=== PATIENT | female | born 1940 | race Caucasian/White ===

== ENCOUNTER → 2016-10-04 | Outpatient (REF) | payer OTHER ==
[~2016-10-04] MED LIST: /MOM400 PO; /PANT40TA PO; /WARF2TA PO; /WARF4TA PO; AMOX500T PO; ATEN25TA PO; BIAX500T PO; CARA1SUS PO; DIGO0.126 OR; FIBER TABS PO; INHALER INH; KLOR20TA PO; LASI40TA PO; NEXI20CA PO; SIMV10TA2 PO; STOOL SOFTENER PO; TYLE325T5 PO; VITA500C24 PO; VITAD1000T PO
[2016-10-04 11:39] LABS: BASO % 0.6 % (0.0-1.0); EOS # 0.2 K/mm3 (0.0-0.50); EOS % 3.6 % (0.0-3.0); LARGE UNSTAINED CELL # 0.1 K/mm3 (0.0-0.4); LARGE UNSTAINED CELL % 2.3 % (0.0-4.0); LYMPH # 1.3 K/mm3 (1.5-4.5); LYMPH % 22.1 % (24.0-44.0); MEAN CORPUSCULAR HEMOGLOBIN 29.4 pg (27.0-33.0); MEAN CORPUSCULAR HGB CONC 31.9 g/dl (32.0-36.5); MEAN CORPUSCULAR VOLUME 92.1 fl (80.0-96.0); MONO # 0.3 K/mm3 (0.0-0.8); MONO % 5.3 % (0.0-5.0); NEUTROPHILS % 66.1 % (36.0-66.0); PLATELET COUNT, AUTOMATED 171 k/mm3 (150-450); RED CELL DISTRIBUTION WIDTH 13.9 % (11.5-14.5)
[2016-10-04 12:14] LABS: ALBUMIN 3.7 GM/DL (3.2-5.2); ALBUMIN/GLOBULIN RATIO 1.32 (1.00-1.93); ALKALINE PHOSPHATASE 57 U/L (45-117); ALT/SGPT 13 U/L (12-78); ANION GAP 5 MEQ/L (8-16); AST/SGOT 11 U/L (15-37); BILIRUBIN,TOTAL 0.5 MG/DL (0.2-1.0); BLOOD UREA NITROGEN 8 MG/DL (7-18); CALCIUM LEVEL 9.1 MG/DL (8.8-10.2); CARBON DIOXIDE LEVEL 31 MEQ/L (21-32); CHLORIDE LEVEL 104 MEQ/L (98-107); CHOLESTEROL LEVEL 176 MG/DL (<200); CREATININE FOR GFR 0.86 MG/DL (0.55-1.02); GLOMERULAR FILTRATION RATE > 60.0 (>39); GLUCOSE, FASTING 84 MG/DL (83-110); POTASSIUM SERUM 4.3 MEQ/L (3.5-5.1); SODIUM LEVEL 140 MEQ/L (136-145); TOTAL PROTEIN 6.5 GM/DL (6.4-8.2); TRIGLYCERIDES LEVEL 80 MG/DL (<150)
== END ==
LOC: M LABDRAW1 11:06
PROVIDERS: ATTEND Nurse Practitioner Family
DX: J45.998 Other asthma (principal); E78.5 Hyperlipidemia, unspecified; K21.9 Gastro-esophageal reflux disease without esophagitis; I51.7 Cardiomegaly

== ENCOUNTER → 2016-12-01 | Outpatient (REF) | payer OTHER ==
[2016-12-01 12:51] LABS: ANION GAP 6 MEQ/L (8-16); BLOOD UREA NITROGEN 10 MG/DL (7-18); CALCIUM LEVEL 8.7 MG/DL (8.8-10.2); CARBON DIOXIDE LEVEL 29 MEQ/L (21-32); CHLORIDE LEVEL 104 MEQ/L (98-107); CREATININE FOR GFR 0.83 MG/DL (0.55-1.02); GLOMERULAR FILTRATION RATE > 60.0 (>39); GLUCOSE, FASTING 81 MG/DL (83-110); SODIUM LEVEL 139 MEQ/L (136-145)
== END ==
LOC: M LABDRAW1 11:59
PROVIDERS: ATTEND Nurse Practitioner Family
DX: R41.3 Other amnesia (principal)

== ENCOUNTER → 2017-01-12 | Outpatient (REF) | payer OTHER ==
[~2017-01-12] MED LIST changes: +ALBU17IN INH; +ALLO15TA PO; +CALCTAB28 PO; +CETI10TA PO; +FLUT44IN INH; +FURO20TA2 PO; +MAGICMW SSP; +MIRA3350 PO; +MONT10TA2 PO; +ONDA8TAB7 PO; +PANT40TA2 PO; +PEG1POW PO; +PRED50TA PO; +PROC10TA PO; +SIMV20TA2 PO; +VITA100066 PO; +ZYLO300T4 PO
[2017-01-12 14:19] LABS: BASO # 0.1 K/mm3 (0.0-0.2); BASO % 0.8 % (0.0-1.0); EOS # 0.2 K/mm3 (0.0-0.50); EOS % 2.9 % (0.0-3.0); LARGE UNSTAINED CELL # 0.2 K/mm3 (0.0-0.4); LARGE UNSTAINED CELL % 2.3 % (0.0-4.0); LYMPH # 2.6 K/mm3 (1.5-4.5); LYMPH % 29.1 % (24.0-44.0); MEAN CORPUSCULAR HEMOGLOBIN 30.4 pg (27.0-33.0); MEAN CORPUSCULAR HGB CONC 32.1 g/dl (32.0-36.5); MEAN CORPUSCULAR VOLUME 94.6 fl (80.0-96.0); MONO # 0.4 K/mm3 (0.0-0.8); MONO % 5.1 % (0.0-5.0); NEUTROPHILS # 4.9 K/mm3 (1.8-7.7); NEUTROPHILS % 59.9 % (36.0-66.0); PLATELET COUNT, AUTOMATED 139 k/mm3 (150-450); RED CELL DISTRIBUTION WIDTH 14.1 % (11.5-14.5); WHITE BLOOD COUNT 8.2 K/mm3 (4.0-10.0)
[2017-01-12 14:34] LABS: FOLATE 10.3 NG/ML (>5.4); VITAMIN B12 LEVEL 534 PG/ML (247-911)
[2017-01-12 15:13] LABS: ALBUMIN 3.7 GM/DL (3.2-5.2); ALBUMIN/GLOBULIN RATIO 1.37 (1.00-1.93); ALKALINE PHOSPHATASE 60 U/L (45-117); ALT/SGPT 14 U/L (12-78); ANION GAP 9 MEQ/L (8-16); AST/SGOT 11 U/L (15-37); BILIRUBIN,TOTAL 0.6 MG/DL (0.2-1.0); BLOOD UREA NITROGEN 11 MG/DL (7-18); CALCIUM LEVEL 9.2 MG/DL (8.8-10.2); CARBON DIOXIDE LEVEL 27 MEQ/L (21-32); CHLORIDE LEVEL 100 MEQ/L (98-107); CREATININE FOR GFR 0.85 MG/DL (0.55-1.02); FREE T4 1.25 NG/DL (0.76-1.46); GLOMERULAR FILTRATION RATE > 60.0 (>39); GLUCOSE, FASTING 76 MG/DL (83-110); PERCENT SATURATION 17.4 % (13.2-37.4); POTASSIUM SERUM 3.9 MEQ/L (3.5-5.1); SODIUM LEVEL 136 MEQ/L (136-145); TOTAL IRON BINDING CAPACITY 287 UG/DL (250-450); TOTAL PROTEIN 6.4 GM/DL (6.4-8.2)
== END ==
LOC: M SFHCPLAZ 10:16
PROVIDERS: ATTEND Nurse Practitioner Family
DX: J45.998 Other asthma (principal); I51.7 Cardiomegaly; E78.5 Hyperlipidemia, unspecified; E55.9 Vitamin D deficiency, unspecified; K21.9 Gastro-esophageal reflux disease without esophagitis; D64.9 Anemia, unspecified; R41.3 Other amnesia
CPT/HCPCS: 80053; 82607; 82746; 83550; 84439; 84443; 85025; G0463

== ENCOUNTER → 2017-01-31 | Outpatient (REF) | payer OTHER ==
[2017-01-31 14:45] LABS: BASO % 0.5 % (0.0-1.0); EOS # 0.3 K/mm3 (0.0-0.50); EOS % 3.6 % (0.0-3.0); LARGE UNSTAINED CELL # 0.2 K/mm3 (0.0-0.4); LARGE UNSTAINED CELL % 2.6 % (0.0-4.0); LYMPH # 3.3 K/mm3 (1.5-4.5); LYMPH % 37.1 % (24.0-44.0); MEAN CORPUSCULAR HEMOGLOBIN 30.6 pg (27.0-33.0); MEAN CORPUSCULAR HGB CONC 32.4 g/dl (32.0-36.5); MEAN CORPUSCULAR VOLUME 94.4 fl (80.0-96.0); MONO # 0.5 K/mm3 (0.0-0.8); MONO % 6.5 % (0.0-5.0); NEUTROPHILS # 4.1 K/mm3 (1.8-7.7); NEUTROPHILS % 49.7 % (36.0-66.0); PLATELET COUNT, AUTOMATED 137 k/mm3 (150-450); RED CELL DISTRIBUTION WIDTH 14.1 % (11.5-14.5); VITAMIN B12 LEVEL 704 PG/ML (247-911); WHITE BLOOD COUNT 8.2 K/mm3 (4.0-10.0)
[2017-01-31 15:03] LABS: ALBUMIN 3.5 GM/DL (3.2-5.2); ALBUMIN/GLOBULIN RATIO 1.35 (1.00-1.93); ALKALINE PHOSPHATASE 61 U/L (45-117); ALT/SGPT 17 U/L (12-78); ANION GAP 6 MEQ/L (8-16); AST/SGOT 16 U/L (15-37); BILIRUBIN,TOTAL 0.7 MG/DL (0.2-1.0); BLOOD UREA NITROGEN 6 MG/DL (7-18); CALCIUM LEVEL 8.9 MG/DL (8.8-10.2); CARBON DIOXIDE LEVEL 29 MEQ/L (21-32); CHLORIDE LEVEL 104 MEQ/L (98-107); CREATININE FOR GFR 0.74 MG/DL (0.55-1.02); GLOMERULAR FILTRATION RATE > 60.0 (>39); GLUCOSE, FASTING 78 MG/DL (83-110); POTASSIUM SERUM 4.3 MEQ/L (3.5-5.1); SODIUM LEVEL 139 MEQ/L (136-145); TOTAL PROTEIN 6.1 GM/DL (6.4-8.2)
[2017-01-31 15:53] LABS: ERYTHROCYTE SEDIMENTATION RATE 7 mm/hr (0-30)
[2017-02-02 10:28] LABS: ALBUMIN 3.67 GM/DL (3.29-5.55); ALBUMIN % 60.2 % (55.8-66.1)
[2017-02-02 10:29] LABS: GAMMA GLOBULIN % 12.3 % (11.1-18.8)
[2017-02-06 08:09] LABS: SJOGREN'S ANTI SS-A <0.2 AI (0.0-0.9); SJOGREN'S ANTI SS-B 0.5 AI (0.0-0.9); VITAMIN E LEVEL 13.9 mg/L (6.5-21.5)
== END ==
LOC: M LABNEURO 10:57
PROVIDERS: ATTEND Psychiatry & Neurology Neurology
DX: F09 Unspecified mental disorder due to known physiological condition (principal)

== ENCOUNTER → 2017-02-09 | Outpatient (REF) | payer OTHER ==
[2017-02-09 13:26] LABS: ANION GAP 5 MEQ/L (8-16); BLOOD UREA NITROGEN 9 MG/DL (7-18); CALCIUM LEVEL 9.2 MG/DL (8.8-10.2); CARBON DIOXIDE LEVEL 31 MEQ/L (21-32); CHLORIDE LEVEL 100 MEQ/L (98-107); CREATININE FOR GFR 0.82 MG/DL (0.55-1.02); GLOMERULAR FILTRATION RATE > 60.0 (>39); GLUCOSE, FASTING 88 MG/DL (83-110); POTASSIUM SERUM 4.6 MEQ/L (3.5-5.1); SODIUM LEVEL 136 MEQ/L (136-145)
== END ==
LOC: M LABNEURO 09:58
PROVIDERS: ATTEND Nurse Practitioner Family
DX: J90 Pleural effusion, not elsewhere classified (principal)

== ENCOUNTER 2017-02-14 12:13 | Inpatient (IN) | payer OTHER, MEDICARE ==
[2017-02-14] VITALS (29 sets, daily range): BP systolic 82–152; BP diastolic 50–72
[~2017-02-14] VITALS: Ht 160 cm; Wt 47.7 kg
[~2017-02-14 12:13] MED LIST changes: -ALBU17IN INH; -ALLO15TA PO; -CALCTAB28 PO; -CETI10TA PO; -FLUT44IN INH; -FURO20TA2 PO; -MAGICMW SSP; -MIRA3350 PO; -MONT10TA2 PO; -ONDA8TAB7 PO; -PANT40TA2 PO; -PEG1POW PO; -PRED50TA PO; -PROC10TA PO; -SIMV20TA2 PO; -VITA100066 PO; -ZYLO300T4 PO
[2017-02-14] MEDS ORDERED: BISACODYL 10 MG SUPP PR PRN (13:00)
[2017-02-14] MEDS ORDERED: BISACODYL 5 MG TAB PO PRN (13:00)
[2017-02-14] MEDS ORDERED: ONDANSETRON 4 MG TAB (S0181) PO PRN (13:00)
--- NOTE | 2017-02-14 14:45 | HPE ---
DATE OF ADMISSION: 02/14/2017 This is a 76-year-old female who was brought into the office at my request secondary to significant dyspnea witnessed by nursing staff today with oxygen saturations in the mid 80% range. Patient has been in the process of a workup for metastatic disease. She has been having some ongoing weight loss, early satiety, constipation, and new onset of dyspnea with orthopnea and difficulty laying flat at night. CT abdomen/pelvis demonstrated bilateral pleural effusions along with intra-abdominal, intraperitoneal, and intrapelvic adenopathy with splenomegaly. Multiple liver lesions also noted along with some mild ascites. CT chest was obtained. Results obtained today. This demonstrates large bilateral pleural effusions, as seen on CT abdomen, similar in size compared to prior study. Also noted, adjacent consolidation in the lungs and significant adenopathy is appreciated, specifically, in the axillary regions, left supraclavicular region, mediastinum, and cardiophrenic angles. Today, patient complains of progressive dyspnea, significant weakness. 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 PAST MEDICAL HISTORY: Significant for; 1. Hypercholesterolemia. 2. Chronic constipation. 3. Internal hemorrhoids. 4. Asthma. 5. Gastritis with duodenal ulcer. 6. Hiatal hernia. 7. Moderate to early advanced multilevel degenerative disc disease to the lumbosacral (LS) spine. 8. Patient has repeatedly declined mammogram screening. PAST SURGICAL HISTORY: 1. Hysterectomy in 1976. 2. Colonoscopy with Dr. Berrios with note of internal hemorrhoids in 07/2011. 3. Esophagogastroduodenoscopy (EGD) with Dr. Berrios which noted a duodenal ulcer and gastritis in 12/2012. 4. Bilateral cataract extraction by Dr. Coleman in 2016. FAMILY HISTORY: Father at 87 years of age due to leukemia. Mother at 90 years of age with heart disease. Siblings: She has a sister due to Raynaud's at age 28. She has three brothers with no known medical problem. Patient has a daughter who has significant MR and does live with her. Other daughters have history of hypothyroidism and diabetes. SOCIAL HISTORY: Patient lives alone with her developmentally-delayed daughter. She does have support by her other children of which her daughter, Marlene Otero, has been present the last several appointments and is assisting patient with her needs. Patient is a nonsmoker. Quit smoking well over 10 years ago. States she simply smoked socially as a teenager. Denies alcohol. Denies drug use. Drinks one small cup of coffee each morning and an occasional tea. Is not sexually active. 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 ALLERGIES: Include, CIPRO which causes stomach upset. Most recent labs toady show some hypoglycemia a fasting blood sugar of 74, BUN 9, creatinine 0.77, GFR above 60. She has a sodium level of 135 which is lower for patient. Potassium stable at 4.5. Patient had a PT/INR completed today in anticipation of biopsies of the liver mass along with inguinal nodes, INR 1.00, prothrombin time is 13.3. REVIEW OF SYSTEMS: GENERAL: Patient does complain of malaise, fatigue, weight loss, and overall feeling poorly. CARDIOVASCULAR: Does admit to dyspnea with exertion. Does admit to orthopnea. Denies chest pain or heart palpitations. PULMONOLOGY: Admits to orthopnea, shortness of breath, dyspnea with exertion. GASTROINTESTINAL: Admits to significant constipation, abdominal discomfort, early satiety without nausea or vomiting. NEUROLOGY: Patient has had some significant issues with memory changes recently. MRI was completed 10/2016. Shows extensive deep white matter signal hyperintensities consistent with deep white matter ischemic changes. Patient was subsequently sent to neurology and is in the process of further testing with Dr. Natty Partida. FEMALE REPRODUCTIVE: Patient denies breast lumps, discharge, pain, or tenderness. HEENT: Denies headaches, visual disturbance, diplopia, tinnitus, or hearing loss. UROLOGY: Patient denies any urologic symptoms. Denies urgency, frequency, pain, or hesitation. On physical exam; Weight today is 112 pounds, which is down 1 pound from her prior visit 5 days ago. Blood pressure 114/64, heart rate 90, respiratory rate 18, temperature 98.8, oxygen saturation 90% at rest, 86% with exertion with an elevated heart rate into the upper 90s. GENERAL: Patient is sitting and resting comfortably. She is ill appearing. She is very thin. Answers questions appropriately. Is alert and oriented. HEENT: Neck is supple without palpable lymphadenopathy or jugular venous distention (JVD). CARDIOVASCULAR: Heart rate and rhythm are regular. PULMONARY: Lungs are diminished bilaterally to the mid lung. She is clear in the upper lung range. ABDOMEN: Is mildly distended. Tender on palpation throughout. Positive bowel sounds times all four quadrants. Bilateral lower extremities are without any edema. ASSESSMENT: 1. Large bilateral pleural effusions. 2. Hypoxia. 3. Dyspnea. 4. Presumed metastatic disease with no known primary. 5. Gastroesophageal reflux disease (GERD). 6. Chronic constipation. 7. History of asthma. 8. History of gastritis with duodenal ulcer. 9. Hiatal hernia. PLAN: Patient will be admitted to medical/surgical. We anticipate at least two midnights of admission. Consults have been placed for thoracentesis as well as biopsy of liver metastasis and lymphadenopathy that the interventional radiologist is able to reach. Diet is as tolerated. Activity is out of bed with assist. We will obtain abdominal imaging today secondary to patient's complaints of constipation and fullness. Anticoagulation was not ordered today with the anticipation that patient will have thoracentesis in the very near future. We will continue with thromboembolism deterrents (TEDs) and sequential compression devices (SCDs). Oxygen will be placed, 2 liters nasal cannula to maintain oxygen saturations well above 90%. Echocardiogram has also been ordered. vice president of consulting services has been ordered secondary to patient's disease process and potential for poor outcome. Will evaluate complete blood count (CBC), CMP, and a magnesium level today. We did add on Aldactone on top of furosemide to assist with the pleural effusion and volume overload. Intake and output (I and O) will be maintained, and patient will be weighed daily. Patient's case has been discussed with attending, Dr. Oliver Schmidt. He is in agreement with admission and will evaluate patient today.
[2017-02-14 15:16] LABS: ALBUMIN 3.5 GM/DL (3.2-5.2); ALBUMIN/GLOBULIN RATIO 1.09 (1.00-1.93); ALKALINE PHOSPHATASE 81 U/L (45-117); ALT/SGPT 19 U/L (12-78); ANION GAP 10 MEQ/L (8-16); AST/SGOT 14 U/L (15-37); BILIRUBIN,TOTAL 0.7 MG/DL (0.2-1.0); BLOOD UREA NITROGEN 9 MG/DL (7-18); CARBON DIOXIDE LEVEL 32 MEQ/L (21-32); CHLORIDE LEVEL 96 MEQ/L (98-107); CREATININE FOR GFR 0.82 MG/DL (0.55-1.02); GLOMERULAR FILTRATION RATE > 60.0 (>39); GLUCOSE, FASTING 84 MG/DL (83-110); MAGNESIUM LEVEL 2.1 MG/DL (1.8-2.4); POTASSIUM SERUM 3.9 MEQ/L (3.5-5.1); SODIUM LEVEL 138 MEQ/L (136-145); TOTAL PROTEIN 6.7 GM/DL (6.4-8.2)
[2017-02-14 15:19] LABS: BASO % 0.5 % (0.0-1.0); EOS # 0.1 K/mm3 (0.0-0.50); EOS % 1.3 % (0.0-3.0); LARGE UNSTAINED CELL # 0.2 K/mm3 (0.0-0.4); LARGE UNSTAINED CELL % 2.2 % (0.0-4.0); LYMPH # 3.3 K/mm3 (1.5-4.5); LYMPH % 30.9 % (24.0-44.0); MEAN CORPUSCULAR HEMOGLOBIN 30.5 pg (27.0-33.0); MEAN CORPUSCULAR VOLUME 92.3 fl (80.0-96.0); MONO # 0.5 K/mm3 (0.0-0.8); MONO % 5.3 % (0.0-5.0); NEUTROPHILS % 59.8 % (36.0-66.0); PLATELET COUNT, AUTOMATED 160 k/mm3 (150-450); RED CELL DISTRIBUTION WIDTH 14.2 % (11.5-14.5); WHITE BLOOD COUNT 10.1 K/mm3 (4.0-10.0)
--- NOTE | 2017-02-14 15:28 | REP ---
KUB, TWO VIEWS: HISTORY: Constipation. A small amount of contrast material is present in the right renal collecting system and urinary bladder. A small amount of air is present in small and large intestine. There are no air fluid levels or dilated loops of intestine. There is no pneumoperitoneum. A mild amount of stool is present in the colon. IMPRESSION: Nonspecific bowel gas pattern. Signed by Joseph Jade MD 02/14/2017 03:29 P
[2017-02-14] MEDS ORDERED: MIDAZOLAM INJ 2 MG/2 ML VIAL (J2250) As Ordered ONE ×2 (16:41→16:42)
[2017-02-14] MEDS ORDERED: FLUMAZENIL 0.5 MG/5 ML VIAL As Ordered ONE (16:41)
[2017-02-14] MEDS ORDERED: LIDOCAINE 1% MDV 20ML VIAL As Ordered ONE (16:42)
[2017-02-14] MEDS: NS 1,000 ML IV SCH (18:14)
[2017-02-14] MEDS ORDERED: NORCO, ANEXSIA 5/325MG TABLET (HYDROcodone/ACETAMINOPHEN) PO PRN (18:15)
[2017-02-14] MEDS ORDERED: PERCOCET 5MG/325MG TAB PO PRN ×2 (18:15)
[2017-02-14] MEDS ORDERED: LEVALBUTEROL 1.25 MG/0.5 ML CONCENTRATE NEB NEB PRN (18:15)
[2017-02-14] MEDS ORDERED: FLUMAZENIL 0.5 MG/5 ML VIAL IV STA (18:18)
--- NOTE | 2017-02-14 18:24 | CR ---
DATE OF CONSULTATION: 02/14/2017 Patient is seen at the request of Dr. Schmidt and Dr. Lockett of Radiology for bilateral pleural effusions and shortness of breath. HISTORY OF PRESENT ILLNESS: Patient is a 76-year-old white female who was admitted to the hospital today from the office. Her present story starts about 1 month ago when she started to notice that she was getting more and more short of breath. Shortness of breath has continued. She has difficulty even getting around her house. She has been sleeping in the recliner for the last one year but for social reasons that she has a special needs daughter whom she keeps an eye on at night to help her use the bathroom. None the less, she now states that she gets short of breath just lying down and over the last month. Her shortness of breath has been accompanied by a cough with white sputum production. She has had no fevers, chills, or sweats and she has had no night swats. She has lost approximately 3-5 of weight in the past month. She has had constipation and produces just "nuggets" when she moves her bowels. This too has been going on about a month. She complains of abdominal pain the last month, particularly in her left upper quadrant. When she eats she has pain in the left upper quadrant. She has no chest pain or chest discomfort and she has never had a myocardial infarction. PAST MEDICAL ILLNESSES: Asthma with a history of duodenal ulcer, treated nonoperatively, hiatal hernia, degenerative disc disease, hypercholesterolemia and the above note chronic constipation. PAST SURGICAL HISTORY: Hysterectomy 1996, colonoscopy with Dr. Berrios 07/2011, and a esophagogastroduodenoscopy with Dr. Berrios noted duodenal ulcer and gastritis in 12/2012. Bilateral cataract extraction 2015. MEDICATIONS AT HOME: - amoxicillin 500 mg twice a day - Carafate 1 gram four times a day - Biaxin 500 mg twice a day - Milk of Magnesia 1 teaspoon at bedtime - Protonix 40 mg twice a day - simvastatin 10 mg at bedtime - vitamin C 500 mg daily - vitamin D 1,000 unit daily - unknown inhaler which I will find out later on - Tylenol 325 mg as needed for pain every 4 hours TRAVEL HISTORY: No travel history outside [facility]. She was born, raised and educated in [place] [facility] and has not left the area. There is no foreign travel. EXPOSURES: No present dog, cats, or birds at home. No prior tuberculosis exposure. 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 There is no asbestos exposure. HABITS: Does not smoke and does not drink. Did smoke for a years when she was a teenager but quit after a couple of years. There is no illicit drugs. FAMILY HISTORY: Father of leukemia and mother at 90 years of with some type of heart disease and heart murmur. No other history of cancer other than the leukemia in her family history. REVIEW OF SYSTEMS: CONSTITUTIONAL: See above. EYES: Without diplopia, without prior jaundice, without amaurosis fugax. NOSE: Without epistaxis. MOUTH: Has her own teeth. RESPIRATORY: See history of present illness. CARDIAC: Denies leg edema or prior myocardial infarction. Has orthopnea but no paroxysmal nocturnal dyspnea. GASTROINTESTINAL: See history of present illness. Has abdominal pain in the left upper quadrant over the past month. No nausea, vomiting, diarrhea. She has constipation. No melena, hematochezia, hematemesis at the present time. Has a history of duodenal ulcer. GENITOURINARY: Without dysuria, hematuria or prior history of renal stones. ENDOCRINE: Without diabetes or thyroid disease. NEUROLOGIC: Without prior seizures or paralyses. LYMPHATICS: Has felt some lumps and bumps on her arms and maybe her neck. HEMATOLOGIC: Has not cut herself in a long time but when she did she did not bleed excessively. PSYCHIATRIC: Without pathologic anxiety or depression or psychoses. PHYSICAL EXAMINATION: GENERAL: Well developed, cachectic 76-year-old white female short of breath at rest. VITAL SIGNS: Temperature 98.2, pulse of 86 with a regular rate and rhythm. 70, respiratory rate of 22 with a blood pressure 152/72, and she is 93% saturated on room air. HEAD: Normocephalic. EYES: Pupils equal, round, reactive to light. Extraocular muscles intact. Sclerae nonicteric. NOSE: Without deformity. MOUTH: Mucous membranes are pink and moist. Lips and commissures without lesions. There is no thrush. HEAD: Normocephalic. NECK: Supple. There is no jugular venous distention (JVD). No subcutaneous emphysema. Trachea is midline. There is supraclavicular lymphadenopathy bilaterally. She has 2+ carotid upstrokes. No carotid bruits. There is no thyromegaly. LUNGS: Markedly decreased breath sounds in the lower and mid lung blount on both sides. Percussion note is dull except in both apices bilaterally. I do hear some faint rhonchi during inspiration and expiration. There is egophony on either side. ABDOMEN: Soft, but she is tender in the left upper quadrant and I can clearly feel a mass in the left upper quadrant. It feels like her spleen. It is firm. There is no hepatomegaly and no CVA tenderness. Bowel sounds are positive. No aortic bruits. EXTREMITIES: Show 1+ pretibial edema. There is no calf tenderness. There is no differential swelling of the upper extremities. SKIN: Warm, dry and perfused without cyanosis or mottling including that of the nail beds and knees. NEUROLOGIC: Shows II through XII intact. Gross motor and gross sensation intact. Gait is also intact. PSYCHIATRIC: Shows her to be awake and alert and oriented times three with appropriate mood and conversational. INVESTIGATIONS: White count is 10.1 with a hemoglobin and hematocrit of 11.8 and 35.8 with a platelet count of 160. Differential shows 59% neutrophils, 30% lymphocytes, 5% monocytes. There are no immature forms, no toxic granulations. Her electrolytes are essentially normal with a BUN and creatinine of 9 and 0.82. Glucose is 84 and a calcium of 9.0 with a corresponding albumin of 3.5. AST and ALT are 14 and 19 respectively. Bilirubin is 0.7, magnesium 2.1. Coagulation studies are not yet completed. . Her chest CT done at [facility] today shows a very large bilateral pleural effusion with compressed lung on either side. She only has the upper portion of her lung blount are expanded. She has lymphadenopathy in the axilla in the neck. There is some mediastinal lymphadenopathy but not a lot. She has paraaortic lymphadenopathy. She has a very enlarged spleen. IMPRESSION: 1. Bilateral pleural effusion. 2. Generalized lymphadenopathy. 3. History of asthma. 4. Shortness of breath secondary to pleural effusion. 5. Hypercholesterolemia. 6. History of a duodenitis and gastritis. PLAN/DISCUSSION: The first order of business is I am going to treat her shortness of breath by draining the fluid and trying to make a diagnosis. I have already talked with pathology and if there is a lymphoma that is present in the pleural fluid we can make a diagnosis from that. If not, we will undertake a lymph node biopsy. I will therefore drain her right side tonight. She understands that she is at risk for postexpansion pulmonary edema and she may gets worse before she gets better. She may even need ventilation. She understands and is ready to proceed.
[2017-02-14] MEDS ORDERED: MIDAZOLAM INJ 2 MG/2 ML VIAL (J2250) IV ONE (18:30)
[2017-02-14] MEDS ORDERED: LIDOCAINE 1% MDV 20ML VIAL SC ONE (18:30)
[2017-02-14] MEDS ORDERED: FLUT44IN INH (19:00)
[2017-02-14] MEDS ORDERED: PANT40TA2 PO (19:00)
[2017-02-14] MEDS ORDERED: ALBU17IN INH (19:00)
[2017-02-14] MEDS ORDERED: SIMV20TA2 PO (19:00)
[2017-02-14] MEDS ORDERED: MONT10TA2 PO (19:00)
[2017-02-14] MEDS ORDERED: FURO20TA2 PO (19:00)
[2017-02-14] MEDS ORDERED: VITA100066 PO (19:02)
[2017-02-14] MEDS ORDERED: CETI10TA PO (19:02)
[2017-02-14] MEDS ORDERED: CALCTAB28 PO (19:02)
[2017-02-14 19:09] LABS: LDH, BODY FLUID 112 U/L (NOT ESTABLISHED); TOTAL PROTEIN, BODY FLUID 4.3 G/DL (NOT ESTABLISHED)
--- NOTE | 2017-02-14 19:25 | REP ---
AP PORTABLE CHEST: 02/14/2017. Comparison: CT chest 02/14/2017, chest x-ray 02/26/2016. Clinical history: Chest tube placement. Findings: Right chest tube is placed and has drained much of the large right pleural effusion. A left pleural effusion of similar size to the right side on yesterday's CT remains. There is no pneumothorax. No midline shift. The aorta is calcified and tortuous. Heart size cannot be judged with the large effusion. Bones without acute fracture or destructive lesion. Impression: 1. Right-sided chest tube into the upper chest with tip at the level of the aortic arch along the right mediastinal margin. Most of that right effusion has evacuated. There is some basilar atelectatic changes remaining and the left large effusion remains. No pneumothorax. Signed by Keyur Alas MD 02/15/2017 04:51 P
[2017-02-14 19:35] LABS: ABG BASE EXCESS 3.2 (-2.0-2.0); ABG HCO3 27.2 MEQ/L (22.0-26.0); ABG PARTIAL PRESSURE CO2 39.5 mmHg (35.0-45.0); ABG PARTIAL PRESSURE O2 89.6 mmHg (75.0-100.0); ABG STANDARD HCO3 27.3 MEQ/L (22.0-26.0); ABG TOTAL CO2 28.4 MEQ/L (23.0-31.0); ABG pH (ARTERIAL) 7.456 UNITS (7.350-7.450)
[2017-02-14 19:47] LABS: RBC PLEURAL FLUID < 10 (<10mm3 cells/uL); TNC PLEURAL FLUID 2702 cells/uL (0-20)
[2017-02-14 19:49] LABS: BF DIFF IF INDICATED? YES (NO)
[2017-02-14] MEDS: LEVALBUTEROL 1.25 MG/0.5 ML CONCENTRATE NEB NEB SCH (20:01)
[2017-02-14] MEDS: KETOROLAC 30 MG/ML VIAL (J1885) IV SCH (20:06)
[2017-02-14 20:07] LABS: CC BF DIFF EXAM CYTOCENTRIFUGE
[2017-02-14] MEDS: DOCUSATE SODIUM 100 MG CAP PO SCH (20:07)
[2017-02-14] MEDS: FUROSEMIDE 20 MG/2 ML VIAL (J1940) IV SCH (20:07)
[2017-02-14] MEDS: SENOKOT S TAB PO SCH (20:07)
[2017-02-14] MEDS: HEPARIN SOD (PORCINE) 5000 UNITS/ML VIAL SC SCH (20:07)
[2017-02-14] MEDS ORDERED: ACETAMINOPH W/CODEINE #3 TAB UD PO PRN (20:30)
--- NOTE | 2017-02-14 20:32 | RO ---
DATE OF PROCEDURE: 02/14/2017 PREPROCEDURE DIAGNOSIS: Right pleural effusion. POSTPROCEDURE DIAGNOSIS: Right pleural effusion. PROCEDURE: Insertion of right lateral chest tube. SURGEON: Dr. Carlos Zuleta BUCKET OPERATOR: ANESTHESIA: DESCRIPTION OF PROCEDURE: Under satisfactory moderate sedation achieved with 2 mg of Versed, the patient was prepped and draped in the usual sterile fashion. Incision was made and a tunnel was created into the approximate 6th intercostal space. A #20 chest tube was placed without difficulty and 2000 mL of serous fluid was eluded from the chest. Chest tube was secured to the chest wall with #2-0 Tevdek suture. The chest tube was connected to the Pleur-evac and taped. Specimens were sent for the requisite chemistries, hematologies, cytologies and bacteriologies. The patient tolerated the procedure well and a chest x-ray is pending. Moderate sedation and monitoring time 20 minutes. MTDD
[2017-02-15] VITALS (8 sets, daily range): BP systolic 91–113; BP diastolic 53–63
[2017-02-15] MEDS: LEVALBUTEROL 1.25 MG/0.5 ML CONCENTRATE NEB NEB SCH ×4 (01:13→20:00)
[2017-02-15] MEDS: KETOROLAC 30 MG/ML VIAL (J1885) IV SCH ×2 (03:45→08:44)
[2017-02-15 05:52] LABS: BASO # 0.1 K/mm3 (0.0-0.2); BASO % 0.5 % (0.0-1.0); EOS # 0.1 K/mm3 (0.0-0.50); EOS % 0.5 % (0.0-3.0); LARGE UNSTAINED CELL # 0.3 K/mm3 (0.0-0.4); LARGE UNSTAINED CELL % 2.2 % (0.0-4.0); LYMPH # 3.4 K/mm3 (1.5-4.5); LYMPH % 28.2 % (24.0-44.0); MEAN CORPUSCULAR HEMOGLOBIN 30.5 pg (27.0-33.0); MEAN CORPUSCULAR HGB CONC 32.8 g/dl (32.0-36.5); MONO # 0.5 K/mm3 (0.0-0.8); MONO % 4.6 % (0.0-5.0); NEUTROPHILS # 7.6 K/mm3 (1.8-7.7); PLATELET COUNT, AUTOMATED 146 k/mm3 (150-450); RED CELL DISTRIBUTION WIDTH 14.1 % (11.5-14.5); WHITE BLOOD COUNT 11.9 K/mm3 (4.0-10.0)
[2017-02-15 06:08] LABS: ALBUMIN/GLOBULIN RATIO 0.96 (1.00-1.93); ALKALINE PHOSPHATASE 57 U/L (45-117); ALT/SGPT 13 U/L (12-78); ANION GAP 9 MEQ/L (8-16); AST/SGOT 10 U/L (15-37); BILIRUBIN,TOTAL 0.6 MG/DL (0.2-1.0); BLOOD UREA NITROGEN 11 MG/DL (7-18); CALCIUM LEVEL 8.2 MG/DL (8.8-10.2); CARBON DIOXIDE LEVEL 28 MEQ/L (21-32); CHLORIDE LEVEL 101 MEQ/L (98-107); CREATININE FOR GFR 0.91 MG/DL (0.55-1.02); GLOMERULAR FILTRATION RATE > 60.0 (>39); GLUCOSE, FASTING 86 MG/DL (83-110); POTASSIUM SERUM 4.3 MEQ/L (3.5-5.1); SODIUM LEVEL 138 MEQ/L (136-145); TOTAL PROTEIN 5.5 GM/DL (6.4-8.2)
[2017-02-15 06:17] LABS: ALBUMIN 2.7 GM/DL (3.2-5.2)
[2017-02-15 06:18] LABS: ABG BASE EXCESS 4.1 (-2.0-2.0); ABG HCO3 28.7 MEQ/L (22.0-26.0); ABG PARTIAL PRESSURE CO2 43.7 mmHg (35.0-45.0); ABG PARTIAL PRESSURE O2 86.9 mmHg (75.0-100.0); ABG STANDARD HCO3 28.1 MEQ/L (22.0-26.0); ABG TOTAL CO2 30.1 MEQ/L (23.0-31.0); ABG pH (ARTERIAL) 7.436 UNITS (7.350-7.450)
[2017-02-15] MEDS: NS 1,000 ML IV SCH (06:38)
[2017-02-15] MEDS: FLUTICASONE HFA 44 MCG 10.6GM INHALER (FLOVENT) INH SCH ×2 (07:27→20:02)
--- NOTE | 2017-02-15 07:55 | REP ---
Clinical: Chest tube and pleural effusions. Technique: PA and lateral. Comparison: 02/14/2017. Findings: Right-sided chest tube in stable position extending to the posterior upper hemithorax. Right-sided opacities in the mid to lower lung zone suggest elements of residual pleural fluid and consolidations are similar to prior examination. Large left pleural effusion unchanged. Visualized portions of the mediastinum and cardiac silhouette remains stable. Skeletal structures are intact. Impression: Right-sided chest tube in relatively stable position. Large left pleural effusion and right lower lobe pleuroparenchymal changes similar to prior examination. Signed by Andrey Rodriguez MD 02/15/2017 07:47 A
[2017-02-15] MEDS: FUROSEMIDE 20 MG/2 ML VIAL (J1940) IV SCH ×2 (08:44→17:00)
[2017-02-15] MEDS: HEPARIN SOD (PORCINE) 5000 UNITS/ML VIAL SC SCH ×2 (08:44→20:09)
[2017-02-15] MEDS: MOM 30ML SUSPENSION UDC PO SCH (08:45)
[2017-02-15] MEDS: PANTOPRAZOLE 40MG TAB (PROTONIX) PO SCH (08:45)
[2017-02-15] MEDS: MONTELUKAST 10 MG TAB PO SCH (08:45)
[2017-02-15] MEDS: SENOKOT S TAB PO SCH ×2 (08:45→20:09)
[2017-02-15] MEDS: DOCUSATE SODIUM 100 MG CAP PO SCH ×2 (08:45→20:10)
[2017-02-15] MEDS ORDERED: SPIRONOLACTONE 12.5MG PER 1/2 TABLET PO SCH (09:00)
--- NOTE | 2017-02-15 11:36 | IPNPDOC ---
Subjective Date Seen The patient was seen on 02/15/17. Subjective Chief Complaint/HPI The patient is a 76-year-old female admitted with a reason for visit of Plueral Efusion W/ Hypoxia. Events since last encounter c/o right lower abd pain after eating. Only had small rabbit stool yesterday. No significant BM in over a week. No n/v Constitutional: Reports: Weight Loss, Denies: Chills, Fever Pulmonary: Reports: Dyspnea (improved s/p chest tube) Cardiovascular: Denies: Chest Pain, Palpitations Gastrointestinal: Reports: Abdominal Pain, Constipation, Denies: Nausea, Vomiting, Diarrhea, Melena, Hematochezia Objective Physical Examination General Exam: Positive: Alert, No Acute Distress, Other (thin) Chest Exam: Positive: Other (decreased BS BL without wheezes or rhonchi) Heart Exam: Positive: Rate Normal, Regular Rhythm Abdomen Exam: Positive: Other (distended, tympanic with bowel sounds, Tender in LLQ no rebound,guard) Other physical findings prominent palpable lymph node in left axilla Assessment /Plan Problems (1) Pleural effusion Problem Text: Presented with BL pleural effusions. Chest tube placed in right - drained 2 liters fluid. Initial evaluation seems possibly transudative. Cytology pending Dr. Zuleta following - He suspects cytology will be non-diagnostic and therefore she will need lymph node biopsy by general surgery to ontain diagnosis He spoke with Dr. Sung who has evaluated the patient and is prepared to perform biopsy tomorrow evening if pleural fluid cytology is negative (Patient has previously seen Dr. Berrios for EGD/Colonoscopy in 2012. I spoke with him and he is willing to perform biopsy if needed on Monday - We will hopefully have cytology back by tomorrow and then get one or the other to perform biopsy if needed) Of note Ct chest ab/pelvis at [facility] - I will try to obtain those reports and images In the meantime, I will stop Spironolactone due to borderline low BP and put hold parameters on Lasix for SBP (2) Obstipation Status: Chronic Response to Treatment: Stable Problem Text: I will get flat/upright abd today due to significant distension. Start Miralax and other bowel care D/C narcotics - she is not having much pain anyway (3) Weight loss, unintentional Status: Chronic Problem Text: Weight loss and bowel issues x 1 month - likely related to malignancy (4) Asthma (5) Hypoxia Status: Acute Response to Treatment: Improving Plan/VTE VTE Prophylaxis Ordered?: Yes (SQ heparin) VS, I&O, 24H, Fishbone Vital Signs/I&O Vital Signs Date Time Temp Pulse Resp B/P (MAP) Pulse Ox O2 Delivery O2 Flow Rate FiO2 02/15/17 08:00 98.5 85 18 91/56 (68) 96 Nasal Cannula 1.0 I&O- Last 24 Hours up to 6 AM 02/15/17 06:00 Intake Total 1020 ml Output Total 3025 ml Balance -2005 ml Laboratory Data 24H LABS Laboratory Tests 2 02/14/17 14:40: White Blood Count 10.1H, Red Blood Count 3.88L, Hemoglobin 11.8L, Hematocrit 35.8L, Mean Corpuscular Volume 92.3, Mean Corpuscular Hemoglobin 30.5, Mean Corpuscular Hemoglobin Concent 33.0, Red Cell Distribution Width 14.2, Platelet Count 160, Neutrophils (%) (Auto) 59.8, Lymphocytes (%) (Auto) 30.9, Monocytes ( %) (Auto) 5.3H, Eosinophils (%) (Auto) 1.3, Basophils (%) (Auto) 0.5, Neutrophils # (Auto) 6.0, Lymphocytes # (Auto) 3.3, Monocytes # (Auto) 0.5, Eosinophils # (Auto) 0.1, Basophils # (Auto) 0.0, Large Unclassified Cells % 2.2 , Large Unclassified Cells # 0.2, Anion Gap 10, Glomerular Filtration Rate > 60.0, Blood Urea Nitrogen 9, Creatinine 0.82, Sodium Level 138, Potassium Level 3.9, Chloride Level 96L, Carbon Dioxide Level 32, Calcium Level 9.0, Aspartate Amino Transf (AST/SGOT) 14L, Alanine Aminotransferase (ALT/SGPT) 19, Lactate Dehydrogenase 212, Alkaline Phosphatase 81, Total Bilirubin 0.7, Total Protein 6.7, Albumin 3.5, Magnesium Level 2.1, Albumin/Globulin Ratio 1.09 02/14/17 18:03: Body Fluid Neutrophils 14, Body Fluid Lymphocytes 73, Body Fluid Monocytes/ Macrophages 13, Pleural Fluid Source PLEURAL, Pleural Fluid Color YELLOW, Pleural Fluid Appearance CLOUDY, Pleural Fluid RBC (Auto) < 10, Pleural Fluid Total Nucleated Cells 2702H 02/14/17 18:13: Body Fluid pH 7.561, Body Fluid pH Source PLEURAL, Body Fluid Glucose Source PLEURAL, Body Fluid Glucose 91, Body Fluid Protein Source PLEURAL, Body Fluid Total Protein 4.3, Body Fluid Albumin Source PLEURAL, Body Fluid Albumin 2.8, Body Fluid LDH Source PLEURAL, Body Fluid Lactate Dehydrogenase 112, Body Fluid Amylase Source PLEURAL, Body Fluid Amylase 26, Body Fluid Cholesterol 64, Body Fluid Cholesterol Source PLEURAL, Body Fluid Triglyceride Source PLEURAL, Body Fluid Triglycerides 81 02/14/17 19:26: Blood Gas Bicarbonate Standard 27.3H, Arterial Blood pH 7.456H, Arterial Blood Partial Pressure CO2 39.5, Arterial Blood Partial Pressure O2 89.6, Arterial Blood Total CO2 28.4, Arterial Blood HCO3 27.2H, Arterial Blood Base Excess 3.2H , Arterial Blood Oxygen Saturation 97.2 02/15/17 05:00: White Blood Count 11.9H, Red Blood Count 3.43L, Hemoglobin 10.5L, Hematocrit 31.9L, Mean Corpuscular Volume 93.0, Mean Corpuscular Hemoglobin 30.5, Mean Corpuscular Hemoglobin Concent 32.8, Red Cell Distribution Width 14.1, Platelet Count 146L, Neutrophils (%) (Auto) 64.0, Lymphocytes (%) (Auto) 28.2, Monocytes (%) (Auto) 4.6, Eosinophils (%) (Auto) 0.5, Basophils (%) (Auto) 0.5, Neutrophils # (Auto) 7.6, Lymphocytes # (Auto) 3.4, Monocytes # (Auto) 0.5, Eosinophils # (Auto) 0.1, Basophils # (Auto) 0.1, Large Unclassified Cells % 2.2 , Large Unclassified Cells # 0.3, Anion Gap 9, Glomerular Filtration Rate > 60.0 , Blood Urea Nitrogen 11, Creatinine 0.91, Sodium Level 138, Potassium Level 4.3 , Chloride Level 101, Carbon Dioxide Level 28, Calcium Level 8.2L, Aspartate Amino Transf (AST/SGOT) 10L, Alanine Aminotransferase (ALT/SGPT) 13, Alkaline Phosphatase 57, Total Bilirubin 0.6, Total Protein 5.5L, Albumin 2.7#L, Albumin/ Globulin Ratio 0.96L 02/15/17 06:04: Blood Gas Bicarbonate Standard 28.1H, Arterial Blood pH 7.436, Arterial Blood Partial Pressure CO2 43.7, Arterial Blood Partial Pressure O2 86.9, Arterial Blood Total CO2 30.1, Arterial Blood HCO3 28.7H, Arterial Blood Base Excess 4.1H , Arterial Blood Oxygen Saturation 96.9 CBC/BMP Laboratory Tests 02/14/17 14:40 Red Blood Count 3.88 L, Mean Corpuscular Volume 92.3, Mean Corpuscular Hemoglobin 30.5, Mean Corpuscular Hemoglobin Concent 33.0, Red Cell Distribution Width 14.2, Neutrophils (%) (Auto) 59.8, Lymphocytes (%) (Auto) 30.9, Monocytes (%) (Auto) 5.3 H, Eosinophils (%) (Auto) 1.3, Basophils (%) ( Auto) 0.5, Neutrophils # (Auto) 6.0, Lymphocytes # (Auto) 3.3, Monocytes # (Auto ) 0.5, Eosinophils # (Auto) 0.1, Basophils # (Auto) 0.0, Calcium Level 9.0, Aspartate Amino Transf (AST/SGOT) 14 L, Alanine Aminotransferase (ALT/SGPT) 19, Lactate Dehydrogenase 212, Alkaline Phosphatase 81, Total Bilirubin 0.7, Total Protein 6.7, Albumin 3.5 02/15/17 05:00 Red Blood Count 3.43 L, Mean Corpuscular Volume 93.0, Mean Corpuscular Hemoglobin 30.5, Mean Corpuscular Hemoglobin Concent 32.8, Red Cell Distribution Width 14.1, Neutrophils (%) (Auto) 64.0, Lymphocytes (%) (Auto) 28.2, Monocytes (%) (Auto) 4.6, Eosinophils (%) (Auto) 0.5, Basophils (%) (Auto ) 0.5, Neutrophils # (Auto) 7.6, Lymphocytes # (Auto) 3.4, Monocytes # (Auto) 0.5, Eosinophils # (Auto) 0.1, Basophils # (Auto) 0.1, Calcium Level 8.2 L, Aspartate Amino Transf (AST/SGOT) 10 L, Alanine Aminotransferase (ALT/SGPT) 13, Alkaline Phosphatase 57, Total Bilirubin 0.6, Total Protein 5.5 L, Albumin 2.7 # L Microbiology Microbiology 02/14/17 Acid Fast Stain, Received Pending 02/14/17 Mycobacterial Culture, Received Pending 02/14/17 Fungal Smear, Received Pending 02/14/17 Fungal Culture, Received Pending 02/14/17 Gram Stain - Final, Resulted 02/14/17 Body Fluid Culture, Resulted Pending 02/14/17 Anaerobic Culture, Resulted Pending 02/14/17 Gram Stain, Received Pending 02/14/17 Body Fluid Culture, Received Pending SHASHANK CAREY PA-C Feb 15, 2017 11:36
[2017-02-15] MEDS: MIRALAX *UNIT DOSE* 17GM PACKET PO SCH ×2 (12:40→20:09)
--- NOTE | 2017-02-15 14:06 | REP ---
ABDOMEN SERIES: Three views. HISTORY: Abdominal distension, obstipation. FINDINGS: Upright chest radiograph shows a small right apical pneumothorax again noted unchanged. Right chest tube remains in place. There is an infiltrative opacity in the re-expanded right lower lobe. Moderate left pleural effusion persists unchanged. No free subdiaphragmatic air is seen. There is an air-fluid level in the stomach. Supine and erect views of the abdomen show air and stool in a nondilated colon. The stomach may be somewhat distended. No small bowel dilation is seen. Contrast opacified intact urinary bladder is seen. IMPRESSION: Question gastric distension with fluid and air. Otherwise negative abdomen views. Left pleural effusion right lower lobe infiltrate and small right pneumothorax again seen. Signed by Jamison Adair MD 02/15/2017 05:03 P
--- NOTE | 2017-02-15 15:25 | IPN ---
DATE: 02/15/2017 Ms. Purcell is now approximately 1 day status post placing the chest tube for a large pleural effusion, which has drained 2000 of pleural fluid. She is breathing so much better today and she is quite happy. Her pain is being well controlled at the chest tube insertion site, although she still has pain in her left upper quadrant when she eats. Her vital signs show a T-max of 99.2 with a heart rate that ranges between 85 and 72 and in sinus rhythm, respiratory rate that is constant at 18, who is 96% saturated on 1 liter nasal cannula and her blood pressure is now 96/58 to 91/56. Her intake and output over the past 24 hours has been recorded as 450 in and 2505 out for a negativity of 2000 mL. That includes the initial drainage of 2000 mL yesterday from the chest tube. Overnight, she has put out 420 mL in the chest tube. Her weight today is 49.6 kilograms compared to 50.6 kilograms yesterday. On physical examination, her right lung shows inspiratory crackles and rales in the lower extent of her hemithorax. The right upper lobe shows normal vesicular sounds. Percussion note is full to the diaphragm on the right side. The left side shows dullness to percussion almost up to the apex of the lung but I do hear breath sounds at the apex of the left upper hemithorax. Cardiac exam is without murmurs, clicks, gallops or rubs. I cannot feel her point of maximum impulse (PMI). S1 and S2 are normal. Abdomen is soft but slightly tender in the left upper quadrant and she still has her large splenic mass. Bowel sounds are positive and she is somewhat tympanitic and distended. Extremities show less pretibial edema today, more like trace to 1+. There is no calf tenderness. No differential swelling of the upper extremities. Skin is warm, dry and perfused without cyanosis or mottling including that of the nail beds and knees. Neck is supple. There is no jugular venous distention. No subcutaneous emphysema. Trachea is midline. Mouth shows her mucous membranes to be pink and moist. Lips and commissures are without lesions. There is no thrush. Eyes show her pupils to be equal and reactive. Extraocular movements intact. Sclerae nonicteric. Neurologic shows II-XII intact along with gross motor and gross sensation intact. Gait is not tested. Psychiatric showed him to be awake, alert and oriented times three with appropriate and affect and conversational. Her white count today is 11.9 with hemoglobin and hematocrit 10.5 and 31.9 respectively. Platelet count is 146 and stable and differential shows 64% neutrophils, 28% lymphocytes, 4% monocytes. There are no immature forms and no toxic granulations. Her electrolytes are normal with BUN and creatinine 11 and 0.91 with a glucose of 86 and a calcium of 8.2. AST and ALT are normal and her albumin is 2.7. Her blood gas this morning show a pH 7.43, pCO2 43, pO2 86 which is essentially unchanged from yesterdays after her chest tube was placed. She has a base excess of 4.1. Her chest x-ray today shows infiltrates consistent with post expansion pulmonary edema in the right lower lobe. The lung is fully expanded to the chest wall. There still considerable pleural effusion on the left. Pleural effusion on the left goes at least nursing home up the chest. Chest tube on the right is in good place and costophrenic angles are sharp. There is no mediastinal shift. I do not see any infiltrates on the lateral film as well as I can see through the pleural effusion on the left side. Her pleural fluid has come back with a pH of 7.56. LDH is 112 compared to a serum LDH of 212. Triglycerides are 181 and total protein is 4.3 with a corresponding total protein of 6.7. She has 2700 nucleated cells, 73% of which are lymphocytes, 14% are neutrophils and 13% monocytes. By chemistry this looks like to be a transudative lymphocytic effusion. I have gone over the cytology with Dr. Mays. The cell block is pending. Cytology does not look as if it is going to be diagnostic, although we will wait for the cell block. There are lots of small lymphocytes but none of the lymphocytes look pathologic. She has mesothelial cells. IMPRESSION: 1. Bilateral pleural effusions, the right addressed with a chest tube, left is still present. 2. Generalized lymphadenopathy. 3. History of asthma. 4. Shortness of breath secondary to pleural effusion improving. 5. Hypercholesterolemia. 6. History of duodenitis and gastritis. 7. Post expansion pulmonary edema, right lower lobe. PLAN/DISCUSSION: I will hold off draining the left side until tomorrow to give the pulmonary edema some time to resolve. Nonetheless, clinically, she is not short of breath. We are still faced with making a diagnosis and I do not think that the cytology or the cell block are going to give us the answer. We have, therefore, asked general surgery to consider doing an axillary node biopsy for complete tissue. Hopefully that cam be accomplished by the end of the week giving us the possibility of making the diagnosis by early next week. I will drain her left pleural effusion tomorrow. The question is really going to be what to do with the pleural effusions if they continue drain. Right now, they look transudative but they are lymphocytic and I am still suspicious that they are in deed malignant. Malignant pleural effusions usually are exudative, however. She has a normal pH and a normal glucose which mitigates against malignancy. She certainly does not have an empyema.
[2017-02-15] MEDS ORDERED: SLF 3 ML SYR IV PRN (17:00)
[2017-02-15] MEDS: ACETAMINOPHEN TAB 650MG DOSE (2X325MG) PO PRN (20:09)
[2017-02-15] MEDS: SLF 3 ML SYR IV SCH (20:10)
--- NOTE | 2017-02-15 20:28 | ECHO ---
DATE OF PROCEDURE: 02/15/2017 REFERRING PHYSICIAN: MYRIAM Doan PATIENT LOCATION: Room 3213 REASON FOR ECHOCARDIOGRAM: Shortness of breath. 2D MEASUREMENTS: IVS: 1.2 cm LV: 2.8 cm LVPW: 1.2 cm LA: 2.4 cm Aorta: 3.2 cm IVC: 1.3 cm DOPPLER MEASUREMENTS: Peak velocity across the tricuspid valve: 2.9 m/s Peak velocity across the aortic valve: 1.4 m/s Peak velocity across the LVOT: 1.4 m/s Mitral E: 0.8, Mitral A: 0.9, with a ratio of 0.8 Maximum tricuspid valve velocity: 2.9 m/s 2D COMMENTS: 1. Normal left ventricular size, wall thickness and a normal global left ventricular systolic function. The left ventricle appeared to be hyperdynamic with an estimated global left ventricular systolic ejection fraction of 65 to 70%. 2. Normal left atrium. Normal right atrium and right ventricle. 3. The atrial septum appeared to be normal without evidence of defect or shunt. 4. Normal aortic root. 5. Pleural effusion was noted. Small pericardial effusion also noted posteriorly at the apex and anteriorly to the left ventricle. There is no evidence of cardiac tamponade. 6. The aortic valve, mitral valve, tricuspid valve appeared to be normal. The proximal pulmonary artery branches and the pulmonic valve were not well visualized. 7. The inferior vena cava was normal in size, central venous pressure is most likely normal. DOPPLER: Only moderate tricuspid regurgitation detected. The calculated pulmonary artery systolic pressure varied between 40 to 50 mmHg. Abnormal relaxation pattern was noted across the mitral valve leaflets as well as the mitral valve annulus consistent with grade 1 left ventricular diastolic dysfunction. IMPRESSION: 1. Normal global left ventricular systolic function with a hyperdynamic left ventricle. There are features of left ventricular diastolic dysfunction, grade 1. 2. Moderate tricuspid regurgitation with moderate pulmonary hypertension. 3. Small pericardial effusion noted particularly at the apex and anteriorly to the left ventricle. Pleural effusion also was noted. There was no evidence of cardiac tamponade. MTDD
[2017-02-16] VITALS (16 sets, daily range): BP systolic 86–129; BP diastolic 50–70
[2017-02-16] MEDS: LEVALBUTEROL 1.25 MG/0.5 ML CONCENTRATE NEB NEB SCH ×3 (01:27→19:44)
[2017-02-16] MEDS: SLF 3 ML SYR IV SCH ×3 (05:26→22:00)
[2017-02-16 05:31] LABS: BASO # 0.1 K/mm3 (0.0-0.2); BASO % 0.6 % (0.0-1.0); EOS # 0.4 K/mm3 (0.0-0.50); EOS % 3.8 % (0.0-3.0); LARGE UNSTAINED CELL # 0.2 K/mm3 (0.0-0.4); LYMPH # 3.3 K/mm3 (1.5-4.5); LYMPH % 27.8 % (24.0-44.0); MEAN CORPUSCULAR HEMOGLOBIN 31.4 pg (27.0-33.0); MEAN CORPUSCULAR HGB CONC 33.6 g/dl (32.0-36.5); MEAN CORPUSCULAR VOLUME 93.6 fl (80.0-96.0); MONO # 0.7 K/mm3 (0.0-0.8); MONO % 5.9 % (0.0-5.0); NEUTROPHILS # 6.7 K/mm3 (1.8-7.7); NEUTROPHILS % 59.8 % (36.0-66.0); PLATELET COUNT, AUTOMATED 132 k/mm3 (150-450); RED CELL DISTRIBUTION WIDTH 14.1 % (11.5-14.5); WHITE BLOOD COUNT 11.2 K/mm3 (4.0-10.0)
[2017-02-16 05:54] LABS: ALBUMIN 2.4 GM/DL (3.2-5.2); ALBUMIN/GLOBULIN RATIO 0.83 (1.00-1.93); ALKALINE PHOSPHATASE 57 U/L (45-117); ALT/SGPT 12 U/L (12-78); ANION GAP 6 MEQ/L (8-16); AST/SGOT 12 U/L (15-37); BILIRUBIN,TOTAL 0.5 MG/DL (0.2-1.0); BLOOD UREA NITROGEN 13 MG/DL (7-18); CALCIUM LEVEL 8.1 MG/DL (8.8-10.2); CARBON DIOXIDE LEVEL 31 MEQ/L (21-32); CHLORIDE LEVEL 99 MEQ/L (98-107); CREATININE FOR GFR 0.85 MG/DL (0.55-1.02); GLOMERULAR FILTRATION RATE > 60.0 (>39); GLUCOSE, FASTING 84 MG/DL (83-110); POTASSIUM SERUM 4.4 MEQ/L (3.5-5.1); SODIUM LEVEL 136 MEQ/L (136-145); TOTAL PROTEIN 5.3 GM/DL (6.4-8.2)
[2017-02-16] MEDS: FLUTICASONE HFA 44 MCG 10.6GM INHALER (FLOVENT) INH SCH ×2 (08:00→19:44)
[2017-02-16] MEDS: MIRALAX *UNIT DOSE* 17GM PACKET PO SCH ×2 (09:00→21:00)
[2017-02-16] MEDS: DOCUSATE SODIUM 100 MG CAP PO SCH ×2 (09:03→21:00)
[2017-02-16] MEDS: MONTELUKAST 10 MG TAB PO SCH (09:03)
[2017-02-16] MEDS: SENOKOT S TAB PO SCH ×2 (09:03→21:00)
[2017-02-16] MEDS: FUROSEMIDE 20 MG/2 ML VIAL (J1940) IV SCH ×2 (09:03→17:00)
[2017-02-16] MEDS: PANTOPRAZOLE 40MG TAB (PROTONIX) PO SCH (09:03)
[2017-02-16] MEDS: HEPARIN SOD (PORCINE) 5000 UNITS/ML VIAL SC SCH ×2 (09:03→20:48)
[2017-02-16] MEDS: MOM 30ML SUSPENSION UDC PO SCH (09:04)
--- NOTE | 2017-02-16 09:13 | REP ---
CHEST X-RAY: Two views. HISTORY: Pleural effusion. COMPARISON STUDY: February 15, 2017. FINDINGS: Right chest tube remains in place. The right lower lobe parenchymal opacity is somewhat improved. There is a small sliver of air in the pleural space at the right apex also slightly improved. Large left pleural effusion persists unchanged. Signed by Jamison Adair MD 02/16/2017 02:34 P
--- NOTE | 2017-02-16 09:26 | IPNPDOC ---
Subjective Date Seen The patient was seen on 02/16/17. Subjective Chief Complaint/HPI The patient is a 76-year-old female admitted with a reason for visit of Plueral Efusion W/ Hypoxia. Events since last encounter Breathing comfortable. Ambulated this am without difficulty. Large BM today. NO further abd pain. Constitutional: Denies: Chills, Fever Pulmonary: Denies: Dyspnea, Cough Cardiovascular: Denies: Chest Pain, Palpitations Gastrointestinal: Denies: Nausea, Vomiting, Abdominal Pain, Diarrhea, Constipation Objective Physical Examination General Exam: Positive: Alert, No Acute Distress, Other (thin) Chest Exam: Positive: Other (Improved BS in right base without rhonshi or wheezes. Left base diminished) Heart Exam: Positive: Rate Normal, Regular Rhythm Abdomen Exam: Positive: Normal bowel sounds, Other (Less distended but still protuberant. NOn-tender), Negative: Tenderness Assessment /Plan Problems (1) Pleural effusion Problem Text: Presented with BL pleural effusions. Chest tube placed in right - drained 2 liters fluid. Cytology negative Dr. Zuleta following chest tube - still in place with decreased drainage Consult Dr. Berrios to perform lymph node biopsy Of note Ct chest ab/pelvis at [facility] - patient signed release obtain those reports and images Spironolactone d/c'd yesterday due to low BP. IV Lasix with hold parameters remains (2) Obstipation Status: Chronic Response to Treatment: Stable Problem Text: 02/16 Large Bm with bowel care flat/upright abd yesterday showed only gastric distension with air/fluid levels - abd discomfort resolved with BM (3) Weight loss, unintentional Status: Chronic Problem Text: Weight loss and bowel issues x 1 month - likely related to malignancy (4) Asthma Status: Chronic Response to Treatment: Stable (5) Hypoxia Status: Resolved Response to Treatment: Improving Plan/VTE VTE Prophylaxis Ordered?: Yes (SQ heparin) VS, I&O, 24H, Fishbone Vital Signs/I&O Vital Signs Date Time Temp Pulse Resp B/P (MAP) Pulse Ox O2 Delivery O2 Flow Rate FiO2 02/16/17 08:00 99.2 78 18 108/58 (75) 97 Room Air 02/15/17 16:14 I&O- Last 24 Hours up to 6 AM 02/16/17 06:00 Intake Total 1260 ml Output Total 1190 ml Balance 70 ml Laboratory Data 24H LABS Laboratory Tests 2 02/16/17 05:14: White Blood Count 11.2H, Red Blood Count 3.41L, Hemoglobin 10.7L, Hematocrit 31.9L, Mean Corpuscular Volume 93.6, Mean Corpuscular Hemoglobin 31.4, Mean Corpuscular Hemoglobin Concent 33.6, Red Cell Distribution Width 14.1, Platelet Count 132L, Neutrophils (%) (Auto) 59.8, Lymphocytes (%) (Auto) 27.8, Monocytes (%) (Auto) 5.9H, Eosinophils (%) (Auto) 3.8H, Basophils (%) (Auto) 0.6, Neutrophils # (Auto) 6.7, Lymphocytes # (Auto) 3.3, Monocytes # (Auto) 0.7, Eosinophils # (Auto) 0.4, Basophils # (Auto) 0.1, Large Unclassified Cells % 2.0 , Large Unclassified Cells # 0.2, Anion Gap 6L, Glomerular Filtration Rate > 60.0, Blood Urea Nitrogen 13, Creatinine 0.85, Sodium Level 136, Potassium Level 4.4, Chloride Level 99, Carbon Dioxide Level 31, Calcium Level 8.1L, Aspartate Amino Transf (AST/SGOT) 12L, Alanine Aminotransferase (ALT/SGPT) 12, Alkaline Phosphatase 57, Total Bilirubin 0.5, Total Protein 5.3L, Albumin 2.4L, Albumin/Globulin Ratio 0.83L CBC/BMP Laboratory Tests 02/16/17 05:14 Red Blood Count 3.41 L, Mean Corpuscular Volume 93.6, Mean Corpuscular Hemoglobin 31.4, Mean Corpuscular Hemoglobin Concent 33.6, Red Cell Distribution Width 14.1, Neutrophils (%) (Auto) 59.8, Lymphocytes (%) (Auto) 27.8, Monocytes (%) (Auto) 5.9 H, Eosinophils (%) (Auto) 3.8 H, Basophils (%) ( Auto) 0.6, Neutrophils # (Auto) 6.7, Lymphocytes # (Auto) 3.3, Monocytes # (Auto ) 0.7, Eosinophils # (Auto) 0.4, Basophils # (Auto) 0.1, Calcium Level 8.1 L, Aspartate Amino Transf (AST/SGOT) 12 L, Alanine Aminotransferase (ALT/SGPT) 12, Alkaline Phosphatase 57, Total Bilirubin 0.5, Total Protein 5.3 L, Albumin 2.4 L Microbiology Microbiology 02/14/17 Acid Fast Stain, Received Pending 02/14/17 Mycobacterial Culture, Received Pending 02/14/17 Fungal Smear, Received Pending 02/14/17 Fungal Culture, Received Pending 02/14/17 Gram Stain - Final, Complete 02/14/17 Body Fluid Culture - Final, Complete 02/14/17 Anaerobic Culture - Final, Complete SHASHANK CAREY PA-C Feb 16, 2017 09:26
[2017-02-16] MEDS ORDERED: MIDAZOLAM INJ 2 MG/2 ML VIAL (J2250) As Ordered ONE (11:50)
[2017-02-16] MEDS ORDERED: FLUMAZENIL 0.5 MG/5 ML VIAL As Ordered ONE (11:52)
[2017-02-16] MEDS ORDERED: LIDOCAINE 1% MDV 20ML VIAL As Ordered ONE (11:52)
[2017-02-16] MEDS ORDERED: FLUMAZENIL 0.5 MG/5 ML VIAL IV STA (12:00)
[2017-02-16] MEDS ORDERED: MIDAZOLAM INJ 2 MG/2 ML VIAL (J2250) IV ONE (12:00)
[2017-02-16] MEDS: D5W/0.9% SODIUM CHLORIDE 1,000 ML IV SCH (13:00)
[2017-02-16] MEDS ORDERED: LIDOCAINE 1% MDV 20ML VIAL SC ONE (13:00)
--- NOTE | 2017-02-16 13:15 | REP ---
PORTABLE CHEST, ONE VIEW: HISTORY: Pleural effusion. COMPARISON: 7:52 a.m. 02/16/2017 Patchy density is present in the right lower lobe consistent with atelectasis or infiltrate unchanged compared to the previous study. A chest tube is present in the right hemithorax. The previously noted right pneumothorax is not seen. A new chest tube is present in the left hemithorax. The left pleural effusion is decreased in size. Linear densities are present in the left lower lobe consistent with atelectasis. There is no pneumothorax. IMPRESSION: 1. The patient is status post new left chest tube placement. The left pleural effusion is decreased in size. There is no pneumothorax. 2. Left lower lobe atelectasis. Signed by Joseph Jade MD 02/16/2017 01:29 P
[2017-02-16] MEDS: ACETAMINOPHEN TAB 650MG DOSE (2X325MG) PO PRN (13:26)
[2017-02-16 14:18] LABS: LDH, BODY FLUID 116 U/L (NOT ESTABLISHED)
[2017-02-16 14:19] LABS: TOTAL PROTEIN, BODY FLUID 3.6 G/DL (NOT ESTABLISHED)
[2017-02-16 14:47] LABS: RBC PLEURAL FLUID 21 (<10mm3 cells/uL); TNC PLEURAL FLUID 3747 cells/uL (0-20)
[2017-02-16 14:50] LABS: BF DIFF IF INDICATED? YES (NO)
[2017-02-16 21:07] LABS: CC BF DIFF EXAM CYTOCENTRIFUGE
[2017-02-17] VITALS (11 sets, daily range): BP systolic 94–122; BP diastolic 53–66
[2017-02-17] MEDS: LEVALBUTEROL 1.25 MG/0.5 ML CONCENTRATE NEB NEB SCH ×5 (01:32→20:25)
[2017-02-17] MEDS: ACETAMINOPHEN TAB 650MG DOSE (2X325MG) PO PRN ×2 (04:26→20:04)
[2017-02-17] MEDS: D5W/0.9% SODIUM CHLORIDE 1,000 ML IV SCH (04:26)
[2017-02-17] MEDS: SLF 3 ML SYR IV SCH ×3 (06:00→20:04)
[2017-02-17 07:04] LABS: BASO % 0.5 % (0.0-1.0); EOS # 0.4 K/mm3 (0.0-0.50); EOS % 3.5 % (0.0-3.0); LARGE UNSTAINED CELL # 0.3 K/mm3 (0.0-0.4); LARGE UNSTAINED CELL % 2.5 % (0.0-4.0); LYMPH # 3.2 K/mm3 (1.5-4.5); LYMPH % 32.7 % (24.0-44.0); MEAN CORPUSCULAR HGB CONC 32.9 g/dl (32.0-36.5); MEAN CORPUSCULAR VOLUME 94.2 fl (80.0-96.0); MONO # 0.5 K/mm3 (0.0-0.8); MONO % 4.9 % (0.0-5.0); NEUTROPHILS # 5.6 K/mm3 (1.8-7.7); NEUTROPHILS % 55.9 % (36.0-66.0); PLATELET COUNT, AUTOMATED 149 k/mm3 (150-450); RED CELL DISTRIBUTION WIDTH 14.1 % (11.5-14.5); WHITE BLOOD COUNT 9.9 K/mm3 (4.0-10.0)
[2017-02-17] MEDS: FLUTICASONE HFA 44 MCG 10.6GM INHALER (FLOVENT) INH SCH ×2 (07:19→20:26)
[2017-02-17 07:20] LABS: ALBUMIN 2.1 GM/DL (3.2-5.2); ALBUMIN/GLOBULIN RATIO 0.75 (1.00-1.93); ALKALINE PHOSPHATASE 50 U/L (45-117); ALT/SGPT 11 U/L (12-78); ANION GAP 4 MEQ/L (8-16); AST/SGOT 10 U/L (15-37); BILIRUBIN,TOTAL 0.4 MG/DL (0.2-1.0); BLOOD UREA NITROGEN 11 MG/DL (7-18); CALCIUM LEVEL 8.1 MG/DL (8.8-10.2); CARBON DIOXIDE LEVEL 30 MEQ/L (21-32); CHLORIDE LEVEL 104 MEQ/L (98-107); CREATININE FOR GFR 0.73 MG/DL (0.55-1.02); GLOMERULAR FILTRATION RATE > 60.0 (>39); GLUCOSE, FASTING 98 MG/DL (83-110); POTASSIUM SERUM 4.7 MEQ/L (3.5-5.1); SODIUM LEVEL 138 MEQ/L (136-145); TOTAL PROTEIN 4.9 GM/DL (6.4-8.2)
[2017-02-17] MEDS: HEPARIN SOD (PORCINE) 5000 UNITS/ML VIAL SC SCH ×2 (09:00→20:03)
[2017-02-17] MEDS: FUROSEMIDE 20 MG/2 ML VIAL (J1940) IV SCH ×2 (09:33→17:38)
[2017-02-17] MEDS: PANTOPRAZOLE 40MG TAB (PROTONIX) PO SCH (09:33)
[2017-02-17] MEDS: MONTELUKAST 10 MG TAB PO SCH (09:33)
[2017-02-17] MEDS ORDERED: MIDAZOLAM INJ 2 MG/2 ML VIAL (J2250) As Ordered ONE (11:03)
[2017-02-17] MEDS ORDERED: LIDOCAINE 2% INJ 100 MG/5 ML SDV (FOR ANES.) As Ordered ONE (11:03)
[2017-02-17] MEDS ORDERED: PROPOFOL 200 MG/20 ML VIAL As Ordered ONE (11:03)
--- NOTE | 2017-02-17 11:34 | IPNPDOC ---
Subjective Date Seen The patient was seen on 02/17/17. Subjective Chief Complaint/HPI The patient is a 76-year-old female admitted with a reason for visit of Plueral Efusion W/ Hypoxia, Enlarged Lymph Nodes. Events since last encounter left chest tube placed yesterday - no pain. no SOB. Feels well Constitutional: Denies: Chills, Fever Pulmonary: Denies: Dyspnea, Cough Cardiovascular: Denies: Chest Pain, Palpitations Gastrointestinal: Denies: Nausea, Vomiting, Abdominal Pain, Diarrhea Objective Physical Examination General Exam: Positive: Alert, No Acute Distress, Other (thin) Chest Exam: Positive: Other (Improved BS in right base without rhonshi or wheezes. Left base BS improved) Heart Exam: Positive: Rate Normal, Regular Rhythm Abdomen Exam: Positive: Normal bowel sounds, Other, Negative: Tenderness Assessment /Plan Problems (1) Pleural effusion Problem Text: Presented with BL pleural effusions. Chest tube placed in right - drained 2 liters fluid. Cytology negative Left chest tube placed 02/16 Dr. Zuleta following chest tube Consult Dr. Berrios to perform lymph node biopsy today 02/[address] chest ab/pelvis at [facility] - patient signed release obtain those reports and images Spironolactone d/c'd yesterday due to low BP. I D/C Lasix due to low BP in 90s. (2) Obstipation Status: Resolved Response to Treatment: Stable Problem Text: 02/16 Large Bm with bowel care flat/upright abd yesterday showed only gastric distension with air/fluid levels - abd discomfort resolved with BM (3) Weight loss, unintentional Status: Chronic Problem Text: Weight loss and bowel issues x 1 month - likely related to malignancy (4) Asthma Status: Chronic Response to Treatment: Stable (5) Hypoxia Status: Resolved Response to Treatment: Improving Plan/VTE VTE Prophylaxis Ordered?: Yes (SQ heparin) VS, I&O, 24H, Fishbone Vital Signs/I&O Vital Signs Date Time Temp Pulse Resp B/P (MAP) Pulse Ox O2 Delivery O2 Flow Rate FiO2 02/17/17 08:00 98.6 72 20 96/55 (69) 95 Room Air 02/16/17 13:15 2.0 I&O- Last 24 Hours up to 6 AM 02/17/17 06:00 Intake Total 1260 ml Output Total 1950 ml Balance -690 ml Laboratory Data 24H LABS Laboratory Tests 2 02/16/17 13:42: Body Fluid pH > 7.800, Body Fluid pH Source PLEURAL, Body Fluid Neutrophils 16, Body Fluid Lymphocytes 79, Body Fluid Monocytes/Macrophages 5, Body Fluid Glucose Source PLEURAL, Body Fluid Glucose 100, Body Fluid Protein Source PLEURAL, Body Fluid Total Protein 3.6, Body Fluid Albumin Source PLEURAL, Body Fluid Albumin 2.4, Body Fluid LDH Source PLEURAL, Body Fluid Lactate Dehydrogenase 116, Body Fluid Amylase Source PLEURAL, Body Fluid Amylase 24, Body Fluid Cholesterol 54, Body Fluid Cholesterol Source PLEURAL, Body Fluid Triglyceride Source PLEURAL, Body Fluid Triglycerides 73, Pleural Fluid Source PLEURAL, Pleural Fluid Color PINK, Pleural Fluid Appearance HAZY, Pleural Fluid RBC (Auto) 21, Pleural Fluid Total Nucleated Cells 3747H 02/17/17 06:53: White Blood Count 9.9, Red Blood Count 3.34L, Hemoglobin 10.4L, Hematocrit 31.5L , Mean Corpuscular Volume 94.2, Mean Corpuscular Hemoglobin 31.0, Mean Corpuscular Hemoglobin Concent 32.9, Red Cell Distribution Width 14.1, Platelet Count 149L, Neutrophils (%) (Auto) 55.9, Lymphocytes (%) (Auto) 32.7, Monocytes (%) (Auto) 4.9, Eosinophils (%) (Auto) 3.5H, Basophils (%) (Auto) 0.5, Neutrophils # (Auto) 5.6, Lymphocytes # (Auto) 3.2, Monocytes # (Auto) 0.5, Eosinophils # (Auto) 0.4, Basophils # (Auto) 0.0, Large Unclassified Cells % 2.5 , Large Unclassified Cells # 0.3, Anion Gap 4L, Glomerular Filtration Rate > 60.0, Blood Urea Nitrogen 11, Creatinine 0.73, Sodium Level 138, Potassium Level 4.7, Chloride Level 104, Carbon Dioxide Level 30, Calcium Level 8.1L, Aspartate Amino Transf (AST/SGOT) 10L, Alanine Aminotransferase (ALT/SGPT) 11L, Alkaline Phosphatase 50, Total Bilirubin 0.4, Total Protein 4.9L, Albumin 2.1L, Albumin/Globulin Ratio 0.75L CBC/BMP Laboratory Tests 02/17/17 06:53 Red Blood Count 3.34 L, Mean Corpuscular Volume 94.2, Mean Corpuscular Hemoglobin 31.0, Mean Corpuscular Hemoglobin Concent 32.9, Red Cell Distribution Width 14.1, Neutrophils (%) (Auto) 55.9, Lymphocytes (%) (Auto) 32.7, Monocytes (%) (Auto) 4.9, Eosinophils (%) (Auto) 3.5 H, Basophils (%) ( Auto) 0.5, Neutrophils # (Auto) 5.6, Lymphocytes # (Auto) 3.2, Monocytes # (Auto ) 0.5, Eosinophils # (Auto) 0.4, Basophils # (Auto) 0.0, Calcium Level 8.1 L, Aspartate Amino Transf (AST/SGOT) 10 L, Alanine Aminotransferase (ALT/SGPT) 11 L , Alkaline Phosphatase 50, Total Bilirubin 0.4, Total Protein 4.9 L, Albumin 2.1 L Microbiology Microbiology 02/16/17 Acid Fast Stain, Received Pending 02/16/17 Mycobacterial Culture, Received Pending 02/16/17 Fungal Smear, Received Pending 02/16/17 Fungal Culture, Received Pending 02/16/17 Gram Stain - Final, Resulted 02/16/17 Anaerobic Culture, Resulted Pending 02/16/17 Body Fluid Culture, Received Pending 02/14/17 Acid Fast Stain, Received Pending 02/14/17 Mycobacterial Culture, Received Pending 02/14/17 Fungal Smear, Received Pending 02/14/17 Fungal Culture, Received Pending 02/14/17 Gram Stain - Final, Complete 02/14/17 Body Fluid Culture - Final, Complete 02/14/17 Anaerobic Culture - Final, Complete SHASHANK CAREY PA-C Feb 17, 2017 11:34
--- NOTE | 2017-02-17 12:14 | RO ---
DATE OF PROCEDURE: 02/16/2017 PREPROCEDURE DIAGNOSIS: Left pleural effusion. POSTPROCEDURE DIAGNOSIS: Left pleural effusion. PROCEDURE: Insertion of left posterior lateral chest tube. SURGEON: Dr. Carlos Zuleta. [employer]: ANESTHESIA: ESTIMATED BLOOD LOSS: PROCEDURE: Under satisfactory moderate sedation achieved with 2 mg of Versed, the patient was prepped and draped in the usual sterile fashion. Incision was made over the approximate fifth intercostal space and a tunnel was created into the chest. A #20 chest tube was placed without difficulty. It drained 1200 mL of serous fluid. This was sent for requisite cultures, bacteriology, hematology, chemistries and cytologies. Chest tube was secured to the chest wall with a #2 Tevdek suture and connected to the Pleur-evac. Patient tolerated the procedure well and chest x-ray is pending. There was 20 minutes of monitored conscious sedation.
[2017-02-17] MEDS ORDERED: LIDOCAINE W/EPINEPHRINE 1% 20ML VIAL As Ordered ONE (12:38)
[2017-02-17] MEDS ORDERED: LIDOCAINE 1% SDV INJ 30 ML VIAL As Ordered ONE (12:38)
[2017-02-17] MEDS ORDERED: BUPIVACAINE/EPIN 0.25% 30 ML VIAL As Ordered ONE (12:40)
--- NOTE | 2017-02-17 12:46 | IPN ---
DATE: 02/17/2017 Ms. Purcell is getting ready to go in for a procedure for axillary lymph node biopsy on her left side. Chest tube was placed yesterday and she is breathing even better than she was yesterday. Of note, there are no clinical signs of post expansion pulmonary edema. Her vital signs show a maximum temperature (t-max) of 99.7 with a heart rate that ranges between 72 and 78 in sinus rhythm, respiratory rate of 18 to 20 without the use of accessory muscles, who is 95 to 97% saturated on room air and a blood pressure that is ranging between 122/62 to 96/55. Her intake and output over the past 24 hours has been recorded as 1080 in and 2260 out for a negativity of 1180 mL. She has put out 1360 mL from both chest tubes with 1200 mL coming from the left and 160 mL from the right. In the past 8 hours, she has put out 210 from the left and 240 from the right. She weighs 51 kg today compared to 51.1 kg yesterday. PHYSICAL EXAMINATION: LUNGS: Her lungs show equal breath sounds on either side. There are inspiratory crackles on the right and left with the left being greater than the right. Percussion note is full to the diaphragm. CARDIAC EXAM: Without murmurs, clicks, gallops or rubs. I cannot feel her point of maximum impulse (PMI). S1, S2 are normal. ABDOMEN: Soft, nontender. Less distended today. Bowel sounds positive. She had a bowel movement. There is no hepatosplenomegaly and no costovertebral angle tenderness. EXTREMITIES: Show no pretibial edema. No calf tenderness. No differential swelling of the upper extremities. SKIN: Warm, dry and perfused without cyanosis or mottling, including that of the nail beds and knees. NECK: Supple. There is no jugular venous distention. No subcutaneous emphysema. Trachea is midline. MOUTH: Shows her mucous membranes to be pink and moist. Lips and commissures without lesions. There is no thrush. EYES: Show her pupils to be equal and reactive. Extraocular motion intact. Sclerae anicteric. NEUROLOGIC: Shows II through XII intact with gross motor and gross sensation intact. Gait is not tested. PSYCHIATRIC: Shows her to be awake and alert, oriented times three with appropriate mood and affect and conversational. Her white count today is 9.9 with a hemoglobin and hematocrit of 10.4 and 31.5, essentially unchanged from yesterday. Platelet count is 149 and stable. Differential shows 65% neutrophils, 32% lymphocytes, 4% monocytes. There are no immature forms and no toxic granulations. Her electrolytes are normal with a BUN and creatinine of 11 and 0.73 with a calcium of 8.1 and glucose of 98. Albumin is 2.1. There are no blood gases on her today. Her pleural fluid from yesterday's tap on the left side shows a pH greater than 7.8 with an LDH of 116, with again a corresponding LDH of 164. This looks to be a little bit more exudative than the other side. There were 47 nucleated cells, which 79% are lymphocytes and 6% neutrophils. Her chest x-ray today now shows both lungs fully expanded to the chest wall. Right and left costophrenic angles are sharp. Chest tubes are in good place. There is no midline shift and there is no subcutaneous emphysema. There is no sign of postexpansion pulmonary edema on the left side. Her right side still has a bit of postcompression edema. IMPRESSION: 1. Bilateral pleural effusions, right transudative and left exudative, both lymphocytic. 2. Generalized lymphadenopathy. 3. Hypercholesterolemia. 4. History of asthma. 5. Shortness of breath secondary to pleural effusions, improved. 6. History of duodenitis and gastritis. 7. Post expansion pulmonary edema on the right side, improving. PLAN/DISCUSSION: Hopefully our biopsy done by Dr. Berrios today on the left axillary node provides a diagnosis. I will continue her chest tubes right now. I will remove them from suction after her surgery.
--- NOTE | 2017-02-17 13:09 | IPN ---
DATE: 02/16/2017 Ms. Purcell is breathing much better. Nonetheless she still has a very large pleural effusion on the left side and we will drain that today. She showed no clinical signs of post expansion pulmonary edema and her x-ray is improving. Her vital signs show a T-max of 110.7 with a heart rate that ranges between 70 and 87 in sinus rhythm, respiratory rate of 16 to 20 without the use of accessory muscle who is 94 to 100% saturated on 2 to 4 liters nasal cannula and whose blood pressure is ranging between 129/70 to 86/50. Her intake and output over the past 24 hours has been recorded as 1830 in and 1300 out for a positivity of 530 mL. She has put out 900 mL from her chest tube. Her weight today is 51.1 kilograms compared to 49.6 kilograms yesterday. On physical examination, her right lung shows some inspiratory crackles at the base. Left lung shows decreased breath sounds on the left inferior hemithorax along with a dull percussion with half width the chest. Cardiac exam is without murmurs, clicks, gallops or rubs. I cannot feel her point of maximum impulse (PMI). S1 and S2 are normal. Abdomen is soft, nontender. Bowel sounds are positive. There is no hepatomegaly. No costovertebral angle (CVA) tenderness. Extremities show less pretibial edema. No calf tenderness. No differential swelling of the upper extremities. Skin is warm, dry and perfused without cyanosis or mottling including that of the nail beds and knees. Neck is supple. There is no jugular venous distention. No subcutaneous emphysema. Trachea is midline. Mouth shows her mucous membranes to be pink and moist. Lips and commissures are without lesions. There is no thrush. Eyes show her pupils to be equal and reactive. Extraocular movements intact. Sclerae nonicteric. Neurologic shows II-XII intact along with gross motor and gross sensation intact. Gait is not tested. Psychiatric showed him to be awake, alert and oriented times three with appropriate and affect and conversational. Her white count today is 11.2 with hemoglobin and hematocrit 10.7 and 31.9. Platelet count of 132 and stable. Differential shows 59% neutrophils, 27% lymphocytes, 5% monocytes. There are no immature forms and no toxic granulations. Her chemistries today show normal electrolytes with a BUN and creatinine of 13 and 0.85 with a glucose of 84 and a calcium of 8.1. AST and ALT are 12 and 12 respectively. Her albumin is 2.4. There are no blood gases on her today. I discussed her pleural fluids yesterday. This looks to be a transudative, but lymphocystic effusion with a very low LDH and predominantly lymphocystic. Her chest x-ray today shows the considerable left pleural effusion. Right side post expansion pulmonary edema is improving. Costophrenic angle on the right side is sharp. There is no midline shift. There is no subcutaneous emphysema and I see no infiltrates other than the post expansion pulmonary edema in the right lower lobe which is improving. IMPRESSION: 1. Bilateral pleural effusions, right drained with a chest tube, transudative and lymphocystic. 2. Generalized lymphadenopathy. 3. History of asthma. 4. Shortness of breath secondary to pleural effusion improving. 5. Hypercholesterolemia. 6. History of duodenitis and gastritis. 7. Post expansion pulmonary edema of the right lower lobe improving. PLAN/DISCUSSION: I will place a chest tube today on the left side and drain and her left side. Pathology is not showing malignant cells on the right side. Dr. Berrios is going to take her to the operating room tomorrow to undertake an axillary node biopsy. I am hoping we can make a diagnosis and start to treat her which would obviate having to either put bilateral PleurX catheters or doing talc pleurodesis.
[2017-02-17] MEDS ORDERED: ONDANSETRON 4MG/2ML VIAL (J2405) IV PRN (14:00)
[2017-02-17] MEDS ORDERED: LR 1,000 ML IV SCH (14:00)
[2017-02-17] MEDS ORDERED: PERCOCET 5MG/325MG TAB PO PRN (14:00)
[2017-02-17] MEDS: MOM 30ML SUSPENSION UDC PO SCH (14:47)
[2017-02-17] MEDS: MIRALAX *UNIT DOSE* 17GM PACKET PO SCH ×2 (14:48→19:51)
[2017-02-17] MEDS: DOCUSATE SODIUM 100 MG CAP PO SCH ×2 (14:48→19:51)
[2017-02-17] MEDS: SENOKOT S TAB PO SCH ×2 (14:48→19:51)
--- NOTE | 2017-02-17 17:10 | REP ---
Chest x-ray: Two views. History: Pleural effusion. Comparison chest x-ray: February 16, 2017. Findings: Bilateral chest tubes are again noted. There are small biapical pneumothoraces. There is bibasilar plate-like atelectasis. Cardiomediastinal silhouette is unremarkable. Impression: Bilateral chest tubes. Small bilateral pneumothoraces and bibasilar plate-like atelectasis is noted. Signed by Jamison Adair MD 02/21/2017 08:07 A
[2017-02-18] VITALS (7 sets, daily range): BP systolic 94–112; BP diastolic 55–71
[2017-02-18] MEDS: LEVALBUTEROL 1.25 MG/0.5 ML CONCENTRATE NEB NEB SCH ×4 (02:00→19:58)
[2017-02-18 05:36] LABS: BASO # 0.1 K/mm3 (0.0-0.2); BASO % 0.8 % (0.0-1.0); EOS # 0.6 K/mm3 (0.0-0.50); EOS % 5.1 % (0.0-3.0); LARGE UNSTAINED CELL # 0.2 K/mm3 (0.0-0.4); LARGE UNSTAINED CELL % 2.2 % (0.0-4.0); LYMPH # 3.8 K/mm3 (1.5-4.5); LYMPH % 33.6 % (24.0-44.0); MEAN CORPUSCULAR HEMOGLOBIN 29.9 pg (27.0-33.0); MEAN CORPUSCULAR HGB CONC 31.9 g/dl (32.0-36.5); MEAN CORPUSCULAR VOLUME 93.8 fl (80.0-96.0); MONO # 0.5 K/mm3 (0.0-0.8); NEUTROPHILS # 5.7 K/mm3 (1.8-7.7); NEUTROPHILS % 53.2 % (36.0-66.0); PLATELET COUNT, AUTOMATED 152 k/mm3 (150-450); WHITE BLOOD COUNT 10.7 K/mm3 (4.0-10.0)
[2017-02-18 05:57] LABS: ALBUMIN 2.1 GM/DL (3.2-5.2); ALBUMIN/GLOBULIN RATIO 0.66 (1.00-1.93); ALKALINE PHOSPHATASE 56 U/L (45-117); ALT/SGPT 10 U/L (12-78); ANION GAP 7 MEQ/L (8-16); AST/SGOT 10 U/L (15-37); BILIRUBIN,TOTAL 0.3 MG/DL (0.2-1.0); BLOOD UREA NITROGEN 13 MG/DL (7-18); CARBON DIOXIDE LEVEL 32 MEQ/L (21-32); CHLORIDE LEVEL 103 MEQ/L (98-107); CREATININE FOR GFR 0.73 MG/DL (0.55-1.02); GLOMERULAR FILTRATION RATE > 60.0 (>39); GLUCOSE, FASTING 81 MG/DL (83-110); POTASSIUM SERUM 3.9 MEQ/L (3.5-5.1); SODIUM LEVEL 142 MEQ/L (136-145); TOTAL PROTEIN 5.3 GM/DL (6.4-8.2)
[2017-02-18] MEDS: SLF 3 ML SYR IV SCH ×3 (06:38→21:04)
[2017-02-18] MEDS: FLUTICASONE HFA 44 MCG 10.6GM INHALER (FLOVENT) INH SCH ×2 (07:16→19:58)
[2017-02-18] MEDS: MIRALAX *UNIT DOSE* 17GM PACKET PO SCH ×2 (09:00→21:04)
[2017-02-18] MEDS: SENOKOT S TAB PO SCH ×2 (09:00→21:04)
[2017-02-18] MEDS: MOM 30ML SUSPENSION UDC PO SCH (09:00)
[2017-02-18] MEDS: DOCUSATE SODIUM 100 MG CAP PO SCH ×2 (09:00→21:03)
[2017-02-18] MEDS: FUROSEMIDE 20 MG/2 ML VIAL (J1940) IV SCH ×2 (09:02→17:36)
[2017-02-18] MEDS: HEPARIN SOD (PORCINE) 5000 UNITS/ML VIAL SC SCH ×2 (09:02→21:04)
[2017-02-18] MEDS: PANTOPRAZOLE 40MG TAB (PROTONIX) PO SCH (09:03)
[2017-02-18] MEDS: MONTELUKAST 10 MG TAB PO SCH (09:03)
--- NOTE | 2017-02-18 09:12 | REP ---
Clinical: Follow up pleural effusion. Technique: PA and lateral views. Comparison: 02/17/17. Findings: Bilateral chest tubes in stable position. Small biapical pneumothoraces and bilateral pleuroparenchymal changes including basilar atelectasis and possible small residual acute pleural reaction remain essentially unchanged. Mediastinum and cardiac silhouette normal. Skeletal structures intact. Impression: Small bilateral pneumothoraces and bilateral pleuroparenchymal changes remain stable. No new acute process identified. Signed by Andrey Rodriguez MD 02/18/2017 09:03 A
[2017-02-18] MEDS: ACETAMINOPHEN TAB 650MG DOSE (2X325MG) PO PRN (11:29)
--- NOTE | 2017-02-18 19:44 | IPNPDOC ---
Subjective Date Seen The patient was seen on 02/18/17. Subjective Chief Complaint/HPI The patient is a 76-year-old female admitted with a reason for visit of Plueral Efusion W/ Hypoxia, Enlarged Lymph Nodes. Events since last encounter Lalis chest tubes are still putting out in the 100ml range. She is a little discouraged about this as she would have liked to have them removed today. She had the lymph node bx yesterday. She denies any significant pain or discomfort. General: Denies: Night Sweats, Normal Appetite Constitutional: Denies: Chills, Fever Pulmonary: Denies: Dyspnea, Cough Cardiovascular: Denies: Chest Pain, Palpitations Genitourinary: Denies: Dysuria Psych: Reports: Mood Normal Objective Physical Examination General Exam: Positive: Alert, No Acute Distress, Other (sitting up in the bed watching TV when I enter the room. ) Eye Exam: Positive: Conjunctiva & lids normal, Negative: Sclera icteric ENT Exam: Positive: Mucous membr. moist/pink Neck Exam: Negative: Lymphadenopathy Chest Exam: Positive: Normal air movement, Other (crackles noted at the bilateral bases) Heart Exam: Positive: Rate Normal, Regular Rhythm Telemetry: Positive: Sinus Abdomen Exam: Positive: Normal bowel sounds, Negative: Tenderness Extremity Exam: Negative: Edema Psych Exam: Positive: Mood NL, Oriented x 3 Assessment /Plan Problems (1) Weight loss, unintentional Status: Chronic Problem Text: Weight loss and bowel issues x 1 month - likely related to malignancy. She had a lymph node bx yesterday, but obviously the path report is still pending. (2) Pleural effusion Problem Text: Dr. Zuleta is managing the chest tubes, however, the transudative effusions have not slowed enough for him to take then off of suction yet. (3) Asthma Status: Chronic Response to Treatment: Stable (4) Hypoxia Status: Resolved Response to Treatment: Improving (5) Obstipation Status: Resolved Response to Treatment: Stable Problem Text: 02/16 Large Bm with bowel care flat/upright abd yesterday showed only gastric distension with air/fluid levels - abd discomfort resolved with BM Plan/VTE VTE Prophylaxis Ordered?: Yes (SQ heparin) VS, I&O, 24H, Fishbone Vital Signs/I&O Vital Signs Date Time Temp Pulse Resp B/P (MAP) Pulse Ox O2 Delivery O2 Flow Rate FiO2 02/18/17 17:36 104/55 (71) 02/18/17 16:09 Room Air 02/18/17 16:00 98.6 76 18 95 02/16/17 13:15 2.0 I&O- Last 24 Hours up to 6 AM 02/18/17 06:00 Intake Total 1750 ml Output Total 4735 ml Balance -2985 ml Laboratory Data 24H LABS Laboratory Tests 2 02/18/17 04:54: White Blood Count 10.7H, Red Blood Count 3.55L, Hemoglobin 10.6L, Hematocrit 33.3L, Mean Corpuscular Volume 93.8, Mean Corpuscular Hemoglobin 29.9, Mean Corpuscular Hemoglobin Concent 31.9L, Red Cell Distribution Width 14.0, Platelet Count 152, Neutrophils (%) (Auto) 53.2, Lymphocytes (%) (Auto) 33.6, Monocytes (%) (Auto) 5.0, Eosinophils (%) (Auto) 5.1H, Basophils (%) (Auto) 0.8 , Neutrophils # (Auto) 5.7, Lymphocytes # (Auto) 3.8, Monocytes # (Auto) 0.5, Eosinophils # (Auto) 0.6H, Basophils # (Auto) 0.1, Large Unclassified Cells % 2.2, Large Unclassified Cells # 0.2, Anion Gap 7L, Glomerular Filtration Rate > 60.0, Blood Urea Nitrogen 13, Creatinine 0.73, Sodium Level 142, Potassium Level 3.9, Chloride Level 103, Carbon Dioxide Level 32, Calcium Level 8.0L, Aspartate Amino Transf (AST/SGOT) 10L, Alanine Aminotransferase (ALT/SGPT) 10L, Alkaline Phosphatase 56, Total Bilirubin 0.3, Total Protein 5.3L, Albumin 2.1L, Albumin/Globulin Ratio 0.66L CBC/BMP Laboratory Tests 02/18/17 04:54 Red Blood Count 3.55 L, Mean Corpuscular Volume 93.8, Mean Corpuscular Hemoglobin 29.9, Mean Corpuscular Hemoglobin Concent 31.9 L, Red Cell Distribution Width 14.0, Neutrophils (%) (Auto) 53.2, Lymphocytes (%) (Auto) 33.6, Monocytes (%) (Auto) 5.0, Eosinophils (%) (Auto) 5.1 H, Basophils (%) ( Auto) 0.8, Neutrophils # (Auto) 5.7, Lymphocytes # (Auto) 3.8, Monocytes # (Auto ) 0.5, Eosinophils # (Auto) 0.6 H, Basophils # (Auto) 0.1, Calcium Level 8.0 L, Aspartate Amino Transf (AST/SGOT) 10 L, Alanine Aminotransferase (ALT/SGPT) 10 L , Alkaline Phosphatase 56, Total Bilirubin 0.3, Total Protein 5.3 L, Albumin 2.1 L Microbiology Microbiology 02/16/17 Acid Fast Stain, Received Pending 02/16/17 Mycobacterial Culture, Received Pending 02/16/17 Fungal Smear, Received Pending 02/16/17 Fungal Culture, Received Pending 02/16/17 Gram Stain - Final, Complete 02/16/17 Anaerobic Culture - Final, Complete 02/16/17 Body Fluid Culture - Final, Complete 02/14/17 Acid Fast Stain, Received Pending 02/14/17 Mycobacterial Culture, Received Pending 02/14/17 Fungal Smear, Received Pending 02/14/17 Fungal Culture, Received Pending 02/14/17 Gram Stain - Final, Complete 02/14/17 Body Fluid Culture - Final, Complete 02/14/17 Anaerobic Culture - Final, Complete Alexandre Mccarthy MD Feb 18, 2017 19:44
[2017-02-19] VITALS (8 sets, daily range): BP systolic 91–105; BP diastolic 53–61
[2017-02-19] MEDS: LEVALBUTEROL 1.25 MG/0.5 ML CONCENTRATE NEB NEB SCH ×4 (02:00→20:17)
[2017-02-19 05:19] LABS: BASO % 0.4 % (0.0-1.0); EOS # 0.5 K/mm3 (0.0-0.50); EOS % 4.7 % (0.0-3.0); LARGE UNSTAINED CELL # 0.3 K/mm3 (0.0-0.4); LARGE UNSTAINED CELL % 2.2 % (0.0-4.0); LYMPH % 32.3 % (24.0-44.0); MEAN CORPUSCULAR HEMOGLOBIN 30.2 pg (27.0-33.0); MEAN CORPUSCULAR HGB CONC 32.5 g/dl (32.0-36.5); MEAN CORPUSCULAR VOLUME 93.1 fl (80.0-96.0); MONO # 0.6 K/mm3 (0.0-0.8); MONO % 4.9 % (0.0-5.0); NEUTROPHILS # 6.4 K/mm3 (1.8-7.7); NEUTROPHILS % 55.5 % (36.0-66.0); PLATELET COUNT, AUTOMATED 168 k/mm3 (150-450); WHITE BLOOD COUNT 11.5 K/mm3 (4.0-10.0)
[2017-02-19 05:45] LABS: ALBUMIN/GLOBULIN RATIO 0.65 (1.00-1.93); ALKALINE PHOSPHATASE 60 U/L (45-117); ALT/SGPT 12 U/L (12-78); ANION GAP 8 MEQ/L (8-16); AST/SGOT 11 U/L (15-37); BILIRUBIN,TOTAL 0.3 MG/DL (0.2-1.0); BLOOD UREA NITROGEN 14 MG/DL (7-18); CALCIUM LEVEL 8.4 MG/DL (8.8-10.2); CARBON DIOXIDE LEVEL 31 MEQ/L (21-32); CHLORIDE LEVEL 101 MEQ/L (98-107); CREATININE FOR GFR 0.67 MG/DL (0.55-1.02); GLOMERULAR FILTRATION RATE > 60.0 (>39); GLUCOSE, FASTING 92 MG/DL (83-110); SODIUM LEVEL 140 MEQ/L (136-145); TOTAL PROTEIN 5.1 GM/DL (6.4-8.2)
[2017-02-19] MEDS: SLF 3 ML SYR IV SCH ×3 (05:55→21:43)
[2017-02-19] MEDS: FLUTICASONE HFA 44 MCG 10.6GM INHALER (FLOVENT) INH SCH ×2 (07:42→20:20)
--- NOTE | 2017-02-19 08:28 | REP ---
Clinical: Follow up pleural effusion and pneumothoraces. Technique: PA and lateral. Comparison: 02/18/2017. Findings: Bilateral chest tubes are in stable position. Bilateral small to moderate apical pneumothoraces and bibasilar pleuroparenchymal changes are essentially unchanged. The mediastinum and cardiac silhouette are stable and within normal limits. Skeletal structures demonstrate age-related degenerative changes. Impression: 1. Bilateral pleuroparenchymal changes including apical pneumothoraces are essentially unchanged. Chest tubes in stable position. 2. No obvious new acute process identified. Signed by Andrey Rodriguez MD 02/19/2017 08:20 A
[2017-02-19] MEDS: SENOKOT S TAB PO SCH ×2 (09:00→21:00)
[2017-02-19] MEDS: MIRALAX *UNIT DOSE* 17GM PACKET PO SCH ×2 (09:00→21:00)
[2017-02-19] MEDS: DOCUSATE SODIUM 100 MG CAP PO SCH ×2 (09:00→21:42)
[2017-02-19] MEDS: MOM 30ML SUSPENSION UDC PO SCH (09:00)
[2017-02-19] MEDS: MONTELUKAST 10 MG TAB PO SCH (09:07)
[2017-02-19] MEDS: PANTOPRAZOLE 40MG TAB (PROTONIX) PO SCH (09:07)
[2017-02-19] MEDS: HEPARIN SOD (PORCINE) 5000 UNITS/ML VIAL SC SCH ×2 (09:08→21:43)
[2017-02-19] MEDS: FUROSEMIDE 20 MG/2 ML VIAL (J1940) IV SCH ×2 (09:08→17:59)
--- NOTE | 2017-02-19 14:16 | IPN ---
DATE: 02/18/2017 Ms. Purcell is complaining of a little bit of pain in her left axilla from her lymph node biopsy yesterday. Nonetheless, she is breathing well and her the pain in the chest tube sites are being well controlled. Her vital signs show a T-max of 100.6 with a heart rate that ranges between 83 and 73 and is sinus rhythm, and a respiratory rate that s constant at 18, who is 94-96% saturated on room air, and whose blood pressure is ranging between 122/55 to 94/55. Her intake and output over the past 24 hours has been recorded as 1690 in and 4400 out for a negativity of 2700 mL. She has put out 510 mL from the left chest tube and 540 from the right chest tube. She weighs 50.5 kg today, compared to 51 kg yesterday. PHYSICAL EXAMINATION: LUNGS: She has some inspiratory rales at the right lower base, but they are improving. Percussion note is full to the diaphragm. CARDIAC EXAM: Without murmurs, clicks, gallops or rubs. I cannot feel her point of maximum impulse (PMI). S1, S2 are normal. ABDOMEN: Soft, nontender. In particular, the left upper quadrant is nontender although she still has the splenic mass. She is tympanitic. She had a bowel movement earlier today. There is no hepatosplenomegaly. No costovertebral angle tenderness. EXTREMITIES: Show 1+ pretibial edema. No calf tenderness. No differential swelling of the upper extremities. SKIN: Warm, dry and perfused without cyanosis or mottling, including that of the nail beds and the knees. NECK: Supple. There is no jugular venous distention. No subcutaneous emphysema. Trachea is midline. MOUTH: Shows her mucous membranes to be pink and moist. Lips and commissures without lesions. There is no thrush. EYES: Show her pupils to be equal and reactive. Extraocular motion intact. Sclerae nonicteric. NEUROLOGIC: Shows II through XII intact along with gross motor and gross sensation intact. Gait is not tested. PSYCHIATRIC: Shows her to be awake and alert, oriented times three with appropriate mood and affect and conversational. Her white count today is 10.7 with a hemoglobin and hematocrit of 10.6 and 33.3, essentially unchanged from yesterday with a platelet count of 152 and stable. Differential shows 53% neutrophils, 33% lymphocytes, 5% monocytes. There are no immature forms and no toxic granulations. Her electrolytes are normal with a BUN and creatinine of 13 and 0.73, glucose of 81, with a calcium of 8.0 and a corresponding albumin of 2.1. AST and ALT are normal. Her chest x-ray today now shows the lung fully expanded to the chest wall. The right costophrenic angle show some atelectasis. The post expansion edema is almost gone on the right side. There is no subcutaneous emphysema and there is no mediastinal shift. Other than the improving post expansion edema, I see no other infiltrates and both chest tubes are in good place. IMPRESSION: 1. Bilateral pleural effusions, transudative and lymphocytic on both sides with the left side being slightly exudative. 2. Generalized lymphadenopathy. 3. History of asthma. 4. Shortness of breath secondary to pleural effusion, improved. 5. Hypercholesterolemia. 6. History of duodenitis and gastritis. 7. Post expansion pulmonary edema of the right lower lobe, improving. PLAN/DISCUSSION: We will have to await the diagnosis from pathology from her lymph node biopsy that was done yesterday by Dr. Berrios. She is certainly putting to much out the chest tubes to remove them today. We will continue her on her same regimen. She does have some pretibial edema and depending upon what happens tomorrow, I may ask the medical service to increase her diuretic. She is already on Lasix.
--- NOTE | 2017-02-19 14:23 | IPN ---
DATE: 02/19/2017 Ms. Felix is getting frustrated at staying in the hospital. Nonetheless, her pain is being well controlled, both in her axilla and her chest tube insertion sites. She has still put too much out the chest tubes for me to remove them, but they are going in the right direction. Her vital signs show a T-max of 100.7. She is now 99.3. Her heart rate ranges between 81 and 69 in a sinus rhythm with a respiratory rate that is constant at 18, who is 99% to 94% saturated on room air and whose blood pressure is ranging is ranging between 105/57 to 91/53. Her intake and output the past 24 hours has been recorded as 840 in and 2495 out for a negativity of 1655 mL. She has put out 190 mL out the left chest tube and 280 from the right chest tube. That is compared to approximately 500 mL each yesterday. Weight today is 46.9 kg compared to 50.5 kg yesterday. In the last 10 hours, she has put out 50 and 70 mL from the left and right chest tubes respectively. On physical examination, she has normal vesicular sounds. Percussion notes are full to the diaphragm and she has equal breath sounds on either side. Cardiac Exam: Shows a new murmur which I had not appreciated, a holosystolic murmur, about 3/6 at the left lower sternal border. I cannot feel her PMI. S1, S2 are normal. Abdomen: Soft, but tympanitic. It is nontender, including the left upper quadrant. There is no costovertebral angle (CVA) tenderness. No hepatomegaly. Extremities: Now show trace pretibial edema rather than the 1+ I felt yesterday. There is no calf tenderness. No differential swelling of the upper extremities. Skin: Warm, dry and perfused. Without cyanosis or mottling, including that of the nail beds and knees. Neck: Supple. There is no jugular venous distention. No subcutaneous emphysema. Trachea is midline. Mouth: Shows her mucous membranes to be pink and moist. Lips and commissures are without lesions. There is no thrush. Eyes: Show her pupils to be equal and reactive. Extraocular movements intact. Sclerae nonicteric. Neurologic: Shows II-XII intact along with gross motor and gross sensation intact. Gait is not tested. Psychiatric shows her to be awake, alert, and oriented times three with appropriate mood and affect and conversational. Her white count today is 11.5, compared to 10.7 yesterday. Hemoglobin and hematocrit are 10.8 and 33.2, essentially unchanged from yesterday. It has been going up however slightly from 10.4 on 02/17/2017 to 10.8 today. This is probably secondary to hemoconcentration. Platelet count is 168 and stable. Differential shows 55% neutrophils, 32% lymphocytes, 4% monocytes. There are no immature forms and no toxic granulations. Her electrolytes are normal with a BUN and creatinine of 14 and 0.67 with a glucose of 92 and a calcium of 8.4 and a corresponding albumin of 2.0. AST and ALT are normal at 11 and 12 respectively. We are still awaiting pathology which will probably be returned tomorrow on the lymph node. Her chest x-ray today shows the lung fully expanded to the chest wall. The right lower lobe post expansion edema is nearly resolved. There is some atelectatic changes in both costophrenic angles. Lungs have good aeration and the mediastinum is in the midline. There is no subcutaneous emphysema. IMPRESSION: 1. Bilateral pleural effusions getting better. 2. Generalized lymphadenopathy, pathology pending. 3. History of asthma. 4. Shortness of breath secondary to pleural effusion, improving. 5. Hypercholesterolemia. 6. History of duodenitis and gastritis. 7. Post expansion pulmonary edema of the right lower lobe, improving and nearly resolved. PLAN AND DISCUSSION: I will discontinue her chest tube suction. Will continue to monitor her with the chest tubes. They are going in the right direction. Again, will have to wait for the pathology from the lymph node biopsy.
--- NOTE | 2017-02-19 16:37 | IPNPDOC ---
Subjective Date Seen The patient was seen on 02/19/17. Subjective Chief Complaint/HPI The patient is a 76-year-old female admitted with a reason for visit of Plueral Efusion W/ Hypoxia, Enlarged Lymph Nodes. Events since last encounter Reilly is getting anxious to get some results... anything. Her chest tube drainage has decreased, but not enough to remove them. The pathology results on the lymph node bx are still pending. She reports that she is generally feeling ok. General: Denies: Normal Appetite Constitutional: Denies: Chills, Fever Pulmonary: Denies: Cough Cardiovascular: Denies: Chest Pain, Palpitations Neurological: Reports: Weakness Psych: Reports: Mood Normal Objective Physical Examination General Exam: Positive: Alert, No Acute Distress, Other (cachetic appearing) Eye Exam: Positive: Conjunctiva & lids normal, Negative: Sclera icteric ENT Exam: Positive: Atraumatic, Mucous membr. moist/pink, Nares Patent Neck Exam: Positive: Supple, Negative: Lymphadenopathy Chest Exam: Positive: Clear to auscultation, Other (the crackles are just at the bilateral bases now. Additionally there is dullness on percussion at the bilateral posteriore bases only. ) Heart Exam: Positive: Rate Normal, Regular Rhythm Abdomen Exam: Positive: Normal bowel sounds, Other, Negative: Tenderness Extremity Exam: Negative: Edema Psych Exam: Positive: Mental status NL, Anxiety (mild), Oriented x 3 Assessment /Plan Problems (1) Pleural effusion Problem Text: The chest tube output is decreased, but still not enough that Dr. Zuleta will consider removing them quite yet. Continue to monitor. (2) Weight loss, unintentional Status: Chronic Problem Text: Weight loss and bowel issues x 1 month - likely related to malignancy. I had a long conversation with the patient and daughter explaining why we were counting on a lymph node bx to help us determine where to go next with her treatment. They have a better understanding of why we did the lymph node bx now. (3) Asthma Status: Chronic Response to Treatment: Stable (4) Hypoxia Status: Resolved Response to Treatment: Improving (5) Obstipation Status: Resolved Response to Treatment: Stable Problem Text: 02/16 Large Bm with bowel care flat/upright abd yesterday showed only gastric distension with air/fluid levels - abd discomfort resolved with BM Plan/VTE VTE Prophylaxis Ordered?: Yes (SQ heparin) VS, I&O, 24H, [facility] Vital Signs/I&O Vital Signs Date Time Temp Pulse Resp B/P (MAP) Pulse Ox O2 Delivery O2 Flow Rate FiO2 02/19/17 12:00 99.3 86 18 98/55 (69) 99 Room Air 02/16/17 13:15 2.0 I&O- Last 24 Hours up to 6 AM 02/19/17 06:00 Intake Total 720 ml Output Total 2380 ml Balance -1660 ml Laboratory Data 24H LABS Laboratory Tests 2 02/19/17 04:46: White Blood Count 11.5H, Red Blood Count 3.57L, Hemoglobin 10.8L, Hematocrit 33.2L, Mean Corpuscular Volume 93.1, Mean Corpuscular Hemoglobin 30.2, Mean Corpuscular Hemoglobin Concent 32.5, Red Cell Distribution Width 14.0, Platelet Count 168, Neutrophils (%) (Auto) 55.5, Lymphocytes (%) (Auto) 32.3, Monocytes ( %) (Auto) 4.9, Eosinophils (%) (Auto) 4.7H, Basophils (%) (Auto) 0.4, Neutrophils # (Auto) 6.4, Lymphocytes # (Auto) 4.0, Monocytes # (Auto) 0.6, Eosinophils # (Auto) 0.5, Basophils # (Auto) 0.0, Large Unclassified Cells % 2.2 , Large Unclassified Cells # 0.3, Anion Gap 8, Glomerular Filtration Rate > 60.0 , Blood Urea Nitrogen 14, Creatinine 0.67, Sodium Level 140, Potassium Level 4.0 , Chloride Level 101, Carbon Dioxide Level 31, Calcium Level 8.4L, Aspartate Amino Transf (AST/SGOT) 11L, Alanine Aminotransferase (ALT/SGPT) 12, Alkaline Phosphatase 60, Total Bilirubin 0.3, Total Protein 5.1L, Albumin 2.0L, Albumin/ Globulin Ratio 0.65L CBC/BMP Laboratory Tests 02/19/17 04:46 Red Blood Count 3.57 L, Mean Corpuscular Volume 93.1, Mean Corpuscular Hemoglobin 30.2, Mean Corpuscular Hemoglobin Concent 32.5, Red Cell Distribution Width 14.0, Neutrophils (%) (Auto) 55.5, Lymphocytes (%) (Auto) 32.3, Monocytes (%) (Auto) 4.9, Eosinophils (%) (Auto) 4.7 H, Basophils (%) ( Auto) 0.4, Neutrophils # (Auto) 6.4, Lymphocytes # (Auto) 4.0, Monocytes # (Auto ) 0.6, Eosinophils # (Auto) 0.5, Basophils # (Auto) 0.0, Calcium Level 8.4 L, Aspartate Amino Transf (AST/SGOT) 11 L, Alanine Aminotransferase (ALT/SGPT) 12, Alkaline Phosphatase 60, Total Bilirubin 0.3, Total Protein 5.1 L, Albumin 2.0 L Microbiology Microbiology 02/16/17 Acid Fast Stain, Received Pending 02/16/17 Mycobacterial Culture, Received Pending 02/16/17 Fungal Smear, Received Pending 02/16/17 Fungal Culture, Received Pending 02/16/17 Gram Stain - Final, Complete 02/16/17 Anaerobic Culture - Final, Complete 02/16/17 Body Fluid Culture - Final, Complete 02/14/17 Acid Fast Stain, Received Pending 02/14/17 Mycobacterial Culture, Received Pending 02/14/17 Fungal Smear, Received Pending 02/14/17 Fungal Culture, Received Pending 02/14/17 Gram Stain - Final, Complete 02/14/17 Body Fluid Culture - Final, Complete 02/14/17 Anaerobic Culture - Final, Complete Alexandre Mccarthy MD Feb 19, 2017 16:37
[2017-02-20] VITALS (8 sets, daily range): BP systolic 90–104; BP diastolic 50–59
[2017-02-20] MEDS: LEVALBUTEROL 1.25 MG/0.5 ML CONCENTRATE NEB NEB SCH ×4 (02:00→19:10)
[2017-02-20 06:05] LABS: BASO # 0.1 K/mm3 (0.0-0.2); BASO % 0.6 % (0.0-1.0); EOS # 0.6 K/mm3 (0.0-0.50); EOS % 4.9 % (0.0-3.0); LARGE UNSTAINED CELL # 0.2 K/mm3 (0.0-0.4); LARGE UNSTAINED CELL % 1.9 % (0.0-4.0); LYMPH # 4.1 K/mm3 (1.5-4.5); LYMPH % 32.1 % (24.0-44.0); MEAN CORPUSCULAR HEMOGLOBIN 29.9 pg (27.0-33.0); MEAN CORPUSCULAR HGB CONC 32.2 g/dl (32.0-36.5); MEAN CORPUSCULAR VOLUME 92.8 fl (80.0-96.0); MONO # 0.7 K/mm3 (0.0-0.8); MONO % 5.8 % (0.0-5.0); NEUTROPHILS # 6.5 K/mm3 (1.8-7.7); NEUTROPHILS % 54.7 % (36.0-66.0); PLATELET COUNT, AUTOMATED 185 k/mm3 (150-450); RED CELL DISTRIBUTION WIDTH 13.8 % (11.5-14.5); WHITE BLOOD COUNT 11.9 K/mm3 (4.0-10.0)
[2017-02-20] MEDS: SLF 3 ML SYR IV SCH ×3 (06:14→21:33)
[2017-02-20 06:26] LABS: ALBUMIN 2.1 GM/DL (3.2-5.2); ALBUMIN/GLOBULIN RATIO 0.64 (1.00-1.93); ALKALINE PHOSPHATASE 64 U/L (45-117); ALT/SGPT 12 U/L (12-78); ANION GAP 5 MEQ/L (8-16); AST/SGOT 11 U/L (15-37); BILIRUBIN,TOTAL 0.4 MG/DL (0.2-1.0); BLOOD UREA NITROGEN 15 MG/DL (7-18); CARBON DIOXIDE LEVEL 34 MEQ/L (21-32); CHLORIDE LEVEL 97 MEQ/L (98-107); CREATININE FOR GFR 0.81 MG/DL (0.55-1.02); GLOMERULAR FILTRATION RATE > 60.0 (>39); GLUCOSE, FASTING 88 MG/DL (83-110); POTASSIUM SERUM 3.8 MEQ/L (3.5-5.1); SODIUM LEVEL 136 MEQ/L (136-145); TOTAL PROTEIN 5.4 GM/DL (6.4-8.2)
[2017-02-20] MEDS: FLUTICASONE HFA 44 MCG 10.6GM INHALER (FLOVENT) INH SCH ×2 (07:15→19:10)
--- NOTE | 2017-02-20 08:24 | IPNPDOC ---
Subjective Date Seen The patient was seen on 02/20/17. Subjective Chief Complaint/HPI The patient is a 76-year-old female admitted with a reason for visit of Plueral Efusion W/ Hypoxia, Enlarged Lymph Nodes. Events since last encounter Pt states she is feeling better. Denies any CP, SOB, Abd pain. Constitutional: Denies: Chills, Fever Pulmonary: Denies: Dyspnea Cardiovascular: Denies: Chest Pain, Palpitations Gastrointestinal: Denies: Nausea, Vomiting, Abdominal Pain Objective Physical Examination General Exam: Positive: Alert, No Acute Distress, Other (cachetic appearing) Eye Exam: Positive: Conjunctiva & lids normal, Negative: Sclera icteric ENT Exam: Positive: Atraumatic, Mucous membr. moist/pink, Nares Patent Neck Exam: Positive: Supple, Negative: Lymphadenopathy Chest Exam: Positive: Clear to auscultation, Other (the crackles are just at the bilateral bases now. Additionally there is dullness on percussion at the bilateral posteriore bases only. ) Heart Exam: Positive: Rate Normal, Regular Rhythm Telemetry: Positive: Sinus Abdomen Exam: Positive: Normal bowel sounds, Other, Negative: Tenderness Extremity Exam: Negative: Edema Psych Exam: Positive: Mental status NL, Oriented x 3 Assessment /Plan Problems (1) Pleural effusion Problem Text: 02/20 - Pt has chest tube. Dr Zuleta following. Case discussed with Dr Zuleta. He advises changing the Lasix to 40 mg IV BID but advises giving a 40 mg IV now to see if she tolerates it as her BPs have been soft. If she tolerates the initial dose change to 40 mg IV, then increase to 40 mg IV BID. 02/19 - The chest tube output is decreased, but still not enough that Dr. Zuleta will consider removing them quite yet. Continue to monitor. (2) Weight loss, unintentional Status: Chronic Problem Text: 02/19 - Weight loss and bowel issues x 1 month - likely related to malignancy. I had a long conversation with the patient and daughter explaining why we were counting on a lymph node bx to help us determine where to go next with her treatment. They have a better understanding of why we did the lymph node bx now. (3) Asthma Status: Chronic Response to Treatment: Stable (4) Hypoxia Status: Resolved Response to Treatment: Improving (5) Obstipation Status: Resolved Response to Treatment: Stable Problem Text: 02/16 Large Bm with bowel care flat/upright abd yesterday showed only gastric distension with air/fluid levels - abd discomfort resolved with BM Plan/VTE VTE Prophylaxis Ordered?: Yes (SQ heparin) VS, I&O, 24H, Fishbone Vital Signs/I&O Vital Signs Date Time Temp Pulse Resp B/P (MAP) Pulse Ox O2 Delivery O2 Flow Rate FiO2 02/20/17 04:00 99.9 83 18 90/52 (65) 90 Room Air 02/16/17 13:15 2.0 I&O- Last 24 Hours up to 6 AM 02/20/17 05:59 Intake Total 1920 ml Output Total 1860 ml Balance 60 ml Laboratory Data 24H LABS Laboratory Tests 2 02/20/17 05:20: White Blood Count 11.9H, Red Blood Count 3.60L, Hemoglobin 10.8L, Hematocrit 33.4L, Mean Corpuscular Volume 92.8, Mean Corpuscular Hemoglobin 29.9, Mean Corpuscular Hemoglobin Concent 32.2, Red Cell Distribution Width 13.8, Platelet Count 185, Neutrophils (%) (Auto) 54.7, Lymphocytes (%) (Auto) 32.1, Monocytes ( %) (Auto) 5.8H, Eosinophils (%) (Auto) 4.9H, Basophils (%) (Auto) 0.6, Neutrophils # (Auto) 6.5, Lymphocytes # (Auto) 4.1, Monocytes # (Auto) 0.7, Eosinophils # (Auto) 0.6H, Basophils # (Auto) 0.1, Large Unclassified Cells % 1.9, Large Unclassified Cells # 0.2, Anion Gap 5L, Glomerular Filtration Rate > 60.0, Blood Urea Nitrogen 15, Creatinine 0.81, Sodium Level 136, Potassium Level 3.8, Chloride Level 97L, Carbon Dioxide Level 34H, Calcium Level 8.0L, Aspartate Amino Transf (AST/SGOT) 11L, Alanine Aminotransferase (ALT/SGPT) 12, Alkaline Phosphatase 64, Total Bilirubin 0.4, Total Protein 5.4L, Albumin 2.1L, Albumin/Globulin Ratio 0.64L CBC/BMP Laboratory Tests 02/20/17 05:20 Red Blood Count 3.60 L, Mean Corpuscular Volume 92.8, Mean Corpuscular Hemoglobin 29.9, Mean Corpuscular Hemoglobin Concent 32.2, Red Cell Distribution Width 13.8, Neutrophils (%) (Auto) 54.7, Lymphocytes (%) (Auto) 32.1, Monocytes (%) (Auto) 5.8 H, Eosinophils (%) (Auto) 4.9 H, Basophils (%) ( Auto) 0.6, Neutrophils # (Auto) 6.5, Lymphocytes # (Auto) 4.1, Monocytes # (Auto ) 0.7, Eosinophils # (Auto) 0.6 H, Basophils # (Auto) 0.1, Calcium Level 8.0 L, Aspartate Amino Transf (AST/SGOT) 11 L, Alanine Aminotransferase (ALT/SGPT) 12, Alkaline Phosphatase 64, Total Bilirubin 0.4, Total Protein 5.4 L, Albumin 2.1 L Microbiology Microbiology 02/16/17 Acid Fast Stain, Received Pending 02/16/17 Mycobacterial Culture, Received Pending 02/16/17 Fungal Smear, Received Pending 02/16/17 Fungal Culture, Received Pending 02/16/17 Gram Stain - Final, Complete 02/16/17 Anaerobic Culture - Final, Complete 02/16/17 Body Fluid Culture - Final, Complete 02/14/17 Acid Fast Stain, Received Pending 02/14/17 Mycobacterial Culture, Received Pending 02/14/17 Fungal Smear, Received Pending 02/14/17 Fungal Culture, Received Pending 02/14/17 Gram Stain - Final, Complete 02/14/17 Body Fluid Culture - Final, Complete 02/14/17 Anaerobic Culture - Final, Complete Attending Note Attending Note Patient looks comfortable and her only wish is to have the chest tubes removed. Tolerating the tubes quite well. Path report on biopsy pending. Multiple enlarged nodes noted in right neck and left supraclavicular. Kunal Blanton Feb 20, 2017 08:24 Leonardo Ching MD Feb 20, 2017 15:31
--- NOTE | 2017-02-20 08:34 | REP ---
Clinical: Follow up pleural effusion/pneumothorax. Technique: PA and lateral. Comparison: 02/19/2017. Findings: Biapical pneumothoraces and predominant lower lobe pleuroparenchymal changes are essentially unchanged. Chest tubes are in stable position. Mediastinum and cardiac silhouette are within normal limits and stable. No new acute process identified. Skeletal structures intact. Impression: Biapical pneumothoraces and bilateral pleuroparenchymal changes remain stable. No new acute process identified. Signed by Andrey Rodriguez MD 02/20/2017 08:25 A
[2017-02-20] MEDS: MOM 30ML SUSPENSION UDC PO SCH (09:00)
[2017-02-20] MEDS: MIRALAX *UNIT DOSE* 17GM PACKET PO SCH ×2 (09:00→21:00)
[2017-02-20] MEDS: SENOKOT S TAB PO SCH ×2 (09:00→21:00)
[2017-02-20] MEDS: DOCUSATE SODIUM 100 MG CAP PO SCH ×2 (09:00→21:00)
[2017-02-20] MEDS: MONTELUKAST 10 MG TAB PO SCH (09:32)
[2017-02-20] MEDS: PANTOPRAZOLE 40MG TAB (PROTONIX) PO SCH (09:32)
[2017-02-20] MEDS: HEPARIN SOD (PORCINE) 5000 UNITS/ML VIAL SC SCH ×2 (09:32→21:31)
[2017-02-20] MEDS ORDERED: FUROSEMIDE 40 MG/4 ML VIAL (J1940) IV ONE (10:00)
--- NOTE | 2017-02-20 10:03 | IPN ---
DATE: 02/20/2017 Ms. Purcell is still putting too much out the chest tubes for me to remove them. She is going basically in the right direction, but she has plateaued off today. Her pain is being well controlled at the chest tube insertion site and in the operative site of the axilla. Her vital signs show a maximum temperature (T max) of 100.1 with a heart rate that ranges between 83 and 80 and is sinus rhythm, respiratory rate of 18 to 20 without the use of accessory muscles who is 98 to 94% saturated on room air. Her blood pressure is now ranging between 102/59 to 90/52. Her intake and output for the past 24 hours has been essentially equal, 0 in and 1880 out for a positivity of 160 mL. She has put out 230 mL from the left chest tube and 300 mL from the right chest tube. Her weight today is 47.5 kg compared to 46.9 kg yesterday. On physical examination, her lungs show normal vesicular sounds on either side. I hear no wheezes, rhonchi or rales. Percussion notes full to the diaphragm. Cardiac exam shows a 3/6 holosystolic murmur at the left sternal border. I cannot feel her point of maximum impulse (PMI). S1, S2 are normal. Abdomen is soft and nontender but still tympanitic. Her left upper quadrant shows her spleen, but it is not as tender as it was. There is no costovertebral angle tenderness. Extremities show 1+ pretibial edema. No calf tenderness. No differential swelling of the upper extremities. Skin is warm, dry and perfused without cyanosis or mottling, including that of the nail beds and the knees. Neck is supple. There is no jugular venous distention, no subcutaneous emphysema. Trachea is midline. Mouth shows her mucous membranes to be pink and moist. Lips and commissures without lesions. There is no thrush. Eyes show her pupils to be equal and reactive. Extraocular motions intact. Sclerae anicteric. Neurologic shows II-XII intact along with gross motor and gross sensation intact. Gait is also intact. Psychiatric shows her to be awake and alert, oriented times three with appropriate mood and affect and conversational. Her white count today is 11.9, unchanged from yesterday, with a hemoglobin and hematocrit of 10.8 and 33.4, also unchanged from yesterday and a platelet count 185 and stable. Differential shows 54% neutrophils, 32% lymphocytes, 5% monocytes. There are no immature forms, no toxic granulations. Her electrolytes are normal with a BUN and creatinine of 15 and 0.81. Potassium is 3.8. Calcium is 8.0 with a corresponding albumin of 2.1 and a glucose of 88. We are still awaiting pathology. Today is a holiday and I have walked up there and pathology is not there today. Her chest x-ray today shows her lung fully expanded to the chest wall with blunting of the costophrenic angles. This looks to be more plate atelectasis than fluid. The lateral chest x-ray shows flat diaphragms with atelectatic post-compressive changes. There are no infiltrates. IMPRESSION: 1. Bilateral pleural effusions, controlled with chest tubes, plateauing. 2. Generalized lymphadenopathy. Pathology pending. 3. History of asthma. 4. Shortness of breath secondary to pleural effusions, resolved. 5. Hypercholesterolemia. 6. History of duodenitis and gastritis. 7. Post expansion pulmonary edema, right side, resolved. PLAN AND DISCUSSION: She is still putting out a bit too much out the chest tubes to remove them. I have asked the medical service to increase her Lasix to 40 mg twice a day. Will start off with 40 mg this morning to see if her blood pressure will tolerate it. Her blood pressure is rather soft but so long as she is not symptomatic, we should try and dry her out some more. Certainly, BUN and creatinine will tolerate it. She is not on Toradol to hurt her kidneys.
[2017-02-20] MEDS: FUROSEMIDE 40 MG/4 ML VIAL (J1940) IV SCH (17:03)
[2017-02-21] MEDS: LEVALBUTEROL 1.25 MG/0.5 ML CONCENTRATE NEB NEB SCH ×4 (01:15→20:57)
[2017-02-21 04:00] VITALS: BP 106/56
[2017-02-21] MEDS: SLF 3 ML SYR IV SCH ×3 (05:18→21:16)
[2017-02-21 05:25] LABS: BASO # 0.1 K/mm3 (0.0-0.2); BASO % 0.6 % (0.0-1.0); EOS # 0.6 K/mm3 (0.0-0.50); EOS % 4.7 % (0.0-3.0); LARGE UNSTAINED CELL # 0.3 K/mm3 (0.0-0.4); LARGE UNSTAINED CELL % 1.9 % (0.0-4.0); LYMPH # 4.1 K/mm3 (1.5-4.5); LYMPH % 30.3 % (24.0-44.0); MEAN CORPUSCULAR HEMOGLOBIN 30.5 pg (27.0-33.0); MEAN CORPUSCULAR HGB CONC 32.9 g/dl (32.0-36.5); MEAN CORPUSCULAR VOLUME 92.4 fl (80.0-96.0); MONO # 0.7 K/mm3 (0.0-0.8); MONO % 5.8 % (0.0-5.0); NEUTROPHILS # 7.3 K/mm3 (1.8-7.7); NEUTROPHILS % 56.8 % (36.0-66.0); PLATELET COUNT, AUTOMATED 193 k/mm3 (150-450); RED CELL DISTRIBUTION WIDTH 13.8 % (11.5-14.5); WHITE BLOOD COUNT 12.8 K/mm3 (4.0-10.0)
[2017-02-21 05:39] LABS: ALBUMIN/GLOBULIN RATIO 0.61 (1.00-1.93); ALKALINE PHOSPHATASE 61 U/L (45-117); ALT/SGPT 13 U/L (12-78); ANION GAP 7 MEQ/L (8-16); AST/SGOT 16 U/L (15-37); BILIRUBIN,TOTAL 0.3 MG/DL (0.2-1.0); BLOOD UREA NITROGEN 17 MG/DL (7-18); CALCIUM LEVEL 8.6 MG/DL (8.8-10.2); CARBON DIOXIDE LEVEL 33 MEQ/L (21-32); CHLORIDE LEVEL 97 MEQ/L (98-107); GLOMERULAR FILTRATION RATE > 60.0 (>39); GLUCOSE, FASTING 96 MG/DL (83-110); POTASSIUM SERUM 3.9 MEQ/L (3.5-5.1); SODIUM LEVEL 137 MEQ/L (136-145); TOTAL PROTEIN 5.3 GM/DL (6.4-8.2)
[2017-02-21] MEDS: FLUTICASONE HFA 44 MCG 10.6GM INHALER (FLOVENT) INH SCH ×2 (07:30→20:57)
--- NOTE | 2017-02-21 07:58 | IPNPDOC ---
Subjective Date Seen The patient was seen on 02/21/17. Subjective Chief Complaint/HPI The patient is a 76-year-old female admitted with a reason for visit of Plueral Efusion W/ Hypoxia, Enlarged Lymph Nodes. Events since last encounter Pt denies any new issues. Denies CP, SOB, Abd pain. Constitutional: Denies: Chills, Fever Pulmonary: Denies: Dyspnea Cardiovascular: Denies: Chest Pain Gastrointestinal: Denies: Abdominal Pain Objective Physical Examination General Exam: Positive: Alert, No Acute Distress, Other (cachetic appearing) Eye Exam: Positive: Conjunctiva & lids normal, Negative: Sclera icteric ENT Exam: Positive: Atraumatic, Mucous membr. moist/pink, Nares Patent Neck Exam: Positive: Supple, Negative: Lymphadenopathy Chest Exam: Positive: Clear to auscultation, Other (the crackles are just at the bilateral bases now. Additionally there is dullness on percussion at the bilateral posteriore bases only. ) Heart Exam: Positive: Rate Normal, Regular Rhythm Telemetry: Positive: Sinus Abdomen Exam: Positive: Normal bowel sounds, Other, Negative: Tenderness Extremity Exam: Negative: Edema Psych Exam: Positive: Mental status NL, Oriented x 3 Assessment /Plan Problems (1) Pleural effusion Problem Text: 02/21 - Pt has chest tubes. Dr Zuleta following. Lasix was increased yesterday to 40 mg IV BID. 02/20 - Pt has chest tube. Dr Zuleta following. Case discussed with Dr Zuleta. He advises changing the Lasix to 40 mg IV BID but advises giving a 40 mg IV now to see if she tolerates it as her BPs have been soft. If she tolerates the initial dose change to 40 mg IV, then increase to 40 mg IV BID. 02/19 - The chest tube output is decreased, but still not enough that Dr. Zuleta will consider removing them quite yet. Continue to monitor. (2) Weight loss, unintentional Status: Chronic Problem Text: 02/19 - Weight loss and bowel issues x 1 month - likely related to malignancy. I had a long conversation with the patient and daughter explaining why we were counting on a lymph node bx to help us determine where to go next with her treatment. They have a better understanding of why we did the lymph node bx now. (3) Asthma Status: Chronic Response to Treatment: Stable (4) Hypoxia Status: Resolved Response to Treatment: Improving (5) Obstipation Status: Resolved Response to Treatment: Stable Problem Text: 02/16 Large Bm with bowel care flat/upright abd yesterday showed only gastric distension with air/fluid levels - abd discomfort resolved with BM Plan/VTE VTE Prophylaxis Ordered?: Yes (SQ heparin) Plan Family Medicine Attending Note: I saw and examined Ms. Purcell, discussed with ESTEPHANIA Choi. Agree with their note as documented, however, I waited to see her until the pathology results were back this afternoon. The biopsy of the left axilla lymph node shows follicular lymphoma. I discussed this condition with Dr. Zuleta. We agreed that this made sense because her transudative pleural effusions are probably more reflective of lymphatic back up because of her lymphoma than they are from a paraneoplastic effusion. I consulted medical oncology, Dr. Nadira Monreal, who agreed to come by and evaluate the patient this evening. 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) VS, I&O, 24H, Fishbone Vital Signs/I&O Vital Signs Date Time Temp Pulse Resp B/P (MAP) Pulse Ox O2 Delivery O2 Flow Rate FiO2 02/21/17 04:00 99.7 76 18 106/56 (73) 96 Room Air 02/16/17 13:15 2.0 I&O- Last 24 Hours up to 6 AM 02/21/17 06:00 Intake Total 1460 ml Output Total 2305 ml Balance -845 ml Laboratory Data 24H LABS Laboratory Tests 2 02/21/17 04:58: White Blood Count 12.8H, Red Blood Count 3.47L, Hemoglobin 10.6L, Hematocrit 32.1L, Mean Corpuscular Volume 92.4, Mean Corpuscular Hemoglobin 30.5, Mean Corpuscular Hemoglobin Concent 32.9, Red Cell Distribution Width 13.8, Platelet Count 193, Neutrophils (%) (Auto) 56.8, Lymphocytes (%) (Auto) 30.3, Monocytes ( %) (Auto) 5.8H, Eosinophils (%) (Auto) 4.7H, Basophils (%) (Auto) 0.6, Neutrophils # (Auto) 7.3, Lymphocytes # (Auto) 4.1, Monocytes # (Auto) 0.7, Eosinophils # (Auto) 0.6H, Basophils # (Auto) 0.1, Large Unclassified Cells % 1.9, Large Unclassified Cells # 0.3, Anion Gap 7L, Glomerular Filtration Rate > 60.0, Blood Urea Nitrogen 17, Creatinine 0.80, Sodium Level 137, Potassium Level 3.9, Chloride Level 97L, Carbon Dioxide Level 33H, Calcium Level 8.6L, Aspartate Amino Transf (AST/SGOT) 16, Alanine Aminotransferase (ALT/SGPT) 13, Alkaline Phosphatase 61, Total Bilirubin 0.3, Total Protein 5.3L, Albumin 2.0L, Albumin/Globulin Ratio 0.61L CBC/BMP Laboratory Tests 02/21/17 04:58 Red Blood Count 3.47 L, Mean Corpuscular Volume 92.4, Mean Corpuscular Hemoglobin 30.5, Mean Corpuscular Hemoglobin Concent 32.9, Red Cell Distribution Width 13.8, Neutrophils (%) (Auto) 56.8, Lymphocytes (%) (Auto) 30.3, Monocytes (%) (Auto) 5.8 H, Eosinophils (%) (Auto) 4.7 H, Basophils (%) ( Auto) 0.6, Neutrophils # (Auto) 7.3, Lymphocytes # (Auto) 4.1, Monocytes # (Auto ) 0.7, Eosinophils # (Auto) 0.6 H, Basophils # (Auto) 0.1, Calcium Level 8.6 L, Aspartate Amino Transf (AST/SGOT) 16, Alanine Aminotransferase (ALT/SGPT) 13, Alkaline Phosphatase 61, Total Bilirubin 0.3, Total Protein 5.3 L, Albumin 2.0 L Microbiology Microbiology 02/16/17 Acid Fast Stain, Received Pending 02/16/17 Mycobacterial Culture, Received Pending 02/16/17 Fungal Smear, Received Pending 02/16/17 Fungal Culture, Received Pending 02/16/17 Gram Stain - Final, Complete 02/16/17 Anaerobic Culture - Final, Complete 02/16/17 Body Fluid Culture - Final, Complete 02/14/17 Acid Fast Stain, Received Pending 02/14/17 Mycobacterial Culture, Received Pending 02/14/17 Fungal Smear, Received Pending 02/14/17 Fungal Culture, Received Pending 02/14/17 Gram Stain - Final, Complete 02/14/17 Body Fluid Culture - Final, Complete 02/14/17 Anaerobic Culture - Final, Complete Kunal Blanton RPA-C Feb 21, 2017 7:58 am Alexandre Mccarthy MD Feb 22, 2017 10:50 pm
[2017-02-21 08:00] VITALS: BP 108/57
[2017-02-21] MEDS: MOM 30ML SUSPENSION UDC PO SCH (09:00)
[2017-02-21] MEDS: MIRALAX *UNIT DOSE* 17GM PACKET PO SCH ×2 (09:00→21:00)
[2017-02-21] MEDS: DOCUSATE SODIUM 100 MG CAP PO SCH ×2 (09:00→21:00)
[2017-02-21] MEDS: SENOKOT S TAB PO SCH ×2 (09:00→21:00)
[2017-02-21] MEDS: HEPARIN SOD (PORCINE) 5000 UNITS/ML VIAL SC SCH ×2 (09:27→21:16)
[2017-02-21] MEDS: FUROSEMIDE 40 MG/4 ML VIAL (J1940) IV SCH ×2 (09:28→17:41)
[2017-02-21] MEDS: MONTELUKAST 10 MG TAB PO SCH (09:28)
[2017-02-21] MEDS: PANTOPRAZOLE 40MG TAB (PROTONIX) PO SCH (09:28)
--- NOTE | 2017-02-21 11:07 | REP ---
Clinical: Follow up pleural effusion and pneumothoraces. Technique: PA and lateral. Comparison: 02/20/2017. Findings: Small bilateral apical pneumothoraces and bibasilar pleuroparenchymal changes including elements of atelectasis and small pleural effusions remain unchanged. Mediastinum and cardiac silhouette are stable. No new acute process identified. Skeletal structures are intact. Impression: Biapical pneumothoraces and bibasilar pleuroparenchymal changes remain stable. No new acute process. Chest tubes in stable position. Signed by Andrey Rodriguez MD 02/21/2017 10:58 A
[2017-02-21 12:00] VITALS: BP 109/58
--- NOTE | 2017-02-21 14:15 | IPN ---
DATE: 02/21/2017 Ms. Purcell is breathing well and again her pain at the chest tube insertion site and the lymph node biopsy site is being well controlled. Pathology has come back today as follicular lymphoma with all the final markers pending. I have informed her of the diagnosis. Dr. Mccarthy also knows and will be arranging for oncologic followup. Her vital signs show a maximum temperature (T max) of 99.6 with a heart rate that ranges between 74 and 90 in a sinus rhythm, respiratory rate that is constant at 18, who is 94% saturated on room air and whose blood pressure is now ranging between 106/56 to 109/58. Her intake and output for the past 24 hours has been recorded as 1220 in and 2105 out for a negativity of 885 mL. She has put out 80 mL out of the left chest tube and 225 mL out of the right chest tube. She weighs 51.2 kg today compared to 47.5 kg yesterday. PHYSICAL EXAMINATION: LUNGS: Her lungs show normal vesicular sounds without wheezes, rhonchi or rales. Percussion note is full to the diaphragm. CARDIAC EXAM: Shows the grade 3/5 holosystolic murmur at the left lower sternal border. I cannot feel her point of maximum impulse (PMI). S1, S2 are normal. ABDOMEN: Soft, nontender. Bowel sounds positive. She is tympanitic in the lower portion of the abdomen; however, left upper quadrant is not as tender as it was when she came initially on admission. EXTREMITIES: Show no pretibial edema. No calf tenderness. No differential swelling of the upper extremities. SKIN: Warm, dry and perfused without cyanosis or mottling, including that of the nail beds and knees. NECK: Supple. There is no jugular venous distention. No subcutaneous emphysema. Trachea is midline. MOUTH: Shows her mucous membranes to be pink and moist. Lips and commissures without lesions. There is no thrush. EYES: Show her pupils to be equal and reactive. Extraocular motion intact. Sclerae anicteric. NEUROLOGIC: Shows II through XII intact with gross motor and gross sensation intact. Gait is not tested. PSYCHIATRIC: Shows her to be awake and alert, oriented times three with appropriate mood and affect and conversational. Her white count today is 12.8 with hemoglobin and hematocrit of 10.6 and 32.1, essentially unchanged from yesterday with a platelet count of 193. Differential shows 56% neutrophils, 32% lymphocytes, 5% monocytes. There are no immature forms, no toxic granulations. Her electrolytes are normal with a BUN and creatinine of 17 and 0.8. Calcium is 8.6 with a corresponding albumin of 2.0 and a glucose of 96. I have gone over the slides with Dr. Grady of pathology with the above results. Her chest x-ray is still pending today. IMPRESSION: 1. Bilateral pleural effusions, controlled with chest tubes, decreasing. 2. Follicular lymphoma, final pathology and markers pending. 3. History of asthma. 4. Shortness of breath secondary to pleural effusions, resolved. 5. Hypercholesterolemia. 6. History of duodenitis and gastritis. 7. Post expansion pulmonary edema, right side, resolved. PLAN AND DISCUSSION: I am going to presume that the pleural effusions are secondary to lymphatic obstruction secondary to lymphoma. I am going to remove the left chest tube today and hopefully the right tomorrow. It will be imperative that she gets treated fairly soon in order to prevent the effusions from recurring. She may need another drainage procedure in the form of a thoracentesis. Hopefully she is not going to need bilateral PleurX catheters. If we can get the lymphoma under control, the pleural effusions ought to resolve.
[2017-02-21] MEDS ORDERED: GASTROGRAFIN SOLUTION 30ML PO ONE (15:30)
[2017-02-21 16:00] VITALS: BP 111/61
[2017-02-21] MEDS ORDERED: GASTROGRAFIN SOLUTION 30ML (Q9963) PO ONE (16:00)
[2017-02-21] MEDS ORDERED: ISOVUE-370 76% 100ML VIAL (Q9967) As Ordered ONE (16:08)
[2017-02-21] MEDS ORDERED: FAT EMULSION IV 20% 500 ML IV SCH (18:00)
[2017-02-21] MEDS ORDERED: HumaLOG INSULIN (NovoLOG) PER UNIT SC SCH (18:00)
[2017-02-21] MEDS ORDERED: AMINO AC/ELECTROLYTE/DEX/CALC 2,000 ML IV SCH (18:00)
--- NOTE | 2017-02-21 19:53 | CR ---
DATE OF CONSULTATION: 02/21/2017 Dr. Alexandre Mccarthy requested medical oncology consult regarding newly diagnosed lymphoma. Reilly Solitario is a 76-year-old woman with a remote smoking history, retired, who in the last several months has had an unexplained progressive weight loss and deteriorating performance status. She was admitted 02/14/2017 with acute on chronic dyspnea, found to have bilateral pleural effusions on outside imaging, extensive above and below the diaphragm lymphadenopathy. She has undergone thoracentesis and drainage, continues to have a chest tube in place. Pleural fluid was transudative but left axillary lymph node excisional biopsy has returned positive for lymphoma, preliminarily follicular subtype, immunophenotyping in progress. At the bedside, Ms. Purcell is reclining, watching television, alert, oriented and though taciturn, responsive. She notes progressive weight loss and general fatigue over several months. When I ask her about lying flat and sleeping, she does not quite answer positive or negative. She acknoledges lumps and bumps under her arms, in her groin area and exertional dyspnea, which is "much better" since her chest tube. She has been walking with assistance on the hospital floor. PAST MEDICAL HISTORY: Hypercholesterolemia. Constipation. Asthma. History of duodenal ulcer. Hiatal hernia. Degenerative joint disease (DJD). PAST SURGICAL HISTORY: Hysterectomy. Colonoscopy 2011. Esophagogastroduodenoscopy (EGD) 2012. Cataract surgery 2016. SOCIAL HISTORY: The patient is retired, used to work at [employer]. She stopped smoking approximately one decade ago. She has grown children in the area, living with a daughter. Does not use alcohol. Lives outside of [place]. REVIEW OF SYSTEMS: Nothing to add in addition to pertinent positives and negatives above other than the patient denies night sweats or fevers. LIMITED EXAM: Vital signs: Temperature 98.9, blood pressure 111/61, heart rate 96, oxygen saturation (O2 sat) 96%, heart rate 82, respiratory rate 18. Patient is a cachectic older woman with long hair, alert and oriented to person, place and time. Lymph node exam notable for palpable bilateral mobile axillary lymphadenopathy and inguinal lymphadenopathy. No supraclavicular, infraclavicular, submandibular, cervical, pre or postauricular adenopathy. No palpable splenomegaly, though by report, splenomegaly on outside CT as well as mediastinal and abdominal adenopathy. LABORATORY: WBC 12.8, hemoglobin 10.6, hematocrit 32, MCV 92, absolute lymphocyte count 4100, platelets 193, LDH 164, BUN, creatinine 17 and 0.8, normal AST, ALT, albumin 2.0. IMPRESSION: B cell lymphoma, presumptive follicular subtype, with immunophenotyping pending, with extensive above- and below-diaphragm adenopathy and non-malignant pleural effusion. Status post thoracentesis with symptomatic improvement. Pre-admission ECOG PS 3; B symptoms over many weeks. Clinical stage IIIB - IVB RECOMMENDATIONS: 1. If Ms. Purcell is able to ambulate and/or improve with mild rehab, soon-basis outpatient oncology follow up is appropriate. Follicular lymphoma is an indolent lymphoma. Indications for treatment are bulky disease, higher stage. She meets these but urgent inpatient disease does not appear warranted at present. I reviewed with her typical first line treatment for follicular lymphoma, including Bendamustine/rituximab ("BR"), or Rituximab/cyclophosphamide/doxorubicin/vincristine/prednisone ("R-CHOP"). Final immunophenotyping is needed before conclusively deciding on treatment. Typically, patients respond quickly and feel better soon and typically, four to six cycles of treatment are adequate to achieve remission, which is often durable. I encouraged Ms. Purcell to consider treatment given the relatively good short and intermediate term prognosis for patients with follicular lymphoma. 2. Restaging CT chest, abdomen and pelvis have been performed inpatient and formal read is pending. If there is a significant, rapid evolution of lymph nodes versus the prior in late January this could be an indication for immediate treatment and we could consider starting inpatient chemotherapy, but overall, it will be preferable to wait for final pathology as well as improvement in the patient's performance status. If stable disease versus recent priors, would recommend outpatient oncology followup when final biopsy results are available and to start treatment when the patient is somewhat stronger. 3. I cautioned Reilly Solitario that pleural effusions can reaccumulate and therefore deciding on a treatment plan in the next few weeks would be important to avoid recurrence of her symptoms. Copy To: Alexandre Mccarthy MD
[2017-02-21 20:00] VITALS: BP 88/52
[2017-02-22] VITALS (7 sets, daily range): BP systolic 93–109; BP diastolic 55–62
[2017-02-22] MEDS: LEVALBUTEROL 1.25 MG/0.5 ML CONCENTRATE NEB NEB SCH ×4 (01:07→19:24)
[2017-02-22] MEDS: SLF 3 ML SYR IV SCH ×3 (05:10→20:15)
[2017-02-22 05:44] LABS: BASO # 0.1 K/mm3 (0.0-0.2); BASO % 0.5 % (0.0-1.0); EOS # 0.6 K/mm3 (0.0-0.50); EOS % 4.2 % (0.0-3.0); LARGE UNSTAINED CELL # 0.3 K/mm3 (0.0-0.4); LYMPH # 4.2 K/mm3 (1.5-4.5); LYMPH % 30.2 % (24.0-44.0); MEAN CORPUSCULAR HEMOGLOBIN 31.3 pg (27.0-33.0); MEAN CORPUSCULAR HGB CONC 34.1 g/dl (32.0-36.5); MEAN CORPUSCULAR VOLUME 91.8 fl (80.0-96.0); MONO # 0.7 K/mm3 (0.0-0.8); MONO % 5.2 % (0.0-5.0); NEUTROPHILS % 57.9 % (36.0-66.0); PLATELET COUNT, AUTOMATED 227 k/mm3 (150-450); RED CELL DISTRIBUTION WIDTH 13.9 % (11.5-14.5); WHITE BLOOD COUNT 13.9 K/mm3 (4.0-10.0)
[2017-02-22 06:23] LABS: ALBUMIN/GLOBULIN RATIO 0.65 (1.00-1.93); ALKALINE PHOSPHATASE 59 U/L (45-117); ALT/SGPT 13 U/L (12-78); ANION GAP 9 MEQ/L (8-16); AST/SGOT 18 U/L (15-37); BILIRUBIN,TOTAL 0.2 MG/DL (0.2-1.0); BLOOD UREA NITROGEN 17 MG/DL (7-18); CALCIUM LEVEL 8.3 MG/DL (8.8-10.2); CARBON DIOXIDE LEVEL 34 MEQ/L (21-32); CHLORIDE LEVEL 98 MEQ/L (98-107); CREATININE FOR GFR 0.73 MG/DL (0.55-1.02); GLOMERULAR FILTRATION RATE > 60.0 (>39); GLUCOSE, FASTING 93 MG/DL (83-110); POTASSIUM SERUM 3.8 MEQ/L (3.5-5.1); SODIUM LEVEL 141 MEQ/L (136-145); TOTAL PROTEIN 5.1 GM/DL (6.4-8.2)
[2017-02-22] MEDS: FLUTICASONE HFA 44 MCG 10.6GM INHALER (FLOVENT) INH SCH ×2 (07:30→19:24)
--- NOTE | 2017-02-22 08:17 | IPNPDOC ---
Subjective Date Seen The patient was seen on 02/22/17. Subjective Chief Complaint/HPI The patient is a 76-year-old female admitted with a reason for visit of Plueral Efusion W/ Hypoxia, Enlarged Lymph Nodes. Events since last encounter Pt states she is feeling better. Denies CP or SOB. Constitutional: Denies: Chills, Fever Pulmonary: Denies: Dyspnea Cardiovascular: Denies: Chest Pain Gastrointestinal: Denies: Abdominal Pain Objective Physical Examination General Exam: Positive: Alert, No Acute Distress, Other (cachetic appearing) Eye Exam: Positive: Conjunctiva & lids normal, Negative: Sclera icteric ENT Exam: Positive: Atraumatic, Mucous membr. moist/pink, Nares Patent Neck Exam: Positive: Supple, Negative: Lymphadenopathy Chest Exam: Positive: Clear to auscultation, Other (the crackles are just at the bilateral bases now. Additionally there is dullness on percussion at the bilateral posteriore bases only. ) Heart Exam: Positive: Rate Normal, Regular Rhythm Telemetry: Positive: Sinus Abdomen Exam: Positive: Normal bowel sounds, Other, Negative: Tenderness Extremity Exam: Negative: Edema Psych Exam: Positive: Mental status NL, Oriented x 3 Assessment /Plan Problems (1) Follicular lymphoma Problem Specific Plan: Consult Specialist, Monitor Clinically Problem Text: 02/22 - Left axillary lymph node excisional biopsy has returned positive for lymphoma, preliminarily follicular subtype, immunophenotyping in progress. Dr Monreal from Oncology was consulted and saw the pt and discussed treatment options and advise starting treatment soon to avoid recurrent pleural effusions. (2) Pleural effusion Problem Specific Plan: Consult Specialist, Monitor Clinically, Repeat Labs Problem Text: 02/22 - Lymph node biopsy came back lymphoma, preliminarily follicular. Dr Zuleta following and believes that the pleural effusions are secondary to lymphatic obstruction secondary to lymphoma. He removed the left chest tube yesterday and plans to remove the right tomorrow. He advises starting treatment soon to prevent recurrent pleural effusions. 02/21 - Pt has chest tubes. Dr Zuleta following. Lasix was increased yesterday to 40 mg IV BID. 02/20 - Pt has chest tube. Dr Zuleta following. Case discussed with Dr Zuleta. He advises changing the Lasix to 40 mg IV BID but advises giving a 40 mg IV now to see if she tolerates it as her BPs have been soft. If she tolerates the initial dose change to 40 mg IV, then increase to 40 mg IV BID. 02/19 - The chest tube output is decreased, but still not enough that Dr. Zuleta will consider removing them quite yet. Continue to monitor. (3) Weight loss, unintentional Status: Chronic Problem Text: 02/19 - Weight loss and bowel issues x 1 month - likely related to malignancy. I had a long conversation with the patient and daughter explaining why we were counting on a lymph node bx to help us determine where to go next with her treatment. They have a better understanding of why we did the lymph node bx now. (4) Asthma Status: Chronic Response to Treatment: Stable (5) Hypoxia Status: Resolved Response to Treatment: Improving (6) Obstipation Status: Resolved Response to Treatment: Stable Problem Text: 02/16 Large Bm with bowel care flat/upright abd yesterday showed only gastric distension with air/fluid levels - abd discomfort resolved with BM Plan/VTE VTE Prophylaxis Ordered?: Yes (SQ heparin) Plan Family Medicine Attending Note: I saw and examined Ms. Purcell, discussed with ESTEPHANIA Choi. Agree with their note as documented. I communicated with Dr. Zuleta and Dr. Monreal throughout the day. Her left chest tube was successfully removed today by Dr. Zuleta. Dr. Monreal tried hard to get her chemotherapy started while inpatient in order to more quickly relieve these lymphatic congestion that's likely causing the pleural effusions. Unfortunately we were unable to accomplish this goal because of the staff members a vacation. Therefore we decided to start her on high-dose prednisone (100 mg daily 5 days) . We will have to see how long it takes for her effusions to resolve. She may be discharged before she starts chemotherapy next week if they can resolve sooner. Otherwise she will start her chemotherapy inpatient next week. 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) VS, I&O, 24H, Fishbone Vital Signs/I&O Vital Signs Date Time Temp Pulse Resp B/P (MAP) Pulse Ox O2 Delivery O2 Flow Rate FiO2 02/22/17 04:00 98.4 77 18 94/55 (68) 95 Room Air 02/16/17 13:15 2.0 I&O- Last 24 Hours up to 6 AM 02/22/17 05:59 Intake Total 1900 ml Output Total 1810 ml Balance 90 ml Laboratory Data 24H LABS Laboratory Tests 2 02/22/17 05:16: White Blood Count 13.9H, Red Blood Count 3.38L, Hemoglobin 10.6L, Hematocrit 31.0L, Mean Corpuscular Volume 91.8, Mean Corpuscular Hemoglobin 31.3, Mean Corpuscular Hemoglobin Concent 34.1, Red Cell Distribution Width 13.9, Platelet Count 227, Neutrophils (%) (Auto) 57.9, Lymphocytes (%) (Auto) 30.2, Monocytes ( %) (Auto) 5.2H, Eosinophils (%) (Auto) 4.2H, Basophils (%) (Auto) 0.5, Neutrophils # (Auto) 8.0H, Lymphocytes # (Auto) 4.2, Monocytes # (Auto) 0.7, Eosinophils # (Auto) 0.6H, Basophils # (Auto) 0.1, Large Unclassified Cells % 2.0, Large Unclassified Cells # 0.3, Anion Gap 9, Glomerular Filtration Rate > 60.0, Blood Urea Nitrogen 17, Creatinine 0.73, Sodium Level 141, Potassium Level 3.8, Chloride Level 98, Carbon Dioxide Level 34H, Calcium Level 8.3L, Aspartate Amino Transf (AST/SGOT) 18, Alanine Aminotransferase (ALT/SGPT) 13, Alkaline Phosphatase 59, Total Bilirubin 0.2, Total Protein 5.1L, Albumin 2.0L, Albumin/Globulin Ratio 0.65L CBC/BMP Laboratory Tests 02/22/17 05:16 Red Blood Count 3.38 L, Mean Corpuscular Volume 91.8, Mean Corpuscular Hemoglobin 31.3, Mean Corpuscular Hemoglobin Concent 34.1, Red Cell Distribution Width 13.9, Neutrophils (%) (Auto) 57.9, Lymphocytes (%) (Auto) 30.2, Monocytes (%) (Auto) 5.2 H, Eosinophils (%) (Auto) 4.2 H, Basophils (%) ( Auto) 0.5, Neutrophils # (Auto) 8.0 H, Lymphocytes # (Auto) 4.2, Monocytes # ( Auto) 0.7, Eosinophils # (Auto) 0.6 H, Basophils # (Auto) 0.1, Calcium Level 8.3 L, Aspartate Amino Transf (AST/SGOT) 18, Alanine Aminotransferase (ALT/SGPT ) 13, Alkaline Phosphatase 59, Total Bilirubin 0.2, Total Protein 5.1 L, Albumin 2.0 L Microbiology Microbiology 02/16/17 Acid Fast Stain, Received Pending 02/16/17 Mycobacterial Culture, Received Pending 02/16/17 Fungal Smear, Received Pending 02/16/17 Fungal Culture, Received Pending 02/16/17 Gram Stain - Final, Complete 02/16/17 Anaerobic Culture - Final, Complete 02/16/17 Body Fluid Culture - Final, Complete 02/14/17 Acid Fast Stain, Received Pending 02/14/17 Mycobacterial Culture, Received Pending 02/14/17 Fungal Smear, Received Pending 02/14/17 Fungal Culture, Received Pending 02/14/17 Gram Stain - Final, Complete 02/14/17 Body Fluid Culture - Final, Complete 02/14/17 Anaerobic Culture - Final, Complete Kunal Blanton Feb 22, 2017 8:16 am Alexandre Mccarthy MD Feb 23, 2017 11:21 pm
[2017-02-22] MEDS: FUROSEMIDE 40 MG/4 ML VIAL (J1940) IV SCH ×2 (08:42→17:21)
[2017-02-22] MEDS: HEPARIN SOD (PORCINE) 5000 UNITS/ML VIAL SC SCH ×2 (08:42→20:15)
[2017-02-22] MEDS: DOCUSATE SODIUM 100 MG CAP PO SCH ×2 (08:42→20:15)
[2017-02-22] MEDS: PANTOPRAZOLE 40MG TAB (PROTONIX) PO SCH (08:43)
[2017-02-22] MEDS: MOM 30ML SUSPENSION UDC PO SCH (08:43)
[2017-02-22] MEDS: MONTELUKAST 10 MG TAB PO SCH (08:43)
[2017-02-22] MEDS: SENOKOT S TAB PO SCH ×2 (08:43→20:15)
[2017-02-22] MEDS: MIRALAX *UNIT DOSE* 17GM PACKET PO SCH ×2 (08:43→20:15)
--- NOTE | 2017-02-22 08:44 | REP ---
CHEST X-RAY: Two views. HISTORY: Pleural effusion. COMPARISON CHEST X-RAY: February 21, 2017. FINDINGS: The left pleural drainage catheter has been removed. There is a small persistent left apical pneumothorax and there is slight blunting of the left lateral pleural angle. The left diaphragm is not well seen. There is discoid atelectasis in the left base. These findings are essentially unchanged. Right pleural drainage catheter remains in place. There is a small right apical pneumothorax persisting. Discoid atelectasis is seen in the right base. Cardiomediastinal silhouette is unchanged. IMPRESSION: Status post left chest tube removal. Small bilateral apical pneumothoraces. Bibasilar discoid atelectasis. Signed by Jamison Adair MD 02/22/2017 09:52 A
--- NOTE | 2017-02-22 14:16 | IPN ---
DATE: 02/22/2017 Ms. Purcell again is breathing well and walking about well. Her chest tube is off suction. She is still putting out to much for me to remove the right chest tube. Her pain is being well controlled at both chest tube insertion site and the axillary node site. Her vital signs show a maximum temperature (T max) of 99.5 with a heart rate that ranges between 91 and 77 and is sinus rhythm, respiratory rate of 16-18 without the use of accessory muscles who is 98-95% saturated on room air and whose blood pressure is ranging between 102/61 to 88/52. Her intake and output for the past 24 hours has been recorded as 1900 in and 2330 out for a negativity of 430 mL. She has put out 460 mL from the chest tube. Her left chest tube was removed yesterday. Her weight today is 48.3 kg compared to 51.2 kg yesterday and 47.5 kg the day before. PHYSICAL EXAMINATION: LUNGS: She has normal vesicular sounds on either side. I hear to wheezes, rhonchi or rales. Percussion note is full to the diaphragm. CARDIAC EXAM: Shows the grade 3/6 holosystolic murmur at the left lower sternal border. I cannot feel her point of maximum impulse (PMI). S1, S2 are normal. ABDOMEN: Soft, nontender, but still tympanitic. I can still feel her splenic mass. There is no CVA tenderness. No hepatomegaly. EXTREMITIES: Show 1-2+ pretibial edema. No calf tenderness. No differential swelling of the upper extremities. SKIN: Warm, dry and perfused without cyanosis or mottling, including that of the nail beds and knees. NECK: Supple. There is no jugular venous distention. No subcutaneous emphysema. Trachea is midline. MOUTH: Shows her mucous membranes to be pink and moist. Lips and commissures without lesions. There is no thrush. EYES: Show her pupils to be equal and reactive. Extraocular motion intact. Sclerae anicteric. NEUROLOGIC: Shows II through XII intact along with gross motor and gross sensation intact. Gait is not tested. PSYCHIATRIC: Shows her to be awake and alert, oriented times three with appropriate mood and affect and conversational. Her white count today is 13.9 up from 12.8 yesterday. Hemoglobin and hematocrit are 10.6 and 31.0, respectively, essentially unchanged from yesterday with a platelet count of 227 and stable. Differential shows 57% neutrophils, 30% lymphocytes, 5% monocytes and 4% eosinophils. There are essentially unchanged from yesterday. Her electrolytes are normal with a marginally high total CO2 of 34. BUN and creatinine of 17 and 0.73 with a glucose of 93 and a calcium of 8.3 with a corresponding albumin of 2.0. AST and ALT are still normal. We are awaiting final markers from the pathology. The official report does show follicular lymphoma. Those markers should be back in the next few days. Dr. Monreal ordered a chest and abdominal scan this morning. The chest CT shows small bilateral pneumothoraces, which are affects of the chest tube insertion and removal. She now has a small left pleural effusion. The tube is in good place on the right side. She still has significant mediastinal lymphadenopathy, but certainly not as bulky as the abdominal lymphadenopathy. There is lymphadenopathy along the trachea and left mainstem bronchus as well as the right mainstem bronchus and upper lobe. I call well imagine that the left paratracheal nodes could be interfering with the course of the thoracic duct. Most significantly however, she still has the massive amounts of intradiaphragmatic lymphadenopathy with a very, very large spleen. She has numerous hepatic cysts which do not look malignant. Her chest x-ray today shows the lung fully expanded to the chest wall with minimal bilateral pneumothoraces and air spaces in the cupula of the each hemithorax. IMPRESSION: 1. Bilateral pleural effusions controlled with chest tubes, sounding worse today on he right side. 2. Follicular lymphoma, final pathology and markers pending. 3. History of asthma. 4. Shortness of breath secondary to pleural effusions, resolved. 5. Hypercholesterolemia. 6. History of duodenitis and gastritis. 7. Post expansion pulmonary edema, right side, resolved. PLAN AND DISCUSSION: She is putting to much out the right chest tube to remove it. She has a small pleural effusion that has reaccumulated since yesterday after removal of her chest tube on the left side. I have spoken with Dr. Lopez and our intent is to start her chemotherapy as soon as the markers are reported back. I would not be adverse to removing her chest tubes tomorrow no mater how high the drainage is so long as she can start treatment early next week. I think the worse case scenario is that we will have to do a thoracentesis to drain residual fluid until the chemotherapy shrinks the sharifa masses, which are probably giving rise to lymphatic obstruction, and hence the pleural effusions. He pleural effusions are transudative supporting that mechanism.
--- NOTE | 2017-02-22 17:41 | IPN ---
DATE: 02/25/2017 MEDICAL ONCOLOGY INPATIENT FOLLOWUP Overnight, no major events. Right chest tube still draining, Dr. Zuleta unable to discontinue chest tube at this point. I reviewed the images in packs without benefit of report and see there is mediastinal adenopathy involving the carinal area which does not appear bulky, but is certainly full, fairly massive splenomegaly and some abdominal adenopathy. It is likely the adenopathy is causing the pleural effusion through congestion rather than elaboration of malignant cells. At the bedside yesterday, I spoke with Reilly Solitario about treatment. Today I spoke with her daughter, Marlene Freire, , and described the kind of treatment that can be given, including rituximab/cyclophosphamide/doxorubicin /vincristine/ prednisone (R-CHOP) or single-agent rituximab. Earlier in the afternoon we were planning to start treatment later this week on Monday, but the sudden unavailability of our inpatient oncology nurse means we are not going to be able to start rituximab Monday. I have recommended starting prednisone 100 mg by mouth daily, discussed this with Dr. Mccarthy, and also starting allopurinol as empiric treatment of this follicular lymphoma in the absence of starting rituximab right away. Sometimes prednisone alone can begin the work of treating the lymphoma and could possibly ease the pleural effusion production. Allopurinol would be nephroprotective, though overall, risk of tumor lysis syndrome is low in this patient, with relatively low LDH in the 200s, and modest though symptomatic adenopathy. At the bedside Reilly Solitario is accompanied by her [id number], Paradise. She has food on a plate, not eating much. She is awake and alert, sitting upright, very attentive and involved in the conversation, appears in no distress. I explained to her the idea of starting rituximab and/or prednisone this week in order to try to diminish output from the pleural effusion, with outpatient followup for full chemotherapy treatment, or possibly continuing single-agent rituximab. I conveyed all these possibilities, but explained, unfortunately, we cannot start rituximab inpatient this week. She seemed to understand. I gave her the number for Paradise Lopez, our nurse navigator, and explained the idea of starting prednisone 100 mg by mouth daily for five days only, accompanied by allopurinol, to be continued indefinitely, anticipating further treatment of the lymphoma. I hope Ms. Purcell can discharge in the next few days and if so, she should be seen outpatient within one week of discharge. Paradise Lopez, , can help coordinate this. I answered all of Reilly Solitario's and her [id number]'s questions. IMPRESSION: Clinical stage III follicular non-Hodgkin's lymphoma with mediastinal and abdominal abdominopelvic adenopathy and large splenomegaly with significant B symptoms and transudative pleural effusion likely secondary to mediastinal congestion. Eastern Cooperative Oncology Group (ECOG) performance status two to three, only because hospitalized with currently active chest tube drainage. Patient has been up and walking around in halls. RECOMMENDATIONS 1. Start prednisone 100 mg by mouth daily for a duration of five days. 2. Allopurinol 300 mg by mouth daily, duration indefinite. 3. Discharge before next week. She should be seen in oncology clinic some time during next week and Paradise Lopez, our nurse navigator, can help coordinate an appointment: . If the patient remains hospital-bound for symptoms or persistent chest tube drainage, I will try to arrange for her to be treated with rituximab and/or chemotherapy next week. This requires availability of an inpatient oncology nurse who is acutely unavailable this week. MTDD
[2017-02-22] MEDS: predniSONE 50 MG TAB PO SCH (18:13)
[2017-02-23] MEDS: LEVALBUTEROL 1.25 MG/0.5 ML CONCENTRATE NEB NEB SCH ×3 (01:20→13:46)
[2017-02-23 03:50] VITALS: BP 93/60
[2017-02-23] MEDS: SLF 3 ML SYR IV SCH (04:24)
[2017-02-23 05:55] LABS: MEAN CORPUSCULAR HEMOGLOBIN 30.7 pg (27.0-33.0); MEAN CORPUSCULAR HGB CONC 32.4 g/dl (32.0-36.5); MEAN CORPUSCULAR VOLUME 94.9 fl (80.0-96.0); WHITE BLOOD COUNT 10.6 K/mm3 (4.0-10.0)
[2017-02-23 06:15] LABS: ANION GAP 13 MEQ/L (8-16); BLOOD UREA NITROGEN 19 MG/DL (7-18); CALCIUM LEVEL 8.8 MG/DL (8.8-10.2); CARBON DIOXIDE LEVEL 31 MEQ/L (21-32); CHLORIDE LEVEL 96 MEQ/L (98-107); CREATININE FOR GFR 0.94 MG/DL (0.55-1.02); GLOMERULAR FILTRATION RATE > 60.0 (>39); GLUCOSE, FASTING 193 MG/DL (83-110); POTASSIUM SERUM 3.7 MEQ/L (3.5-5.1); SODIUM LEVEL 140 MEQ/L (136-145)
[2017-02-23] MEDS: FLUTICASONE HFA 44 MCG 10.6GM INHALER (FLOVENT) INH SCH (07:27)
[2017-02-23 08:00] VITALS: BP 115/62
--- NOTE | 2017-02-23 08:01 | IPNPDOC ---
Subjective Date Seen The patient was seen on 02/23/17. Subjective Chief Complaint/HPI The patient is a 76-year-old female admitted with a reason for visit of Plueral Efusion W/ Hypoxia, Enlarged Lymph Nodes. Events since last encounter Pt was out walking the halls when I saw her this AM. She denies any new issues. Denies CP, SOB, Abd pain. Did have temp of 100.8 last night . Currently afebrile. Pulmonary: Denies: Dyspnea Cardiovascular: Denies: Chest Pain Gastrointestinal: Denies: Abdominal Pain Objective Physical Examination General Exam: Positive: Alert, No Acute Distress, Other (cachetic appearing) Eye Exam: Positive: Conjunctiva & lids normal, Negative: Sclera icteric ENT Exam: Positive: Atraumatic, Mucous membr. moist/pink, Nares Patent Neck Exam: Positive: Supple, Negative: Lymphadenopathy Chest Exam: Positive: Clear to auscultation, Other (the crackles are just at the bilateral bases now. Additionally there is dullness on percussion at the bilateral posteriore bases only. ) Heart Exam: Positive: Rate Normal, Regular Rhythm Telemetry: Positive: Sinus Abdomen Exam: Positive: Normal bowel sounds, Other, Negative: Tenderness Extremity Exam: Negative: Edema Psych Exam: Positive: Mental status NL, Oriented x 3 Assessment /Plan Problems (1) Follicular lymphoma Problem Specific Plan: Consult Specialist, Monitor Clinically Problem Text: 02/23 - Dr Monreal from Oncology following pt for Clinical stage III follicular non-Hodgkin's lymphoma with mediastinal and abdominal abdominopelvic adenopathy and large splenomegaly with significant B symptoms and transudative pleural effusion likely secondary to mediastinal congestion. Dr Monreal recommends starting prednisone 100 mg by mouth daily for a duration of five days , and also starting Allopurinol 300 mg by mouth daily. Plan for rituximab and/ or chemotherapy next week, either outpt if able to be discharged or inpt if not able to be discharged. 02/22 - Left axillary lymph node excisional biopsy has returned positive for lymphoma, preliminarily follicular subtype, immunophenotyping in progress. Dr Monreal from Oncology was consulted and saw the pt and discussed treatment options and advise starting treatment soon to avoid recurrent pleural effusions. (2) Pleural effusion Problem Specific Plan: Consult Specialist, Monitor Clinically, Repeat Labs Problem Text: 02/23 - Dr Zuleta following. He removed the left chest tube on 9/ 5 but was not able to remove the right chest tube yesterday as planned. 02/22 - Lymph node biopsy came back lymphoma, preliminarily follicular. Dr Zuleta following and believes that the pleural effusions are secondary to lymphatic obstruction secondary to lymphoma. He removed the left chest tube yesterday and plans to remove the right tomorrow. He advises starting treatment soon to prevent recurrent pleural effusions. 02/21 - Pt has chest tubes. Dr Zuleta following. Lasix was increased yesterday to 40 mg IV BID. 02/20 - Pt has chest tube. Dr Zuleta following. Case discussed with Dr Zuleta. He advises changing the Lasix to 40 mg IV BID but advises giving a 40 mg IV now to see if she tolerates it as her BPs have been soft. If she tolerates the initial dose change to 40 mg IV, then increase to 40 mg IV BID. 02/19 - The chest tube output is decreased, but still not enough that Dr. Zuleta will consider removing them quite yet. Continue to monitor. (3) Weight loss, unintentional Status: Chronic Problem Text: 02/19 - Weight loss and bowel issues x 1 month - likely related to malignancy. I had a long conversation with the patient and daughter explaining why we were counting on a lymph node bx to help us determine where to go next with her treatment. They have a better understanding of why we did the lymph node bx now. (4) Asthma Status: Chronic Response to Treatment: Stable (5) Hypoxia Status: Resolved Response to Treatment: Improving (6) Obstipation Status: Resolved Response to Treatment: Stable Problem Text: 02/16 Large Bm with bowel care flat/upright abd yesterday showed only gastric distension with air/fluid levels - abd discomfort resolved with BM Plan/VTE VTE Prophylaxis Ordered?: Yes (SQ heparin) Plan Family Medicine Attending Note: I saw and examined Ms. Purcell, discussed with ESTEPHANIA Choi. Agree with their note as documented. By the time I saw her Dr. Zuleta has been able to successfully remove her right chest tube and she was eligible for discharge. Please see the discharge summary for the remaining details from today. 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) VS, I&O, 24H, Fishbone Vital Signs/I&O Vital Signs Date Time Temp Pulse Resp B/P (MAP) Pulse Ox O2 Delivery O2 Flow Rate FiO2 02/23/17 04:00 Room Air 02/23/17 03:50 99.3 71 18 93/60 (17) 94 I&O- Last 24 Hours up to 6 AM 02/23/17 05:59 Intake Total 720 ml Output Total 1895 ml Balance -1175 ml Laboratory Data 24H LABS Laboratory Tests 2 02/23/17 05:20: Anion Gap 13, Glomerular Filtration Rate > 60.0, Blood Urea Nitrogen 19H, Creatinine 0.94, Sodium Level 140, Potassium Level 3.7, Chloride Level 96L, Carbon Dioxide Level 31, Calcium Level 8.8, Lactate Dehydrogenase 200 CBC/BMP Laboratory Tests 02/23/17 05:20 Red Blood Count 3.40 L, Mean Corpuscular Volume 94.9, Mean Corpuscular Hemoglobin 30.7, Mean Corpuscular Hemoglobin Concent 32.4, Red Cell Distribution Width 14.0, Calcium Level 8.8 Microbiology Microbiology 02/16/17 Acid Fast Stain, Received Pending 02/16/17 Mycobacterial Culture, Received Pending 02/16/17 Fungal Smear, Received Pending 02/16/17 Fungal Culture, Received Pending 02/16/17 Gram Stain - Final, Complete 02/16/17 Anaerobic Culture - Final, Complete 02/16/17 Body Fluid Culture - Final, Complete 02/14/17 Acid Fast Stain, Received Pending 02/14/17 Mycobacterial Culture, Received Pending 02/14/17 Fungal Smear, Received Pending 02/14/17 Fungal Culture, Received Pending 02/14/17 Gram Stain - Final, Complete 02/14/17 Body Fluid Culture - Final, Complete 02/14/17 Anaerobic Culture - Final, Complete Kunal Blanton Feb 23, 2017 8:01 am Alexandre Mccarthy MD Feb 23, 2017 11:23 pm
--- NOTE | 2017-02-23 08:21 | REP ---
Clinical: Follow up pleural effusion. Technique: PA and lateral. Comparison: 02/21/2017. Findings: Right-sided chest tube in stable position. Small bilateral apical pneumothoraces and right-sided pleuroparenchymal changes remain stable. Left-sided hydropneumothorax appears increased when compared to prior examination. The mediastinum and cardiac silhouette are stable. Skeletal structures are intact. Impression: 1. Stable biapical pneumothoraces and right basilar pleuroparenchymal changes. 2. Apparently increased left hydropneumothorax. Signed by Andrey Rodriguez MD 02/23/2017 08:13 A
[2017-02-23] MEDS ORDERED: ALLOPURINOL 300 MG TAB PO SCH (09:00)
[2017-02-23] MEDS: MOM 30ML SUSPENSION UDC PO SCH (09:00)
[2017-02-23] MEDS: MIRALAX *UNIT DOSE* 17GM PACKET PO SCH (09:00)
[2017-02-23] MEDS: SENOKOT S TAB PO SCH (09:00)
[2017-02-23] MEDS: HEPARIN SOD (PORCINE) 5000 UNITS/ML VIAL SC SCH (09:06)
[2017-02-23] MEDS: FUROSEMIDE 40 MG/4 ML VIAL (J1940) IV SCH (09:06)
[2017-02-23] MEDS: MONTELUKAST 10 MG TAB PO SCH (09:08)
[2017-02-23] MEDS: predniSONE 50 MG TAB PO SCH (09:08)
[2017-02-23] MEDS: DOCUSATE SODIUM 100 MG CAP PO SCH (09:09)
[2017-02-23] MEDS: PANTOPRAZOLE 40MG TAB (PROTONIX) PO SCH (09:09)
--- NOTE | 2017-02-23 11:04 | REP ---
Clinical: History of lymphoma for restaging. Technique: Axial contrast enhanced images from the thoracic inlet to the upper abdomen using 100 ml Isovue 370 intravenous contrast material with coronal and sagittal re-formations. Comparison: 02/14/2017. Findings: A right posterior apical chest tube is appreciated along with small biapical pneumothoraces and moderate left pleural effusion. Linear right lower lobe plate-like atelectasis and lingular atelectasis as well as passive left lower lobe atelectasis is appreciated and findings are considerably improved when compared to prior examination which demonstrated large bilateral pleural effusions and near complete collapse to the bilateral lower lobes. Current examination demonstrates nodular soft tissue masses along the medial aspect of the right lower lobe adjacent to the mediastinum which measure between 1.9 and 2.8 cm maximal diameter (images 69 - 87) which may reflect adenopathy or mass. Mediastinum demonstrates atherosclerotic changes to the thoracic aorta and coronary arteries without cardiomegaly or pericardial effusion. Mediastinal and predominant left hilar adenopathy is appreciated including subcarinal conglomerate adenopathy measuring 1.7 x 2.8 cm and right infrahilar adenopathy measuring roughly 1.5 x 2.3 cm. Surrounding musculoskeletal structures demonstrate degenerative changes without focal osseous abnormality; sclerotic changes to the L1-L2 vertebral bodies consistent with disc disease. Limited evaluation of the abdomen demonstrates marked splenomegaly, upper abdominal adenopathy and hepatic hypodensities likely representing cysts. Impression: 1. Considerably improved when compared to prior CT. Current examination demonstrates a small to moderate residual left pleural effusion with trace passive atelectasis as well as right lower lobe plate-like atelectasis and lingular atelectasis along with small biapical pneumothoraces. 2. Right-sided chest tube in stable position. 3. Lung blount now demonstrate soft tissue mass lesions in the medial right lower lobe as well as mediastinal adenopathy described above. 4. Limited evaluation of the upper abdomen demonstrates marked splenomegaly. Signed by Andrey Rodriguez MD 02/23/2017 10:56 A
--- NOTE | 2017-02-23 11:06 | REP ---
Clinical: Lymphoma for restaging. Technique: Axial contrast enhanced images from the lung bases to the pubic symphysis using oral and 100 ml Isovue 370 intravenous contrast material with coronal and sagittal re-formations. Comparison: 02/01/2017. Findings: A right-sided chest tube is identified with small amount of adjacent subcutaneous emphysema and the right pleural effusion has completely resolved. Right lower lobe atelectasis is appreciated along with what appears to be adenopathy along the medial right middle lobe above the diaphragm which measure up to 2.9 cm diameter and are essentially unchanged. A small to moderate residual left pleural effusion is identified which is decreased from prior examination along with lingular and lower lobe atelectasis. Small residual apical pneumothoraces persist. Thoracic aorta and heart/pericardium appear relatively normal. Liver demonstrates stable scattered hypodensities measuring up to 2.3 cm which may reflect cysts. Massive splenomegaly is essentially unchanged currently measuring approximately 14 x 8.7 x 11.0 cm. Pancreas, gallbladder, bilateral adrenal glands and kidneys are relatively normal / stable. Severe adenopathy in the epigastric region as well as within the mesentery encasing the mesenteric artery and branch vessels into the pelvis and retroperitoneal adenopathy surrounding the aorta and inferior vena cava are essentially unchanged from prior examination. The enteric system demonstrates marked fecal stasis and constipation without bowel obstruction. No significant ascites. Pelvis demonstrates normal bladder and evidence for prior hysterectomy. No pneumoperitoneum. Abdominal aorta demonstrates atherosclerotic changes without aneurysm or dissection. Musculoskeletal structures demonstrate degenerative changes. Bilateral inguinal lymph nodes are also identified measuring up to 2 cm diameter. Impression: 1. Lung bases demonstrate decreased residual left pleural effusion, bilateral atelectasis, small pneumothoraces, and adenopathy along the right lateral margin of the mediastinum extending into the medial right middle lobe region. 2. Severe splenomegaly unchanged from prior examination without focal splenic lesion. 3. Severe diffuse adenopathy throughout the abdomen and mesentery as well as bilateral inguinal lymph nodes essentially unchanged from prior examination. 4. Hepatic hypodensities remain stable likely representing cysts. 5. Marked fecal stasis and constipation. Further chronic changes as described above. Signed by Andrey Rodriguez MD 02/23/2017 10:57 A
[2017-02-23 12:00] VITALS: BP 119/67
--- NOTE | 2017-02-23 13:51 | IPN ---
DATE: 02/23/2017 Ms. Purcell is feeling quite well today. She is breathing well. She has only put out 180 mL from her chest tube, although it is chylous drainage. Her vital signs show a maximum temperature (T max) of 100.8 with a heart rate that ranges between 78 and 84 and is sinus rhythm, respiratory rate of 18 to 16 without the use of accessory muscles who is 96% saturated on room air and whose blood pressure is ranging between 93/60 to 119/67. Her intake and output for the past 24 hours has been recorded as 720 in and 1505 out for a negativity of 785 mL. As noted above, she has put out 180 mL out the chest tube and there is no air leak. It is chylous white drainage. Her weight today is 47.7 kg compared to 48.3 kg yesterday. PHYSICAL EXAMINATION: LUNGS: Her percussion note is slightly dull at the left base. Right base shows it full to the diaphragm. I hear no wheezes, rhonchi or rales and there are equal breath sounds on either side. CARDIAC EXAM: Shows the 3/6 holosystolic murmur at the left lower sternal border. I cannot feel her point of maximum impulse (PMI). S1, S2 are normal. ABDOMEN: Soft, nontender. Bowel sounds are positive and she is less distended today. There is no CVA tenderness. EXTREMITIES: Show 2+ pretibial edema. No calf tenderness. No differential swelling of the upper extremities. SKIN: Warm, dry and perfused without cyanosis or mottling, including that of the nail beds and knees. NECK: Supple. There is no jugular venous distention. No subcutaneous emphysema. Trachea is midline. MOUTH: Shows her mucous membranes to be pink and moist. Lips and commissures without lesions. There is no thrush. EYES: Show her pupils to be equal and reactive. Extraocular motion intact. Sclerae anicteric. NEUROLOGIC: Shows II through XII intact along with gross motor and gross sensation intact. Gait is not tested. PSYCHIATRIC: Shows her to be awake and alert, oriented times three with appropriate mood and affect and conversational. Her white count today is 10.6 with a hemoglobin and hematocrit of 10.6 and 32.3, and a platelet count of 263, all of which are stable. Electrolytes are normal with a BUN and creatinine of 19 and 0.94 with a glucose of 193 and a calcium of 8.8. She was started on steroids yesterday and her glucose has jumped up from 93 to 193. Her chest x-ray today shows a start of reaccumulation of the left pleural effusion. It is, at this point, minimal. The right side shows a clear costophrenic angle and the chest tube is in good place. IMPRESSION: 1. Bilateral pleural effusions controlled with chest tubes. 2. Follicular lymphoma, final pathology markers pending. 3. History of asthma. 4. Shortness of breath secondary to pleural effusions, resolved. 5. Hypercholesterolemia. 6. History of duodenitis and gastritis. 7. Post expansion pulmonary edema, right side, resolved. PLAN AND DISCUSSION: I have no objection to her going home today. As noted before, if her pleural effusion does come back and is symptomatic, we will have to tap it until the chemotherapy takes affect. Again, I reiterate that her pleural effusion is secondary to lymphatic obstruction and I also suspect that her leg edema is the same. I have discussed her potential discharge with Dr. Mccarthy and he is going to make those arrangements. She will come back to see me in one week with a chest x-ray.
--- NOTE | 2017-02-23 15:03 | DS.PDOC ---
Discharge Summary General Date of Admission Feb 14, 2017 at 13:48 Date of Discharge 02/23/17 Primary Care Physician: Alexandre Mccarthy MD Attending Physician: Alexandre Mccarthy MD Specialist/Consultants Involve: Carlos Zuleta M.D. Specialist/Consultants Involve Dr. Nadira Monreal, medical oncology Dr. Luiz Berrios, general surgery Discharge Summary ADMITTING DIAGNOSES: 1. Large bilateral pleural effusions. 2. Hypoxia. 3. Dyspnea. 4. Presumed metastatic disease with unknown primary 5. GERD 6. Chronic constipation 7. History of asthma 8. History of gastritis with duodenal ulcer 9. Hiatal hernia DISCHARGE DIAGNOSES: 1. Follicular lymphoma, grade IIIa. 2. Bilateral pleural effusions, resolved. 3. Unintentional weight loss. 4. Severe splenomegaly 5. Asthma 6. Obstipation, resolved 7. Hypoxia, resolved 8. Protein calorie malnutrition PROCEDURES PERFORMED DURING STAY: Bilateral chest tubes, left axillary node biopsy. ADMISSION HISTORY: Ms. Purcell was directly admitted from the office when she came in with complaints of substantially worsening dyspnea. We have been following her for a month or 2 for concerning symptoms. Please see the admission history and physical for the remaining details. HOSPITAL COURSE: Ms. Purcell was admitted to the hospital after she was found to have large bilateral pleural effusions. These were treated with chest tube drainage. A discussion was had with the general surgeon regarding where to try to biopsy in order to get an answer to her presumed cancer. It was settled on a left axillary node biopsy. This was performed. There was a couple day delay in getting the results, because of a national holiday (). In the interim her constipation/obstipation was treated to resolution. She continued to drain significant amounts from her chest tube drains, and they were not able to be removed as quickly as had initially been anticipated. When the pathology report returned follicular lymphoma this began to make more sense. The pattern of the pleural fluid is transudative in our belief is now that the fluid is lymphatic fluid/chyle which is not able to move effectively around her body because of the lymphoma blocking her lymphatic drainage. Medical oncology was consulted and they recommended started high-dose prednisone at this point and chemotherapy as quickly as possible in either the inpatient or outpatient setting. Unfortunately we were not able to start chemotherapy in the inpatient setting this week due to absence of a critical staff member, however we were able to start the prednisone. Her pleural effusions came under control and her chest tubes were removed. She'll be discharged with follow-up in the outpatient medical oncology office next week to start her chemotherapy. DISCHARGE CONDITION: Guarded. FOLLOW-UP: An appointment was scheduled with Dr. Zuleta in 1 week per his office. Dr. Monreal in 1 week per her office. Dr. Mccarthy on 03/06 at 10:00 prior to discharge. DIET: High protein. ACTIVITY: As tolerated. DISCHARGE MEDICATIONS: Please see below. ALLERGIES: Please see below. LABORATORY DATA: Please see below. IMAGING: Daily chest x-rays, 2 abdominal x-rays, CT of the chest on 02/21/17, and CT the abdomen and pelvis on 02/21/17 TIME SPENT ON DISCHARGE: Greater than 40 minutes were spent coordinating her care on discharge to make sure she is able to get the care she urgently needs in the appropriate timeframe. Vital Signs/I&Os Vital Signs Date Time Temp Pulse Resp B/P (MAP) Pulse Ox O2 Delivery O2 Flow Rate FiO2 02/23/17 12:00 Room Air 02/23/17 12:00 99.4 84 16 119/67 (84) 96 I&O- Last 24 Hours up to 6 AM 02/23/17 05:59 Intake Total 720 ml Output Total 1895 ml Balance -1175 ml Laboratory Data Labs 24H Laboratory Tests 2 02/23/17 05:20: Anion Gap 13, Glomerular Filtration Rate > 60.0, Blood Urea Nitrogen 19H, Creatinine 0.94, Sodium Level 140, Potassium Level 3.7, Chloride Level 96L, Carbon Dioxide Level 31, Calcium Level 8.8, Lactate Dehydrogenase 200 CBC/BMP Laboratory Tests 02/23/17 05:20 Red Blood Count 3.40 L, Mean Corpuscular Volume 94.9, Mean Corpuscular Hemoglobin 30.7, Mean Corpuscular Hemoglobin Concent 32.4, Red Cell Distribution Width 14.0, Calcium Level 8.8 Microbiology Microbiology 02/16/17 Acid Fast Stain, Received Pending 02/16/17 Mycobacterial Culture, Received Pending 02/16/17 Fungal Smear, Received Pending 02/16/17 Fungal Culture, Received Pending 02/16/17 Gram Stain - Final, Complete 02/16/17 Anaerobic Culture - Final, Complete 02/16/17 Body Fluid Culture - Final, Complete 02/14/17 Acid Fast Stain, Received Pending 02/14/17 Mycobacterial Culture, Received Pending 02/14/17 Fungal Smear, Received Pending 02/14/17 Fungal Culture, Received Pending 02/14/17 Gram Stain - Final, Complete 02/14/17 Body Fluid Culture - Final, Complete 02/14/17 Anaerobic Culture - Final, Complete Discharge Medications Scheduled Allopurinol (Allopurinol) 150 Mg Halftab, 300 MG PO DAILY refill requests should go to Dr. Nadira Monreal, Oncology. Thanks. Calcium/Vitamin D (Calcium 500 + D 500-125 mg-Unit) 1 Tab Tab, 1 TAB PO DAILY, ( Reported) Cetirizine HCl (Cetirizine HCl) 10 Mg Tab, 10 MG PO DAILY, (Reported) Cholecalciferol (Vitamin D) 1,000 Unit Tab, 1,000 UNIT PO DAILY, (Reported) Fluticasone Propionate (Flovent Hfa 44 MCG) 120 Puff/10.6 Gm Aero, 2 PUFF INH BID, (Reported) Furosemide (Furosemide) 20 Mg Tab, 20 MG PO DAILY, (Reported) Montelukast Sodium (Montelukast Sodium) 10 Mg Tab, 10 MG PO QHS, (Reported) Pantoprazole Sodium (Pantoprazole Sodium) 40 Mg Tab, 40 MG PO DAILY, (Reported) Polyethylene Glycol (Peg 3350) 1 Pkt Pow, 1 PKT PO DAILY Prednisone (Prednisone) 50 Mg Tab, 100 MG PO DAILY first dose on 02/24, she was given 02/23 dose in the hospital Simvastatin (Simvastatin) 20 Mg Tab, 20 MG PO DAILY, (Reported) Scheduled PRN Albuterol Sulfate (Ventolin Hfa) 200 Puff/8 Gm Aers, 2 PUFF INH Q4H PRN for SHORTNESS OF BREATH, (Reported) Allergies Coded Allergies: Ciprofloxacin (Unverified Allergy, Unknown, GI UPSET, 03/01/16) Alexandre Mccarthy MD Feb 23, 2017 3:03 pm
[2017-02-23] MEDS ORDERED: PEG1POW PO (15:25)
[2017-02-23] MEDS ORDERED: ALLO15TA PO (15:25)
[2017-02-23] MEDS ORDERED: PRED50TA PO (15:27)
[2017-02-23 16:00] VITALS: BP 115/66
--- NOTE | 2017-03-14 20:40 | RO ---
DATE OF PROCEDURE: 02/17/2017 PREOPERATIVE DIAGNOSIS: Enlarged axillary lymph node. POSTOPERATIVE DIAGNOSIS: Enlarged axillary lymph node. OPERATIVE PROCEDURE: Excision of left axillary lymph node. SURGEON: Luiz Berrios MD RN OTOLARYNGOLOGY: ANESTHESIA: Local with sedation. BRIEF PROCEDURE SUMMARY: The patient was brought to the operating room and was given IV sedation, was prepped and draped in the sterile fashion. Next, a palpable left axillary lymph node was appreciated and overlying this area after locally injecting, an incision is made with #15 blade and a combination of blunt and sharp dissection was used to dissect down to the lymph node itself. Given the patient was quite emaciated and very thin, I was easily able to palpate this, go through the clavipectoral fascia, which was within 5 mm of the surface and grasp onto the tissue surrounding the lymph node. This was dissected free of surrounding tissue using some minimal blunt dissection as well as electrocautery and sent to pathology fresh. The incision then was closed in two layers after making sure that this was hemostatic and closed with a #3-0 Vicryl dermal stitch and a #4-0 Vicryl subcuticular. Steri-Strips and dry sterile dressing was applied. The patient had been prepped superior to a previous chest tube that was placed and thus the chest tube was rebandaged as well at this time. The patient tolerated the procedure well was brought to the brought to recovery room awake, alert and hemodynamic stable.
== END 2017-02-23 16:54 | disposition home or self-care (01) | DRG 824 ==
LOC: M MSPAV 13:48 → M PCU 16:17
PROVIDERS: ADMIT Family Medicine; ATTEND Family Medicine
PROC: 0W9930Z Drainage of Right Pleural Cavity with Drainage Device, Percutaneous Approach (ICD-10-PCS; 2017-02-14)
PROC: 0W9B30Z Drainage of Left Pleural Cavity with Drainage Device, Percutaneous Approach (ICD-10-PCS; 2017-02-16)
PROC: 07B60ZX Excision of Left Axillary Lymphatic, Open Approach, Diagnostic (ICD-10-PCS; principal; 2017-02-17 13:00)
DX: C82.94 Follicular lymphoma, unspecified, lymph nodes of axilla and upper limb (principal); J90 Pleural effusion, not elsewhere classified; J81.1 Chronic pulmonary edema; E46 Unspecified protein-calorie malnutrition; K26.9 Duodenal ulcer, unspecified as acute or chronic, without hemorrhage or perforation; R16.1 Splenomegaly, not elsewhere classified; K21.9 Gastro-esophageal reflux disease without esophagitis; K59.00 Constipation, unspecified; J45.909 Unspecified asthma, uncomplicated; Z79.899 Other long term (current) drug therapy; Z88.8 Allergy status to other drugs, medicaments and biological substances; M51.36 Other intervertebral disc degeneration, lumbar region; Z87.891 Personal history of nicotine dependence; K44.9 Diaphragmatic hernia without obstruction or gangrene

== ENCOUNTER → 2017-02-14 | Outpatient (REF) | payer OTHER ==
[2017-02-14 11:38] LABS: ANION GAP 7 MEQ/L (8-16); BLOOD UREA NITROGEN 9 MG/DL (7-18); CALCIUM LEVEL 8.9 MG/DL (8.8-10.2); CARBON DIOXIDE LEVEL 31 MEQ/L (21-32); CHLORIDE LEVEL 97 MEQ/L (98-107); CREATININE FOR GFR 0.77 MG/DL (0.55-1.02); GLOMERULAR FILTRATION RATE > 60.0 (>39); GLUCOSE, FASTING 74 MG/DL (83-110); POTASSIUM SERUM 4.5 MEQ/L (3.5-5.1); SODIUM LEVEL 135 MEQ/L (136-145)
== END ==
LOC: M LABDRAWP 10:59
PROVIDERS: ATTEND Nurse Practitioner Family
DX: J90 Pleural effusion, not elsewhere classified (principal)

== ENCOUNTER → 2017-03-02 | Outpatient (CLI) | payer OTHER ==
[~2017-03-02] MED LIST changes: +ALBU17IN INH; +ALLO15TA PO; +CALCTAB28 PO; +CETI10TA PO; +FLUT44IN INH; +FURO20TA2 PO; +MAGICMW SSP; +MIRA3350 PO; +MONT10TA2 PO; +ONDA8TAB7 PO; +PANT40TA2 PO; +PEG1POW PO; +PRED50TA PO; +PROC10TA PO; +SIMV20TA2 PO; +VITA100066 PO; +ZYLO300T4 PO
--- NOTE | 2017-03-02 09:54 | REP ---
Chest x-ray: Two views. History: Pleural effusion. Comparison study February 23, 2017. Findings: The previously noted right chest tube has been removed. There are moderate-sized bilateral pleural effusions, both increased when compared with the comparison study. Cardiac size is difficult to evaluate because of the size of the effusions. Pulmonary vasculature is a little cephalized. There is compressive atelectasis in the lower lobes however. The aorta is calcific. Impression: Moderate bilateral pleural effusions, both increased since the February 23, 2017 study. Signed by Jamison Adair MD 03/02/2017 10:16 A
== END ==
LOC: M SMT 09:05
PROVIDERS: ATTEND Thoracic Surgery (Cardiothoracic Vascular Surgery)
DX: J90 Pleural effusion, not elsewhere classified (principal)

== ENCOUNTER → 2017-03-02 | Outpatient (CLI) | payer OTHER ==
[~2017-03-02] VITALS: Ht 160 cm; Wt 49.9 kg
[~2017-03-02] MED LIST changes: +KETOROLAC 30 MG/ML VIAL (J1885) As Ordered ONE; +LIDOCAINE 1% MDV 20ML VIAL As Ordered ONE; +MIDAZOLAM INJ 2 MG/2 ML VIAL (J2250) As Ordered ONE; +MUPIROCIN 2% OINT 22 GM TUBE TOP ONE
--- NOTE | 2017-03-02 15:32 | REP ---
CT chest without contrast: History: History of lymphoma. Bilateral pleural effusion. Comparison chest x-ray is from today. Comparison chest CT study is from February 21, 2017. Findings: CT study confirms the presence of moderate to large bilateral pleural effusions. The left effusion is slightly larger than the right. Both are larger than on the 02/21/2017 study. There is compressive atelectasis in both lower lobes and in the right middle lobe. There is a small amount of pericardial effusion. Mediastinal lymphadenopathy is again noted as before. Axillary lymphadenopathy is noted. Splenomegaly is observed. Low-density lesions in the liver are seen consistent with cysts. Impression: Moderate to large bilateral pleural effusions, reaccumulated on the right and increased on the left since the 02/21/2017 study. Small pericardial effusion. Mediastinal lymphadenopathy. Signed by Jamison Adair MD 03/02/2017 03:53 P
--- NOTE | 2017-03-02 16:46 | REP ---
Portable chest x-ray: Single view. History: Status post chest tube placement. Comparison study is from earlier this date showing moderate to large bilateral pleural effusions. Findings: A right chest tube has been passed and terminates in the medial apex. A left chest tube is also seen to be inserted. This terminates in the left medial lung apex. There is some discoid atelectasis in the left base. There is improved aeration bilaterally. There is no visible pneumothorax. There is still some evidence of small bilateral pleural effusions. Impression: Improved aeration post bilateral chest tube placement. No visible pneumothorax. Signed by Jamison Adair MD 03/03/2017 02:46 P
[2017-03-02 17:10] VITALS: BP 100/56
[2017-03-02 17:52] LABS: LDH, BODY FLUID 104 U/L (NOT ESTABLISHED)
[2017-03-02 17:53] LABS: LDH, BODY FLUID 104 U/L (NOT ESTABLISHED)
[2017-03-02 18:03] LABS: TOTAL PROTEIN, BODY FLUID 2.9 G/DL (NOT ESTABLISHED)
[2017-03-02 18:09] LABS: TOTAL PROTEIN, BODY FLUID 2.7 G/DL (NOT ESTABLISHED)
[2017-03-02 18:25] LABS: BF DIFF IF INDICATED? YES (NO); RBC PLEURAL FLUID 35 (<10mm3 cells/uL); TNC PLEURAL FLUID 2601 cells/uL (0-20)
--- NOTE | 2017-03-02 18:26 | RO ---
DATE OF PROCEDURE: 03/02/2017 PREPROCEDURE DIAGNOSIS: Right recurrent chylous pleural effusion, follicular lymphoma. POSTPROCEDURE DIAGNOSIS: Right recurrent chylous pleural effusion, follicular lymphoma. OPERATIVE PROCEDURE: Insertion of right tunneled PleurX catheter. SURGEON: Carlos Zuleta MD RENEWABLE ENERGY ENGINEER: ANESTHESIA: DESCRIPTION OF PROCEDURE: Under satisfactory monitored sedation achieved eventually with 3 mg of Versed, the patient was prepped and draped in the usual sterile fashion. Entry and exit sites were marked and the entry site was infiltrates with 1% lidocaine. The needle was placed into the pleura with the production of chylous fluid. A wire was then placed. Exit site was then infiltrates with 1% lidocaine along with the tunnel connecting the two. Incision was made on the entry site. A tunnel was created and the PleurX catheter pulled through the tunnel. The entry site track was dilated and then a peel-away Steri-Strip placed. PleurX catheter was then placed with the peel-away introducer and properly positioned. Catheter was secured to the abdominal wall with one #3-0 silk suture and the entry wound was closed with running #4-0 Monocryl subcuticular suture. The patient tolerated the procedure well and left the operating room in satisfactory condition for the recovery room.
[2017-03-02 18:36] LABS: RBC PLEURAL FLUID 19 (<10mm3 cells/uL); TNC PLEURAL FLUID 2906 cells/uL (0-20)
[2017-03-02 18:38] LABS: BF DIFF IF INDICATED? YES (NO)
[2017-03-02 20:25] LABS: CC BF DIFF EXAM CYTOCENTRIFUGE
[2017-03-02 20:27] LABS: CC BF DIFF EXAM CYTOCENTRIFUGE
--- NOTE | 2017-03-03 15:57 | RO ---
DATE OF PROCEDURE: 03/02/2017 PREPROCEDURE DIAGNOSIS: Recurrent pleural effusion. POSTPROCEDURE DIAGNOSIS: Recurrent pleural effusion. PROCEDURE: Insertion of left PleurX catheter. SURGEON: Carlos Zuleta MD ECONOMIC HISTORIAN: ANESTHESIA: DESCRIPTION OF PROCEDURE: Under satisfactory monitored sedation achieved with 2 mg of Versed, patient was prepped and draped in usual sterile fashion. Entry and exit sites were chosen. The entry site was infiltrated with 1% Xylocaine and a needle placed. Chylous fluid was removed, and a wire was placed. Exit site was then incised after infiltrating it with 1% lidocaine. The tract connecting the two incisions was then infiltrated with 1% Xylocaine. A subcutaneous tunnel was created and the PleurX catheter pulled from the exit site to the entry site. The tract was then dilated and a Peel-Away introducer placed. Catheter was placed through the Peel-Away introducer and positioned without difficulty. The catheter was secured to the abdominal wall with one #3-0 silk suture, and the entry incision was closed with running #4-0 Monocryl subcuticular suture. 1 liter of chylous fluid was then drained. Patient tolerated procedure well.
== END ==
LOC: M OPP 14:04
PROVIDERS: ATTEND Thoracic Surgery (Cardiothoracic Vascular Surgery)
DX: J90 Pleural effusion, not elsewhere classified (principal); J45.909 Unspecified asthma, uncomplicated; C82.92 Follicular lymphoma, unspecified, intrathoracic lymph nodes; C82.93 Follicular lymphoma, unspecified, intra-abdominal lymph nodes; C82.97 Follicular lymphoma, unspecified, spleen; M51.9 Unspecified thoracic, thoracolumbar and lumbosacral intervertebral disc disorder; E78.00 Pure hypercholesterolemia, unspecified; K59.00 Constipation, unspecified; K25.5 Chronic or unspecified gastric ulcer with perforation; K21.9 Gastro-esophageal reflux disease without esophagitis; Z79.52 Long term (current) use of systemic steroids; Z79.51 Long term (current) use of inhaled steroids; Z79.899 Other long term (current) drug therapy; Z87.891 Personal history of nicotine dependence
CPT/HCPCS: 32550; 36415; 71010; 71020; 71250; 82042; 82150; 82465; 82945; 83615; 83986; 84157; 84478; 87070; 87075; 87102; 87116; 87205; 87206; 88108; 88313; 89051; J0690; J1885; J2250

== ENCOUNTER → 2017-03-06 | Outpatient (REF) | payer OTHER ==
[~2017-03-06] MED LIST changes: -KETOROLAC 30 MG/ML VIAL (J1885) As Ordered ONE; -LIDOCAINE 1% MDV 20ML VIAL As Ordered ONE; -MIDAZOLAM INJ 2 MG/2 ML VIAL (J2250) As Ordered ONE; -MUPIROCIN 2% OINT 22 GM TUBE TOP ONE
== END ==
LOC: M LAB REF 08:01
PROVIDERS: ATTEND Internal Medicine Medical Oncology
DX: C85.90 Non-Hodgkin lymphoma, unspecified, unspecified site (principal)

== ENCOUNTER → 2017-03-08 | Outpatient (REF) | payer OTHER | LOC: M LAB REF 14:41 | PROVIDERS: ATTEND Internal Medicine Medical Oncology | DX: C82.90 Follicular lymphoma, unspecified, unspecified site (principal) | CPT/HCPCS: 84550; G0463 ==

== ENCOUNTER → 2017-03-09 | Outpatient (CLI) | payer OTHER ==
--- NOTE | 2017-03-09 14:19 | REP ---
PA and lateral chest: Comparisons are 03/02/2017 and 02/23/2017: There are bilateral thoracotomy tubes. There are bilateral pleural effusions that continue to decrease in size compared to all prior studies. The remainder the lung blount are clear. Except for focal discoid atelectasis inferiorly in the left lung. There is no pneumothorax. Cardiac size is normal. Signed by Jas Magallanes MD 03/09/2017 02:11 P
== END ==
LOC: M SMT 08:56
PROVIDERS: ATTEND Thoracic Surgery (Cardiothoracic Vascular Surgery)
DX: J90 Pleural effusion, not elsewhere classified (principal)

== ENCOUNTER 2017-03-15 15:57 | Inpatient (IN) | payer OTHER ==
[~2017-03-15] VITALS: Ht 160 cm; Wt 49.3 kg
[~2017-03-15 15:57] MED LIST changes: -MAGICMW SSP; -MIRA3350 PO; -ONDA8TAB7 PO; -PROC10TA PO; -ZYLO300T4 PO
--- NOTE | 2017-03-15 17:07 | REP ---
Chest two views HISTORY: Dyspnea Comparison: 03/09/2017 There has been an increase in size of on the left pleural effusion. Underlying atelectasis cannot be excluded. A small area of atelectasis or infiltrate is present in the right lower lobe. Small right pleural effusion is present. The heart size cannot be evaluated due to the left pleural effusion. The pulmonary vasculature is normal in appearance. The bony structure is intact. A chest tube is present in the right hemithorax. There is no pneumothorax. IMPRESSION: 1. Left pleural effusion increased in size compared to the previous study. 2. Right lower lobe atelectasis or infiltrate. 3. Small right pleural effusion. Signed by Joseph Jade MD 03/15/2017 04:58 P
[2017-03-15 17:19] LABS: BASO # 0.1 10^3/uL (0.0-0.2); BASO % 0.5 % (0.0-1.0); EOS # 0.4 10^3/uL (0.0-0.50); IMMATURE GRANULOCYTE % 0.3 % (0-0); LYMPH % 7.3 % (24.0-44.0); MEAN CORPUSCULAR HEMOGLOBIN 30.4 pg (27.0-33.0); MEAN CORPUSCULAR HGB CONC 32.5 g/dl (32.0-36.5); MEAN CORPUSCULAR VOLUME 93.8 fl (80.0-96.0); MONO # 0.8 10^3/uL (0.0-0.8); MONO % 5.3 % (0.0-5.0); NEUTROPHILS # 11.8 10^3/uL (1.8-7.7); NEUTROPHILS % 83.6 % (36.0-66.0); PLATELET COUNT, AUTOMATED 334 10^3/uL (150-450); RED CELL DISTRIBUTION WIDTH 16.2 % (11.5-14.5); WHITE BLOOD COUNT 14.1 10^3/uL (4.0-10.0)
[2017-03-15 17:20] LABS: ADD MORPHOLOGY? NO
[2017-03-15 17:38] LABS: ANION GAP 5 MEQ/L (8-16); BLOOD UREA NITROGEN 19 MG/DL (7-18); CALCIUM LEVEL 8.6 MG/DL (8.8-10.2); CARBON DIOXIDE LEVEL 28 MEQ/L (21-32); CHLORIDE LEVEL 101 MEQ/L (98-107); GLOMERULAR FILTRATION RATE > 60.0 (>39); GLUCOSE, FASTING 88 MG/DL (83-110); POTASSIUM SERUM 4.9 MEQ/L (3.5-5.1); SODIUM LEVEL 134 MEQ/L (136-145)
[2017-03-15 17:41] LABS: ALBUMIN 2.1 GM/DL (3.2-5.2); ALBUMIN/GLOBULIN RATIO 0.84 (1.00-1.93); ALKALINE PHOSPHATASE 43 U/L (45-117); ALT/SGPT 14 U/L (12-78); AST/SGOT 8 U/L (15-37); BILIRUBIN,DIRECT < 0.1 MG/DL (0.0-0.2); BILIRUBIN,TOTAL 0.2 MG/DL (0.2-1.0); TOTAL PROTEIN 4.6 GM/DL (6.4-8.2)
[2017-03-15] MEDS ORDERED: KCL 20MEQ IN D5/NS 1000ML 1,000 ML IV SCH (17:43)
[2017-03-15 17:44] LABS: INR 0.91
[2017-03-15] MEDS ORDERED: BISACODYL 10 MG SUPP PR PRN (17:45)
[2017-03-15] MEDS ORDERED: NORCO, ANEXSIA 5/325MG TABLET (HYDROcodone/ACETAMINOPHEN) PO PRN (17:45)
[2017-03-15] MEDS ORDERED: ACETAMINOPHEN TAB 650MG DOSE (2X325MG) PO PRN (17:45)
[2017-03-15] MEDS ORDERED: LEVALBUTEROL 1.25 MG/0.5 ML CONCENTRATE NEB NEB PRN (17:45)
[2017-03-15] MEDS ORDERED: ONDANSETRON 4MG/2ML VIAL (J2405) IV PRN (17:45)
[2017-03-15] MEDS ORDERED: PERCOCET 5MG/325MG TAB PO PRN ×2 (17:45)
[2017-03-15 17:50] LABS: URIC ACID 2.5 MG/DL (2.6-6.0)
[2017-03-15] MEDS ORDERED: ZYLO300T4 PO (18:06)
[2017-03-15] MEDS ORDERED: TYLE325T5 PO (18:07)
[2017-03-15] MEDS ORDERED: ALBUTEROL 90 MCG/ACT 8GM HFA INHALER INH PRN (18:30)
[2017-03-15] MEDS ORDERED: FLUTICASONE HFA 44 MCG 10.6GM INHALER (FLOVENT) INH PRN (18:30)
[2017-03-15] MEDS ORDERED: CETIRIZINE (ZyrTEC) 10 MG TAB PO PRN (18:30)
[2017-03-15] MEDS: LEVALBUTEROL 1.25 MG/0.5 ML CONCENTRATE NEB NEB SCH (19:27)
--- NOTE | 2017-03-15 20:11 | HPEPDOC ---
[facility] Medical History & Physical Date of Admission Mar 15, 2017 History and Physical HISTORY AND PHYSICAL Date of admission: 03/15/2017 PCP: Dr. Alexandre Mccarthy Chief complaint: Short of breath HPI: 77-year-old female with recently diagnosed grade IIIa follicular lymphoma and associated bilateral pleural effusions, hyperlipidemia, chronic constipation , asthma, gastritis with history of duodenal ulcer, hiatal hernia, multilevel DDD who presented to the emergency department because she woke up this morning and noticed that she was short of breath. As the day went on, she be came more and more short of breath, particularly with exertion. She was recently discharged from the hospital approximately 2-3 weeks ago after being diagnosed with stage IIIa follicular lymphoma. At that time, she had a right Pleurx catheter placed that is still in place. She also had a left Pleurx catheter placed on March 02, however, when she saw Dr. Zuleta in his office on March 09, this was noted to be clogged and not draining, so it was removed at that time. Imaging in the emergency department reveals that although her right pleural effusion has remained small, her left pleural effusion has significantly increased in size. The patient has already been evaluated by Dr. Zuleta in the emergency department, who is planning for a catheter placement tomorrow on the left side. Past medical history: recently diagnosed grade IIIa follicular lymphoma and associated bilateral pleural effusions, hyperlipidemia, chronic constipation, asthma, gastritis with history of duodenal ulcer, hiatal hernia, multilevel DDD Past surgical history: Hysterectomy, colonoscopy, EGD, bilateral cataract extraction, bilateral Pleurx catheter placement, with removal of the left Family history: Leukemia, heart disease, Raynauds, hypothyroidism, diabetes mellitus Social history: The patient currently lives at home with her daughter who is intellectually disabled. She has several other adult children in the area who are very supportive. She does not smoke and quit smoking well over 10 years ago. She does not drink any alcohol or use any drugs. Allergies: Ciprofloxacin Review of systems: General: Negative for fever and chills Eyes: Negative for vision changes and ocular discharge ENT: Negative for sore throat and nose bleed Cardiovascular: Negative for chest pain and palpitations Respiratory: Positive for shortness of breath, positive for chronic cough GI: Negative for nausea, vomiting, diarrhea, positive for chronic constipation Musculoskeletal: Negative for neck and back pain Skin: Negative for rash Neuro: Negative for headache, numbness, tingling, positive for dizziness when she stands Psych: Negative for depression and suicidal ideation Endocrine: Negative for polyuria : Negative for dysuria Heme: Negative for bleeding Home meds: See below Physical exam: Vital signs: Vital Sign - Last 24 Hours 03/15/17 03/15/17 03/15/17 03/15/17 15:58 16:03 16:42 16:50 Temp 97.5 Pulse 80 78 Resp 18 B/P (MAP) 87/59 (68) 118/68 (85) 90/60 (70) Pulse Ox 94 95 O2 Delivery Room Air 03/15/17 03/15/17 03/15/17 03/15/17 16:57 17:05 17:12 17:20 Pulse 76 72 B/P (MAP) 112/69 (83) 112/70 (84) Pulse Ox 97 03/15/17 03/15/17 03/15/17 03/15/17 17:20 17:20 17:27 17:42 Pulse 72 72 B/P (MAP) Pulse Ox 99 100 O2 Delivery Nasal Cannula O2 Flow Rate 4.0 03/15/17 03/15/17 03/15/17 03/15/17 17:50 17:57 18:05 18:12 Pulse 72 72 B/P (MAP) 104/69 (81) 97/64 (75) Pulse Ox 100 98 03/15/17 18:20 B/P (MAP) 105/67 (80) Gen.: awake, alert, no acute distress, cachectic Eyes: Extraocular movements intact, normal sclera ENT: Moist mucous membranes Cardiovascular: RRR, no murmurs rubs or gallops Lungs: Decreased breath sounds at the left base, otherwise clear Abdomen: Soft, NT/ND, normal BS Musculoskeletal: normal range of motion Extremities: 2+ pitting peripheral edema Neuro: alert and oriented 3, normal speech, no focal deficits Psych: Normal mood with congruent affect Labs and radiology: See below CBC is significant for white count of 14.1 CMP and coags are unremarkable Blood cultures pending Chest x-ray shows a small right pleural effusion and an increasing left pleural effusion Assessment and plan: 77-year-old female with recently diagnosed grade IIIa follicular lymphoma and associated bilateral pleural effusions, hyperlipidemia, chronic constipation, asthma, gastritis with history of duodenal ulcer, hiatal hernia, multilevel DDD who is admitted with recurrent left pleural effusion. 1. Recurrent left pleural effusion: The patient previously had a Pleurx catheter , but this was recently removed as it was clogged and not draining. The patient has already been evaluated by Dr. Zuleta, and will be getting a new catheter tomorrow. 2. Protein calorie malnutrition: This is secondary to the patient's recently diagnosed malignancy. The patient has been taking boost once a day, but she continues to have a low albumin and lots of lower extremity swelling. We will increase her boost to 3 times a day, and we'll get a dietary consult. 3. Leukocytosis: The patient is afebrile, and I suspect this is reactive from her malignancy, possibly coupled with her recurrent pleural effusions. Blood cultures are pending, and we will follow this up. She is clinically well- appearing. 4. Asthma: Continue home albuterol, Zyrtec, Flovent, Singulair. 5. Hyperlipidemia: Continue home statin. 6. Chronic constipation: Continue home Colace and as needed MiraLAX. 7. Gastritis with history of duodenal ulcer and hiatal hernia: Continue home PPI. DVT prophylaxis: SCDs Dispo: admit as an inpatient to the service of Dr. Rodas CODE STATUS: DNR/DNI as per the patient's expressed wishes during my conversation with her Vital Signs Vital Signs Date Time Temp Pulse Resp B/P (MAP) Pulse Ox O2 Delivery O2 Flow Rate FiO2 03/15/17 18:20 105/67 (80) 03/15/17 18:12 72 98 03/15/17 17:20 Nasal Cannula 4.0 03/15/17 15:58 97.5 18 Laboratory Data Labs 24H Laboratory Tests 2 03/15/17 16:54: White Blood Count 14.1H, Red Blood Count 4.04, Hemoglobin 12.3, Hematocrit 37.9 , Mean Corpuscular Volume 93.8, Mean Corpuscular Hemoglobin 30.4, Mean Corpuscular Hemoglobin Concent 32.5, Red Cell Distribution Width 16.2H, Platelet Count 334, Neutrophils (%) (Auto) 83.6H, Lymphocytes (%) (Auto) 7.3L, Monocytes (%) (Auto) 5.3H, Eosinophils (%) (Auto) 3.0, Basophils (%) (Auto) 0.5 , Neutrophils # (Auto) 11.8H, Lymphocytes # (Auto) 1.0L, Monocytes # (Auto) 0.8 , Eosinophils # (Auto) 0.4, Basophils # (Auto) 0.1, Immature Granulocyte # (Auto ) 0.0, Nucleated Red Blood Cells % (auto) 0.0, Prothrombin Time 12.3L, Prothromb Time International Ratio 0.91, Anion Gap 5L, Glomerular Filtration Rate > 60.0, Uric Acid 2.5L, Blood Urea Nitrogen 19H, Creatinine 0.80, Sodium Level 134L, Potassium Level 4.9, Chloride Level 101, Carbon Dioxide Level 28, Calcium Level 8.6L, Aspartate Amino Transf (AST/SGOT) 8L, Alanine Aminotransferase (ALT/SGPT) 14, Lactate Dehydrogenase 169, Alkaline Phosphatase 43L, Total Bilirubin 0.2, Direct Bilirubin < 0.1, Total Protein 4.6L, Albumin 2.1L, Albumin/Globulin Ratio 0.84L CBC/BMP Laboratory Tests 03/15/17 16:54 Red Blood Count 4.04, Mean Corpuscular Volume 93.8, Mean Corpuscular Hemoglobin 30.4, Mean Corpuscular Hemoglobin Concent 32.5, Red Cell Distribution Width 16.2 H, Neutrophils (%) (Auto) 83.6 H, Lymphocytes (%) (Auto) 7.3 L, Monocytes ( %) (Auto) 5.3 H, Eosinophils (%) (Auto) 3.0, Basophils (%) (Auto) 0.5, Neutrophils # (Auto) 11.8 H, Lymphocytes # (Auto) 1.0 L, Monocytes # (Auto) 0.8 , Eosinophils # (Auto) 0.4, Basophils # (Auto) 0.1, Calcium Level 8.6 L Microbiology Microbiology 03/15/17 Blood Culture, Received Pending 03/15/17 Blood Culture, Received Pending Home Medications Scheduled Allopurinol (Zyloprim) 300 Mg Tab, 300 MG PO DAILY Calcium/Vitamin D (Calcium 500 + D 500-125 mg-Unit) 1 Tab Tab, 1 TAB PO DAILY Cholecalciferol (Vitamin D) 1,000 Unit Tab, 1,000 UNIT PO DAILY Montelukast Sodium (Montelukast Sodium) 10 Mg Tab, 10 MG PO QHS Pantoprazole Sodium (Pantoprazole Sodium) 40 Mg Tab, 40 MG PO DAILY Simvastatin (Simvastatin) 20 Mg Tab, 20 MG PO QHS Scheduled PRN Acetaminophen (Tylenol) 325 Mg Tab, 650 MG PO Q4H PRN for PAIN Albuterol Sulfate (Ventolin Hfa) 200 Puff/8 Gm Aers, 2 PUFF INH Q4H PRN for SHORTNESS OF BREATH Cetirizine HCl (Cetirizine HCl) 10 Mg Tab, 10 MG PO DAILY PRN for ALLERGIES Fluticasone Propionate (Flovent Hfa 44 MCG) 120 Puff/10.6 Gm Aero, 2 PUFF INH BID PRN for SHORTNESS OF BREATH Allergies Coded Allergies: Ciprofloxacin (Unverified Allergy, Unknown, GI UPSET, 03/01/16) MARY TAYLOR Mar 15, 2017 20:11
[2017-03-15] MEDS ORDERED: MIRALAX *UNIT DOSE* 17GM PACKET PO PRN (20:15)
[2017-03-15 20:41] VITALS: BP 97/54
[2017-03-15] MEDS: HEPARIN SOD (PORCINE) 5000 UNITS/ML VIAL SC SCH (20:57)
[2017-03-15] MEDS: DOCUSATE SODIUM 100 MG CAP PO SCH (20:58)
[2017-03-15] MEDS ORDERED: SIMVASTATIN 20 MG TAB PO SCH (21:00)
[2017-03-15] MEDS ORDERED: MONTELUKAST 10 MG TAB PO SCH (21:00)
[2017-03-15 23:59] VITALS: BP 100/59
[2017-03-16] VITALS (15 sets, daily range): BP systolic 82–113; BP diastolic 51–67
[2017-03-16] MEDS: LEVALBUTEROL 1.25 MG/0.5 ML CONCENTRATE NEB NEB SCH ×3 (01:40→13:11)
[2017-03-16 05:51] LABS: BASO # 0.1 10^3/uL (0.0-0.2); BASO % 0.6 % (0.0-1.0); EOS # 0.5 10^3/uL (0.0-0.50); EOS % 3.8 % (0.0-3.0); IMMATURE GRANULOCYTE % 0.4 % (0-0); LYMPH % 7.1 % (24.0-44.0); MEAN CORPUSCULAR HEMOGLOBIN 29.9 pg (27.0-33.0); MEAN CORPUSCULAR HGB CONC 31.8 g/dl (32.0-36.5); MONO # 0.8 10^3/uL (0.0-0.8); NEUTROPHILS # 11.1 10^3/uL (1.8-7.7); NEUTROPHILS % 82.1 % (36.0-66.0); PLATELET COUNT, AUTOMATED 285 10^3/uL (150-450); WHITE BLOOD COUNT 13.6 10^3/uL (4.0-10.0)
[2017-03-16 06:16] LABS: ANION GAP 6 MEQ/L (8-16); BLOOD UREA NITROGEN 15 MG/DL (7-18); CALCIUM LEVEL 7.9 MG/DL (8.8-10.2); CARBON DIOXIDE LEVEL 27 MEQ/L (21-32); CHLORIDE LEVEL 102 MEQ/L (98-107); GLOMERULAR FILTRATION RATE > 60.0 (>39); GLUCOSE, FASTING 82 MG/DL (83-110); MAGNESIUM LEVEL 1.9 MG/DL (1.8-2.4); POTASSIUM SERUM 4.6 MEQ/L (3.5-5.1); SODIUM LEVEL 135 MEQ/L (136-145)
[2017-03-16] MEDS ORDERED: LIDOCAINE 1% MDV 20ML VIAL As Ordered ONE (08:09)
[2017-03-16] MEDS ORDERED: MIDAZOLAM INJ 2 MG/2 ML VIAL (J2250) As Ordered ONE ×2 (08:10→08:11)
[2017-03-16] MEDS ORDERED: FLUMAZENIL 0.5 MG/5 ML VIAL As Ordered ONE (08:11)
--- NOTE | 2017-03-16 08:37 | REP ---
CT of the chest without IV contrast: Comparisons are the chest CT dated 2016 and PA and lateral views of the chest dated 03/15 2017. There is a huge left pleural effusion significantly increased from the comparison CT, with only a portion of the left upper lobe aerated. The remainder of the left lung is collapsed from compression atelectasis by the pleural effusion. I suspect that there are loculations within this left pleural effusion. There is a right thoracotomy tube. The previous right pleural effusion has slightly decreased in size . There is a small pericardial effusion versus pericardial thickening measuring 9 mm in depth anteriorly. The mediastinal or axillary adenopathy is unchanged. Findings in the liver and spleen are unchanged. Signed by Jas Magallanes MD 03/16/2017 08:28 A
[2017-03-16] MEDS ORDERED: VITAMIN D 1,000 INTERNATIONAL UNITS TABLET PO SCH (09:00)
[2017-03-16] MEDS ORDERED: ALLOPURINOL 300 MG TAB PO SCH (09:00)
[2017-03-16] MEDS ORDERED: PANTOPRAZOLE 40MG TAB (PROTONIX) PO SCH (09:00)
[2017-03-16] MEDS ORDERED: MOM 30ML SUSPENSION UDC PO SCH (09:00)
--- NOTE | 2017-03-16 09:49 | REP ---
CHEST, ONE VIEW: HISTORY: Pleural effusion. COMPARISON: 03/15/2017. Linear densities are present in the left lower lobe consistent with atelectasis or scar. A small area of atelectasis or infiltrate is present in the right lower lobe. Bilateral pleural effusions are present, decreased on the left and slightly increased on the right compared to the previous study. Chest tubes are present in the right and left hemithorax. There is no pneumothorax. The heart is normal in size. The pulmonary vasculature is normal in appearance. IMPRESSION: 1. Left lower lobe atelectasis or scar. 2. Right lower lobe atelectasis or infiltrate. 3. Small bilateral pleural effusions decreased on the left and slightly increased on the right compared to the previous study. Signed by Joseph Jade MD 03/16/2017 10:19 A
[2017-03-16] MEDS: DOCUSATE SODIUM 100 MG CAP PO SCH (10:09)
[2017-03-16] MEDS: HEPARIN SOD (PORCINE) 5000 UNITS/ML VIAL SC SCH (10:10)
--- NOTE | 2017-03-16 10:58 | IPNPDOC ---
Subjective Date Seen The patient was seen on 03/16/17. Subjective Chief Complaint/HPI The patient is a 77-year-old female admitted with a reason for visit of Follicular Lymphoma. Events since last encounter s/p placement of pleuocath shortly before I saw her this am - slight discomfort at site. Otherwise feels well. Breathing much better Constitutional: Denies: Chills Pulmonary: Reports: Dyspnea (improved), Denies: Cough Cardiovascular: Reports: Chest Pain (at pleuroacth site), Denies: Palpitations Gastrointestinal: Denies: Nausea, Vomiting, Abdominal Pain Objective Physical Examination General Exam: Positive: Alert, No Acute Distress Chest Exam: Positive: Diminished (Better a/e at base), Negative: Rhonchi, Wheezing Heart Exam: Positive: Rate Normal, Negative: Murmurs Abdomen Exam: Positive: Normal bowel sounds, Soft, Negative: Tenderness Extremity Exam: Positive: Edema (1+ pedal edema right > left) Psych Exam: Positive: Mental status NL, Oriented x 3 Assessment /Plan Problems (1) Pleural effusion Status: Chronic Response to Treatment: Worse Problem Text: Pleurocath replaced on left today - Large amount of fluid drained Dyspnea much improved. Will wean O2 if possible tomorrow as she is not normally on oxygen at home Dr. Zuleta expects her to go home in am (2) Hypotension Status: Acute Response to Treatment: Improving Problem Text: Bp was slightly low after procedure SBP 88. Assymptomatic. Hold off on IVF due to chronic edema. Monitor BP trend. Normally runs 90s - 110. (3) Follicular lymphoma Status: Chronic (4) Hypoxia Status: Acute Response to Treatment: Improving Plan/VTE VTE Prophylaxis Ordered?: Yes (SQ heparin) Plan Family Medicine Attending Note: I saw and examined Ms. Purcell this morning and again this afternoon. I discussed her care with ESTEPHANIA Lemon and I agree with her note as documented. She is now maintaining O2 sat of 97% on RA and SBP is improved to 100s without intervention; Dr. Zuleta states patient is cleared for discharge from his perspective. Will d/c home - please see my discharge note. (KES) Disposition Probable d/c in am - Continue to monitor in PCU. VS, I&O, 24H, Fishbone Vital Signs/I&O Vital Signs Date Time Temp Pulse Resp B/P (MAP) Pulse Ox O2 Delivery O2 Flow Rate FiO2 03/16/17 07:30 98.2 70 20 101/57 (72) 100 100.0 03/16/17 04:00 Nasal Cannula I&O- Last 24 Hours up to 6 AM 03/17/17 06:00 Intake Total 480 ml Output Total 600 ml Balance -120 ml Laboratory Data 24H LABS Laboratory Tests 2 03/15/17 16:54: White Blood Count 14.1H, Red Blood Count 4.04, Hemoglobin 12.3, Hematocrit 37.9 , Mean Corpuscular Volume 93.8, Mean Corpuscular Hemoglobin 30.4, Mean Corpuscular Hemoglobin Concent 32.5, Red Cell Distribution Width 16.2H, Platelet Count 334, Neutrophils (%) (Auto) 83.6H, Lymphocytes (%) (Auto) 7.3L, Monocytes (%) (Auto) 5.3H, Eosinophils (%) (Auto) 3.0, Basophils (%) (Auto) 0.5 , Neutrophils # (Auto) 11.8H, Lymphocytes # (Auto) 1.0L, Monocytes # (Auto) 0.8 , Eosinophils # (Auto) 0.4, Basophils # (Auto) 0.1, Immature Granulocyte # (Auto ) 0.0, Nucleated Red Blood Cells % (auto) 0.0, Prothrombin Time 12.3L, Prothromb Time International Ratio 0.91, Anion Gap 5L, Glomerular Filtration Rate > 60.0, Uric Acid 2.5L, Blood Urea Nitrogen 19H, Creatinine 0.80, Sodium Level 134L, Potassium Level 4.9, Chloride Level 101, Carbon Dioxide Level 28, Calcium Level 8.6L, Aspartate Amino Transf (AST/SGOT) 8L, Alanine Aminotransferase (ALT/SGPT) 14, Lactate Dehydrogenase 169, Alkaline Phosphatase 43L, Total Bilirubin 0.2, Direct Bilirubin < 0.1, Total Protein 4.6L, Albumin 2.1L, Albumin/Globulin Ratio 0.84L 03/16/17 05:37: White Blood Count 13.6H, Red Blood Count 3.65L, Hemoglobin 10.9L, Hematocrit 34.3L, Mean Corpuscular Volume 94.0, Mean Corpuscular Hemoglobin 29.9, Mean Corpuscular Hemoglobin Concent 31.8L, Red Cell Distribution Width 16.0H, Platelet Count 285, Neutrophils (%) (Auto) 82.1H, Lymphocytes (%) (Auto) 7.1L, Monocytes (%) (Auto) 6.0H, Eosinophils (%) (Auto) 3.8H, Basophils (%) (Auto) 0.6 , Neutrophils # (Auto) 11.1H, Lymphocytes # (Auto) 1.0L, Monocytes # (Auto) 0.8 , Eosinophils # (Auto) 0.5, Basophils # (Auto) 0.1, Immature Granulocyte # (Auto ) 0.1H, Nucleated Red Blood Cells % (auto) 0.0, Anion Gap 6L, Glomerular Filtration Rate > 60.0, Blood Urea Nitrogen 15, Creatinine 0.70, Sodium Level 135L, Potassium Level 4.6, Chloride Level 102, Carbon Dioxide Level 27, Calcium Level 7.9L, Magnesium Level 1.9 CBC/BMP Laboratory Tests 03/15/17 16:54 Red Blood Count 4.04, Mean Corpuscular Volume 93.8, Mean Corpuscular Hemoglobin 30.4, Mean Corpuscular Hemoglobin Concent 32.5, Red Cell Distribution Width 16.2 H, Neutrophils (%) (Auto) 83.6 H, Lymphocytes (%) (Auto) 7.3 L, Monocytes ( %) (Auto) 5.3 H, Eosinophils (%) (Auto) 3.0, Basophils (%) (Auto) 0.5, Neutrophils # (Auto) 11.8 H, Lymphocytes # (Auto) 1.0 L, Monocytes # (Auto) 0.8 , Eosinophils # (Auto) 0.4, Basophils # (Auto) 0.1, Calcium Level 8.6 L 03/16/17 05:37 Red Blood Count 3.65 L, Mean Corpuscular Volume 94.0, Mean Corpuscular Hemoglobin 29.9, Mean Corpuscular Hemoglobin Concent 31.8 L, Red Cell Distribution Width 16.0 H, Neutrophils (%) (Auto) 82.1 H, Lymphocytes (%) (Auto ) 7.1 L, Monocytes (%) (Auto) 6.0 H, Eosinophils (%) (Auto) 3.8 H, Basophils (% ) (Auto) 0.6, Neutrophils # (Auto) 11.1 H, Lymphocytes # (Auto) 1.0 L, Monocytes # (Auto) 0.8, Eosinophils # (Auto) 0.5, Basophils # (Auto) 0.1, Calcium Level 7.9 L Microbiology Microbiology 03/15/17 Blood Culture, Received Pending 03/15/17 Blood Culture, Received Pending SHASHANK CAREY PA-C Mar 16, 2017 10:58 MEHRDAD ADORNO MD Mar 16, 2017 14:22
[2017-03-16 14:05] LABS: LDH, BODY FLUID 93 U/L (NOT ESTABLISHED); TOTAL PROTEIN, BODY FLUID 2.5 G/DL (NOT ESTABLISHED)
--- NOTE | 2017-03-16 17:49 | DSES ---
DATE OF ADMISSION: 03/15/2017 DATE OF DISCHARGE: 03/16/2017 ATTENDING PHYSICIAN: Dr. Rodas PRIMARY CARE PHYSICIAN: Dr. Alexandre Mccarthy PRINCIPAL DIAGNOSIS: 1. Recurrent left pleural effusion. 2. Leukocytosis. SECONDARY DIAGNOSIS: 1. Grade 3A follicular lymphoma. 2. Hyperlipemia. 3. Chronic constipation. 4. Asthma. 5. Gastris with history of duodenal ulcer. 6. Multiple degenerative disc disease. 7. Protein calorie malnutrition. CONSULTANTS: Dr. Zuleta INVASIVE PROCEDURES: Insertion of left PleurX catheter on 03/16/2017. SUMMARY STATEMENT: This is a 77-year-old woman with a history of Grade 3 follicular lymphoma and associated bilateral pleural effusions who presented with increasing shortness of breath with exertion and was found to be hypoxic. She has a bilateral PleurX catheters placed on 03/02/17, and the left PleurX catheter was removed by Dr. Zuleta in his office on 03/09/2017 due to being clogged and not draining. She had interval increase in left pleural effusion on chest x-ray and chest CT in the ED. She was therefore placed on observation overnight so that Dr. Zuleta could insert a left PleurX catheter on 03/16/2017. Catheter was placed without difficulty and patient had drainage of pink milky fluid. She experienced some mild hypotension during the procedure which resolved without intervention. Her hypoxia resolved after placement of the PleurX catheter. Leukocytosis was thought to be due to underlying lymphoma. She was discharged home in stable condition to continue treatment for her lymphoma and follow up with her primary care provider. DISCHARGE PLANS: 1. Discharge medications -acetaminophen 650 mg by mouth every 4 hours as needed for pain. -Albuterol sulfate two puffs by inhalation every 4 hours as needed for shortness of breath -Allopurinol 300 mg by mouth daily -calcium with vitamin D one tablet by mouth daily -cetirizine 10 mg by mouth daily as needed for allergies -Vitamin D 1000 units by mouth daily -Flovent HFA 44 mcg two puffs by inhalation twice daily as needed for shortness of breath -Montelukast 10 mg by mouth at bedtime -Pantoprazole 40 mg by mouth daily -Simvastatin 20 mg by mouth at bedtime 2. Follow up with Dr. Mccarthy within 1-2 weeks and with oncologist Dr. Lopez and Dr. Zuleta as previously scheduled. 3. Diet. 4. Activity as tolerated. CONDITION: Stable. PROGNOSIS: Fair. PENDING STUDIES: pleural fluid cultures. MTDD
--- NOTE | 2017-03-16 18:32 | RO ---
DATE OF PROCEDURE: 03/16/2017 PREPROCEDURE DIAGNOSES: Recurrent left pleural effusion. POSTPROCEDURE DIAGNOSES: Recurrent left pleural effusion. OPERATIVE PROCEDURE: Insertion of left PleurX catheter. SURGEON: Carlos Zuleta MD CRIMPING MACHINE OPERATOR FOR METAL: ANESTHESIA: FINDINGS: 1800 mL of chylous fluid was removed. DESCRIPTION OF PROCEDURE: Under satisfactory monitored sedation with 2 mg of versed the patient prepped and draped in the usual sterile fashion. The entry site was chosen and infiltrated with 1% lidocaine. The needle was placed and pleural fluid was found. An incision was made at the exit site and a tunnel was created between it and the entry site. The entry site was then dilated up to Peel-Away introducer. The catheter was pulled through the tunnel and positioned. The catheter was then placed into the Peel-Away introducer. The entry wound was closed with running #4-0 Monocryl subcuticular suture and the catheter was secured to the chest wall with #3-0 silk suture. The patient tolerated the procedure. Chest x-ray is pending.
--- NOTE | 2017-03-16 20:41 | ECGEPIP ---
Stationary ECG Study [facility] - ED Test Date: 2017-03-15 Pat Name: NURYS ANAND Department: Room: - Gender: F Legal Entity Controller: MIMI : 1940 Requested By: Stacia Cerda Order Number: [id number] Reading MD: Stacia Cerda Measurements Intervals [place] Rate: 76 P: 57 CA: 167 QRS: -74 QRSD: 122 T: 38 QT: 344 QTc: 388 Interpretive Statements SINUS RHYTHM POSSIBLE RIGHT VENTRICULAR CONDUCTION DELAY LEFT ANTERIOR FASCICULAR BLOCK POSSIBLE ANTERIOR MYOCARDIAL INFARCTION, PROBABLY OLD INCREASED RATE 01/21/13 Electronically Signed On 03-16-2017 20:40:52 EDT by Stacia Cerda
[2017-03-16 21:50] LABS: BF MONONUCLEAR CELL % 88.2 % (0-0); BF POLYMORPHONUCLEAR CELL % 11.8 CELLS/uL (0-0)
[2017-03-16 21:56] LABS: BF DIFF IF INDICATED? YES (NO)
== END 2017-03-16 16:10 | disposition home or self-care (01) | DRG 187 ==
LOC: M ED 15:57 → M ED INP 17:43 → M PCU 20:34
PROVIDERS: ADMIT Hospitalist; ATTEND Family Medicine
DX: J90 Pleural effusion, not elsewhere classified (principal); C82.30 Follicular lymphoma grade IIIa, unspecified site; E46 Unspecified protein-calorie malnutrition; K29.70 Gastritis, unspecified, without bleeding; E78.5 Hyperlipidemia, unspecified; K59.00 Constipation, unspecified; J45.909 Unspecified asthma, uncomplicated; Z79.899 Other long term (current) drug therapy; Z88.8 Allergy status to other drugs, medicaments and biological substances

== ENCOUNTER → 2017-03-22 | Outpatient (REF) | payer OTHER ==
[~2017-03-22] MED LIST changes: +MAGICMW SSP; +MIRA3350 PO; +ONDA8TAB7 PO; +PROC10TA PO; +ZYLO300T4 PO
[2017-03-22 15:53] LABS: INR 0.92
== END ==
LOC: M LAB REF 15:27
PROVIDERS: ATTEND Internal Medicine Medical Oncology
DX: C85.90 Non-Hodgkin lymphoma, unspecified, unspecified site (principal); Z79.01 Long term (current) use of anticoagulants

== ENCOUNTER → 2017-03-23 | Outpatient (CLI) | payer OTHER ==
--- NOTE | 2017-03-23 11:07 | REP ---
CHEST, TWO VIEWS: HISTORY: Pleural effusion. COMPARISON: 03/16/2017. Linear densities are present in the left lower lobe consistent with atelectasis that has decreased compared to the previous examination. Patchy density is present in the right lower lobe consistent with atelectasis or infiltrate. Small bilateral pleural effusions are present unchanged compared to the previous study. Bilateral chest tubes are present. There is no pneumothorax. The heart is normal in size. The pulmonary vasculature is normal in appearance. The bony structure is intact. IMPRESSION: 1. Left lower lobe atelectasis decreased compared to the previous study. 2. Right lower lobe atelectasis or infiltrate unchanged compared to the previous study. 3. Small bilateral pleural effusions unchanged compared to the previous study. Signed by Joseph Jade MD 03/23/2017 11:09 A
== END ==
LOC: M SMT 10:32
PROVIDERS: ATTEND Thoracic Surgery (Cardiothoracic Vascular Surgery)
DX: J90 Pleural effusion, not elsewhere classified (principal)

== ENCOUNTER → 2017-03-23 | Outpatient (CLI) | payer OTHER ==
--- NOTE | 2017-03-23 17:28 | REP ---
Procedure: PICC line insertion with Georges-Thom The procedure was performed under the direct supervision of Dr. Adair. The risks and benefits of the procedure were explained to the patient and informed consent was obtained. The right basilic vein was localized using ultrasound guidance. The skin was prepped and draped in a sterile fashion. 2% lidocaine was used as a local anesthetic. Using ultrasound guidance the basilic vein was cannulated and a 0.018 guidewire was inserted and advanced to the SVC using fluoroscopic guidance. The needle was removed and a in 4.5 Wolof dilator and peel-away sheath was inserted over the guide wire. A 4.5 Wolof single lumen catheter was cut to length of 39 cm. The dilator was removed and the catheter was inserted over the guide wire with the tip ending in the SVC. The peel-away sheath was removed and the catheter was flushed with heparinized saline as per Hospital protocol. The catheter was affixed to the skin and a sterile dressing was applied. The the patient tolerated the procedure well and there were no immediate complications. 0.3 minutes of fluoro time was utilized for this procedure. Reviewed by ELIZ Maloney 03/23/2017 04:43 PSigned by Jamison Adair MD 03/23/2017 05:19 P
== END ==
LOC: M RADPRO 11:35
PROVIDERS: ATTEND Internal Medicine Medical Oncology
DX: C81.90 Hodgkin lymphoma, unspecified, unspecified site (principal); J90 Pleural effusion, not elsewhere classified; Z87.891 Personal history of nicotine dependence; Z88.1 Allergy status to other antibiotic agents; Z79.899 Other long term (current) drug therapy

== ENCOUNTER 2017-03-25 14:25 | Inpatient (IN) | payer OTHER, MEDICARE ==
[~2017-03-25] VITALS: Ht 160 cm; Wt 53.0 kg
[~2017-03-25 14:25] MED LIST changes: -MAGICMW SSP; -MIRA3350 PO; -ONDA8TAB7 PO; -PROC10TA PO
[2017-03-25] MEDS ORDERED: NS 500 ML IV ONE ×2 (15:30→16:30)
[2017-03-25 15:42] LABS: BASO % 0.1 % (0.0-1.0); EOS % 0.1 % (0.0-3.0); IMMATURE GRANULOCYTE % 0.6 % (0-0); LYMPH # 0.6 10^3/uL (1.5-4.5); LYMPH % 3.2 % (24.0-44.0); MEAN CORPUSCULAR HEMOGLOBIN 30.2 pg (27.0-33.0); MEAN CORPUSCULAR HGB CONC 33.3 g/dl (32.0-36.5); MEAN CORPUSCULAR VOLUME 90.7 fl (80.0-96.0); MONO # 0.8 10^3/uL (0.0-0.8); MONO % 4.2 % (0.0-5.0); NEUTROPHILS # 16.9 10^3/uL (1.8-7.7); NEUTROPHILS % 91.8 % (36.0-66.0); PLATELET COUNT, AUTOMATED 326 10^3/uL (150-450); RED CELL DISTRIBUTION WIDTH 15.8 % (11.5-14.5); WHITE BLOOD COUNT 18.4 10^3/uL (4.0-10.0)
[2017-03-25 16:18] LABS: ANION GAP 5 MEQ/L (8-16); BLOOD UREA NITROGEN 36 MG/DL (7-18); CALCIUM LEVEL 7.5 MG/DL (8.8-10.2); CARBON DIOXIDE LEVEL 26 MEQ/L (21-32); CHLORIDE LEVEL 98 MEQ/L (98-107); CREATININE FOR GFR 0.87 MG/DL (0.55-1.02); GLOMERULAR FILTRATION RATE > 60.0 (>39); GLUCOSE, FASTING 87 MG/DL (83-110); SODIUM LEVEL 129 MEQ/L (136-145)
[2017-03-25 16:23] LABS: POTASSIUM SERUM 5.9 MEQ/L (3.5-5.1)
[2017-03-25] MEDS ORDERED: NS 1,000 ML IV SCH ×2 (17:00→20:52)
[2017-03-25] MEDS ORDERED: ONDA8TAB7 PO (17:41)
[2017-03-25] MEDS ORDERED: MONT10TA2 PO (17:41)
[2017-03-25] MEDS ORDERED: MIRA3350 PO (17:41)
[2017-03-25] MEDS ORDERED: PROC10TA PO (17:41)
[2017-03-25] MEDS ORDERED: MIRALAX *UNIT DOSE* 17GM PACKET PO PRN (21:00)
[2017-03-25] MEDS ORDERED: ALBUTEROL 90 MCG/ACT 8GM HFA INHALER INH PRN (21:00)
[2017-03-25] MEDS ORDERED: ONDANSETRON 4 MG TAB (S0181) PO PRN ×2 (21:00)
[2017-03-25] MEDS ORDERED: PROCHLORPERAZINE 5 MG TAB (S0183) PO PRN (21:00)
[2017-03-25] MEDS ORDERED: CETIRIZINE (ZyrTEC) 10 MG TAB PO PRN (21:00)
[2017-03-25] MEDS ORDERED: FLUTICASONE HFA 44 MCG 10.6GM INHALER (FLOVENT) INH PRN (21:00)
[2017-03-25] MEDS ORDERED: MORPHINE 2 MG/ML 1ML SYRINGE IV PRN (21:00)
[2017-03-25 23:45] VITALS: BP 96/67
[2017-03-26] MEDS: CALCIUM/VITAMIN D 500 MG TAB PO SCH ×2 (00:55→20:34)
[2017-03-26] MEDS: ALLOPURINOL 300 MG TAB PO SCH ×2 (00:55→20:34)
[2017-03-26] MEDS: DOCUSATE SODIUM 100 MG CAP PO SCH ×3 (00:55→20:34)
[2017-03-26] MEDS: SIMVASTATIN 20 MG TAB PO SCH ×2 (00:55→20:34)
[2017-03-26] MEDS: PANTOPRAZOLE 40MG TAB (PROTONIX) PO SCH ×2 (00:55→20:34)
[2017-03-26] MEDS: MONTELUKAST 10 MG TAB PO SCH ×2 (00:55→20:34)
[2017-03-26] MEDS: VITAMIN D 1,000 INTERNATIONAL UNITS TABLET PO SCH ×2 (00:55→20:34)
[2017-03-26] MEDS ORDERED: ALBUTEROL SULFATE 2.5 MG/0.5 ML INH NEB SOLN INH PRN (01:30)
[2017-03-26] MEDS: ACETAMINOPHEN TAB 650MG DOSE (2X325MG) PO PRN (02:53)
[2017-03-26 05:31] VITALS: BP 68/58
[2017-03-26 05:42] LABS: BASO % 0.1 % (0.0-1.0); EOS % 0.1 % (0.0-3.0); IMMATURE GRANULOCYTE % 0.4 % (0-0); LYMPH # 0.5 10^3/uL (1.5-4.5); LYMPH % 3.1 % (24.0-44.0); MEAN CORPUSCULAR HEMOGLOBIN 30.2 pg (27.0-33.0); MEAN CORPUSCULAR HGB CONC 33.1 g/dl (32.0-36.5); MEAN CORPUSCULAR VOLUME 91.3 fl (80.0-96.0); MONO # 0.3 10^3/uL (0.0-0.8); MONO % 1.8 % (0.0-5.0); NEUTROPHILS # 16.3 10^3/uL (1.8-7.7); NEUTROPHILS % 94.5 % (36.0-66.0); PLATELET COUNT, AUTOMATED 276 10^3/uL (150-450); RED CELL DISTRIBUTION WIDTH 15.8 % (11.5-14.5); WHITE BLOOD COUNT 17.3 10^3/uL (4.0-10.0)
[2017-03-26 06:02] LABS: ALBUMIN 1.4 GM/DL (3.2-5.2); ALBUMIN/GLOBULIN RATIO 0.74 (1.00-1.93); ALKALINE PHOSPHATASE 34 U/L (45-117); ALT/SGPT 16 U/L (12-78); ANION GAP 5 MEQ/L (8-16); AST/SGOT 15 U/L (15-37); BILIRUBIN,TOTAL 0.3 MG/DL (0.2-1.0); BLOOD UREA NITROGEN 31 MG/DL (7-18); CALCIUM LEVEL 7.8 MG/DL (8.8-10.2); CARBON DIOXIDE LEVEL 26 MEQ/L (21-32); CHLORIDE LEVEL 103 MEQ/L (98-107); CREATININE FOR GFR 0.74 MG/DL (0.55-1.02); GLOMERULAR FILTRATION RATE > 60.0 (>39); GLUCOSE, FASTING 82 MG/DL (83-110); POTASSIUM SERUM 5.1 MEQ/L (3.5-5.1); SODIUM LEVEL 134 MEQ/L (136-145); TOTAL PROTEIN 3.3 GM/DL (6.4-8.2)
[2017-03-26] MEDS: IPRATROPIUM 0.5MG/ALBUTEROL 2.5MG INH SOL UD 3ML (DUONEB)(J7620) NEB SCH ×4 (07:54→19:18)
[2017-03-26] MEDS: ENOXAPARIN 40 MG/0.4 ML SYRINGE (J1650) SC SCH (08:59)
[2017-03-26 09:06] VITALS: BP 98/68
[2017-03-26 10:39] VITALS: BP 68/54
[2017-03-26] MEDS ORDERED: NS 1,000 ML IV SCH (11:30)
--- NOTE | 2017-03-26 11:33 | IPNPDOC ---
Subjective Date Seen The patient was seen on 03/26/17. Subjective Chief Complaint/HPI The patient is a 77-year-old female admitted with a reason for visit of Follicular Lymphoma;Orthostatic Hypotension. Events since last encounter Patient states that she is doing pretty good today. She does not have any acute concerns today. General: Denies: Night Sweats Constitutional: Denies: Chills, Fever Pulmonary: Denies: Dyspnea Cardiovascular: Denies: Chest Pain Other systems Head: Positive for continued dizziness, lightheadedness with ambulation Objective Physical Examination General Exam: Positive: Alert, Cooperative, No Acute Distress Chest Exam: Positive: Clear to auscultation, Normal air movement, Negative: Rales, Rhonchi, Wheezing Heart Exam: Positive: Rate Normal, Normal S1, Normal S2, Negative: Gallops, Murmurs, Rubs Extremity Exam: Positive: Other (capillary refill less than 2 seconds) Assessment /Plan Assessment Patient is a 77-year-old female admitted with orthostatic hypotension, great 3A follicular lymphoma. She is stable but continues to report dizziness and lightheadedness. Problems (1) Orthostatic hypotension Status: Resolved Problem Text: Patient with continued dizziness, lightheadedness with walking. We will restart normal saline IV fluids at rate of 85 mL/hr. Order placed for PT home safety evaluation. Patient will require hospitalization until her symptoms have resolved and she has physically safe for discharge. (2) Follicular lymphoma Status: Chronic Problem Text: Being treated by Dr. Monreal in outpatient setting, last chemotherapy 03/22/17 (3) Protein calorie malnutrition Status: Acute Problem Text: Nutrition consult ordered on admission (4) Gastritis and duodenitis Response to Treatment: Stable Problem Text: Continue current Protonix 40 mg by mouth daily at bedtime (5) Asthma Status: Chronic Problem Text: Continue albuterol sulfate, duo nebs (6) Hyperlipidemia Status: Chronic Response to Treatment: Stable Problem Text: Continue simvastatin 20 mg by mouth daily at bedtime Plan/VTE VTE Prophylaxis Ordered?: Yes (Lovenox 40 mg subcutaneously daily) Plan IVF: Initiate Therapy: Home Safety Eval Family Medicine Attending Note: I was present on site to supervise Cecil Schmidt D.O. (PGY-3). We discussed the gaspar elements of the history and examination. I independently evaluated the patient. I agree with his note as documented above. (irish moss operator) Disposition Patient will be safe for discharge once her symptoms of dizziness, lightheadedness with ambulation have resolved and she is cleared by physical therapy. VS, I&O, 24H, Raghavbone Vital Signs/I&O Vital Signs Date Time Temp Pulse Resp B/P (MAP) Pulse Ox O2 Delivery O2 Flow Rate FiO2 03/26/17 10:39 86 16 68/54 (59) 96 Room Air 03/25/17 23:45 97.9 I&O- Last 24 Hours up to 6 AM 03/27/17 06:00 Intake Total 120 ml Balance 120 ml Laboratory Data 24H LABS Laboratory Tests 2 03/25/17 15:33: Immature Granulocyte % (Auto) 0.6H, White Blood Count 18.4H, Red Blood Count 4.50, Hemoglobin 13.6, Hematocrit 40.8, Mean Corpuscular Volume 90.7, Mean Corpuscular Hemoglobin 30.2, Mean Corpuscular Hemoglobin Concent 33.3, Red Cell Distribution Width 15.8H, Platelet Count 326, Neutrophils (%) (Auto) 91.8H, Lymphocytes (%) (Auto) 3.2L, Monocytes (%) (Auto) 4.2, Eosinophils (%) (Auto) 0.1, Basophils (%) (Auto) 0.1, Neutrophils # (Auto) 16.9H, Lymphocytes # (Auto) 0.6L, Monocytes # (Auto) 0.8, Eosinophils # (Auto) 0.0, Basophils # (Auto) 0.0, Immature Granulocyte # (Auto) 0.1H, Nucleated Red Blood Cells % (auto) 0.0, Anion Gap 5L, Glomerular Filtration Rate > 60.0, Blood Urea Nitrogen 36H, Creatinine 0.87, Sodium Level 129L, Potassium Level 5.9H, Chloride Level 98, Carbon Dioxide Level 26, Calcium Level 7.5L 03/26/17 05:16: Immature Granulocyte % (Auto) 0.4H, White Blood Count 17.3H, Red Blood Count 4.24, Hemoglobin 12.8, Hematocrit 38.7, Mean Corpuscular Volume 91.3, Mean Corpuscular Hemoglobin 30.2, Mean Corpuscular Hemoglobin Concent 33.1, Red Cell Distribution Width 15.8H, Platelet Count 276, Neutrophils (%) (Auto) 94.5H, Lymphocytes (%) (Auto) 3.1L, Monocytes (%) (Auto) 1.8, Eosinophils (%) (Auto) 0.1, Basophils (%) (Auto) 0.1, Neutrophils # (Auto) 16.3H, Lymphocytes # (Auto) 0.5L, Monocytes # (Auto) 0.3, Eosinophils # (Auto) 0.0, Basophils # (Auto) 0.0, Immature Granulocyte # (Auto) 0.1H, Nucleated Red Blood Cells % (auto) 0.0, Anion Gap 5L, Glomerular Filtration Rate > 60.0, Blood Urea Nitrogen 31H, Creatinine 0.74, Sodium Level 134L, Potassium Level 5.1, Chloride Level 103, Carbon Dioxide Level 26, Calcium Level 7.8L, Aspartate Amino Transf (AST/SGOT) 15, Alanine Aminotransferase (ALT/SGPT) 16, Alkaline Phosphatase 34L, Total Bilirubin 0.3, Total Protein 3.3L, Albumin 1.4L, Albumin/Globulin Ratio 0.74L CBC/BMP Laboratory Tests 03/25/17 15:33 Red Blood Count 4.50, Mean Corpuscular Volume 90.7, Mean Corpuscular Hemoglobin 30.2, Mean Corpuscular Hemoglobin Concent 33.3, Red Cell Distribution Width 15.8 H, Neutrophils (%) (Auto) 91.8 H, Lymphocytes (%) (Auto) 3.2 L, Monocytes ( %) (Auto) 4.2, Eosinophils (%) (Auto) 0.1, Basophils (%) (Auto) 0.1, Neutrophils # (Auto) 16.9 H, Lymphocytes # (Auto) 0.6 L, Monocytes # (Auto) 0.8 , Eosinophils # (Auto) 0.0, Basophils # (Auto) 0.0, Calcium Level 7.5 L 03/26/17 05:16 Red Blood Count 4.24, Mean Corpuscular Volume 91.3, Mean Corpuscular Hemoglobin 30.2, Mean Corpuscular Hemoglobin Concent 33.1, Red Cell Distribution Width 15.8 H, Neutrophils (%) (Auto) 94.5 H, Lymphocytes (%) (Auto) 3.1 L, Monocytes ( %) (Auto) 1.8, Eosinophils (%) (Auto) 0.1, Basophils (%) (Auto) 0.1, Neutrophils # (Auto) 16.3 H, Lymphocytes # (Auto) 0.5 L, Monocytes # (Auto) 0.3 , Eosinophils # (Auto) 0.0, Basophils # (Auto) 0.0, Calcium Level 7.8 L, Aspartate Amino Transf (AST/SGOT) 15, Alanine Aminotransferase (ALT/SGPT) 16, Alkaline Phosphatase 34 L, Total Bilirubin 0.3, Total Protein 3.3 L, Albumin 1.4 L Microbiology Microbiology 03/25/17 Blood Culture, Received Pending CECIL SCHMIDT DO Mar 26, 2017 11:33 Alexandre Mccarthy MD Apr 11, 2017 21:12
--- NOTE | 2017-03-26 11:39 | REP ---
REASON: Weakness. COMPARISON: 2 days ago. There are bilateral basilar opacities with costophrenic angle and cardiophrenic a angle blunting, status quo. The tip of the PICC line catheter is at the superior vena cava/right atrial junction. The cardiomediastinal silhouette is unchanged. The heart is not enlarged. There are no new abnormal lung parenchymal opacities. There is no change in the osseous structures. There are bilateral thoracotomy tubes, unchanged. IMPRESSION: 1. Chronic basilar changes as described above. 2. PICC line catheter as described above. 3. Bilateral thoracotomy tubes unchanged. Signed by Christophe Richard DO 03/26/2017 09:46 A
--- NOTE | 2017-03-26 12:41 | ECGEPIP ---
Stationary ECG Study [facility] - ED Test Date: 2017-03-25 Pat Name: NURYS ANAND Department: Room: - Gender: F Schedule Analyst: KEYSHAWN : 1940 Requested By: JORGE Pace Order Number: [id number] Reading MD: Stacia Cerda Measurements Intervals [place] Rate: 72 P: 64 UT: 178 QRS: -75 QRSD: 128 T: 72 QT: 374 QTc: 410 Interpretive Statements SINUS RHYTHM RIGHT BUNDLE BRANCH BLOCK LEFT ANTERIOR FASCICULAR BLOCK POSSIBLE ANTERIOR MYOCARDIAL INFARCTION, OF INDETERMINATE AGE SIMILAR 03/15/17 Electronically Signed On 03-26-2017 12:41:02 EDT by Stacia Cerda
[2017-03-26 13:42] VITALS: BP 88/57
[2017-03-26 18:39] VITALS: BP 83/55
[2017-03-26 22:00] VITALS: BP 126/61
[2017-03-27] VITALS (18 sets, daily range): BP systolic 63–100; BP diastolic 42–64
[2017-03-27] MEDS: IPRATROPIUM 0.5MG/ALBUTEROL 2.5MG INH SOL UD 3ML (DUONEB)(J7620) NEB SCH ×4 (07:08→19:17)
--- NOTE | 2017-03-27 08:40 | IPNPDOC ---
Subjective Date Seen The patient was seen on 03/27/17. Subjective Chief Complaint/HPI The patient is a 77-year-old female admitted with a reason for visit of Follicular Lymphoma;Orthostatic Hypotension. Events since last encounter Continues with REYNOSO, orthostatic hypotension and dizziness with standing. 2.5 L drainage from pleural vacuum in last 24-48 hours. states appetite is stable. C/ o fatigue and weakness. Unsafe to get OOB or standing due top severe hypotension. Constitutional: Reports: Weakness, Fatigue, Weight Loss, Lethargy, Denies: Chills, Fever, Night Sweats Eyes: Denies: Pain, Vision change Skin: Denies: Rash Pulmonary: Reports: Dyspnea, Denies: Cough Cardiovascular: Reports: Orthopnea, Lt Headedness, Denies: Chest Pain, Palpitations, Edema Gastrointestinal: Denies: Nausea, Vomiting, Abdominal Pain, Diarrhea, Constipation Genitourinary: Denies: Dysuria, Frequency, Incontinence Neurological: Reports: Weakness Psych: Reports: Mood Normal Objective Physical Examination General Exam: Positive: Alert, Cooperative, No Acute Distress Neck Exam: Positive: Supple, Negative: JVD, thyromegaly Chest Exam: Positive: Normal air movement, Diminished (bibasilar), Negative: Rales, Rhonchi, Wheezing Heart Exam: Positive: Rate Normal, Normal S1, Normal S2, Negative: Gallops, Murmurs, Rubs Extremity Exam: Positive: Other (capillary refill less than 2 seconds) Psych Exam: Positive: Mental status NL, Mood NL, Oriented x 3 Assessment /Plan Problems (1) Orthostatic hypotension Status: Acute Problem Text: 03/27/17: Albumin infusions q 8 hrs. Concurrent cause of hypovolemia related to pleural fluid. Patient with continued dizziness, lightheadedness with walking. We will restart normal saline IV fluids at rate of 85 mL/hr. Order placed for PT home safety evaluation. Patient will require hospitalization until her symptoms have resolved and she has physically safe for discharge. (2) Pleural effusion Status: Chronic Problem Text: Has pleural vac in place. Dr. Zuleta to consult today. (3) Weakness Status: Acute Problem Text: PT on HOLD secondary to safety concerns and hypovolemia, SBP is 60-70 on standing (4) Follicular lymphoma Status: Chronic Problem Text: Being treated by Dr. Monreal in outpatient setting, last chemotherapy 03/22/17 (5) Protein calorie malnutrition Status: Acute Problem Text: Nutrition consult ordered on admission (6) Gastritis and duodenitis Response to Treatment: Stable Problem Text: Continue current Protonix 40 mg by mouth daily at bedtime (7) Asthma Status: Chronic Problem Text: Continue albuterol sulfate, duo nebs (8) Hyperlipidemia Status: Chronic Response to Treatment: Stable Problem Text: Continue simvastatin 20 mg by mouth daily at bedtime Plan/VTE VTE Prophylaxis Ordered?: Yes (Lovenox 40 mg subcutaneously daily) Plan IVF: Initiate Therapy: Home Safety Eval VS, I&O, 24H, Fishbone Vital Signs/I&O Vital Signs Date Time Temp Pulse Resp B/P (MAP) Pulse Ox O2 Delivery O2 Flow Rate FiO2 03/27/17 07:56 88 88/62 (71) 03/27/17 07:10 30 03/26/17 22:00 98.0 97 Room Air I&O- Last 24 Hours up to 6 AM 03/28/17 06:00 Intake Total 0 ml Balance 0 ml Laboratory Data 24H LABS Laboratory Tests 2 03/27/17 08:16: Microbiology Microbiology 03/25/17 Blood Culture - Preliminary, Resulted No growth after 24 hours . All specim... Alisha Richey TERMITE CONTROL SERVICER Mar 27, 2017 08:40
[2017-03-27 08:44] LABS: BASO % 0.1 % (0.0-1.0); EOS % 0.3 % (0.0-3.0); IMMATURE GRANULOCYTE % 0.3 % (0-0); LYMPH # 0.6 10^3/uL (1.5-4.5); LYMPH % 5.1 % (24.0-44.0); MEAN CORPUSCULAR HEMOGLOBIN 29.7 pg (27.0-33.0); MEAN CORPUSCULAR HGB CONC 32.7 g/dl (32.0-36.5); MEAN CORPUSCULAR VOLUME 91.1 fl (80.0-96.0); MONO # 0.1 10^3/uL (0.0-0.8); MONO % 0.9 % (0.0-5.0); NEUTROPHILS # 11.5 10^3/uL (1.8-7.7); NEUTROPHILS % 93.3 % (36.0-66.0); PLATELET COUNT, AUTOMATED 206 10^3/uL (150-450); RED CELL DISTRIBUTION WIDTH 15.4 % (11.5-14.5); WHITE BLOOD COUNT 12.3 10^3/uL (4.0-10.0)
[2017-03-27 08:52] LABS: ADD MANUAL DIFFER NO; DIFF SLIDE NUMBER 113
[2017-03-27] MEDS: ENOXAPARIN 40 MG/0.4 ML SYRINGE (J1650) SC SCH (09:00)
[2017-03-27 09:45] LABS: ALBUMIN 1.8 GM/DL (3.2-5.2); ALBUMIN/GLOBULIN RATIO 1.06 (1.00-1.93); ALKALINE PHOSPHATASE 27 U/L (45-117); ALT/SGPT 11 U/L (12-78); ANION GAP 7 MEQ/L (8-16); AST/SGOT 7 U/L (15-37); BILIRUBIN,TOTAL 0.4 MG/DL (0.2-1.0); BLOOD UREA NITROGEN 23 MG/DL (7-18); CALCIUM LEVEL 7.4 MG/DL (8.8-10.2); CARBON DIOXIDE LEVEL 25 MEQ/L (21-32); CHLORIDE LEVEL 102 MEQ/L (98-107); CREATININE FOR GFR 0.61 MG/DL (0.55-1.02); GLOMERULAR FILTRATION RATE > 60.0 (>39); GLUCOSE, FASTING 96 MG/DL (83-110); POTASSIUM SERUM 4.6 MEQ/L (3.5-5.1); SODIUM LEVEL 134 MEQ/L (136-145); TOTAL PROTEIN 3.5 GM/DL (6.4-8.2)
[2017-03-27] MEDS ORDERED: D5W/0.9% SODIUM CHLORIDE 500 ML IV ONE (11:45)
[2017-03-27] MEDS ORDERED: D5/0.9%NACL 1000ML IV ONE (11:45)
[2017-03-27] MEDS ORDERED: D5W/0.9% SODIUM CHLORIDE 1,000 ML IV SCH (12:00)
[2017-03-27] MEDS: DOCUSATE SODIUM 100 MG CAP PO SCH ×2 (12:16→20:04)
[2017-03-27] MEDS: HEPARIN SOD (PORCINE) 5000 UNITS/ML VIAL SQ SCH ×2 (13:56→20:05)
[2017-03-27] MEDS ORDERED: SODIUM CHLORIDE 0.9% INJ 10 ML SYR IV PRN ×2 (15:30)
--- NOTE | 2017-03-27 15:44 | REP ---
Portable chest, single AP view, the patient upright, 03:24 p.m.: Comparison is 03/25/2017. There is a new left subclavian central venous catheter with the tip in the superior vena cava/right atrium confluence as an interval change. There is a right upper extremity PICC line with the tip in the superior vena cava/right atrium confluence in satisfactory location, unchanged. There is a new large opacity in the left mid lung as a distinct interval change. There is increased radiodensity inferiorly in the left lung as a distinct interval change, possibly pleural effusion or possibly an infiltrate. This is just superior to the cardiac apex. The bilateral thoracostomy tubes are unchanged. Impression: New left subclavian central venous catheter. New large opacity in the left mid lung. New infiltrate/effusion inferiorly in the left lung. Signed by Jas Magallanes MD 03/27/2017 03:35 P
[2017-03-27] MEDS: OCTREOTIDE ACETATE 100 MCG/ML VIAL (J2354) IV SCH (16:27)
[2017-03-27] MEDS: HumaLOG INSULIN (NovoLOG) PER UNIT SC SCH (17:55)
[2017-03-27] MEDS: SODIUM CHLORIDE 0.9% INJ 10 ML SYR IV SCH (17:57)
[2017-03-27] MEDS ORDERED: FAT EMULSION IV 20% 500 ML IV SCH (18:00)
[2017-03-27] MEDS ORDERED: AMINO AC/ELECTROLYTE/DEX/CALC 2,000 ML IV SCH (18:00)
--- NOTE | 2017-03-27 18:44 | IPN ---
DATE: 03/27/2017 Dr. Mccarthy informed me last night that Ms. Purcell is now in the ICU with hypotension. She is putting out extraordinary amounts from the PleurX catheter, which are all chylous. We have now gotten to the point where we cannot continue to deplete her by continued drainage. Her drainage are between 750 and 1000 mL on each side. I asked him last night to start her on albumin infusions and replace her volume with saline. Her vital signs show a T-max of 100.4 this morning. Her heart rate is between 92 and 89 in a sinus rhythm, respiratory of 28 without the use of accessory muscles and who is 96% saturated on room air. Her blood pressure is ranging between 9852 to 79/49. Her intake and output over the past 24 hours has been recorded as 1520 in and 2775 out for a negativity of 1200 mL. She has put out 1 liter from the left PleurX and 1.4 liters from the right PleurX. On physical examination her lungs show normal vesicular sounds. I hear no wheezes, rhonchi or rales. Percussion notes are full to the diaphragm. Cardiac exam is without murmurs, clicks, gallops or rubs. I cannot feel her point of maximal impulse (PMI). S1 and S2 are normal. Abdomen is soft and nontender. Bowel sounds are positive. There is no hepatomegaly. No costovertebral angle (CVA) tenderness. Extremities show 2 to 3+ pretibial edema. No calf tenderness. No differential swelling of the upper extremities. Skin is warm, dry and perfused without cyanosis or mottling including that of the nail beds and the knees. Neck is supple. There is no jugular venous distention. No subcutaneous emphysema. Trachea is midline. Mouth shows her mucous membranes to be pink and moist. Lips and commissures without lesions. No thrush. Eyes show her pupils to be equal, reactive. Extraocular muscles intact. Sclera anicteric. Neuro shows II through XII intact. Gross motor and gross sensation intact. Gait is not tested. Psychiatric shows her to be awake, alert and oriented times three with appropriate mood, affect and conversational. Her white count is 12.3, with a hemoglobin and hematocrit of 11.3 and 34.6. Platelet count is 206 and stable and differential shows 93% neutrophils, 5% lymphocytes, 1% monocytes. There are no immature forms or toxic granulations. Chemistries show sodium 134, with a BUN and creatinine of 23 and 0.61. Remainder of electrolytes are normal. Calcium is 7.4. Albumin is 1.8, having started out albumin infusions yesterday after albumin of 1.4. Her chest x-ray shows the lung fully expanded to the chest wall. PleurX catheter is in good place. I see no infiltrates. IMPRESSION: 1. 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 2. Bilateral pleural effusions. 3. Bilateral chylothoraces. 4. Hypoalbuminemia. 5. Nutritional depletion. 6. Hypercholesterolemia. 7. History of duodenitis and gastritis. PLAN AND DISCUSSION: We are now at a point where we can no longer tolerate the high output of the chylothorax. I was hoping that her chemotherapy would start to affect the lymphoma and that the lymphatic obstruction would resolve or at least decrease. I am therefore, forced to place pleural peritoneal catheters. We will therefore do that tomorrow. The catheters are on order to be overnighted. I have explained the procedure and the rationale to the patient and her family and they understand. This will require constant pumping of the catheters once an hour for about 20 times. Each pump of the catheter is about 1.5 mL. I have also asked the medical service to volume replete her including replacing her albumin with 25% albumin every 6 hours. I will make her nothing by mouth (npo) for surgery tomorrow. My last resort would be hyperalimentation and complete nothing by mouth status. I am not sure if that would help the situation, although it may decrease the chyle from the obstruction. This is not a traumatic chylothorax.
[2017-03-27] MEDS: ACETAMINOPHEN TAB 650MG DOSE (2X325MG) PO PRN (19:54)
[2017-03-27] MEDS: ALLOPURINOL 300 MG TAB PO SCH (20:04)
[2017-03-27] MEDS: CALCIUM/VITAMIN D 500 MG TAB PO SCH (20:04)
[2017-03-27] MEDS: PANTOPRAZOLE 40MG TAB (PROTONIX) PO SCH (20:04)
[2017-03-27] MEDS: VITAMIN D 1,000 INTERNATIONAL UNITS TABLET PO SCH (20:04)
[2017-03-27] MEDS: SIMVASTATIN 20 MG TAB PO SCH (20:04)
[2017-03-27] MEDS: MONTELUKAST 10 MG TAB PO SCH (20:05)
[2017-03-28] VITALS (12 sets, daily range): BP systolic 86–101; BP diastolic 50–59
[2017-03-28] MEDS: SODIUM CHLORIDE 0.9% INJ 10 ML SYR IV SCH ×5 (00:02→15:53)
[2017-03-28] MEDS: OCTREOTIDE ACETATE 100 MCG/ML VIAL (J2354) IV SCH ×3 (00:02→15:54)
[2017-03-28] MEDS: HumaLOG INSULIN (NovoLOG) PER UNIT SC SCH ×4 (00:16→17:45)
[2017-03-28 06:18] LABS: BASO % 0.2 % (0.0-1.0); EOS # 0.1 10^3/uL (0.0-0.50); EOS % 0.8 % (0.0-3.0); IMMATURE GRANULOCYTE % 1.1 % (0-0); LYMPH # 0.3 10^3/uL (1.5-4.5); LYMPH % 3.3 % (24.0-44.0); MEAN CORPUSCULAR HEMOGLOBIN 30.2 pg (27.0-33.0); MEAN CORPUSCULAR HGB CONC 32.6 g/dl (32.0-36.5); MEAN CORPUSCULAR VOLUME 92.8 fl (80.0-96.0); MONO # 0.1 10^3/uL (0.0-0.8); MONO % 1.1 % (0.0-5.0); NEUTROPHILS # 9.8 10^3/uL (1.8-7.7); NEUTROPHILS % 93.5 % (36.0-66.0); PLATELET COUNT, AUTOMATED 135 10^3/uL (150-450); RED CELL DISTRIBUTION WIDTH 15.4 % (11.5-14.5); WHITE BLOOD COUNT 10.4 10^3/uL (4.0-10.0)
[2017-03-28 06:50] LABS: ALBUMIN 2.1 GM/DL (3.2-5.2); ALKALINE PHOSPHATASE 20 U/L (45-117); ALT/SGPT 9 U/L (12-78); ANION GAP 7 MEQ/L (8-16); AST/SGOT 6 U/L (15-37); BILIRUBIN,TOTAL 0.2 MG/DL (0.2-1.0); BLOOD UREA NITROGEN 19 MG/DL (7-18); CALCIUM LEVEL 7.1 MG/DL (8.8-10.2); CARBON DIOXIDE LEVEL 24 MEQ/L (21-32); CHLORIDE LEVEL 102 MEQ/L (98-107); CREATININE FOR GFR 0.46 MG/DL (0.55-1.02); GLOMERULAR FILTRATION RATE > 60.0 (>39); GLUCOSE, FASTING 141 MG/DL (83-110); MAGNESIUM LEVEL 1.7 MG/DL (1.8-2.4); POTASSIUM SERUM 4.4 MEQ/L (3.5-5.1); SODIUM LEVEL 133 MEQ/L (136-145); TOTAL PROTEIN 3.5 GM/DL (6.4-8.2)
[2017-03-28] MEDS: IPRATROPIUM 0.5MG/ALBUTEROL 2.5MG INH SOL UD 3ML (DUONEB)(J7620) NEB SCH ×4 (08:24→20:11)
[2017-03-28] MEDS: HEPARIN SOD (PORCINE) 5000 UNITS/ML VIAL SQ SCH ×2 (08:59→20:25)
[2017-03-28] MEDS: DOCUSATE SODIUM 100 MG CAP PO SCH ×2 (08:59→20:25)
--- NOTE | 2017-03-28 09:14 | REP ---
PA and lateral chest: Comparisons are the portable chest dated 03/27/[address] of 03/16/2017. The large opacity in the left hemithorax identified and 03/27/2017 has increased in size. The increased radiodensity identified on and 2016 inferiorly in the left lung has increased in size and merges with the other large left hemithorax density. This may represent referring pleural fluid. There is now a right pleural fluid collection has significantly increased from 03/27/2017. There is a thoracotomy tube inferiorly in the right hemithorax and a thoracotomy tube inferiorly in the left hemithorax. These are unchanged. There is a left subclavian central venous catheter and there is a right upper extremity PICC catheter. Both of these are unchanged. Impression: Increasing densities bilaterally, likely increasing pleural fluid collections. Signed by Jas Magallanes MD 03/28/2017 09:06 A
--- NOTE | 2017-03-28 09:27 | IPNPDOC ---
Subjective Date Seen The patient was seen on 03/28/17. Subjective Chief Complaint/HPI The patient is a 77-year-old female admitted with a reason for visit of Follicular Lymphoma;Orthostatic Hypotension. Events since last encounter Placed on TPN last night by thoracic surgery. Continues with orthostasis on standing. Progressive weakness noted. Constitutional: Denies: Chills, Fever, Night Sweats ENT: Denies: Head Aches, Ear Pain, Dysphagia Skin: Denies: Rash, Lesions, Breakdown Pulmonary: Reports: Dyspnea Cardiovascular: Denies: Chest Pain, Palpitations, Orthopnea, Paroxysmal Noc. Dyspnea, Lt Headedness Gastrointestinal: Denies: Nausea, Vomiting, Abdominal Pain, Diarrhea, Constipation Objective Physical Examination General Exam: Positive: Alert, Cooperative, No Acute Distress Neck Exam: Positive: Supple, Negative: JVD, thyromegaly Chest Exam: Positive: Normal air movement, Diminished (bibasilar), Negative: Rales, Rhonchi, Wheezing Heart Exam: Positive: Rate Normal, Normal S1, Normal S2, Negative: Gallops, Murmurs, Rubs Extremity Exam: Positive: Other (capillary refill less than 2 seconds) Psych Exam: Positive: Mental status NL, Mood NL, Oriented x 3 Assessment /Plan Problems (1) Orthostatic hypotension Status: Acute Problem Text: 03/28/17: On octreotide and Hyperalimentation. 03/27/17: Albumin infusions q 8 hrs. Concurrent cause of hypovolemia related to pleural fluid. Patient with continued dizziness, lightheadedness with walking. We will restart normal saline IV fluids at rate of 85 mL/hr. Order placed for PT home safety evaluation. Patient will require hospitalization until her symptoms have resolved and she has physically safe for discharge. (2) Pleural effusion Status: Chronic Problem Text: 03/28/17: See Thoracic surgery note for planned intervention. Has pleural vac in place. Dr. Zuleta to consult today. (3) Weakness Status: Acute Problem Text: PT on HOLD secondary to safety concerns and hypovolemia, SBP is 60-70 on standing (4) Follicular lymphoma Status: Chronic Problem Text: Being treated by Dr. Monreal in outpatient setting, last chemotherapy 03/22/17 (5) Protein calorie malnutrition Status: Acute Problem Text: Nutrition consult ordered on admission (6) Gastritis and duodenitis Response to Treatment: Stable Problem Text: Continue current Protonix 40 mg by mouth daily at bedtime (7) Asthma Status: Chronic Problem Text: Continue albuterol sulfate, duo nebs (8) Hyperlipidemia Status: Chronic Response to Treatment: Stable Problem Text: Continue simvastatin 20 mg by mouth daily at bedtime Plan/VTE VTE Prophylaxis Ordered?: Yes (Lovenox 40 mg subcutaneously daily) Plan IVF: Initiate Therapy: Home Safety Eval VS, I&O, 24H, Fishbone Vital Signs/I&O Vital Signs Date Time Temp Pulse Resp B/P (MAP) Pulse Ox O2 Delivery O2 Flow Rate FiO2 03/28/17 07:49 99.0 97 18 89/59 (69) 94 Room Air I&O- Last 24 Hours up to 6 AM 03/29/17 06:00 Intake Total 275 ml Output Total 400 ml Balance -125 ml Laboratory Data 24H LABS Laboratory Tests 2 03/27/17 17:45: Bedside Glucose (Misc Panel) 175H 03/28/17 00:06: Bedside Glucose (Misc Panel) 110 03/28/17 05:59: Immature Granulocyte % (Auto) 1.1H, White Blood Count 10.4H, Red Blood Count 3.21L, Hemoglobin 9.7L, Hematocrit 29.8L, Mean Corpuscular Volume 92.8, Mean Corpuscular Hemoglobin 30.2, Mean Corpuscular Hemoglobin Concent 32.6, Red Cell Distribution Width 15.4H, Platelet Count 135L, Neutrophils (%) (Auto) 93.5H, Lymphocytes (%) (Auto) 3.3L, Monocytes (%) (Auto) 1.1, Eosinophils (%) (Auto) 0.8, Basophils (%) (Auto) 0.2, Neutrophils # (Auto) 9.8H, Lymphocytes # (Auto) 0.3L, Monocytes # (Auto) 0.1, Eosinophils # (Auto) 0.1, Basophils # (Auto) 0.0, Immature Granulocyte # (Auto) 0.1H, Nucleated Red Blood Cells % (auto) 0.0, Anion Gap 7L, Glomerular Filtration Rate > 60.0, Blood Urea Nitrogen 19H, Creatinine 0.46L, Sodium Level 133L, Potassium Level 4.4, Chloride Level 102, Carbon Dioxide Level 24, Calcium Level 7.1L, Aspartate Amino Transf (AST/SGOT) 6L, Alanine Aminotransferase (ALT/SGPT) 9L, Alkaline Phosphatase 20L, Total Bilirubin 0.2, Total Protein 3.5L, Albumin 2.1L, Magnesium Level 1.7L, Albumin/ Globulin Ratio 1.50 03/28/17 06:44: Bedside Glucose (Misc Panel) 112H CBC/BMP Laboratory Tests 03/28/17 05:59 Red Blood Count 3.21 L, Mean Corpuscular Volume 92.8, Mean Corpuscular Hemoglobin 30.2, Mean Corpuscular Hemoglobin Concent 32.6, Red Cell Distribution Width 15.4 H, Neutrophils (%) (Auto) 93.5 H, Lymphocytes (%) (Auto ) 3.3 L, Monocytes (%) (Auto) 1.1, Eosinophils (%) (Auto) 0.8, Basophils (%) ( Auto) 0.2, Neutrophils # (Auto) 9.8 H, Lymphocytes # (Auto) 0.3 L, Monocytes # ( Auto) 0.1, Eosinophils # (Auto) 0.1, Basophils # (Auto) 0.0, Calcium Level 7.1 L , Aspartate Amino Transf (AST/SGOT) 6 L, Alanine Aminotransferase (ALT/SGPT) 9 L , Alkaline Phosphatase 20 L, Total Bilirubin 0.2, Total Protein 3.5 L, Albumin 2.1 L Microbiology Microbiology 03/25/17 Blood Culture - Preliminary, Resulted No Growth after 48 hours. All Specime... Alisha Richey [facility] Mar 28, 2017 09:27
[2017-03-28] MEDS ORDERED: MAG SULF 1GM/100ML (MAG RUN) 1 GM in APPROPRIATE DILUENT 1 EA IV ONE (09:45)
[2017-03-28] MEDS: EUCERIN 120GM CREAM TOP SCH ×2 (10:12→20:24)
--- NOTE | 2017-03-28 14:13 | IPN ---
DATE: 03/28/2017 After learning that the pleuroperitoneal shunts could not be delivered until tomorrow, we canceled her surgery to be rescheduled for tomorrow. I then decided that we really have to actively intervene and try to reduce this chylous effusion as she is losing all of her protein nutrients through the PleurX catheters. I therefore made her nothing by mouth and started hyperalimentation, along with octreotide. She is doing fairly well today. She moves around the bed well and can get up out of the chair, but does get dizzy when standing up secondary to her hypotension. Her vital signs show a maximum temperature (t-max) of 100.3 with a heart rate that ranges between 86 and 85 in a sinus rhythm, respiratory rate of 18 to 24 without the use of accessory muscles, who is 94% saturated on room air. Blood pressure is running between 87/51 to 90/54. Her intake and output over the past 24 hours has been recorded as 2535 in and 1550 out for a positivity of 1085 mL. Prior to being made nothing by mouth, she had taken 900 mL in oral intake. The remainder has been in IV intake. Yesterday prior to stopping the drainage, she put out 1000 mL from the PleurX catheters, 550 mL from the left side and 450 mL on the right side. Weight today is 66 kg compared to 47.3 kg yesterday. I am not sure if that weight is spurious. PHYSICAL EXAMINATION LUNGS: Her lungs show decreased breath sounds on the left side with a dull percussion note on the left side at the base. There are scattered rhonchi. Percussion note is dull to percussion at the left base. CARDIAC EXAM: Without murmurs, clicks, gallops or rubs. I cannot feel her point of maximum impulse (PMI). S1, S2 are normal. ABDOMEN: Soft, nontender. Bowel sounds positive. There is no hepatomegaly. No costovertebral angle tenderness. EXTREMITIES: Show 2+ pretibial edema. No calf tenderness. No differential swelling of the upper extremities. SKIN: Warm, dry and perfused without cyanosis or mottling, including that of the nail beds and knees. NECK: Supple. There is no jugular venous distention. No subcutaneous emphysema. Trachea is midline. MOUTH: Shows her mucous membranes to be pink and moist. Lips and commissures without lesions. There is no thrush. EYES: Show her pupils to be equal and reactive. Extraocular motion intact. Sclerae anicteric. NEUROLOGIC: Shows II through XII intact with gross motor and gross sensation intact. Gait is not tested. PSYCHIATRIC: Shows her to be awake and alert, oriented times three with appropriate mood and affect and conversational. Her white count today is 10.4, down from 12.3 yesterday and 17.3 the day before. Hemoglobin and hematocrit are 9.7 and 29.8, respectively, also down from yesterday's 11.3 and 34.6, probably secondary to hemodilution. Platelet count is 135 and there are 93% neutrophils, 3% lymphocytes, 1% monocytes. There are no immature forms and no toxic granulations. Her electrolytes show a sodium of 133 with the remaining electrolytes normal with a BUN and creatinine of 19 and 0.46. Glucose is 141 with a calcium 7.1, magnesium of 1.7. Albumin is 2.1. She is continued on her albumin infusions. Chest x-ray today shows accumulation of fluid in the left chest, more than the right chest, although there is reaccumulation in both sides. The lung is fully expanded to the chest wall. There is no pneumothorax. The fluid is about half way up the chest wall on the left side. We may have to drain a little bit of that today if she becomes symptomatic. I want to target for the pleuroperitoneal shunt tomorrow. IMPRESSION: 1. Bilateral chylothoraces, high output. 2. Follicular lymphoma. 3. Protein calorie depletion. 4. Hypoalbuminemia. 5. Hypercholesterolemia. 6. History of duodenitis and gastritis. PLAN AND DISCUSSION: As noted today, I have started her on hyperalimentation and octreotide. She is tolerating that well. We will do the pleuroperitoneal shunts tomorrow. This is definitely a nontraumatic chylothorax. There are not many common causes of this uncommon condition, those common of which being malignancy and secondary obstruction of the lymphatics. More uncommon causes would be amyloidosis, tuberculosis, filariasis, and even cardiac failure. None of these she appears to have clinically. Sarcoidosis with enlargement of lymph nodes can cause this, but we know that in her case that her lymphadenopathy is secondary to follicular lymphoma. The frightening outcome of this chyle is nutritionally depleting her. As noted yesterday, I am considering myself forced to undertake a pleuroperitoneal shunt, as we cannot continue to drain her of her nutritional substrates. She is now on hyperalimentation and octreotide to decrease lymphatic reduction in the intestinal level. 50% of lymph and chyle are from the intestinal environment.
[2017-03-28] MEDS ORDERED: [UNRECOGNIZED DRUG - OTHER] IV SCH ×7 (18:00)
[2017-03-28] MEDS ORDERED: FAT EMULSION IV 20% 500 ML IV SCH (18:00)
[2017-03-28] MEDS ORDERED: SODIUM ACETATE IV SCH ×7 (18:00)
[2017-03-28] MEDS ORDERED: SODIUM CHLORIDE IV SCH ×7 (18:00)
[2017-03-28] MEDS: ACETAMINOPHEN TAB 650MG DOSE (2X325MG) PO PRN (20:24)
[2017-03-28] MEDS: SIMVASTATIN 20 MG TAB PO SCH (20:25)
[2017-03-28] MEDS: ALLOPURINOL 300 MG TAB PO SCH (20:25)
[2017-03-28] MEDS: PANTOPRAZOLE 40MG TAB (PROTONIX) PO SCH (20:25)
[2017-03-28] MEDS: CALCIUM/VITAMIN D 500 MG TAB PO SCH (20:25)
[2017-03-28] MEDS: MONTELUKAST 10 MG TAB PO SCH (20:25)
[2017-03-28] MEDS: VITAMIN D 1,000 INTERNATIONAL UNITS TABLET PO SCH (20:25)
[2017-03-29] VITALS (16 sets, daily range): BP systolic 74–106; BP diastolic 49–65
[2017-03-29] MEDS: HumaLOG INSULIN (NovoLOG) PER UNIT SC SCH ×5 (00:20→23:54)
[2017-03-29] MEDS: SODIUM CHLORIDE 0.9% INJ 10 ML SYR IV SCH ×6 (00:21→22:00)
[2017-03-29] MEDS: OCTREOTIDE ACETATE 100 MCG/ML VIAL (J2354) IV SCH ×4 (00:21→23:54)
[2017-03-29 06:52] LABS: BASO % 0.6 % (0.0-1.0); EOS # 0.1 10^3/uL (0.0-0.50); EOS % 1.6 % (0.0-3.0); LYMPH # 0.4 10^3/uL (1.5-4.5); LYMPH % 5.9 % (24.0-44.0); MEAN CORPUSCULAR HEMOGLOBIN 30.4 pg (27.0-33.0); MEAN CORPUSCULAR VOLUME 92.4 fl (80.0-96.0); MONO # 0.1 10^3/uL (0.0-0.8); MONO % 2.2 % (0.0-5.0); NEUTROPHILS # 5.6 10^3/uL (1.8-7.7); NEUTROPHILS % 87.7 % (36.0-66.0); PLATELET COUNT, AUTOMATED 144 10^3/uL (150-450); RED CELL DISTRIBUTION WIDTH 15.5 % (11.5-14.5); WHITE BLOOD COUNT 6.4 10^3/uL (4.0-10.0)
[2017-03-29 07:15] LABS: ALBUMIN 2.6 GM/DL (3.2-5.2); ALBUMIN/GLOBULIN RATIO 1.73 (1.00-1.93); ALKALINE PHOSPHATASE 23 U/L (45-117); ALT/SGPT 9 U/L (12-78); ANION GAP 5 MEQ/L (8-16); AST/SGOT 6 U/L (15-37); BILIRUBIN,TOTAL 0.2 MG/DL (0.2-1.0); BLOOD UREA NITROGEN 24 MG/DL (7-18); CALCIUM LEVEL 7.5 MG/DL (8.8-10.2); CARBON DIOXIDE LEVEL 26 MEQ/L (21-32); CHLORIDE LEVEL 104 MEQ/L (98-107); CHOLESTEROL LEVEL 73 MG/DL (< 200); GLOMERULAR FILTRATION RATE > 60.0 (>39); GLUCOSE, FASTING 108 MG/DL (83-110); PHOSPHORUS LEVEL 2.9 MG/DL (2.5-4.9); POTASSIUM SERUM 4.6 MEQ/L (3.5-5.1); SODIUM LEVEL 135 MEQ/L (136-145); TOTAL PROTEIN 4.1 GM/DL (6.4-8.2); TRIGLYCERIDES LEVEL 60 MG/DL (<150)
[2017-03-29] MEDS: IPRATROPIUM 0.5MG/ALBUTEROL 2.5MG INH SOL UD 3ML (DUONEB)(J7620) NEB SCH ×2 (07:32→11:58)
[2017-03-29] MEDS: HEPARIN SOD (PORCINE) 5000 UNITS/ML VIAL SQ SCH ×2 (08:22→21:10)
[2017-03-29] MEDS: DOCUSATE SODIUM 100 MG CAP PO SCH ×2 (08:22→21:09)
[2017-03-29] MEDS: EUCERIN 120GM CREAM TOP SCH ×2 (08:23→21:10)
--- NOTE | 2017-03-29 08:26 | REP ---
PA and lateral chest: Comparisons 03/28/2017. There are large bilateral pleural effusions, unchanged. The tract of the right thoracotomy tube has changed at the tip of the right thoracotomy tube is now in the right apex medially. The left thoracotomy tube is unchanged. The left subclavian central venous catheter and right upper extremity PICC line are unchanged. Signed by Jas Magallanes MD 03/29/2017 08:18 A
[2017-03-29] MEDS ORDERED: MUPIROCIN 2% OINT 22 GM TUBE TOP ONE (08:30)
--- NOTE | 2017-03-29 09:22 | IPNPDOC ---
Subjective Date Seen The patient was seen on 03/29/17. Subjective Chief Complaint/HPI The patient is a 77-year-old female admitted with a reason for visit of Follicular Lymphoma;Orthostatic Hypotension. Events since last encounter Planned procedure with Dr. Zuleta today. Denies c/o. Remains hypotensive with standing. Constitutional: Denies: Chills, Fever, Night Sweats Pulmonary: Denies: Dyspnea, Cough Cardiovascular: Denies: Chest Pain, Palpitations, Orthopnea, Paroxysmal Noc. Dyspnea, Lt Headedness Gastrointestinal: Denies: Nausea, Vomiting, Abdominal Pain, Diarrhea, Constipation Objective Physical Examination General Exam: Positive: Alert, Cooperative, No Acute Distress Neck Exam: Positive: Supple, Negative: JVD, thyromegaly Chest Exam: Positive: Normal air movement, Diminished (bibasilar), Negative: Rales, Rhonchi, Wheezing Heart Exam: Positive: Rate Normal, Normal S1, Normal S2, Negative: Gallops, Murmurs, Rubs Extremity Exam: Positive: Edema (third spacing to bilateral feet/LE), Other ( capillary refill less than 2 seconds) Psych Exam: Positive: Mental status NL, Mood NL, Oriented x 3 Assessment /Plan Problems (1) Orthostatic hypotension Status: Acute Problem Text: 03/29/17: continue current regimen. Procedure with Dr. Zuleta today. 03/28/17: On octreotide and Hyperalimentation. 03/27/17: Albumin infusions q 8 hrs. Concurrent cause of hypovolemia related to pleural fluid. Patient with continued dizziness, lightheadedness with walking. We will restart normal saline IV fluids at rate of 85 mL/hr. Order placed for PT home safety evaluation. Patient will require hospitalization until her symptoms have resolved and she has physically safe for discharge. (2) Pleural effusion Status: Chronic Problem Text: 03/28/17: See Thoracic surgery note for planned intervention. Has pleural vac in place. Dr. Zuleta to consult today. (3) Weakness Status: Acute Problem Text: PT on HOLD secondary to safety concerns and hypovolemia, SBP is 60-70 on standing (4) Follicular lymphoma Status: Chronic Problem Text: Being treated by Dr. Monreal in outpatient setting, last chemotherapy 03/22/17 (5) Protein calorie malnutrition Status: Acute Problem Text: Nutrition consult ordered on admission (6) Gastritis and duodenitis Response to Treatment: Stable Problem Text: Continue current Protonix 40 mg by mouth daily at bedtime (7) Asthma Status: Chronic Problem Text: Continue albuterol sulfate, duo nebs (8) Hyperlipidemia Status: Chronic Response to Treatment: Stable Problem Text: Continue simvastatin 20 mg by mouth daily at bedtime Plan/VTE VTE Prophylaxis Ordered?: Yes (Lovenox 40 mg subcutaneously daily) Plan IVF: Initiate Therapy: Home Safety Eval VS, I&O, 24H, Fishbone Vital Signs/I&O Vital Signs Date Time Temp Pulse Resp B/P (MAP) Pulse Ox O2 Delivery O2 Flow Rate FiO2 03/29/17 07:45 75 105/59 (74) 90 106/56 (73) 93 74/49 (57) 03/29/17 06:31 99.7 24 95 Room Air 03/29/17 04:00 3.0 I&O- Last 24 Hours up to 6 AM 03/30/17 06:00 Intake Total 50 ml Output Total 0 ml Balance 50 ml Laboratory Data 24H LABS Laboratory Tests 2 03/28/17 11:52: Bedside Glucose (Misc Panel) 128H 03/28/17 17:41: Bedside Glucose (Misc Panel) 123H 03/29/17 00:14: Bedside Glucose (Misc Panel) 116H 03/29/17 06:18: Bedside Glucose (Misc Panel) 110 03/29/17 06:20: Immature Granulocyte % (Auto) 2.0H, White Blood Count 6.4, Red Blood Count 2.89L , Hemoglobin 8.8L, Hematocrit 26.7L, Mean Corpuscular Volume 92.4, Mean Corpuscular Hemoglobin 30.4, Mean Corpuscular Hemoglobin Concent 33.0, Red Cell Distribution Width 15.5H, Platelet Count 144L, Neutrophils (%) (Auto) 87.7H, Lymphocytes (%) (Auto) 5.9L, Monocytes (%) (Auto) 2.2, Eosinophils (%) (Auto) 1.6, Basophils (%) (Auto) 0.6, Neutrophils # (Auto) 5.6, Lymphocytes # (Auto) 0.4L, Monocytes # (Auto) 0.1, Eosinophils # (Auto) 0.1, Basophils # (Auto) 0.0, Immature Granulocyte # (Auto) 0.1H, Nucleated Red Blood Cells % (auto) 0.0, Anion Gap 5L, Glomerular Filtration Rate > 60.0, Blood Urea Nitrogen 24H, Creatinine 0.40L, Sodium Level 135L, Potassium Level 4.6, Chloride Level 104, Carbon Dioxide Level 26, Calcium Level 7.5L, Phosphorus Level 2.9, Aspartate Amino Transf (AST/SGOT) 6L, Alanine Aminotransferase (ALT/SGPT) 9L, Lactate Dehydrogenase 126, Total Creatine Kinase 31, Alkaline Phosphatase 23L, Total Bilirubin 0.2, Triglycerides Level 60, Cholesterol Level 73, Total Protein 4.1L , Albumin 2.6#L, Magnesium Level 2.0, Albumin/Globulin Ratio 1.73 CBC/BMP Laboratory Tests 03/29/17 06:20 Red Blood Count 2.89 L, Mean Corpuscular Volume 92.4, Mean Corpuscular Hemoglobin 30.4, Mean Corpuscular Hemoglobin Concent 33.0, Red Cell Distribution Width 15.5 H, Neutrophils (%) (Auto) 87.7 H, Lymphocytes (%) (Auto ) 5.9 L, Monocytes (%) (Auto) 2.2, Eosinophils (%) (Auto) 1.6, Basophils (%) ( Auto) 0.6, Neutrophils # (Auto) 5.6, Lymphocytes # (Auto) 0.4 L, Monocytes # ( Auto) 0.1, Eosinophils # (Auto) 0.1, Basophils # (Auto) 0.0, Calcium Level 7.5 L , Phosphorus Level 2.9, Aspartate Amino Transf (AST/SGOT) 6 L, Alanine Aminotransferase (ALT/SGPT) 9 L, Lactate Dehydrogenase 126, Total Creatine Kinase 31, Alkaline Phosphatase 23 L, Total Bilirubin 0.2, Triglycerides Level 60, Cholesterol Level 73, Total Protein 4.1 L, Albumin 2.6 #L Microbiology Microbiology 03/25/17 Blood Culture - Preliminary, Resulted No Growth after 72 hours. All specime... Alisha RicheyP Mar 29, 2017 09:22
--- NOTE | 2017-03-29 11:30 | REP ---
CT chest without contrast: History: Distribution of pleural effusions. Comparison chest CT study: March 16, 2017. Comparison is made with today's chest x-ray. Findings: There are moderate to large bilateral pleural effusions noted. Bilateral Pleurx catheters are seen in place in good position coursing posteriorly, superiorly and medially. The right Pleurx catheter terminates at the apex medially and the left Pleurx catheter terminates at the mid chest posterior to the descending thoracic aorta. The right Pleurx catheter course is through a posteriorly layering moderate right pleural effusion. This raises a question of clogged catheter. The left Pleurx catheter also courses through a posteriorly distributed component of pleural fluid. There is very little fluid and its tip. There is some loculated fluid laterally and anterolaterally on the left as well. The left pleural effusion is larger than the right. There is a tiny sliver of pneumothorax anteriorly on the left. Air bronchograms are seen in the lower lobes bilaterally. There is a small quantity of pericardial fluid. There are cysts in the liver as before. Spleen is homogeneous. Upper abdominal adenopathy is visualized. No bony destructive lesion is appreciated. Impression: Moderate to large bilateral pleural effusions despite the presence of bilateral Pleurx catheters as described above. Signed by Jamison Adair MD 03/29/2017 02:13 P
[2017-03-29] MEDS ORDERED: ONDANSETRON 4MG/2ML VIAL (J2405) As Ordered ONE (12:27)
[2017-03-29] MEDS ORDERED: PROPOFOL 200 MG/20 ML VIAL As Ordered ONE (12:27)
[2017-03-29] MEDS ORDERED: LIDOCAINE 2% INJ 100 MG/5 ML SDV (FOR ANES.) As Ordered ONE (12:27)
[2017-03-29] MEDS ORDERED: dexameTHASONE 4 MG/ML 1ML VIAL (J1100) As Ordered ONE (12:27)
[2017-03-29] MEDS ORDERED: fentaNYL 100 MCG/2 ML INJECTION (J3010) As Ordered ONE (12:56)
[2017-03-29] MEDS ORDERED: MIDAZOLAM INJ 2 MG/2 ML VIAL (J2250) As Ordered ONE (12:56)
[2017-03-29] MEDS ORDERED: ROCURONIUM BROMIDE 50 MG/5 ML VIAL/SYRINGE As Ordered ONE (12:56)
[2017-03-29] MEDS ORDERED: LIDOCAINE 1% SDV INJ 30 ML VIAL As Ordered ONE (13:01)
[2017-03-29] MEDS ORDERED: BUPIVACAINE LIPOSOME/PF 1.3% 20 ML VIAL (13.3MG/ML)(EXPAREL) As Ordered ONE (13:02)
[2017-03-29] MEDS ORDERED: SODIUM CHLORIDE IV SCH ×9 (18:00)
[2017-03-29] MEDS ORDERED: [UNRECOGNIZED DRUG - OTHER] IV SCH ×9 (18:00)
[2017-03-29] MEDS ORDERED: FAT EMULSION IV 20% 500 ML IV SCH (18:00)
[2017-03-29] MEDS ORDERED: SODIUM ACETATE IV SCH ×9 (18:00)
[2017-03-29] MEDS ORDERED: IPRATROPIUM 0.5MG/ALBUTEROL 2.5MG INH SOL UD 3ML (DUONEB)(J7620) NEB SCH (20:00)
[2017-03-29] MEDS: VITAMIN D 1,000 INTERNATIONAL UNITS TABLET PO SCH (21:09)
[2017-03-29] MEDS: ALLOPURINOL 300 MG TAB PO SCH (21:09)
[2017-03-29] MEDS: PANTOPRAZOLE 40MG TAB (PROTONIX) PO SCH (21:09)
[2017-03-29] MEDS: CALCIUM/VITAMIN D 500 MG TAB PO SCH (21:09)
[2017-03-29] MEDS: MONTELUKAST 10 MG TAB PO SCH (21:10)
[2017-03-29] MEDS: SIMVASTATIN 20 MG TAB PO SCH (21:10)
[2017-03-30] VITALS (24 sets, daily range): BP systolic 87–154; BP diastolic 50–79
[2017-03-30] MEDS ORDERED: FLUTICASONE HFA 44 MCG 10.6GM INHALER (FLOVENT) INH ONE (03:15)
[2017-03-30 05:25] LABS: BASO % 0.7 % (0.0-1.0); EOS # 0.1 10^3/uL (0.0-0.50); EOS % 1.6 % (0.0-3.0); IMMATURE GRANULOCYTE % 1.3 % (0-0); LYMPH # 0.4 10^3/uL (1.5-4.5); LYMPH % 12.1 % (24.0-44.0); MEAN CORPUSCULAR HEMOGLOBIN 30.5 pg (27.0-33.0); MEAN CORPUSCULAR HGB CONC 32.5 g/dl (32.0-36.5); MEAN CORPUSCULAR VOLUME 93.8 fl (80.0-96.0); MONO # 0.1 10^3/uL (0.0-0.8); MONO % 3.6 % (0.0-5.0); NEUTROPHILS # 2.5 10^3/uL (1.8-7.7); NEUTROPHILS % 80.7 % (36.0-66.0); PLATELET COUNT, AUTOMATED 127 10^3/uL (150-450); RED CELL DISTRIBUTION WIDTH 15.7 % (11.5-14.5); WHITE BLOOD COUNT 3.1 10^3/uL (4.0-10.0)
[2017-03-30] MEDS: HumaLOG INSULIN (NovoLOG) PER UNIT SC SCH ×3 (05:28→18:26)
[2017-03-30] MEDS: SODIUM CHLORIDE 0.9% INJ 10 ML SYR IV SCH ×5 (05:28→21:21)
[2017-03-30] MEDS: ACETAMINOPHEN TAB 650MG DOSE (2X325MG) PO PRN ×2 (05:30→17:25)
[2017-03-30 05:58] LABS: ALBUMIN 2.2 GM/DL (3.2-5.2); ALBUMIN/GLOBULIN RATIO 1.57 (1.00-1.93); ALKALINE PHOSPHATASE 19 U/L (45-117); ALT/SGPT 9 U/L (12-78); ANION GAP 4 MEQ/L (8-16); AST/SGOT 5 U/L (15-37); BILIRUBIN,TOTAL 0.2 MG/DL (0.2-1.0); BLOOD UREA NITROGEN 24 MG/DL (7-18); CALCIUM LEVEL 7.7 MG/DL (8.8-10.2); CARBON DIOXIDE LEVEL 29 MEQ/L (21-32); CHLORIDE LEVEL 106 MEQ/L (98-107); CHOLESTEROL LEVEL 65 MG/DL (< 200); GLOMERULAR FILTRATION RATE > 60.0 (>39); GLUCOSE, FASTING 111 MG/DL (83-110); PHOSPHORUS LEVEL 2.7 MG/DL (2.5-4.9); POTASSIUM SERUM 4.3 MEQ/L (3.5-5.1); SODIUM LEVEL 139 MEQ/L (136-145); TOTAL PROTEIN 3.6 GM/DL (6.4-8.2); TRIGLYCERIDES LEVEL 65 MG/DL (<150)
[2017-03-30] MEDS: OCTREOTIDE ACETATE 100 MCG/ML VIAL (J2354) IV SCH ×2 (07:36→16:31)
[2017-03-30] MEDS ORDERED: MUPIROCIN 2% OINT 22 GM TUBE TOP ONE (08:00)
[2017-03-30] MEDS: MEROPENEM INJ 1 GM in D5W MINI-BAG PLUS 100 ML IV SCH ×2 (08:33→16:31)
[2017-03-30] MEDS: EUCERIN 120GM CREAM TOP SCH ×2 (08:33→21:22)
[2017-03-30] MEDS: DOCUSATE SODIUM 100 MG CAP PO SCH ×2 (09:00→21:20)
[2017-03-30] MEDS: HEPARIN SOD (PORCINE) 5000 UNITS/ML VIAL SQ SCH ×2 (09:00→21:21)
--- NOTE | 2017-03-30 10:40 | IPNPDOC ---
Subjective Date Seen The patient was seen on 03/30/17. Subjective Chief Complaint/HPI The patient is a 77-year-old female admitted with a reason for visit of Follicular Lymphoma;Orthostatic Hypotension. Events since last encounter Procedure held yesterday due to unavailability of equipment. Planned for 1300 today. Objective Physical Examination General Exam: Positive: Alert, Cooperative, No Acute Distress Neck Exam: Positive: Supple, Negative: JVD, thyromegaly Chest Exam: Positive: Normal air movement, Diminished (bibasilar), Negative: Rales, Rhonchi, Wheezing Heart Exam: Positive: Rate Normal, Normal S1, Normal S2, Negative: Gallops, Murmurs, Rubs Extremity Exam: Positive: Edema (third spacing to bilateral feet/LE), Other ( capillary refill less than 2 seconds) Psych Exam: Positive: Mental status NL, Mood NL, Oriented x 3 Assessment /Plan Problems (1) Pleural effusion Status: Chronic Problem Text: 03/28/17: See Thoracic surgery note for planned intervention. Has pleural vac in place. Dr. Zuleta to consult today. (2) Weakness Status: Acute Problem Text: Will resume PT (3) Follicular lymphoma Status: Chronic Problem Text: Being treated by Dr. Monreal in outpatient setting, last chemotherapy 03/22/17 (4) Protein calorie malnutrition Status: Acute Problem Text: Nutrition consult ordered on admission (5) Gastritis and duodenitis Response to Treatment: Stable Problem Text: Continue current Protonix 40 mg by mouth daily at bedtime (6) Asthma Status: Chronic Problem Text: Continue albuterol sulfate, duo nebs (7) Hyperlipidemia Status: Chronic Response to Treatment: Stable Problem Text: Continue simvastatin 20 mg by mouth daily at bedtime (8) Orthostatic hypotension Status: Resolved Problem Text: 03/29/17: continue current regimen. Procedure with Dr. Zuleta today. 03/28/17: On octreotide and Hyperalimentation. 03/27/17: Albumin infusions q 8 hrs. Concurrent cause of hypovolemia related to pleural fluid. Patient with continued dizziness, lightheadedness with walking. We will restart normal saline IV fluids at rate of 85 mL/hr. Order placed for PT home safety evaluation. Patient will require hospitalization until her symptoms have resolved and she has physically safe for discharge. Plan/VTE VTE Prophylaxis Ordered?: Yes (Lovenox 40 mg subcutaneously daily) Plan IVF: Initiate Therapy: Home Safety Eval VS, I&O[facility] Vital Signs/I&O Vital Signs Date Time Temp Pulse Resp B/P (MAP) Pulse Ox O2 Delivery O2 Flow Rate FiO2 03/30/17 06:00 100.8 93 22 95/57 (70) 93 Room Air 03/29/17 04:00 3.0 Laboratory Data 24H LABS Laboratory Tests 2 03/29/17 11:29: Bedside Glucose (Misc Panel) 98 03/29/17 17:30: Bedside Glucose (Misc Panel) 120H 03/29/17 23:43: Bedside Glucose (Misc Panel) 122H 03/30/17 05:09: Immature Granulocyte % (Auto) 1.3H, White Blood Count 3.1L, Red Blood Count 2.72L, Hemoglobin 8.3L, Hematocrit 25.5L, Mean Corpuscular Volume 93.8, Mean Corpuscular Hemoglobin 30.5, Mean Corpuscular Hemoglobin Concent 32.5, Red Cell Distribution Width 15.7H, Platelet Count 127L, Neutrophils (%) (Auto) 80.7H, Lymphocytes (%) (Auto) 12.1L, Monocytes (%) (Auto) 3.6, Eosinophils (%) (Auto) 1.6, Basophils (%) (Auto) 0.7, Neutrophils # (Auto) 2.5, Lymphocytes # (Auto) 0.4L, Monocytes # (Auto) 0.1, Eosinophils # (Auto) 0.1, Basophils # (Auto) 0.0, Immature Granulocyte # (Auto) 0.0, Nucleated Red Blood Cells % (auto) 0.0, Anion Gap 4L, Glomerular Filtration Rate > 60.0, Blood Urea Nitrogen 24H, Creatinine 0.40L, Sodium Level 139, Potassium Level 4.3, Chloride Level 106, Carbon Dioxide Level 29, Calcium Level 7.7L, Phosphorus Level 2.7, Aspartate Amino Transf (AST/SGOT) 5L, Alanine Aminotransferase (ALT/SGPT) 9L, Lactate Dehydrogenase 116, Total Creatine Kinase 21L, Alkaline Phosphatase 19L, Total Bilirubin 0.2, Triglycerides Level 65, Cholesterol Level 65, Total Protein 3.6L , Albumin 2.2L, Magnesium Level 2.0, Albumin/Globulin Ratio 1.57 03/30/17 05:16: Bedside Glucose (Misc Panel) 111H CBC/BMP Laboratory Tests 03/30/17 05:09 Red Blood Count 2.72 L, Mean Corpuscular Volume 93.8, Mean Corpuscular Hemoglobin 30.5, Mean Corpuscular Hemoglobin Concent 32.5, Red Cell Distribution Width 15.7 H, Neutrophils (%) (Auto) 80.7 H, Lymphocytes (%) (Auto ) 12.1 L, Monocytes (%) (Auto) 3.6, Eosinophils (%) (Auto) 1.6, Basophils (%) ( Auto) 0.7, Neutrophils # (Auto) 2.5, Lymphocytes # (Auto) 0.4 L, Monocytes # ( Auto) 0.1, Eosinophils # (Auto) 0.1, Basophils # (Auto) 0.0, Calcium Level 7.7 L , Phosphorus Level 2.7, Aspartate Amino Transf (AST/SGOT) 5 L, Alanine Aminotransferase (ALT/SGPT) 9 L, Lactate Dehydrogenase 116, Total Creatine Kinase 21 L, Alkaline Phosphatase 19 L, Total Bilirubin 0.2, Triglycerides Level 65, Cholesterol Level 65, Total Protein 3.6 L, Albumin 2.2 L Microbiology Microbiology 03/30/17 Blood Culture, Received Pending 03/30/17 Blood Culture, Received Pending 03/30/17 Blood Culture, Received Pending 03/25/17 Blood Culture - Preliminary, Resulted No Growth after 72 hours. All specime... Alisha Richey [employer] Mar 30, 2017 10:40
--- NOTE | 2017-03-30 11:12 | REP ---
Chest x-ray: Two views. History: Bilateral chylothorax. Comparison chest x-ray March 29, 2017. Findings: EKG monitoring electrodes are seen. A right-sided PICC line and a left subclavian [id number] terminate in the expected location of the superior vena cava as before. The previously noted PleurX catheters are again seen bilaterally as well. There is a decrease in the amount of pleural fluid on the left and probably some improvement on the right. Bilateral pleural effusions persist. No pneumothorax is seen. Signed by Jamison Adair MD 03/30/2017 12:00 P
--- NOTE | 2017-03-30 13:37 | IPN ---
DATE: 03/30/2017 The catheter supply company has once again failed to send the catheter out. It was supposed to have been over nighted on Monday and they have still not sent that out. Materials management has called the company repeatedly and the company has indicated that they cannot guarantee overnight delivery. This is a rather standard procedure for medical supplies and this company seems not to be able to undertake overnight delivery. Ms. Purcell is naturally again very frustrated and distressed of the fact that we cannot bring her to the operating room to implant the pleuroperitoneal catheters. She did run a temperature last night of 101.0. She has now defervesced. I did start her on meropenem. We have also cultured her. Her other vital signs show a heart rate of 80 to 93 in a sinus rhythm, respiratory rate of 18 to 22 without the use of accessory muscles, who is 97% to 93% saturated on room air. Blood pressure is ranging between 102/60 to 88/50. Her intake and output over the past 24 hours has been recorded has 2740 in and 3000 out for a negativity of 260 mL. Over the day, 2350 mL were drained from the left chest secondary to shortness of breath. Her urine output yesterday was 650 mL. PHYSICAL EXAMINATION: LUNGS: Her lungs show a dull percussion note on the right side at the base with a full percussion note to the diaphragm on the left side. She has crackles and rhonchi on both sides, left now greater than right. CARDIAC EXAM: Without murmurs, clicks, gallops or rubs. I cannot feel her point of maximum impulse (PMI). S1, S2 are normal. ABDOMEN: Soft, nontender. Bowel sounds positive. There is no hepatomegaly. No costovertebral angle tenderness. Bowel sounds are rather hypoactive, however. EXTREMITIES: Show decreasing pretibial edema, now about 1+. There is no calf tenderness. SKIN: Warm, dry and perfused without cyanosis or mottling, including that of the nail beds and knees. NECK: Supple. There is no jugular venous distention. No subcutaneous emphysema. Trachea is midline. MOUTH: Shows her mucous membranes to be pink and moist. Lips and commissures without lesions. There is no thrush. EYES: Show her pupils to be equal and reactive. Extraocular motion intact. Sclerae anicteric. NEUROLOGIC: Shows II through XII intact with gross motor and gross sensation intact. Gait is not tested. PSYCHIATRIC: Shows her to be awake and alert, oriented times three with appropriate mood and affect and conversational. Her white count today is down to 3.1. Her absolute neutrophil count is 2500. Hemoglobin and hematocrit are 8.3 and 25.5, respectively. Platelet count is 127 and stable. Differential shows 80% neutrophils, 11% lymphocytes, 3% monocytes. There are no immature forms. No toxic granulations. Her electrolytes are normal with a BUN and creatinine of 24 and 0.40. Calcium is 7.7 with a glucose of 111. Magnesium is 2.0 with normal liver functions. Albumin is 2.2. Her chest x-ray today shows the right pleural effusion to be stable without drainage. The left side shows the pleural fusion having been drained, but it is starting to reaccumulate posteriorly. IMPRESSION: 1. Bilateral chylothoraces, high output. 2. Follicular lymphoma. 3. Protein calorie depletion. 4. Hypoalbuminemia. 5. Hypercholesterolemia. 6. History of duodenitis and gastritis. PLAN AND DISCUSSION: We are again in a holding pattern because of the lack of delivery of the pleuroperitoneal catheters. I am surprised and encouraged by the fact that the right side has not accumulated but rather it is all the left side. If that continues, I may just do the left side as a shunt. We will continue her hyperalimentation and her octreotide. I have increased the dose of octreotide to 100 mcg every 8 hours.
--- NOTE | 2017-03-30 16:19 | REP ---
PORTABLE CHEST, ONE VIEW: HISTORY: Shortness of breath. COMPARISON: 8:51 am 03/30/2017. Bilateral pleural effusions are present increased compared to the previous study. A small left pneumothorax is present. Heart size is obscured by bilateral pleural effusions. A PICC line and Infusaport catheter are present. Two chest tubes are present in the right and left hemithoraces. IMPRESSION: There has been in an increase in size of the bilateral pleural effusions compared to the previous study. A small left pneumothorax is present. Signed by Joseph Jade MD 03/30/2017 04:29 P
[2017-03-30] MEDS ORDERED: SODIUM ACETATE IV SCH ×7 (18:00)
[2017-03-30] MEDS ORDERED: [UNRECOGNIZED DRUG - OTHER] IV SCH ×7 (18:00)
[2017-03-30] MEDS ORDERED: SODIUM CHLORIDE IV SCH ×7 (18:00)
[2017-03-30] MEDS ORDERED: FAT EMULSION IV 20% 500 ML IV SCH (18:00)
[2017-03-30] MEDS: FLUTICASONE HFA 44 MCG 10.6GM INHALER (FLOVENT) INH SCH (20:17)
[2017-03-30] MEDS: PANTOPRAZOLE 40MG TAB (PROTONIX) PO SCH (21:20)
[2017-03-30] MEDS: CALCIUM/VITAMIN D 500 MG TAB PO SCH (21:20)
[2017-03-30] MEDS: ALLOPURINOL 300 MG TAB PO SCH (21:20)
[2017-03-30] MEDS: MONTELUKAST 10 MG TAB PO SCH (21:20)
[2017-03-30] MEDS: SIMVASTATIN 20 MG TAB PO SCH (21:20)
[2017-03-30] MEDS: VITAMIN D 1,000 INTERNATIONAL UNITS TABLET PO SCH (21:20)
--- NOTE | 2017-03-30 23:18 | IPN ---
DATE: 03/29/2017 Ms. Purcell got increasingly short of breath last night, and I received a call around 4:30 in the morning. I, therefore, went ahead and drained her 500 mL from the left side. This relieved her shortness of breath. Her vital signs show a maximum temperature (Tmax) of 99.8 with a heart rate that ranges between 81 and 75 in a sinus rhythm, respiratory rate of 20-24 without the use of accessory muscles, who is 93-4% saturated on room air. Her blood pressure is ranging between 100/57 to 92/54. Her intake and output the past 24 hours have been recorded as 2336 in and 950 out for a positivity of 1386 mL. She has had 950 mL in total urine output. 500 mL was drained from the chest tube early this morning. Her weight is pending. ON PHYSICAL EXAMINATION: Her lungs show dull percussion note in the left lower hemithorax at the very right base. There are decreased breath sounds in the left lower hemithorax. I hear no wheezes, rhonchi, or rales at this point in time. Cardiac exam is without murmurs, clicks, gallops, or rubs. I cannot feel her point of maximal impulse (PMI). S1 and S2 are normal. Abdomen is soft and nontender. Bowel sounds are positive. Extremities show 2+ pretibial edema. No calf tenderness. No differential swelling of the upper extremities. Her skin is warm, dry, and perfused without cyanosis or mottling, including that of the nail beds and knees. Neck is supple. There is no jugular venous distention. No subcutaneous emphysema. Trachea is midline. Mouth shows her mucous membranes to be pink and moist. Lips and commissures without lesions. No thrush. Eyes show her pupils equal and reactive. Extraocular motor intact. Sclerae are nonicteric. Neurologic shows II-XII intact along with gross motor and gross sensation intact. Gait is not tested, and psychiatric shows her to be awake and alert and oriented times three but very disappointed about her surgery having to be postponed until tomorrow. See below. Her white count is 6.4 with hemoglobin and hematocrit of 8.8 and 26.7, down from 9.7 and 92.8. Platelet count is 144 and stable, and differential shows 87% neutrophils, 5% lymphocytes, 2% monocytes. There are no immature forms. No toxic granulations. Her chemistries show nearly normal electrolytes with a BUN and creatinine of 24 and 0.4. Calcium is 7.5 with a magnesium of 2.0. AST and ALT are still very low, and her albumin is coming up with continued albumin infusions. Her chest x-ray today shows an accumulation of fluid on the left side much more than the right side. In preparation for her surgery today, which had to be cancelled secondary to the pleural peritoneal shunts not being delivered, I obtained a CT scan. CT scan shows bilateral pleural effusions with the right much greater than the left. I am going to drain the left completely today, as it reaccumulates so quickly. IMPRESSION: 1. Recurrent bilateral chylothoraces. 2. Follicular cell lymphoma. 3. Protein-calorie depletion and malnutrition. 4. Hypoalbuminemia. 5. Hypercholesterolemia. 6. History of duodenitis and gastritis. PLAN AND DISCUSSION: I will continue her hyperalimentation and octreotide today. The pleuroperitoneal shunts were not delivered today. Evidently, the company did not send them out until today even though they were requested on Monday. They are supposed to be here at 10:30 tomorrow, and I will reschedule her surgery for then. She is bitterly disappointed. I have informed both her and her family. Again, as noted before, this is an incredibly difficult problem.
[2017-03-31] VITALS (19 sets, daily range): BP systolic 86–125; BP diastolic 54–73
[2017-03-31] MEDS: HumaLOG INSULIN (NovoLOG) PER UNIT SC SCH ×4 (00:52→17:42)
[2017-03-31] MEDS: OCTREOTIDE ACETATE 100 MCG/ML VIAL (J2354) IV SCH (00:52)
[2017-03-31] MEDS: MEROPENEM INJ 1 GM in D5W MINI-BAG PLUS 100 ML IV SCH ×3 (00:52→16:43)
[2017-03-31] MEDS: SODIUM CHLORIDE 0.9% INJ 10 ML SYR IV SCH ×5 (05:53→21:24)
[2017-03-31 06:05] LABS: BASO % 0.5 % (0.0-1.0); EOS % 1.6 % (0.0-3.0); IMMATURE GRANULOCYTE % 0.5 % (0-0); LYMPH # 0.3 10^3/uL (1.5-4.5); LYMPH % 16.7 % (24.0-44.0); MEAN CORPUSCULAR HEMOGLOBIN 29.6 pg (27.0-33.0); MEAN CORPUSCULAR HGB CONC 31.3 g/dl (32.0-36.5); MEAN CORPUSCULAR VOLUME 94.6 fl (80.0-96.0); MONO # 0.2 10^3/uL (0.0-0.8); MONO % 8.6 % (0.0-5.0); NEUTROPHILS # 1.3 10^3/uL (1.8-7.7); NEUTROPHILS % 72.1 % (36.0-66.0); PLATELET COUNT, AUTOMATED 139 10^3/uL (150-450); RED CELL DISTRIBUTION WIDTH 15.4 % (11.5-14.5); WHITE BLOOD COUNT 1.9 10^3/uL (4.0-10.0)
[2017-03-31 06:24] LABS: ALBUMIN 2.5 GM/DL (3.2-5.2); ALBUMIN/GLOBULIN RATIO 1.79 (1.00-1.93); ALKALINE PHOSPHATASE 23 U/L (45-117); ALT/SGPT 9 U/L (12-78); ANION GAP 2 MEQ/L (8-16); AST/SGOT 4 U/L (15-37); BILIRUBIN,TOTAL 0.3 MG/DL (0.2-1.0); BLOOD UREA NITROGEN 24 MG/DL (7-18); CALCIUM LEVEL 7.4 MG/DL (8.8-10.2); CARBON DIOXIDE LEVEL 33 MEQ/L (21-32); CHLORIDE LEVEL 106 MEQ/L (98-107); CHOLESTEROL LEVEL 59 MG/DL (< 200); CREATININE FOR GFR 0.38 MG/DL (0.55-1.02); GLOMERULAR FILTRATION RATE > 60.0 (>39); GLUCOSE, FASTING 107 MG/DL (83-110); MAGNESIUM LEVEL 1.7 MG/DL (1.8-2.4); PHOSPHORUS LEVEL 2.4 MG/DL (2.5-4.9); POTASSIUM SERUM 4.3 MEQ/L (3.5-5.1); SODIUM LEVEL 141 MEQ/L (136-145); TOTAL PROTEIN 3.9 GM/DL (6.4-8.2); TRIGLYCERIDES LEVEL 46 MG/DL (<150)
--- NOTE | 2017-03-31 07:10 | REPUSA ---
CLINICAL HISTORY: Pleural effusions. TECHNIQUE: Multiple axial CT images were obtained through the thorax without IV contrast material. COMMENTS: Comparison to prior exam on 03/29/2017. Unchanged moderate free-flowing right pleural effusion. Right thoracostomy tube is in good position with its tip in the apex of the right pleural cavity. Thi s is unchanged. Large multiloculated left pleural effusion. This is unchanged. Left thoracostomy tube is in good position with its tip in the base of the left pleural cavity. This is unchanged. Unchanged basilar atelectatic airspace disease of the lungs more prominent in the lower lobes. There is no evidence of hilar or mediastinal lymphadenopathy. The heart and great vessels are within normal limits. Unchanged scattered well defined hypodense hepatic lesions. The bony structures are free of lytic or blastic lesions. IMPRESSION: Unchanged exam. Thank you for your kind referral of this patient.
[2017-03-31] MEDS ORDERED: LIDOCAINE 1% SDV INJ 30 ML VIAL As Ordered ONE (07:15)
[2017-03-31] MEDS ORDERED: BUPIVACAINE LIPOSOME/PF 1.3% 20 ML VIAL (13.3MG/ML)(EXPAREL) As Ordered ONE (07:19)
--- NOTE | 2017-03-31 07:20 | REPUSA ---
CLINICAL HISTORY: Abdominal pain. TECHNIQUE: Multiple axial and coronal CT images were obtained through the abdomen and pelvis without the administration of oral or IV contrast material. Multiplanar reconstructed (MPR) images are also a vailable in coronal and sagittal planes. No prior studies are available for comparison. COMMENTS: Scattered well-defined hypodense lesions of the liver with the largest measuring 1.5 cm. Mild splenomegaly. Moderate large bowel fecal stasis suggestive of constipation. Mild ascites. Distended gallbladder containing layering sludge. Mildly enlarged lymph nodes in the retroperitoneal spaces with the largest measuring 1.3 cm. Mild hepatomegaly. There is no intra- or extrahepatic biliary ductal dilatation. The pancreas is of normal contour and attenuation characteristics. There is no evidence of adrenal ma ss. The kidneys are normal in size, shape and configuration. There is no evidence of renal or ureteral st one. There is no evidence of renal mass. There is no hydronephrosis or hydroureter. There is no evidence for appendicitis. There is no bowel obstruction or inflammation. There is no evidence of intrinsic or extrinsic bladder mass. There is no evidence of ascites or adenopathy. There is no evidence of AAA. Atherosclerotic calcifica tions are noted in the distal abdominal aorta and proximal common iliac arteries. The bony structures are free of lytic or blastic lesions. IMPRESSION: Scattered well-defined hypodense lesions of the liver with the largest measuring 1.5 cm. Mild splenomegaly. Moderate large bowel fecal stasis suggestive of constipation. Mild ascites. Distended gallbladder containing layering sludge. Mildly enlarged lymph nodes in the retroperitoneal spaces with the largest measuring 1.3 cm. Mild hepatomegaly. Thank you for your kind referral of this patient
[2017-03-31] MEDS: HEPARIN SOD (PORCINE) 5000 UNITS/ML VIAL SQ SCH ×2 (07:35→21:18)
[2017-03-31] MEDS: DOCUSATE SODIUM 100 MG CAP PO SCH ×2 (07:36→21:18)
[2017-03-31] MEDS: FLUTICASONE HFA 44 MCG 10.6GM INHALER (FLOVENT) INH SCH ×2 (08:12→19:42)
[2017-03-31] MEDS: EUCERIN 120GM CREAM TOP SCH ×2 (09:00→21:18)
--- NOTE | 2017-03-31 09:19 | REP ---
PA and lateral chest: Comparison is 2016. There is also a comparison chest CT earlier today at 06:01 a.m. There are bilateral pleural effusions, not significantly changed. There are bilateral thoracotomy tubes, unchanged. The left subclavian central venous catheter is unchanged. Cardiac size appears enlarged, unchanged. There is a left paramediastinal air density, unchanged from 03/30/2017. However, upon review of the chest CT. There is no pneumothorax or pneumomediastinum in this location. On the comparison CT. I suspect that there is a bulla in this location. Impression: No significant interval change. The unusual air density in the left paramediastinal area likely corresponds to a bulla seen in this location on the comparison CT. Signed by Jas Magallanes MD 03/31/2017 09:10 A
[2017-03-31] MEDS ORDERED: SUCCINYLCHOLINE 100 MG/5 ML SYRINGE (J0330) As Ordered ONE (09:34)
[2017-03-31] MEDS ORDERED: ROCURONIUM BROMIDE 50 MG/5 ML VIAL/SYRINGE As Ordered ONE (09:34)
[2017-03-31] MEDS ORDERED: ePHEDrine SULFATE 25 MG/5 ML(5MG/ML) SYRINGE As Ordered ONE (09:34)
[2017-03-31] MEDS ORDERED: MIDAZOLAM INJ 2 MG/2 ML VIAL (J2250) As Ordered ONE (09:34)
[2017-03-31] MEDS ORDERED: PROPOFOL 200 MG/20 ML VIAL As Ordered ONE (09:34)
[2017-03-31] MEDS ORDERED: fentaNYL 100 MCG/2 ML INJECTION (J3010) As Ordered ONE (09:34)
[2017-03-31] MEDS ORDERED: PHENYLephrine HCL 500 MCG/5 ML (100MCG/ML) SYRINGE (J2370) As Ordered ONE (09:34)
[2017-03-31] MEDS ORDERED: LIDOCAINE 2% INJ 100 MG/5 ML SDV (FOR ANES.) As Ordered ONE (09:34)
[2017-03-31] MEDS ORDERED: MUPIROCIN 2% OINT 22 GM TUBE As Ordered ONE (09:37)
[2017-03-31] MEDS ORDERED: SUGAMMADEX SODIUM 500 MG/5 ML VIAL (BRIDION) As Ordered ONE (10:14)
[2017-03-31] MEDS ORDERED: fentaNYL 100 MCG/2 ML INJECTION (J3010) IV PRN (11:45)
[2017-03-31] MEDS ORDERED: LR 1,000 ML IV SCH (11:45)
[2017-03-31] MEDS ORDERED: ONDANSETRON 4MG/2ML VIAL (J2405) IV PRN (11:45)
[2017-03-31] MEDS ORDERED: BUPIVACAINE LIPOSOME/PF 1.3% 20 ML VIAL (13.3MG/ML)(EXPAREL) INFIL ONE (12:30)
--- NOTE | 2017-03-31 12:39 | REP ---
KUB, ONE VIEW: HISTORY: Pleuroperitoneal shunt placement. Air is present in small and large intestine. There are no air fluid levels or dilated loops of intestine. There is no pneumoperitoneum. Bilateral pleural effusions are present, larger on the left than on the right. Chest tubes are present in the hemithoraces. A left pleuroperitoneal shunt is present. The proximal tip is present in the left hemithorax. The distal tip is present in the left lower quadrant of the abdomen. IMPRESSION: The patient is status post left pleuroperitoneal shunt placement. Signed by Joseph Jade MD 03/31/2017 01:16 P
--- NOTE | 2017-03-31 16:43 | RO ---
DATE OF PROCEDURE: 03/31/2017 PREPROCEDURE DIAGNOSIS: Nontraumatic chylothoraces. POSTPROCEDURE DIAGNOSIS: Nontraumatic chylothoraces. PROCEDURE: Insertion of left pleural peritoneal shunt with laparoscopic control. SURGEON: Dr. Carlos Zuleta FRONT OFFICE ADMINISTRATOR: ANESTHESIA: FINDINGS: The right sided PleurX was drained of 1000 mL. The pleuroperitoneal catheter was placed into an elongated pocket over the thoracic wall so that it could be pumped well. The pumping action was checked along with the placement by laparoscope. DESCRIPTION OF PROCEDURE: Under satisfactory general anesthesia, the patient was prepped and draped in the usual sterile fashion. The course of the shunt was marked out. An exploring needle was placed into the chest with return of pleural fluid. An incision was made approximately 2 cm and a subcutaneous pocket was created for the shunt. The tunneler was placed between the shunt incision and the guidewire into the pleura. Catheter was pulled through and then a peel-away introducer was placed over the guidewire. The catheter was then placed into the chest. It should be noted that the pump was cleared prior to surgery in a bowl of saline. A long tunnel was then created to the proposed intraabdominal site. A periumbilical incision was made, a Veress needle was placed with low pressures initially. The abdomen was inflated. A 5 mm port was placed through the abdominal wall and the laparoscope was placed. The abdomen was entered with a sharp hemostat and the end of the shunt was placed into the abdomen. Pumping action was then again checked, and fluid was seen to be coming through the catheter side holes. The body of the pump was then sutured to the chest wall with two #2-0 silk sutures. Incisions were closed with running #3-0 Vicryl for the subcutaneous tissue and a running #4-0 Monocryl subcuticular for the skin. Scope was removed, and the abdomen was emptied of CO2. The patient tolerated the procedure well and left the operating room in satisfactory condition for the recovery room.
[2017-03-31] MEDS: ACETAMINOPHEN TAB 650MG DOSE (2X325MG) PO PRN ×2 (17:03→22:33)
[2017-03-31] MEDS ORDERED: SODIUM ACETATE IV SCH ×9 (18:00)
[2017-03-31] MEDS ORDERED: SODIUM CHLORIDE IV SCH ×9 (18:00)
[2017-03-31] MEDS ORDERED: FAT EMULSION IV 20% 500 ML IV SCH (18:00)
[2017-03-31] MEDS ORDERED: [UNRECOGNIZED DRUG - OTHER] IV SCH ×9 (18:00)
[2017-03-31] MEDS: ALLOPURINOL 300 MG TAB PO SCH (21:18)
[2017-03-31] MEDS: VITAMIN D 1,000 INTERNATIONAL UNITS TABLET PO SCH (21:18)
[2017-03-31] MEDS: CALCIUM/VITAMIN D 500 MG TAB PO SCH (21:18)
[2017-03-31] MEDS: SIMVASTATIN 20 MG TAB PO SCH (21:18)
[2017-03-31] MEDS: MONTELUKAST 10 MG TAB PO SCH (21:18)
[2017-03-31] MEDS: PANTOPRAZOLE 40MG TAB (PROTONIX) PO SCH (21:19)
[2017-04-01] VITALS (14 sets, daily range): BP systolic 84–110; BP diastolic 52–62
[2017-04-01] MEDS: MEROPENEM INJ 1 GM in D5W MINI-BAG PLUS 100 ML IV SCH ×3 (00:38→16:58)
[2017-04-01] MEDS: HumaLOG INSULIN (NovoLOG) PER UNIT SC SCH ×4 (00:39→21:32)
--- NOTE | 2017-04-01 01:55 | IPNPDOC ---
Subjective Date Seen The patient was seen on 03/31/17. Subjective Chief Complaint/HPI The patient is a 77-year-old female admitted with a reason for visit of Follicular Lymphoma;Orthostatic Hypotension. Events since last encounter Patient had her L sided pleural-peritoneal catheter placed today. BP and oxygenation improved. States pain manageable, though more uncomfortable when she needs to pump it to drain fluid. She did have a fever, and is on meropenem. Constitutional: Reports: Fever, Denies: Chills Skin: Denies: Rash Pulmonary: Reports: Dyspnea (improved), Denies: Cough Cardiovascular: Denies: Chest Pain Gastrointestinal: Denies: Nausea, Vomiting, Diarrhea, Constipation Objective Physical Examination General Exam: Positive: Alert, Cooperative, No Acute Distress Neck Exam: Positive: Supple, Negative: JVD, thyromegaly Chest Exam: Positive: Normal air movement, Diminished (bibasilar), Negative: Rales, Rhonchi, Wheezing Heart Exam: Positive: Rate Normal, Normal S1, Normal S2, Negative: Gallops, Murmurs, Rubs Extremity Exam: Positive: Edema (slowly improving), Other (capillary refill less than 2 seconds) Psych Exam: Positive: Mental status NL, Mood NL, Oriented x 3 Assessment /Plan Problems (1) Pleural effusion Status: Chronic Problem Text: 03/31 -- s/p pleural-peritoneal drain on L, draining chylothorax 03/28/17: See Thoracic surgery note for planned intervention. Has pleural vac in place. Dr. Zuleta to consult today. (2) Weakness Status: Acute Problem Text: Will resume PT (3) Follicular lymphoma Status: Chronic Problem Text: Being treated by Dr. Monreal in outpatient setting, last chemotherapy 03/22/17 (4) Orthostatic hypotension Status: Resolved Problem Text: 03/31 -- improved; has been able to work with PT again. Now s/p procedure. 03/29/17: continue current regimen. Procedure with Dr. Zuleta today. 03/28/17: On octreotide and Hyperalimentation. 03/27/17: Albumin infusions q 8 hrs. Concurrent cause of hypovolemia related to pleural fluid. Patient with continued dizziness, lightheadedness with walking. We will restart normal saline IV fluids at rate of 85 mL/hr. Order placed for PT home safety evaluation. Patient will require hospitalization until her symptoms have resolved and she has physically safe for discharge. (5) Protein calorie malnutrition Status: Acute Problem Text: Nutrition consult ordered on admission (6) Gastritis and duodenitis Response to Treatment: Stable Problem Text: Continue current Protonix 40 mg by mouth daily at bedtime (7) Asthma Status: Chronic Problem Text: 03/31 -- breathing treatments available prn (8) Hyperlipidemia Status: Chronic Response to Treatment: Stable Problem Text: Continue simvastatin 20 mg by mouth daily at bedtime Plan/VTE VTE Prophylaxis Ordered?: Yes (Lovenox 40 mg subcutaneously daily) Plan IVF: Initiate Therapy: Home Safety Eval VS, I&O, 24H, Fishbone Vital Signs/I&O Vital Signs Date Time Temp Pulse Resp B/P (MAP) Pulse Ox O2 Delivery O2 Flow Rate FiO2 03/31/17 20:00 98.5 85 19 102/61 (75) 94 Room Air 03/31/17 11:15 3 Laboratory Data 24H LABS Laboratory Tests 2 03/31/17 05:41: Immature Granulocyte % (Auto) 0.5H, White Blood Count 1.9L, Red Blood Count 2.80L, Hemoglobin 8.3L, Hematocrit 26.5L, Mean Corpuscular Volume 94.6, Mean Corpuscular Hemoglobin 29.6, Mean Corpuscular Hemoglobin Concent 31.3L, Red Cell Distribution Width 15.4H, Platelet Count 139L, Neutrophils (%) (Auto) 72.1H , Lymphocytes (%) (Auto) 16.7L, Monocytes (%) (Auto) 8.6H, Eosinophils (%) (Auto ) 1.6, Basophils (%) (Auto) 0.5, Neutrophils # (Auto) 1.3L, Lymphocytes # (Auto ) 0.3L, Monocytes # (Auto) 0.2, Eosinophils # (Auto) 0.0, Basophils # (Auto) 0.0 , Immature Granulocyte # (Auto) 0.0, Nucleated Red Blood Cells % (auto) 0.0, Anion Gap 2L, Glomerular Filtration Rate > 60.0, Blood Urea Nitrogen 24H, Creatinine 0.38L, Sodium Level 141, Potassium Level 4.3, Chloride Level 106, Carbon Dioxide Level 33H, Calcium Level 7.4L, Phosphorus Level 2.4L, Aspartate Amino Transf (AST/SGOT) 4L, Alanine Aminotransferase (ALT/SGPT) 9L, Lactate Dehydrogenase 104, Total Creatine Kinase 18L, Alkaline Phosphatase 23L, Total Bilirubin 0.3, Triglycerides Level 46, Cholesterol Level 59, Total Protein 3.9L , Albumin 2.5L, Magnesium Level 1.7L, Albumin/Globulin Ratio 1.79 03/31/17 05:47: Bedside Glucose (Misc Panel) 121H 03/31/17 12:18: Bedside Glucose (Misc Panel) 96 03/31/17 17:31: Bedside Glucose (Misc Panel) 107 04/01/17 00:29: Bedside Glucose (Misc Panel) 109 CBC/BMP Laboratory Tests 03/31/17 05:41 Red Blood Count 2.80 L, Mean Corpuscular Volume 94.6, Mean Corpuscular Hemoglobin 29.6, Mean Corpuscular Hemoglobin Concent 31.3 L, Red Cell Distribution Width 15.4 H, Neutrophils (%) (Auto) 72.1 H, Lymphocytes (%) (Auto ) 16.7 L, Monocytes (%) (Auto) 8.6 H, Eosinophils (%) (Auto) 1.6, Basophils (%) (Auto) 0.5, Neutrophils # (Auto) 1.3 L, Lymphocytes # (Auto) 0.3 L, Monocytes # (Auto) 0.2, Eosinophils # (Auto) 0.0, Basophils # (Auto) 0.0, Calcium Level 7.4 L, Phosphorus Level 2.4 L, Aspartate Amino Transf (AST/SGOT) 4 L, Alanine Aminotransferase (ALT/SGPT) 9 L, Lactate Dehydrogenase 104, Total Creatine Kinase 18 L, Alkaline Phosphatase 23 L, Total Bilirubin 0.3, Triglycerides Level 46, Cholesterol Level 59, Total Protein 3.9 L, Albumin 2.5 L Microbiology Microbiology 03/30/17 Blood Culture - Preliminary, Resulted No growth after 24 hours . All specim... 03/30/17 Blood Culture - Preliminary, Resulted No growth after 24 hours . All specim... 03/30/17 Blood Culture - Preliminary, Resulted No growth after 24 hours . All specim... 03/25/17 Blood Culture - Final, Complete NO GROWTH AFTER 5 DAYS 03/30/17 Urine Culture, Received Pending CONRADO BENAVIDES DO Apr 01, 2017 01:55
[2017-04-01] MEDS: SODIUM CHLORIDE 0.9% INJ 10 ML SYR IV SCH ×5 (05:45→21:34)
[2017-04-01 06:11] LABS: BASO % 0.9 % (0.0-1.0); EOS % 1.8 % (0.0-3.0); LYMPH % 19.3 % (24.0-44.0); MEAN CORPUSCULAR HEMOGLOBIN 29.7 pg (27.0-33.0); MONO # 0.2 10^3/uL (0.0-0.8); MONO % 17.5 % (0.0-5.0); NEUTROPHILS % 60.5 % (36.0-66.0); PLATELET COUNT, AUTOMATED 107 10^3/uL (150-450); RED CELL DISTRIBUTION WIDTH 15.6 % (11.5-14.5); WHITE BLOOD COUNT 1.1 10^3/uL (4.0-10.0)
[2017-04-01 06:35] LABS: ALT/SGPT 9 U/L (12-78); ANION GAP 5 MEQ/L (8-16); AST/SGOT 6 U/L (15-37); BLOOD UREA NITROGEN 26 MG/DL (7-18); CALCIUM LEVEL 7.8 MG/DL (8.8-10.2); CARBON DIOXIDE LEVEL 32 MEQ/L (21-32); CHLORIDE LEVEL 106 MEQ/L (98-107); CREATININE FOR GFR 0.35 MG/DL (0.55-1.02); GLOMERULAR FILTRATION RATE > 60.0 (>39); GLUCOSE, FASTING 100 MG/DL (83-110); PHOSPHORUS LEVEL 2.3 MG/DL (2.5-4.9); POTASSIUM SERUM 4.2 MEQ/L (3.5-5.1); SODIUM LEVEL 143 MEQ/L (136-145)
[2017-04-01 06:36] LABS: ALBUMIN 2.3 GM/DL (3.2-5.2); ALBUMIN/GLOBULIN RATIO 1.92 (1.00-1.93); ALKALINE PHOSPHATASE 24 U/L (45-117); BILIRUBIN,TOTAL 0.5 MG/DL (0.2-1.0); CHOLESTEROL LEVEL < 50 MG/DL (< 200); TOTAL PROTEIN 3.5 GM/DL (6.4-8.2); TRIGLYCERIDES LEVEL 45 MG/DL (<150)
[2017-04-01 06:52] LABS: LYMPH # 0.2 10^3/uL (1.5-4.5); NEUTROPHILS # 0.7 10^3/uL (1.8-7.7)
[2017-04-01] MEDS: HEPARIN SOD (PORCINE) 5000 UNITS/ML VIAL SQ SCH ×2 (08:31→21:30)
[2017-04-01] MEDS: DOCUSATE SODIUM 100 MG CAP PO SCH ×2 (08:31→21:33)
[2017-04-01] MEDS: EUCERIN 120GM CREAM TOP SCH ×2 (08:32→21:31)
[2017-04-01] MEDS: FLUTICASONE HFA 44 MCG 10.6GM INHALER (FLOVENT) INH SCH ×2 (08:56→20:22)
--- NOTE | 2017-04-01 11:46 | REP ---
Chest x-ray: Two views. History: Chylothorax bilateral. Comparison chest x-ray: March 31, 2017. Findings: Bilateral PleurX catheters remain in place unchanged. Small bilateral pleural effusions are seen. Left pleural fluid collection appears somewhat decreased today compared to the previous. A right sided PICC line and a left subclavian [id number] catheter are seen both terminating in the expected location of the superior vena cava. There is a new catheter projecting over the left pleural space at the base. Its tip is seen terminating in the region of the superior vena cava. This is apparently a pleural peritoneal shunt catheter. Signed by Jamison Adair MD 04/01/2017 02:17 P
[2017-04-01] MEDS: FILGRASTIM 300 MCG/0.5 ML SYRINGE (J1442) SC SCH (15:41)
--- NOTE | 2017-04-01 16:48 | IPN ---
DATE: 04/01/2017 The patient is seen today for followup on her medical problems. She is in intensive care unit (ICU) at this time receiving total parenteral nutrition (TPN). She says she was reasonably comfortable. Does not have much of an appetite is only on liquids. She is not complaining of any pain in her chest or abdomen. She has some edema in her feet. Has been seen by Dr. Zuleta today. Her medications at this time include her hyperalimentation, sliding-scale insulin, fluticasone spray, meropenem, albuterol as needed, morphine as needed, Tylenol as needed, Docusate, Zofran as needed, allopurinol, vitamin D, Zyrtec, pantoprazole, as-needed Compazine. She is on simvastatin. On examination, her temperature is 99.8. Chronically ill appearing, but awake and alert. There are no neck masses, tenderness, or adenopathy. No carotid bruits. Lungs are clear. Heart has regular rhythm without any murmur, click, or gallop. Abdomen is soft and nontender without any masses or organomegaly. Bowel sounds are active. She does have 1-2+ edema of her lower extremities. ASSESSMENT: 1. Pleural effusion, presumably related to her known lymphoma, status post pleural peritoneal drain insertion. 2. Generalized weakness. 3. Malnutrition. 4. Follicular lymphoma. 5. Orthostatic hypotension. Seems to be resolved. 6. Gastritis and duodeitis. Remains on Protonix. 7. Asthma, stable. 8. Hyperlipidemia. She remains on some simvastatin. PLAN: Resident will continue on her current medication regimen and hyperalimentation. I am unclear whether there are going to be any other intervention coming from thoracic surgery or whether we are done at this time. Given the fact that the patient is malnourished and is receiving IV lipid emulsion, whether simvastatin is warranted. I am going to discontinue at this time. MTDD
[2017-04-01] MEDS ORDERED: SODIUM CHLORIDE IV SCH ×7 (18:00)
[2017-04-01] MEDS ORDERED: HumaLOG INSULIN (NovoLOG) PER UNIT SC SCH (18:00)
[2017-04-01] MEDS ORDERED: FAT EMULSION IV 20% 500 ML IV SCH (18:00)
[2017-04-01] MEDS ORDERED: SODIUM ACETATE IV SCH ×7 (18:00)
[2017-04-01] MEDS ORDERED: [UNRECOGNIZED DRUG - OTHER] IV SCH ×7 (18:00)
[2017-04-01] MEDS: MONTELUKAST 10 MG TAB PO SCH (21:32)
[2017-04-01] MEDS: CALCIUM/VITAMIN D 500 MG TAB PO SCH (21:32)
[2017-04-01] MEDS: PANTOPRAZOLE 40MG TAB (PROTONIX) PO SCH (21:32)
[2017-04-01] MEDS: VITAMIN D 1,000 INTERNATIONAL UNITS TABLET PO SCH (21:32)
[2017-04-01] MEDS: ALLOPURINOL 300 MG TAB PO SCH (21:33)
[2017-04-01] MEDS: ACETAMINOPHEN TAB 650MG DOSE (2X325MG) PO PRN (21:36)
[2017-04-02] VITALS (20 sets, daily range): BP systolic 81–115; BP diastolic 50–67
[2017-04-02] MEDS: MEROPENEM INJ 1 GM in D5W MINI-BAG PLUS 100 ML IV SCH ×3 (00:44→16:41)
[2017-04-02] MEDS: ACETAMINOPHEN TAB 650MG DOSE (2X325MG) PO PRN ×4 (01:03→20:50)
[2017-04-02 05:37] LABS: MEAN CORPUSCULAR HEMOGLOBIN 29.9 pg (27.0-33.0); MEAN CORPUSCULAR HGB CONC 31.7 g/dl (32.0-36.5); MEAN CORPUSCULAR VOLUME 94.4 fl (80.0-96.0); PLATELET COUNT, AUTOMATED 107 10^3/uL (150-450); RED CELL DISTRIBUTION WIDTH 15.4 % (11.5-14.5)
[2017-04-02] MEDS: SODIUM CHLORIDE 0.9% INJ 10 ML SYR IV SCH ×5 (05:56→21:43)
[2017-04-02 05:58] LABS: ALBUMIN 2.5 GM/DL (3.2-5.2); ALBUMIN/GLOBULIN RATIO 2.27 (1.00-1.93); ALKALINE PHOSPHATASE 27 U/L (45-117); ALT/SGPT 9 U/L (12-78); ANION GAP 5 MEQ/L (8-16); AST/SGOT < 3 U/L (15-37); BILIRUBIN,TOTAL 0.4 MG/DL (0.2-1.0); BLOOD UREA NITROGEN 25 MG/DL (7-18); CALCIUM LEVEL 7.4 MG/DL (8.8-10.2); CARBON DIOXIDE LEVEL 31 MEQ/L (21-32); CHLORIDE LEVEL 106 MEQ/L (98-107); CHOLESTEROL LEVEL < 50 MG/DL (< 200); CREATININE FOR GFR 0.37 MG/DL (0.55-1.02); GLOMERULAR FILTRATION RATE > 60.0 (>39); GLUCOSE, FASTING 83 MG/DL (83-110); MAGNESIUM LEVEL 1.9 MG/DL (1.8-2.4); PHOSPHORUS LEVEL 2.8 MG/DL (2.5-4.9); POTASSIUM SERUM 4.3 MEQ/L (3.5-5.1); SODIUM LEVEL 142 MEQ/L (136-145); TOTAL PROTEIN 3.6 GM/DL (6.4-8.2); TRIGLYCERIDES LEVEL 41 MG/DL (<150)
[2017-04-02 06:12] LABS: ADD MANUAL DIFFER YES; BLASTS POS FLAG; DIFF SLIDE NUMBER 7; WHITE BLOOD COUNT 1.7 10^3/uL (4.0-10.0)
[2017-04-02 06:17] LABS: BANDS 1 % (< 11); BASOPHILS 4 % (0-4); EOSINOPHILS 1 % (0-5)
[2017-04-02 06:18] LABS: ANISOCYTOSIS 1+; HYPOCHROMASIA 1+; POLYCHROMASIA 1+
[2017-04-02] MEDS: HumaLOG INSULIN (NovoLOG) PER UNIT SC SCH ×4 (07:17→21:00)
[2017-04-02] MEDS: FLUTICASONE HFA 44 MCG 10.6GM INHALER (FLOVENT) INH SCH ×2 (08:58→19:56)
[2017-04-02] MEDS: EUCERIN 120GM CREAM TOP SCH ×2 (09:45→21:44)
[2017-04-02] MEDS: LIDOCAINE VISCOUS 2% SOLN 15ML UDC SSP PRN ×2 (09:48→15:55)
[2017-04-02] MEDS: DOCUSATE SODIUM 100 MG CAP PO SCH ×2 (09:49→21:00)
[2017-04-02] MEDS: HEPARIN SOD (PORCINE) 5000 UNITS/ML VIAL SQ SCH ×2 (09:49→21:42)
[2017-04-02] MEDS ORDERED: FUROSEMIDE 40 MG/4 ML VIAL (J1940) IV ONE (10:00)
--- NOTE | 2017-04-02 10:38 | PHACANCOPD ---
PHARMACY VANCOMYCIN DOSING Pt Demographics Demographics Patient Age:77 , Weight:56.500 , Gender: female Adjusted Body Weight Date: 04/02/17, Adjusted Body Weight: [56.5] Kg Events Past 24 Hours Events Past 24 Hours: NO: Dialysis, Diuretic Therapy, Change in CrCl, Fever, Elevation in WBC, Pending Diagnostics, Pending Procedures, Other Vancomycin Vancomycin indication: NEUTROPENIC FEVER Vancomycin Target Ranges: 15-20 mcg/ml Vancomycin Load Y/N: No Load Dose Date Time Vancomycin Load Dose: Date: Time: Vancomycin Dose Date: 04/02/17. Current Vancomycin Dose: [1G IV Q12H @12:00] Intermittent Dosing?: No Labs Labs Item Value Date Time White Blood Count 3.1 10^3/uL L 03/30/17 0509 White Blood Count 1.9 10^3/uL L 03/31/17 0541 White Blood Count 1.1 10^3/uL L 04/01/17 0551 White Blood Count 1.7 10^3/uL L 04/02/17 0519 Creatinine 0.40 MG/DL L 03/30/17 0509 Creatinine 0.38 MG/DL L 03/31/17 0541 Creatinine 0.35 MG/DL L 04/01/17 0551 Creatinine 0.37 MG/DL L 04/02/17 0519 Vital Signs Label Value Date Time Patient Temperature 100.6 degrees F 04/02/17 0550 Temperature Source Temporal 04/02/17 0550 Patient Temperature 100.6 degrees F 04/02/17 0600 Temperature Source Temporal 04/02/17 0600 Patient Temperature 100.4 degrees F 04/02/17 0608 Temperature Source Temporal 04/02/17 0608 Micro Microbiology 03/30/17 Blood Culture - Preliminary, Resulted No Growth after 72 hours. All specime... 03/30/17 Blood Culture - Preliminary, Resulted No Growth after 72 hours. All specime... 03/30/17 Blood Culture - Preliminary, Resulted No Growth after 72 hours. All specime... 03/25/17 Blood Culture - Final, Complete NO GROWTH AFTER 5 DAYS 03/30/17 Urine Culture - Final, Complete Creatinine Clearance Date:04/02/17. Creatinine Clearance: [113.37ML/MIN.]. Assessment and Plan Maintaining Current Dose?: Yes Reason for dose change: No Dose Change Pharmacist Note Pharmacist Note Date: 04/02/17. Pharmacist note: PT is a 77 year old female being treated for neutropenic fever goal trough 10-20mcg/ml. Pt has not been treated with vancomycin here at [facility] in the past. To achieve go pt was started on vancomycin 1g iv q12h starting 04/02/17 @12:00. We will continue to monitor and adjust dose as needed. AFUA MORIN PHARMACY Apr 02, 2017 10:38
--- NOTE | 2017-04-02 11:29 | IPN ---
DATE: 04/01/2017 This is now Mrs. Purcell's first postoperative day status post placement of the pleuroperitoneal shunt. This shunt is being pumped once an hour. She has some minimal pain at the shunt site. I injected the surrounding tissue with Exparel yesterday. She is breathing well and has not complained of shortness of breath at rest. She has been up and around to a chair. Her vital signs show a T-max of 101.1. She is now 99.8. Heart rate is ranging between 98 and 106 in a sinus rhythm, a respiratory rate of 18 to 24 without the use of accessory muscles who is 97% to 96% saturated on room air and whose blood pressure is ranging between 99/58 to 105/60. Her intake and output the past 24 hours has been recorded as 3175 out and 950 in for a positivity of 225 mL. She has put out a total of 900 mL in urine output, which is the most she has had over the course of her hosptialization. Weight is pending. She has been nothing by mouth and I will start her on clear liquids today. On physical examination, she has rales and rhonchi in the left and right lower hemithoraces with decreased breath sounds in the right hemithorax. There is no E to A egophony. Percussion note is dull at the right base and at the left base. Cardiac Exam: Without murmurs, clicks, gallops, or rubs. I cannot feel her PMI. S1, S2 are normal. Abdomen: Soft. Nontender. Bowel sounds are positive. There is no hepatomegaly. No costovertebral angle (CVA) tenderness. Most notably she does not look to be ascitic. Extremities: Show improvement in her pretibial edema down to 1+. There is no calf tenderness. No differential swelling of the upper extremities. Skin: Warm, dry and perfused. Without cyanosis or mottling, including that of the nail beds and knees. Neck: Supple. There is no jugular venous distention. No subcutaneous emphysema. Trachea is midline. Most notably the supraclavicular lymph node on the left has disappeared. Mouth: Shows her mucous membranes to be dry, but pink. Lips and commissures are without lesions. There is no thrush. Eyes: Show her pupils to be equal and reactive. Extraocular movements intact. Sclerae nonicteric. Neurologic: Shows II-XII intact along with gross motor and gross sensation intact. Gait is not tested. Psychiatric shows her to be awake, alert, and oriented times three with appropriate mood and affect. Her white count today is 1.1 with an absolute neutrophil count of 0.7. Hemoglobin and hematocrit are 9.3 and 29.1 respectively, up from 8.3 and 26.5 yesterday. I did transfuse her one unit of packed cells yesterday during and before surgery. Platelet count is 107, slightly down from 139 yesterday. Her chemistries show normal electrolytes with BUN and creatinine of 26 and 0.35. Glucose is 100 with a calcium of 7.8 and a corresponding albumin of 2.3. She is still undergoing albumin infusions. Phosphorus is 2.3 with a magnesium of 2.0. I have added a little bit more phosphorus to her hyperalimentation. IMPRESSION: 1. Follicular lymphoma. 2. Bilateral chylothoraces. 3. Status post left pleuroperitoneal shunt. 4. Neutropenia. 5. Hypoalbuminemia. 6. Protein calorie depletion and malnutrition secondary to chylothoraces. 7. Hypercholesterolemia. 8. History of duodenitis and gastritis. PLAN AND DISCUSSION: I will start feeding her clear liquids today. I will continue her hyperalimentation. I have spoken with Dr. Monreal of oncology and I will give her Neupogen today as her absolute neutrophil count is less than 1000. We will increase the pumping to between 30 and 50 pumps every hour. It should be noted that her chest x-ray shows the right effusion to be markedly decreased. However, she was drained yesterday in the operating room (OR). Her left pleural effusion looks to be improving, although not completely resolved. The pleuroperitoneal shunt is deep in the costophrenic angle.
--- NOTE | 2017-04-02 11:30 | REP ---
Chest x-ray: Two views. History: Chylothoraces. Comparison study: April 01, 2015. Findings: EKG monitoring electrodes are seen. Right sided PICC and left-sided [id number] catheters remain in place. Bilateral PleurX pleural drainage catheters persist. There are two catheters partially seen in the upper abdomen consistent with pleural peritoneal drains. Bilateral pleural effusions persist. These appear a little larger today. Signed by Jamison Adair MD 04/02/2017 09:38 A
--- NOTE | 2017-04-02 11:32 | IPN ---
DATE: 05/03/2017 This is now the second postoperative day for Mrs. Purcell, status post her pleuroperitoneal shunt for bilateral chylothoraces. The shunt was placed on the left side. Today, she is sitting up and I have begun to feed her. She is complaining of a sore throat with eating. The back of her throat looks swollen at the uvula. I question whether there is lymphomatous infiltration. Her vital signs show a T-max of 100.8. Heart rate ranges between 97 and 103, and sinus rhythm, a respiratory rate of 22 to 18 without the use of accessory muscles who is 91% to 92% saturated on room air. Blood pressure is ranging between 99/57 to 107/58. Her intake and output the past 24 hours has been recorded as 3180 in and 1525 out for a positivity of 1655 mL. Her urine output is 1525 mL. Weight today is 56.5 kilos compared to 56 kilos on 03/28/2017. On physical examination, her lungs have decreased breath sounds on both sides, more on the right than the left at the base. There are some scattered rhonchi which clear with coughing. Percussion note is full to the diaphragm on the left and dull at the base on the right. Cardiac Exam: Without murmurs, clicks, gallops, or rubs. I cannot feel her PMI. S1, S2 are normal. Abdomen: Soft, nontender, but tympanitic and distended. She is having flatus, but no bowel movement yet. Extremities: Show now 2+ pretibial edema. No calf tenderness. No differential swelling of the upper extremities. Skin: Warm, dry and perfused without cyanosis or mottling, including that of the nail beds and knees. Neck: Supple. There is no jugular venous distention. No subcutaneous emphysema. Trachea is midline. Mouth: Shows her mucous membranes to be pink and moist. Lips and commissures are without lesions. There is no thrush. The findings in the posterior pharynx and the uvula are described above. It is swollen and it looks a bit ragged. It does not look reddened. Eyes: Show her pupils to be equal and reactive. Extraocular movements intact. Sclerae nonicteric. Neurologic: Shows II-XII intact along with gross motor and gross sensation intact. Gait is not tested. Psychiatric shows her to be awake, alert, and oriented times three with appropriate mood and affect, and conversational. Her chest x-ray today shows more accumulation of fluid on the right side. The left side looks to be stable and in fact, looks to be somewhat improved. There is posterior fluid on the left side. She is not respiratorily symptomatic and I am not going to drain the right side today. She has increased gas in the large bowel. Her white count is up to 1.7. 61% of those are neutrophils, which gives her an absolute neutrophil count of 1000. Hemoglobin and hematocrit are 8.5 and 26.8, slightly down from yesterdays of 9.3 and 29.1, which may be secondary to hemodilution. Platelet count is 107 and stable and differential shows 61% neutrophils, 22% lymphocytes, 1% bands, 11% monocytes. Her chemistries today show normal electrolytes with a BUN and creatinine of 25 and 0.37, calcium 7.4, glucose of 83, magnesium of 1.9, phosphorous of 2.8, with albumin of 2.5. We are continuing the albumin infusions. IMPRESSION: 1. Bilateral chylothoraces, postop day 2 status post pleuroperitoneal shunt on the left. 2. Follicular lymphoma. 3. Neutropenic fever. 4. Protein calorie depletion. 5. Hyperalbuminemia. 6. Hypercholesterolemia. 7. History of duodenitis and gastritis. 8. Pharyngitis, may be tumor in origin. PLAN AND DISCUSSION: She is already on meropenem. I will add vancomycin. I will also add acyclovir. I will have ENT see her tomorrow to look at the posterior pharynx. I have started her on a low fat diet. She is now nearly 4000 mL ahead of us and I will diurese her. I am a bit concerned that she may be hiding fluid in her abdomen or in her left chest. Her blood pressure, however, is acceptable as is her creatinine. I am therefore going to gently diurese her.
[2017-04-02] MEDS: ACYCLOVIR IV SCH ×2 (11:56→18:38)
[2017-04-02] MEDS: FILGRASTIM 300 MCG/0.5 ML SYRINGE (J1442) SC SCH (11:56)
[2017-04-02] MEDS: D5W IV SCH ×2 (11:56→18:38)
--- NOTE | 2017-04-02 13:05 | IPN ---
DATE OF VISIT: 04/02/2017 Mrs. Purcell is seen in the ICU. She has been started on a regular diet, although finds that she has sores on her tongue that are interfering with her eating. On that basis we had ordered some viscous Xylocaine gel to treat the ulcerations in her mouth. She has used this once or twice already although has not found that it is necessarily very helpful yet. Says her breathing is good. Has a little belly ache at times. Not having any chills or sweats. Her current medications are vancomycin, acyclovir, lidocaine viscous, Humalog insulin coverage, hyperalimentation, Neupogen, fluticasone, meropenem, as needed albuterol, as needed morphine, she had got docusate, as needed Zofran, she is on allopurinol, calcium with vitamin D, Zyrtec and plain vitamin D as well as montelukast and pantoprazole. On examination her temperature is 98.6, although it had been running 100.4-100.6 earlier in the day. Blood pressure 97/61, pulse 20 and unlabored, O2 saturation 94% on room air. She is alert and cooperative. She is chronically ill appearing. Her eyes are clear. On her tongue she has some areas of punctate erythema, I would venture that these are healing ulcerations. On her soft palate she has an area that looks more abraded looking, it is rough with some punctate areas within it. There are no neck masses, tenderness or adenopathy. No carotid bruits. Lungs: Show diminished breath sounds at the bases but are clear. Heart: Has regular rhythm without any murmur, click or gallop. Abdomen: Soft and nontender. Difficult with her tubing, it is tough to actually assess as well as we might. She does have 2+ lower extremity edema. ASSESSMENT: Pleural effusion. Follicular lymphoma. Status post pleural peritoneal drain insertion. Generalized weakness. Malnutrition. Oral ulcerations. History of orthostatic hypotension. Gastritis and duodenitis. History of asthma. Hyperlipidemia. No longer on medications. PLAN: I was able to discuss her treatment at length with Dr. Zuleta today. We will continue the oral anesthetic but ENT is going to come evaluate her ulcerations just to make sure that they are nothing out of the ordinary or require different treatment. Her nutrition is our primary concern at this time. Hopefully she will be reabsorbing some of the protein that is now being shifted from her chest to her peritoneum. It seems that she has responded somewhat to medications that she had been given from lymphoma with reduction in her spleen size. I should note that her lab work today shows hemoglobin of 8.5, white count of 1700, platelet count of 107. Her differential is 61% neutrophils, 1% bands, 22 lymphocytes, 11 monocytes. Her BUN is 25. Creatinine 0.37, potassium 4.3, sodium 142. Liver functions are unremarkable. Her albumin level of 2.5. MTDD
[2017-04-02] MEDS: VANCOMYCIN HCL 1,000 MG, VIAL MATE ADAPTER 1 EACH in D5W 250 ML IV SCH ×2 (13:21→23:39)
[2017-04-02] MEDS ORDERED: SODIUM CHLORIDE IV SCH ×7 (18:00)
[2017-04-02] MEDS ORDERED: FAT EMULSION IV 20% 500 ML IV SCH (18:00)
[2017-04-02] MEDS ORDERED: [UNRECOGNIZED DRUG - OTHER] IV SCH ×7 (18:00)
[2017-04-02] MEDS ORDERED: SODIUM ACETATE IV SCH ×7 (18:00)
[2017-04-02] MEDS ORDERED: HumaLOG INSULIN (NovoLOG) PER UNIT SC SCH (18:00)
[2017-04-02] MEDS: PANTOPRAZOLE 40MG TAB (PROTONIX) PO SCH (21:00)
[2017-04-02] MEDS: CALCIUM/VITAMIN D 500 MG TAB PO SCH (21:42)
[2017-04-02] MEDS: MONTELUKAST 10 MG TAB PO SCH (21:43)
[2017-04-02] MEDS: ALLOPURINOL 300 MG TAB PO SCH (21:43)
[2017-04-02] MEDS: VITAMIN D 1,000 INTERNATIONAL UNITS TABLET PO SCH (21:54)
[2017-04-02] MEDS ORDERED: FUROSEMIDE 20 MG/2 ML VIAL (J1940) IV ONE (22:30)
[2017-04-03] VITALS (19 sets, daily range): BP systolic 86–120; BP diastolic 8–66; O2SAT 96
[2017-04-03] MEDS: MEROPENEM INJ 1 GM in D5W MINI-BAG PLUS 100 ML IV SCH ×3 (00:57→16:06)
[2017-04-03] MEDS: ACYCLOVIR IV SCH ×3 (04:26→18:25)
[2017-04-03] MEDS: D5W IV SCH ×3 (04:26→18:25)
[2017-04-03] MEDS: SODIUM CHLORIDE 0.9% INJ 10 ML SYR IV SCH ×5 (05:07→20:43)
[2017-04-03 05:24] LABS: MEAN CORPUSCULAR HEMOGLOBIN 30.4 pg (27.0-33.0); MEAN CORPUSCULAR HGB CONC 32.5 g/dl (32.0-36.5); MEAN CORPUSCULAR VOLUME 93.7 fl (80.0-96.0); PLATELET COUNT, AUTOMATED 127 10^3/uL (150-450); RED CELL DISTRIBUTION WIDTH 15.7 % (11.5-14.5); WHITE BLOOD COUNT 2.3 10^3/uL (4.0-10.0)
[2017-04-03 05:31] LABS: ADD MANUAL DIFFER YES; BLASTS POS FLAG; DIFF SLIDE NUMBER 5; LEFT SHIFT POS FLAG; POSITIVE MORPH POS FLAG
[2017-04-03 05:50] LABS: ALBUMIN/GLOBULIN RATIO 2.14 (1.00-1.93); ALKALINE PHOSPHATASE 28 U/L (45-117); ALT/SGPT 12 U/L (12-78); ANION GAP 6 MEQ/L (8-16); AST/SGOT 6 U/L (15-37); BILIRUBIN,TOTAL 0.5 MG/DL (0.2-1.0); BLOOD UREA NITROGEN 24 MG/DL (7-18); CALCIUM LEVEL 7.6 MG/DL (8.8-10.2); CARBON DIOXIDE LEVEL 32 MEQ/L (21-32); CHLORIDE LEVEL 103 MEQ/L (98-107); CHOLESTEROL LEVEL < 50 MG/DL (< 200); CREATININE FOR GFR 0.47 MG/DL (0.55-1.02); GLOMERULAR FILTRATION RATE > 60.0 (>39); GLUCOSE, FASTING 86 MG/DL (83-110); POTASSIUM SERUM 3.8 MEQ/L (3.5-5.1); SODIUM LEVEL 141 MEQ/L (136-145); TOTAL PROTEIN 4.4 GM/DL (6.4-8.2); TRIGLYCERIDES LEVEL 55 MG/DL (<150)
[2017-04-03 06:15] LABS: ANISOCYTOSIS 1+; BANDS 1 % (< 11); BASOPHILS 7 % (0-4); EOSINOPHILS 2 % (0-5)
--- NOTE | 2017-04-03 08:19 | REP ---
Clinical: Follow up chylothoraces. Comparison: 04/02/2017. Findings: Right PICC line and left subclavian catheter extend to the SVC/right atrium. Cardiac silhouette is poorly evaluated due to overlying basilar opacities. Moderate bilateral pleural effusions are again identified which may be minimally improved compared to prior examination. Associated underlying bibasilar atelectasis/infiltrates are also suggested. No pneumothorax. Skeletal structures are intact and stable. Impression: Moderate bilateral pleural effusions similar to prior examination - possibly minimally improved. Associated basilar atelectasis/infiltrate suggested. Signed by Andrey Rodriguez MD 04/03/2017 08:10 A
[2017-04-03] MEDS: HEPARIN SOD (PORCINE) 5000 UNITS/ML VIAL SQ SCH ×2 (08:24→20:44)
[2017-04-03] MEDS: DOCUSATE SODIUM 100 MG CAP PO SCH ×2 (08:24→20:43)
[2017-04-03] MEDS: HumaLOG INSULIN (NovoLOG) PER UNIT SC SCH ×4 (08:24→20:33)
[2017-04-03] MEDS: EUCERIN 120GM CREAM TOP SCH ×2 (08:25→20:44)
--- NOTE | 2017-04-03 08:47 | IPNPDOC ---
Subjective Date Seen The patient was seen on 04/03/17. Subjective Chief Complaint/HPI The patient is a 77-year-old female admitted with a reason for visit of Follicular Lymphoma;Orthostatic Hypotension. Events since last encounter Pt this morning without new concerns. Pain is controlled and she denies SOB. Not eating well d/t throat pain and difficulty swallowing, no BM. Constitutional: Denies: Chills, Fever ENT: Reports: Dysphagia, Sore Throat Pulmonary: Denies: Dyspnea, Cough Cardiovascular: Denies: Chest Pain Gastrointestinal: Denies: Nausea, Vomiting Musculoskeletal: Denies: Neck Pain Neurological: Reports: Weakness Psych: Reports: Mood Normal Objective Physical Examination General Exam: Positive: Alert, Cooperative, No Acute Distress Neck Exam: Positive: Supple, Negative: JVD, thyromegaly Chest Exam: Positive: Clear to auscultation, Diminished (markedly diminished at B bases), Negative: Rales, Rhonchi, Wheezing Heart Exam: Positive: Rate Normal, Normal S1, Normal S2, Negative: Gallops, Murmurs, Rubs Extremity Exam: Positive: Edema (3 + pitting puffy edema at BLE, 1 mm edema sacral), Other (capillary refill less than 2 seconds) Psych Exam: Positive: Mental status NL, Mood NL, Oriented x 3 Assessment /Plan Problems (1) Pleural effusion Status: Chronic Problem Text: 04/04 - Mgmt per Dr Zuleta - appears to stable. 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 Has pleural vac in place. Dr. Zuleta to consult today. (2) Dysphagia Status: Acute Response to Treatment: Uncontrolled Problem Specific Plan: Consult Specialist Problem Text: Dr. Mays has been consulted to offer his opinion on her very symptomatic throat pain. Lymphoma infiltration? Chemo side effect? Bad silent reflux? Regardless of what it is it is disruptive to the patient and her attempts to sustain her own nutrition. Right now she is on TPN, but if this continues we may need to discuss a G-tube. (3) Weakness Status: Acute Problem Text: Pt has PT orders in place. 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 Being treated by Dr. Monreal in outpatient setting, last chemotherapy 03/22/17 (5) Orthostatic hypotension Status: Resolved Problem Text: 03/31 -- improved; has been able to work with PT again. Now s/p procedure. 03/29/17: continue current regimen. Procedure with Dr. Zuleta today. 03/28/17: On octreotide and Hyperalimentation. 03/27/17: Albumin infusions q 8 hrs. Concurrent cause of hypovolemia related to pleural fluid. Patient with continued dizziness, lightheadedness with walking. We will restart normal saline IV fluids at rate of 85 mL/hr. Order placed for PT home safety evaluation. Patient will require hospitalization until her symptoms have resolved and she has physically safe for discharge. (6) Protein calorie malnutrition Status: Acute Problem Text: Nutrition continues to follow, pt is on TPN, PEG may need to be considered given her recent difficulty eating. (7) Gastritis and duodenitis Response to Treatment: Stable Problem Text: Continue current Protonix 40 mg by mouth daily at bedtime (8) Asthma Status: Chronic Problem Text: 03/31 -- breathing treatments available prn Plan/VTE VTE Prophylaxis Ordered?: Yes (Lovenox 40 mg subcutaneously daily) Plan Diet: Continue Current Therapy: PT Anticipated Discharge: Home With Services Family Medicine Attending Note: I saw and examined Ms. Purcell, discussed with ESTEPHANIA Theodore. Agree with their note as documented. Reilly is trying to keep her spirits up, but is clearly having a difficult time doing it. Her pharyngeal pain is significant and very discouraging to her. His sympathetically as I could and mentioned that she looks tired. This simple statement brought on a response that she is tired, she does not feel that this is a good way to live, and is thinking that perhaps she ought to go home with palliative care. I recognize her discouraged state and understand she may not feel the exact same way tomorrow. I would like to continue to encourage her to seek treatment for the short-term. If she persists in requesting palliative care management we'll need to revisit this topic in a more serious way. 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) VS, I&O, 24H, Fishbone Vital Signs/I&O Vital Signs Date Time Temp Pulse Resp B/P (MAP) Pulse Ox O2 Delivery O2 Flow Rate FiO2 04/03/17 07:02 111 101/60 (74) 112 100/60 (73) 117 86/54 (65) 04/03/17 06:23 94 Nasal Cannula 1.0 04/03/17 06:20 99.1 20 Laboratory Data 24H LABS Laboratory Tests 2 04/02/17 12:22: Bedside Glucose (Misc Panel) 103 04/02/17 18:14: Bedside Glucose (Misc Panel) 101 04/02/17 21:33: Bedside Glucose (Misc Panel) 102 04/03/17 05:13: Nucleated Red Blood Cells % (auto) 0.0, Neutrophils 56, Band Neutrophils 1, Lymphocytes (Manual) 21, Monocytes (Manual) 12H, Eosinophils (Manual) 2, Basophils (Manual) 7H, Myelocytes 1H, Platelet Estimate NORMAL, Anisocytosis 1+ , Anion Gap 6L, Glomerular Filtration Rate > 60.0, Blood Urea Nitrogen 24H, Creatinine 0.47L, Sodium Level 141, Potassium Level 3.8, Chloride Level 103, Carbon Dioxide Level 32, Calcium Level 7.6L, Phosphorus Level 3.0, Aspartate Amino Transf (AST/SGOT) 6L, Alanine Aminotransferase (ALT/SGPT) 12, Lactate Dehydrogenase 123, Total Creatine Kinase 38#, Alkaline Phosphatase 28L, Total Bilirubin 0.5, Triglycerides Level 55, Cholesterol Level < 50, Total Protein 4.4 #L, Albumin 3.0L, Magnesium Level 2.0, Albumin/Globulin Ratio 2.14H 04/03/17 08:08: Bedside Glucose (Misc Panel) 105 CBC/BMP Laboratory Tests 04/03/17 05:13 Red Blood Count 2.86 L, Mean Corpuscular Volume 93.7, Mean Corpuscular Hemoglobin 30.4, Mean Corpuscular Hemoglobin Concent 32.5, Red Cell Distribution Width 15.7 H, Calcium Level 7.6 L, Phosphorus Level 3.0, Aspartate Amino Transf (AST/SGOT) 6 L, Alanine Aminotransferase (ALT/SGPT) 12, Lactate Dehydrogenase 123, Total Creatine Kinase 38 #, Alkaline Phosphatase 28 L, Total Bilirubin 0.5, Triglycerides Level 55, Cholesterol Level < 50, Total Protein 4.4 #L, Albumin 3.0 L Microbiology Microbiology 03/30/17 Blood Culture - Preliminary, Resulted No Growth after 72 hours. All specime... 03/30/17 Blood Culture - Preliminary, Resulted No Growth after 72 hours. All specime... 03/30/17 Blood Culture - Preliminary, Resulted No Growth after 72 hours. All specime... 03/25/17 Blood Culture - Final, Complete NO GROWTH AFTER 5 DAYS 03/30/17 Urine Culture - Final, Complete BENNIE REBOLLEDO PA-C Apr 03, 2017 8:47 am Alexandre Mccarthy MD Apr 03, 2017 10:38 pm
[2017-04-03] MEDS: FLUTICASONE HFA 44 MCG 10.6GM INHALER (FLOVENT) INH SCH ×2 (09:17→20:03)
[2017-04-03] MEDS: FILGRASTIM 300 MCG/0.5 ML SYRINGE (J1442) SC SCH (09:31)
[2017-04-03] MEDS: LIDOCAINE VISCOUS 2% SOLN 15ML UDC SSP PRN (10:17)
[2017-04-03] MEDS: ACETAMINOPHEN TAB 650MG DOSE (2X325MG) PO PRN ×2 (10:30→16:06)
[2017-04-03] MEDS: VANCOMYCIN HCL 1,000 MG, VIAL MATE ADAPTER 1 EACH in D5W 250 ML IV SCH ×2 (11:37→23:49)
[2017-04-03] MEDS ORDERED: SODIUM ACETATE IV SCH ×9 (18:00)
[2017-04-03] MEDS ORDERED: FAT EMULSION IV 20% 500 ML IV SCH (18:00)
[2017-04-03] MEDS ORDERED: SODIUM CHLORIDE IV SCH ×9 (18:00)
[2017-04-03] MEDS ORDERED: [UNRECOGNIZED DRUG - OTHER] IV SCH ×9 (18:00)
[2017-04-03] MEDS ORDERED: FUROSEMIDE 40 MG/4 ML VIAL (J1940) IV ONE (18:30)
[2017-04-03] MEDS: PANTOPRAZOLE 40MG TAB (PROTONIX) PO SCH (20:31)
[2017-04-03] MEDS: MONTELUKAST 10 MG TAB PO SCH (20:32)
[2017-04-03] MEDS: VITAMIN D 1,000 INTERNATIONAL UNITS TABLET PO SCH (20:32)
[2017-04-03] MEDS: ALLOPURINOL 300 MG TAB PO SCH (20:33)
[2017-04-03] MEDS: CALCIUM/VITAMIN D 500 MG TAB PO SCH (20:43)
[2017-04-03] MEDS ORDERED: MAGIC MOUTHWASH SUSPENSION BTL SSP SCH (23:15)
[2017-04-04] VITALS (19 sets, daily range): BP systolic 95–119; BP diastolic 53–70; O2SAT 98
[2017-04-04] MEDS: MEROPENEM INJ 1 GM in D5W MINI-BAG PLUS 100 ML IV SCH ×3 (01:31→16:50)
[2017-04-04] MEDS: MAGIC MOUTHWASH SUSPENSION BTL SSP SCH ×12 (02:00→22:15)
[2017-04-04] MEDS: ACYCLOVIR IV SCH ×3 (02:19→18:07)
[2017-04-04] MEDS: D5W IV SCH ×3 (02:19→18:07)
[2017-04-04] MEDS: SODIUM CHLORIDE 0.9% INJ 10 ML SYR IV SCH ×5 (05:35→22:16)
[2017-04-04 06:08] LABS: MEAN CORPUSCULAR HEMOGLOBIN 29.7 pg (27.0-33.0); MEAN CORPUSCULAR HGB CONC 31.6 g/dl (32.0-36.5); MEAN CORPUSCULAR VOLUME 93.9 fl (80.0-96.0); RED CELL DISTRIBUTION WIDTH 15.7 % (11.5-14.5); WHITE BLOOD COUNT 7.6 10^3/uL (4.0-10.0)
[2017-04-04 06:43] LABS: ALBUMIN 3.3 GM/DL (3.2-5.2); ALKALINE PHOSPHATASE 36 U/L (45-117); ALT/SGPT 14 U/L (12-78); ANION GAP 6 MEQ/L (8-16); AST/SGOT 12 U/L (15-37); BILIRUBIN,TOTAL 0.6 MG/DL (0.2-1.0); BLOOD UREA NITROGEN 25 MG/DL (7-18); CALCIUM LEVEL 8.1 MG/DL (8.8-10.2); CARBON DIOXIDE LEVEL 32 MEQ/L (21-32); CHLORIDE LEVEL 103 MEQ/L (98-107); CHOLESTEROL LEVEL < 50 MG/DL (< 200); CREATININE FOR GFR 0.41 MG/DL (0.55-1.02); GLOMERULAR FILTRATION RATE > 60.0 (>39); GLUCOSE, FASTING 106 MG/DL (83-110); MAGNESIUM LEVEL 1.9 MG/DL (1.8-2.4); PHOSPHORUS LEVEL 2.3 MG/DL (2.5-4.9); POTASSIUM SERUM 4.1 MEQ/L (3.5-5.1); SODIUM LEVEL 141 MEQ/L (136-145); TOTAL PROTEIN 4.8 GM/DL (6.4-8.2); TRIGLYCERIDES LEVEL 91 MG/DL (<150)
--- NOTE | 2017-04-04 07:27 | CR ---
DATE OF CONSULTATION: 04/03/2017 Consultation is prepared for Dr. Carlos Zuleta. CHIEF COMPLAINT: Diffuse oral mucositis. 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 This has caused her to have significant difficulty with oral intake. She has no prior surgery or radiation to the head/neck area. Prior to the current illness, patient had been able to tolerate oral intake without difficulty. She has used viscus lidocaine to the oral cavity without much help to the sore mouth. PAST MEDICAL HISTORY: Follicular lymphoma. Hypercholesterolemia. Asthma. Hiatal hernia with duodenal ulcer. PAST SURGICAL HISTORY: Hysterectomy. Bilateral cataract extraction. PleurX catheter placement. FAMILY HISTORY: Noncontributory. SOCIAL HISTORY: Ex-smoker for greater than 10 years. ALLERGIES: SEASONAL ALLERGIES. MEDICATIONS: - acyclovir - meropenem - viscous lidocaine - Humalog insulin - hyperalimentation via TPN - Neupogen - Flonase - vancomycin - allopurinol - Montelukast - pantoprazole - vitamin D - calcium REVIEW OF SYSTEMS: As above. Otherwise noncontributory. PHYSICAL EXAMINATION: On examination, patient appears in no acute respiratory distress. Temperature of 97.3, pulse of 96, respiratory rate of 24, blood pressure 96/51, oxygen saturation 95% via 2 liters nasal cannula. Ear: Normal pinna and external auditory canals. Face: Normocephalic with no facial asymmetry or paralysis. Oral cavity: No trismus. Small ulceration on the inner aspect of the lower lip. Oral cavity dry. Tongue mobile with evidence of deviation. Full excursion of the tongue. No palpable mass in the oral tongue or base of tongue. Dry mucous in the soft palate. Superficial mucosal ulceration noted along the left soft palate. Uvula midline. Nose: Dry with no evidence of active epistaxis. Neck: No palpable cervical lymphadenopathy. Trachea midline with no thyromegaly. LABS: WBC 2.3, hemoglobin 8.7, platelet 127. Electrolytes normal. Calcium 7.6. Albumin 3. Glucose 96. IMPRESSION: This 77-year-old woman with diffuse oral mucositis. PLAN: Patient will benefit from maintaining good oral hydration and oral hygiene. Magic mouth oral rinse and chlorhexidine oral rinse have been ordered. The nursing instruction has been left for oral care per the intensive care unit (ICU) protocol. Patient would also benefit from evaluation by the speech therapy to ensure swallowing safety is not compromised as well as assisting with the recovery of the swallowing capability. MICHELLED
[2017-04-04] MEDS: HumaLOG INSULIN (NovoLOG) PER UNIT SC SCH ×4 (07:30→20:16)
[2017-04-04] MEDS: FLUTICASONE HFA 44 MCG 10.6GM INHALER (FLOVENT) INH SCH ×2 (09:10→20:34)
[2017-04-04] MEDS: DOCUSATE SODIUM 100 MG CAP PO SCH ×2 (09:32→20:07)
[2017-04-04] MEDS: FUROSEMIDE 40 MG/4 ML VIAL (J1940) IV SCH ×2 (09:32→16:50)
[2017-04-04] MEDS: HEPARIN SOD (PORCINE) 5000 UNITS/ML VIAL SQ SCH ×2 (09:32→20:06)
[2017-04-04] MEDS: EUCERIN 120GM CREAM TOP SCH ×2 (09:32→20:06)
[2017-04-04] MEDS: CHLORHEXIDINE ORAL RINSE 0.12%/15ML 120ML BOTTLE SSP SCH ×3 (09:32→20:05)
--- NOTE | 2017-04-04 09:45 | IPNPDOC ---
Subjective Date Seen The patient was seen on 04/04/17. Subjective Chief Complaint/HPI The patient is a 77-year-old female admitted with a reason for visit of Follicular Lymphoma;Orthostatic Hypotension. Events since last encounter Pt without any improvement in her symptoms. Her breathing remains labored and short, she also is having difficulty eating d/t pain and difficulty swallowing. ENT has seen her given her some medication to help soothe her throat, which she doesn't really feel to be providing her with much relief. General: Denies: Fatigue Constitutional: Denies: Chills, Fever ENT: Reports: Dysphagia, Sore Throat, Denies: Head Aches Pulmonary: Reports: Dyspnea, Cough Cardiovascular: Denies: Chest Pain, Palpitations Gastrointestinal: Denies: Nausea, Vomiting, Diarrhea Neurological: Reports: Weakness Psych: Denies: Mood Normal Objective Physical Examination General Exam: Positive: Alert, Cooperative, No Acute Distress Neck Exam: Positive: Supple, Negative: JVD, thyromegaly Chest Exam: Positive: Clear to auscultation, Diminished (markedly diminished at B bases), Negative: Rales, Rhonchi, Wheezing Heart Exam: Positive: Rate Normal, Normal S1, Normal S2, Negative: Gallops, Murmurs, Rubs Extremity Exam: Positive: Edema (3 + pitting puffy edema at BLE, 1 mm edema sacral), Other (capillary refill less than 2 seconds) Psych Exam: Positive: Mental status NL, Mood NL, Oriented x 3 Assessment /Plan Problems (1) Dysphagia Status: Acute Response to Treatment: Uncontrolled Problem Specific Plan: Consult Specialist Problem Text: 03/1717- ENT offered recommendations to treat throat symptoms, which haven't provided much relief yet, her oral intake is quite limited. 04/03/17 Dr. Mays has been consulted to offer his opinion on her very symptomatic throat pain. Lymphoma infiltration? Chemo side effect? Bad silent reflux? Regardless of what it is it is disruptive to the patient and her attempts to sustain her own nutrition. Right now she is on TPN, but if this continues we may need to discuss a G-tube. (2) Pleural effusion Status: Chronic Problem Text: 04/04 - Mgmt per Dr Zuleta - appears to stable. 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 Has pleural vac in place. Dr. Zuleta to consult today. (3) Weakness Status: Acute Problem Text: Pt has PT orders in place. (4) Follicular lymphoma Status: Chronic Problem Text: 04/04/17- cont outpt mgmt per Dr Monreal, if pt can cont to tolerate, she is quite frail at this point. 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 Being treated by Dr. Monreal in outpatient setting, last chemotherapy 03/22/17 (5) Orthostatic hypotension Status: Resolved Problem Text: 03/31 -- improved; has been able to work with PT again. Now s/p procedure. 03/29/17: continue current regimen. Procedure with Dr. Zuleta today. 03/28/17: On octreotide and Hyperalimentation. 03/27/17: Albumin infusions q 8 hrs. Concurrent cause of hypovolemia related to pleural fluid. Patient with continued dizziness, lightheadedness with walking. We will restart normal saline IV fluids at rate of 85 mL/hr. Order placed for PT home safety evaluation. Patient will require hospitalization until her symptoms have resolved and she has physically safe for discharge. (6) Protein calorie malnutrition Status: Acute Problem Text: Nutrition continues to follow, pt is on TPN, PEG may need to be considered given her recent difficulty eating. (7) Gastritis and duodenitis Response to Treatment: Stable Problem Text: Continue current Protonix 40 mg by mouth daily at bedtime (8) Asthma Status: Chronic Problem Text: 03/31 -- breathing treatments available prn Plan/VTE VTE Prophylaxis Ordered?: Yes (Lovenox 40 mg subcutaneously daily) Plan Diet: Continue Current Therapy: PT Anticipated Discharge: Home With Services Family Medicine Attending Note: I saw and examined Ms. Purcell, discussed with ESTEPHANIA Theodore. Agree with their note as documented. I was able to have a conversation with Dr. Zuleta today to clarify our goals of care for this patient. He recommends not focusing on enteral nutrition (either oral or via G- tube) because the main problem is back up in her lymphatic systems (a nontraumatic chylothorax). Putting more into her intestinal tract will only increase the throughput of the lymphatics and cause more fluid to circulate abnormally through her body. Instead he thinks that nutritional support with TPN is the best way to go right now. We agree that her functional status is too poor to tolerate another round of chemotherapy. He is hopeful that the most recent round she received, roughly 10 days ago, will continue to have positive effects in her body over the next 1-2 weeks. It is possible that this may cause enough decrease in the lymphadenopathy in her mediastinum and around the thoracic that she may have improved flow of lymph and her chylothorax may substantially improve or resolve. If this does not happen in the next 2 weeks, barring her ability to have another course of chemotherapy, we may not be able to bring about an effective remission of this lymphoma and should consider recommending palliative or Hospice care. I discussed these recommendations at length with the patient today. She remains tired/fatigued but resolved to continue to see how treatment goes for her in the next roughly 1 week. (pediatric np) VS, I&O, 24H, Fishbone Vital Signs/I&O Vital Signs Date Time Temp Pulse Resp B/P (MAP) Pulse Ox O2 Delivery O2 Flow Rate FiO2 04/04/17 08:00 91 24 104/61 (75) 95 Nasal Cannula 3.0 04/04/17 07:33 99.2 04/04/17 04:00 35 I&O- Last 24 Hours up to 6 AM 04/05/17 06:00 Intake Total 285 ml Output Total 225 ml Balance 60 ml Laboratory Data 24H LABS Laboratory Tests 2 04/03/17 12:10: Bedside Glucose (Misc Panel) 109 04/03/17 17:23: Bedside Glucose (Misc Panel) 104 04/03/17 20:30: Bedside Glucose (Misc Panel) 96 04/04/17 05:36: Nucleated Red Blood Cells % (auto) 0.4H, Anion Gap 6L, Glomerular Filtration Rate > 60.0, Blood Urea Nitrogen 25H, Creatinine 0.41L, Sodium Level 141, Potassium Level 4.1, Chloride Level 103, Carbon Dioxide Level 32, Calcium Level 8.1L, Phosphorus Level 2.3#L, Aspartate Amino Transf (AST/SGOT) 12L, Alanine Aminotransferase (ALT/SGPT) 14, Lactate Dehydrogenase 207, Total Creatine Kinase 38, Alkaline Phosphatase 36L, Total Bilirubin 0.6, Triglycerides Level 91 , Cholesterol Level < 50, Total Protein 4.8L, Albumin 3.3, Magnesium Level 1.9, Albumin/Globulin Ratio 2.20H, Prealbumin 9.2L CBC/BMP Laboratory Tests 04/04/17 05:36 Red Blood Count 2.93 L, Mean Corpuscular Volume 93.9, Mean Corpuscular Hemoglobin 29.7, Mean Corpuscular Hemoglobin Concent 31.6 L, Red Cell Distribution Width 15.7 H, Calcium Level 8.1 L, Phosphorus Level 2.3 #L, Aspartate Amino Transf (AST/SGOT) 12 L, Alanine Aminotransferase (ALT/SGPT) 14, Lactate Dehydrogenase 207, Total Creatine Kinase 38, Alkaline Phosphatase 36 L, Total Bilirubin 0.6, Triglycerides Level 91, Cholesterol Level < 50, Total Protein 4.8 L, Albumin 3.3 Microbiology Microbiology 03/30/17 Blood Culture - Final, Complete NO GROWTH AFTER 5 DAYS 03/30/17 Blood Culture - Final, Complete NO GROWTH AFTER 5 DAYS 03/30/17 Blood Culture - Final, Complete NO GROWTH AFTER 5 DAYS 03/25/17 Blood Culture - Final, Complete NO GROWTH AFTER 5 DAYS 03/30/17 Urine Culture - Final, Complete BENNIE REBOLLEDO PA-C Apr 04, 2017 09:45 Alexandre Mccarthy MD Apr 04, 2017 21:26
--- NOTE | 2017-04-04 13:25 | IPN ---
DATE OF SERVICE: 04/04/2017 This is now the fourth postoperative day for Mrs. Purcell status post her pleuroperitoneal shunt. Yesterday her intake was much greater than her output, I therefore started her on twice daily Lasix starting yesterday. Her input and output evened out a bit but she is still approximately 2 liters ahead of us. Her shunt is being pumped 30 times every hour. She had difficulty swallowing because of very sore throat and ENT saw her. Her vital signs show now a T-max of 99.3 down from 100.6 yesterday. Her heart rate ranges between 87-91 in a sinus rhythm and her respiratory rate is 26 to 24 without the use of accessory muscles. She is 98% saturated requiring more oxygen up to 3 liters per minute. Blood pressures are ranging between 104/61 to 116/ 57. Her intake and output over the past 24 hours has been recorded as 3807 in and 1800 out. The majority of her intake has been hyperalimentation including the fat emulsion. That totals about 2300 mL a day. The remainder is by oral intake and antibiotics which we are treated her for a neutropenic fever. On physical examination, her lungs show a dull percussion note to both bases. There is also decreased breath sounds to both bases. I hear no wheezes, rhonchi or rales, however. Cardiac exam is without murmurs, clicks, gallops or rubs. I cannot feel her PMI. S1 and S2 are normal. Abdomen is tympanic, distended but nontender. There is no hepatomegaly. No CVA tenderness. Extremities show now 2-3+ pretibial edema. No calf tenderness. No differential swelling of the upper extremities. Skin is warm, dry and perfused without cyanosis or mottling including that of the nail beds and knees. Neck is supple. There is no jugular venous distention. No subcutaneous emphysema. Trachea is midline. Mouth shows her mucous membranes to be pink and moist and much better than yesterday. There is some scabbing in the back. ENT thought that it represented a diffuse mucositis. Eyes show her pupils to be equal and reactive. Extraocular motor intact. Sclera anicteric. Neuro shows II through XII intact with gross motor and gross sensation intact. Gait is not tested. Psychiatric shows her to be awake and alert, oriented times three with appropriate mood and affect and conversational. Her white count today is 7.6 with hemoglobin and hematocrit of 8.7 and 27.5. Her Neupogen was discontinued yesterday. Platelet count is 134 and stable. There is no differential on her today. Her chemistries show normal electrolytes with BUN and creatinine of 25 and 0.41. Glucose of 106. Calcium 8.1 with a corresponding albumin of 3.3. Phosphorus is 2.3 down from 3.0 yesterday and her magnesium is 1.9. Her pre-albumin has risen to 9.2 from 7.9 two days ago. Her chest x-ray today shows pleural effusions on both sides, the left is worse today than it was yesterday. I am holding this because of her input and output mis-balance rather than Chyle accumulation. The right side looks also a little bit more full today than it did yesterday. I have started to feed her. IMPRESSION: 1. Bilateral non-traumatic chylothoraces. 2. Follicular lymphoma. 3. Neutropenic fever. 4. Protein calorie depletion. 5. Hypoalbuminemia. 6. Hypercholesterolemia. 7. History of duodenitis and gastritis. 8. Diffuse oral mucositis. PLAN AND DISCUSSION: As her albumin is now above 3, I am going to discontinue her albumin infusions. Will continue to feed her. I have asked the nurses to increase the pumping time to 30 pumps per hour when awake. I will continue her on Anaprox for her neutropenic fever. Also continue her hyperalimentation. As noted all along, this is an extraordinarily difficulty problem as it is a non-traumatic bilateral chylothorax. It looks as though she is starting to respond to the chemotherapy with a decrease in splenic size. I will also obtain an abdominal CT today to see if she is collecting any ascitic fluid from the transfer from the chest to the abdomen. BLACK
[2017-04-04] MEDS ORDERED: MUPIROCIN 2% OINT 22 GM TUBE ONE (13:29)
--- NOTE | 2017-04-04 13:40 | IPN ---
DATE: 04/03/2017 Ms. Purcell is feeling fairly well today. Her chamber is being pumped at 20 pumps per hour. She is not complaining of shortness of breath, although she is complaining of a very sore throat and it is difficult to eat and swallow. Her vital signs show a maximum temperature (t-max) of 99.6 with a heart rate that ranges between 90 and 117 with a respiratory rate of 18 to 24 without the use of accessory muscles, who is 91 to 92% saturated on 2 liters nasal cannula. Her blood pressure is ranging between 120/66 to 86/54. Her intake and output over the past 24 hours has been recorded as 3216 in and 2275 out for a positivity of 940 mL. She has put out 2275 mL in urine output. Her weight today is 56.2 kg compared to 56.5 kg yesterday. On physical examination, her lungs show a dull percussion note on either side. Breath sounds are decreased on either side. Cardiac exam is without murmurs, clicks, gallops or rubs. I cannot feel her PMI. S1 and S2 are normal. Abdomen is tympanic, distended but nontender. There is no hepatomegaly. No CVA tenderness. Extremities show 2+ pretibial edema, which is increased from yesterday from 1+. There is no calf tenderness. No differential swelling of the upper extremities. Skin is warm, dry and perfused without cyanosis or mottling including that of the nail beds and knees. Neck is supple. There is no jugular venous distention. No subcutaneous emphysema. Trachea is midline. Mouth shows her mucous membranes to be dry with diffuse scabbing. I really cannot make out the border of the hard or soft palate and the uvula as well as I could yesterday. Lips and commissures without lesions. Eyes show her pupils to be equal and reactive. Extraocular motor intact. Sclera anicteric. Neurologic shows II through XII intact with gross motor and gross sensation intact. Gait is not tested. Psychiatric shows her to be awake and alert, oriented times three with appropriate mood and affect and conversational. Her white count today is 2.3 with 56% neutrophils. Her hemoglobin and hematocrit are 8.7 and 26.8, essentially unchanged from yesterday, with a platelet count of 127 and stable. Differential shows 56% neutrophils, 1% bands, 21% lymphocytes, and 12% monocytes. I will discontinue her Neupogen. Her chemistries show normal electrolytes with BUN and creatinine of 24 and 0.47. Glucose is 86 with a phosphorous of 3.0. AST and ALT are still acceptable at 6 and 12, respectively. Magnesium is 3.0 with a calcium of 7.6 and an albumin of 3.0. Her chest x-ray today shows some mild increased fluid on the right side. The left side is stable. The lung is fully expanded to the chest wall. IMPRESSION: 1. Bilateral non-traumatic chylothoraces, postoperative day #3 status post pleuroperitoneal shunt on the left. 2. Follicular lymphoma. 3. Neutropenic fever. 4. Protein calorie depletion. 5. Hypoalbuminemia. 6. Hypercholesterolemia. 7. History of duodenitis and gastritis. 8. Pharyngitis, awaiting ENT consultation. PLAN AND DISCUSSION: I will discontinue her Neupogen today. We will increase the pumping to 30 times per hour. I will start to diurese her again.
[2017-04-04] MEDS: VANCOMYCIN HCL 1,000 MG, VIAL MATE ADAPTER 1 EACH in D5W 250 ML IV SCH (13:58)
[2017-04-04 15:08] LABS: BF MONONUCLEAR CELL % 93.5 % (0-0); BF POLYMORPHONUCLEAR CELL % 6.5 % (0-0); RBC BODY FLUID < 2000 10^3/uL (<2000); WBC BODY FLUID 411 /uL (0-10)
[2017-04-04 15:09] LABS: BF DIFF IF INDICATED? YES (NO)
[2017-04-04 15:30] LABS: LDH, BODY FLUID 85 U/L (NOT ESTABLISHED); TOTAL PROTEIN, BODY FLUID 2.6 G/DL (NOT ESTABLISHED)
--- NOTE | 2017-04-04 16:38 | REP ---
CHEST, TWO VIEWS: Two views of the chest are performed and compared to prior study of 01/01/2017. Right arm PICC line, right pleural drainage catheter and left central venous catheter are all not significantly changed. Bilateral fusions and areas of atelectasis/infiltrate appear stable. IMPRESSION: Stable exam. Signed by Jas Lockett MD 04/04/2017 08:03 P
--- NOTE | 2017-04-04 17:31 | REP ---
CT CHEST WITHOUT CONTRAST: 04/04/2017. Comparison chest x-ray 04/04/2017, CT chest 03/31/2017. Clinical history: Chylothorax, ascites. Scanning through the chest without IV contrast performed. Coronal and sagittal reconstructions provided. The loculated pleural effusion on the left is smaller than the previous study. There is a small caliber chest tube or catheter in the posterior left lower lobe terminating in the paraspinal region posterior to the aorta and a right lower lobe posterior pleural catheter also seen and unchanged in position. The lateral loculated collection anterior to the major fissure is much smaller. Posterior collection in the left lower lobe is unchanged and the right lung collection appears grossly unchanged posteriorly, but an anterolateral component appears slightly larger at the anterior right base. Some compressive atelectatic changes are noted related to the effusions. I do not see a definite pneumothorax. The heart and mediastinal contours and aortic calcifications and diameters are unchanged. No pericardial thickening or effusion. Hilar and mediastinal contours unchanged. No axillary changes are present. A left axillary node is present up to 10 mm, stable. Bone windows show no acute bony finding with discogenic endplate changes and sclerosis at L1-2. The visualized bones grossly intact. Impression: 1. Bilateral posterior lower lung zone, pleural drainage catheters again seen in position, unchanged. The loculated left mid and upper lung zone fluid collection is smaller than on the previous study while the right and left lower lung zone collections are unchanged while there is a slightly larger fluid collection anteriorly at the right base. There are no other changes. Signed by Keyur Alas MD 04/05/2017 05:41 P
--- NOTE | 2017-04-04 17:33 | REP ---
CT ABDOMEN PELVIS WITHOUT IV CONTRAST: 04/04/2017. Clinical history :Chylothorax, ascites. Lymphoma for follow-up. Findings: The contrast given and scanning through the abdomen pelvis with coronal and sagittal reconstructions provided. No pleural effusions again noted. This is significant. See CT chest for details. The liver is not enlarged. Inferiorly in the right hepatic lobe is a simple cyst about 2 cm, unchanged. The pleural peritoneal catheter from the left base is seen extending into the lateral chest wall into the abdominal cavity terminating in the deep pelvis. A bilateral pleural drainage catheters are also noted. Gallbladder shows no calcified stone or mass but has layering sludge. Pancreas grossly intact. There is splenomegaly again seen and unchanged from the last week. Adrenal glands, pancreas and aorta are unchanged. There are extrarenal pelves noted. I do not see renal stones. Course of the ureters to the bladder is unremarkable. No ureteral stones. There is some mesenteric, epigastric and retroperitoneal/periaortic paracaval adenopathy. Again seen and unchanged. Small bowel loops and colon grossly unchanged. There is ascites in the deep pelvis with some fluid in the peroneal gutters. Pleural drainage catheter surrounded by that fluid in the deep pelvis. There is evidence for anasarca progressive edema in the soft tissues and subcutaneous fat about the abdomen pelvis compared to 4 days ago. Bones show degenerative changes and narrowing at all lumbar levels with discogenic sclerosis, greatest at L1-2, stable. No spondylolysis or spondylolisthesis. Degenerative changes of the hips and lumbosacral junction noted. Stable. Bladder partially filled. No stone or mass. No inguinal hernia. Some scattered inguinal nodes present, not grossly enlarged. Small bowel loops not dilated. No sign of obstruction, colitis or diverticulitis. Lung window review of all CT slices shows no perforation or free air. Impression: A pleural peritoneal drain catheter from the left lung base through the chest wall into the abdominal wall ending in the deep pelvis with some ascites. However, notably the diffuse adenopathy is unchanged and there is much worsened anasarca with edema in the subcutaneous fat all around the abdomen and pelvis since previous study. No other change. Signed by Keyur Alas MD 04/05/2017 05:41 P
[2017-04-04] MEDS ORDERED: SODIUM CHLORIDE IV SCH ×7 (18:00)
[2017-04-04] MEDS ORDERED: HumaLOG INSULIN (NovoLOG) PER UNIT SC SCH (18:00)
[2017-04-04] MEDS ORDERED: SODIUM ACETATE IV SCH ×7 (18:00)
[2017-04-04] MEDS ORDERED: FAT EMULSION IV 20% 500 ML IV SCH (18:00)
[2017-04-04] MEDS ORDERED: [UNRECOGNIZED DRUG - OTHER] IV SCH ×7 (18:00)
[2017-04-04] MEDS: PANTOPRAZOLE 40MG TAB (PROTONIX) PO SCH (20:07)
[2017-04-04] MEDS: MONTELUKAST 10 MG TAB PO SCH (20:07)
[2017-04-04] MEDS: VITAMIN D 1,000 INTERNATIONAL UNITS TABLET PO SCH (20:07)
[2017-04-04] MEDS: CALCIUM/VITAMIN D 500 MG TAB PO SCH (20:07)
[2017-04-04] MEDS: ALLOPURINOL 300 MG TAB PO SCH (20:07)
[2017-04-05] VITALS (14 sets, daily range): BP systolic 88–112; BP diastolic 50–76
[2017-04-05] MEDS: VANCOMYCIN HCL 1,000 MG, VIAL MATE ADAPTER 1 EACH in D5W 250 ML IV SCH ×2 (00:04→12:35)
[2017-04-05] MEDS: MAGIC MOUTHWASH SUSPENSION BTL SSP SCH ×12 (00:04→22:00)
[2017-04-05] MEDS: MEROPENEM INJ 1 GM in D5W MINI-BAG PLUS 100 ML IV SCH ×3 (01:07→16:40)
[2017-04-05] MEDS: ACYCLOVIR IV SCH ×3 (02:14→18:07)
[2017-04-05] MEDS: D5W IV SCH ×3 (02:14→18:07)
[2017-04-05] MEDS: SODIUM CHLORIDE 0.9% INJ 10 ML SYR IV SCH ×4 (04:41→16:41)
[2017-04-05 04:59] LABS: MEAN CORPUSCULAR HEMOGLOBIN 30.4 pg (27.0-33.0); MEAN CORPUSCULAR HGB CONC 32.3 g/dl (32.0-36.5); MEAN CORPUSCULAR VOLUME 94.1 fl (80.0-96.0); PLATELET COUNT, AUTOMATED 134 10^3/uL (150-450); RED CELL DISTRIBUTION WIDTH 15.7 % (11.5-14.5); WHITE BLOOD COUNT 19.9 10^3/uL (4.0-10.0)
[2017-04-05 05:00] LABS: ADD MANUAL DIFFER YES; BLASTS POS FLAG; DIFF SLIDE NUMBER 69; LEFT SHIFT POS FLAG; POS COUNT POS FLAG; POSITIVE DIFF POS FLAG; POSITIVE MORPH POS FLAG; WBC SCAT POS FLAG
[2017-04-05 05:24] LABS: BANDS 5 % (< 11); BASOPHILS 1 % (0-4); EOSINOPHILS 3 % (0-5)
[2017-04-05 05:26] LABS: ANISOCYTOSIS 1+; TOXIC GRANULATION 1+; TOXIC VACUOLATION 1+
[2017-04-05 05:27] LABS: ALBUMIN 2.8 GM/DL (3.2-5.2); ALKALINE PHOSPHATASE 42 U/L (45-117); ALT/SGPT 13 U/L (12-78); ANION GAP 5 MEQ/L (8-16); AST/SGOT 12 U/L (15-37); BILIRUBIN,TOTAL 0.4 MG/DL (0.2-1.0); BLOOD UREA NITROGEN 23 MG/DL (7-18); CALCIUM LEVEL 7.7 MG/DL (8.8-10.2); CARBON DIOXIDE LEVEL 34 MEQ/L (21-32); CHLORIDE LEVEL 101 MEQ/L (98-107); CHOLESTEROL LEVEL 53 MG/DL (< 200); CREATININE FOR GFR 0.54 MG/DL (0.55-1.02); GLOMERULAR FILTRATION RATE > 60.0 (>39); GLUCOSE, FASTING 93 MG/DL (83-110); MAGNESIUM LEVEL 1.8 MG/DL (1.8-2.4); PHOSPHORUS LEVEL 2.7 MG/DL (2.5-4.9); POTASSIUM SERUM 3.8 MEQ/L (3.5-5.1); SODIUM LEVEL 140 MEQ/L (136-145); TOTAL PROTEIN 4.2 GM/DL (6.4-8.2); TRIGLYCERIDES LEVEL 75 MG/DL (<150)
[2017-04-05] MEDS: HumaLOG INSULIN (NovoLOG) PER UNIT SC SCH ×4 (07:09→21:00)
[2017-04-05] MEDS: FLUTICASONE HFA 44 MCG 10.6GM INHALER (FLOVENT) INH SCH ×2 (08:02→20:42)
--- NOTE | 2017-04-05 08:09 | IPNPDOC ---
Subjective Date Seen The patient was seen on 04/05/17. Subjective Chief Complaint/HPI The patient is a 77-year-old female admitted with a reason for visit of Follicular Lymphoma;Orthostatic Hypotension. Events since last encounter Pt states she feels about the same. She denies any current pain. Constitutional: Denies: Chills, Fever Pulmonary: Denies: Dyspnea Cardiovascular: Denies: Chest Pain Gastrointestinal: Denies: Abdominal Pain Objective Physical Examination General Exam: Positive: Alert, Cooperative, No Acute Distress Neck Exam: Positive: Supple, Negative: JVD, thyromegaly Chest Exam: Positive: Clear to auscultation, Diminished (markedly diminished at B bases), Negative: Rales, Rhonchi, Wheezing Heart Exam: Positive: Rate Normal, Normal S1, Normal S2, Negative: Gallops, Murmurs, Rubs Extremity Exam: Positive: Edema (3 + pitting puffy edema at BLE, 1 mm edema sacral), Other (capillary refill less than 2 seconds) Psych Exam: Positive: Mental status NL, Mood NL, Oriented x 3 Assessment /Plan Problems (1) Pleural effusion Status: Chronic Problem Text: 04/05 - Dr Zuleta managing. Has pleuroperitoneal shunt. 04/04 - Mgmt per Dr Zuleta - appears to stable. 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 Has pleural vac in place. Dr. Zuleta to consult today. (2) Dysphagia Status: Acute Response to Treatment: Uncontrolled Problem Specific Plan: Consult Specialist Problem Text: 04/05 - Seen by ENT who gave recommendations on treating her throat symptoms. 03/1717- ENT offered recommendations to treat throat symptoms, which haven't provided much relief yet, her oral intake is quite limited. 04/03/17 Dr. Mays has been consulted to offer his opinion on her very symptomatic throat pain. Lymphoma infiltration? Chemo side effect? Bad silent reflux? Regardless of what it is it is disruptive to the patient and her attempts to sustain her own nutrition. Right now she is on TPN, but if this continues we may need to discuss a G-tube. (3) Weakness Status: Acute Problem Text: Pt has PT orders in place. (4) Follicular lymphoma Status: Chronic Problem Text: 04/05 - Outpt management per Dr Monreal. 04/04/17- cont outpt mgmt per Dr Monreal, if pt can cont to tolerate, she is quite frail at this point. 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 Being treated by Dr. Monreal in outpatient setting, last chemotherapy 03/22/17 (5) Orthostatic hypotension Status: Resolved Problem Text: 03/31 -- improved; has been able to work with PT again. Now s/p procedure. 03/29/17: continue current regimen. Procedure with Dr. Zuleta today. 03/28/17: On octreotide and Hyperalimentation. 03/27/17: Albumin infusions q 8 hrs. Concurrent cause of hypovolemia related to pleural fluid. Patient with continued dizziness, lightheadedness with walking. We will restart normal saline IV fluids at rate of 85 mL/hr. Order placed for PT home safety evaluation. Patient will require hospitalization until her symptoms have resolved and she has physically safe for discharge. (6) Protein calorie malnutrition Status: Acute Problem Text: Nutrition continues to follow, pt is on TPN, PEG may need to be considered given her recent difficulty eating. (7) Gastritis and duodenitis Response to Treatment: Stable Problem Text: Continue current Protonix 40 mg by mouth daily at bedtime (8) Asthma Status: Chronic Problem Text: 03/31 -- breathing treatments available prn Plan/VTE VTE Prophylaxis Ordered?: Yes (Lovenox 40 mg subcutaneously daily) Plan Diet: Continue Current Therapy: PT Anticipated Discharge: Home With Services Family Medicine Attending Note: I saw and examined Ms. Purcell, discussed with ESTEPHANIA Choi. Agree with their note as documented. I saw Ms. Purcell today along with Dr. Nadira Monreal from oncology. We discussed her ongoing status including the fact that right now she is too functionally depleted to tolerate another course of chemotherapy. Fortunately, she will be due again until the of this month, perhaps in that time she will be stronger and able to tolerated. If not we will continue her strengthening until she is able to. We also discussed the fact that if she decides she does not want to go through any more treatments including chemotherapy that is up to her; no one else can compel her to receive treatments. She needs to make the decisions that she feels her best for her and her family. 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) VS, I&O, 24H, Fishbone Vital Signs/I&O Vital Signs Date Time Temp Pulse Resp B/P (MAP) Pulse Ox O2 Delivery O2 Flow Rate FiO2 04/05/17 04:00 Aerosol Mask 8.0 35 04/05/17 04:00 99.7 99 96 99/56 (70) 96 I&O- Last 24 Hours up to 6 AM 04/06/17 05:59 Intake Total 190 ml Output Total 350 ml Balance -160 ml Laboratory Data 24H LABS Laboratory Tests 2 04/04/17 12:05: Bedside Glucose (Misc Panel) 89 04/04/17 12:32: Vancomycin Level Trough 16.1 04/04/17 14:07: Body Fluid pH 7.758, Body Fluid pH Source PLEURAL, Body Fluid WBC (Auto) 411H, Body Fluid RBC (Auto) < 2000, Body Fluid Mononuclear Cells % Auto 93.5H, Fluid Polymorphonuclear Cell % Auto 6.5H, Body Fluid Glucose Source PLEURAL, Body Fluid Glucose 103, Body Fluid Protein Source PLEURAL, Body Fluid Total Protein 2.6, Body Fluid Albumin Source PLEURAL, Body Fluid Albumin 2.0, Body Fluid LDH Source PLEURAL, Body Fluid Lactate Dehydrogenase 85, Body Fluid Amylase Source PLEURAL, Body Fluid Amylase 47, Body Fluid Cholesterol < 50, Body Fluid Cholesterol Source PLEURAL, Body Fluid Triglyceride Source PLEURAL, Body Fluid Triglycerides 51, Pleural Fluid Source PLEURAL, Pleural Fluid Color RED, Pleural Fluid Appearance CLOUDY 04/04/17 16:30: Bedside Glucose (Misc Panel) 90 04/04/17 20:16: Bedside Glucose (Misc Panel) 99 04/05/17 04:42: Immature Granulocyte % (Auto) , White Blood Count 19.9H, Red Blood Count 2.73L, Hemoglobin 8.3L, Hematocrit 25.7L, Mean Corpuscular Volume 94.1, Mean Corpuscular Hemoglobin 30.4, Mean Corpuscular Hemoglobin Concent 32.3, Red Cell Distribution Width 15.7H, Platelet Count 134L, Monocytes # (Auto) , Nucleated Red Blood Cells % (auto) 0.3H, Neutrophils 62, Band Neutrophils 5, Lymphocytes ( Manual) 8L, Monocytes (Manual) 8, Eosinophils (Manual) 3, Basophils (Manual) 1, Metamyelocytes 3H, Myelocytes 10H, Toxic Granulation 1+, Toxic Vacuolation 1+, Platelet Estimate DECREASED, Anisocytosis 1+, Anion Gap 5L, Glomerular Filtration Rate > 60.0, Blood Urea Nitrogen 23H, Creatinine 0.54L, Sodium Level 140, Potassium Level 3.8, Chloride Level 101, Carbon Dioxide Level 34H, Calcium Level 7.7L, Phosphorus Level 2.7, Aspartate Amino Transf (AST/SGOT) 12L, Alanine Aminotransferase (ALT/SGPT) 13, Lactate Dehydrogenase 261H, Total Creatine Kinase 27, Alkaline Phosphatase 42L, Total Bilirubin 0.4, Triglycerides Level 75, Cholesterol Level 53, Total Protein 4.2L, Albumin 2.8L, Magnesium Level 1.8, Albumin/Globulin Ratio 2.00H CBC/BMP Laboratory Tests 04/05/17 04:42 Red Blood Count 2.73 L, Mean Corpuscular Volume 94.1, Mean Corpuscular Hemoglobin 30.4, Mean Corpuscular Hemoglobin Concent 32.3, Red Cell Distribution Width 15.7 H, Monocytes # (Auto) , Calcium Level 7.7 L, Phosphorus Level 2.7, Aspartate Amino Transf (AST/SGOT) 12 L, Alanine Aminotransferase (ALT /SGPT) 13, Lactate Dehydrogenase 261 H, Total Creatine Kinase 27, Alkaline Phosphatase 42 L, Total Bilirubin 0.4, Triglycerides Level 75, Cholesterol Level 53, Total Protein 4.2 L, Albumin 2.8 L Microbiology Microbiology 03/30/17 Blood Culture - Final, Complete NO GROWTH AFTER 5 DAYS 03/30/17 Blood Culture - Final, Complete NO GROWTH AFTER 5 DAYS 03/30/17 Blood Culture - Final, Complete NO GROWTH AFTER 5 DAYS 04/04/17 Acid Fast Stain, Received Pending 04/04/17 Mycobacterial Culture, Received Pending 04/04/17 Fungal Smear, Received Pending 04/04/17 Fungal Culture, Received Pending 04/04/17 Gram Stain - Final, Resulted 04/04/17 Anaerobic Culture, Resulted Pending 04/04/17 Body Fluid Culture, Received Pending 03/30/17 Urine Culture - Final, Complete Kunal Blanton Apr 05, 2017 08:09 Alexandre Mccarthy MD Apr 07, 2017 13:32
[2017-04-05] MEDS: DOCUSATE SODIUM 100 MG CAP PO SCH ×2 (09:16→21:04)
[2017-04-05] MEDS: FUROSEMIDE 40 MG/4 ML VIAL (J1940) IV SCH ×2 (09:17→16:40)
[2017-04-05] MEDS: EUCERIN 120GM CREAM TOP SCH ×2 (09:17→21:00)
[2017-04-05] MEDS: HEPARIN SOD (PORCINE) 5000 UNITS/ML VIAL SQ SCH ×2 (09:17→21:05)
[2017-04-05] MEDS: CHLORHEXIDINE ORAL RINSE 0.12%/15ML 120ML BOTTLE SSP SCH ×3 (09:18→21:05)
--- NOTE | 2017-04-05 10:12 | IPN ---
DATE OF SERVICE: 04/05/2017 Ms. Purcell is sitting at the side of the bed very comfortable. She and I had a long talk about her progress thus far, which I will address more fully below. Her vital signs show a maximum temperature (Tmax) of 100.2 and now 99.7. Respiratory rate is varying between 22 and 14 without the use of accessory muscles, and she is 96% saturated on 3 liters nasal cannula. Her blood pressure is ranging between 100/57 to 96/58. Heart rate is ranging between 88 and 94 in a sinus rhythm. Her intake and output over the past 24 hours has been recorded as 3771 in and 4350 out for a negativity of 578 mL. She has put out 3875 mL in urine. I drained her 500 mL from the right PleurX catheter yesterday just to test the fluid. The majority of her intake is hyperalimentation, along with vancomycin dosing 500 mL. Her weight today is 56.1 kg compared to 56.7 kg yesterday. On physical examination, her lungs show normal vesicular sounds with decreased breath sounds at both bases and a dull percussion note at the base of the right and left side. The percussion notes are dull over a smaller area of the lower hemithoraces. Cardiac examination is without murmurs, clicks, gallops or rubs. I cannot feel her point of maximal impulse (PMI). S1 and S2 are normal. Abdomen is soft, nontender, but still tympanitic and distended. She has increased presacral edema. Extremities show now 2+ to 3+ pretibial edema. No calf tenderness. No differential swelling of the upper extremities. Skin is warm, dry, and perfused without cyanosis or mottling, including that of the nail beds and the knees. Neck is supple. There is no jugular venous distention. No subcutaneous emphysema. Trachea is midline. Mouth shows her mucous membranes to be pink and moist with less mucositis. Eyes show her pupils to be equal and reactive. Extraocular motor intact. Sclerae anicteric. Neurologic shows II-XII intact, along with gross motor and gross sensation intact. Gait is not tested. Her white count today is 19.9 from 7.6 yesterday. I suspect that is secondary to her Neupogen. Differential shows 62% neutrophils, 5% bands, and 8% lymphocytes, and 8% monocytes. She has 3 metamyelocytes and 10 myocytes. Hemoglobin and hematocrit are 8.3 and 25.7, essentially unchanged from yesterday. Platelet count is 134. Her chemistries today are essentially normal with a slightly elevated total CO2 of 34. BUN and creatinine are 23 and 0.54, slightly up from yesterday's of a creatinine of 0.41. Glucose is 93 with a calcium of 7.7 and a corresponding albumin of 2.8. Magnesium is 1.8 with a phosphorus of 2.7. I retested her pleural fluid yesterday. The fluid came back with a pH of 7.7 and an LDH of 85 with a corresponding serum LDH of 261, making this transudative. Most significantly, however, the triglycerides were 51. Her corresponding serum triglycerides were 75. There were 411 white cells, 93% which are myelocytes and 6% are neutrophils. Cytology is pending on that sample. Microbiology did not show any organisms and very few white cells on gram stain. Her chest x-ray today shows that her left pleural effusion has improved. Her right pleural effusion is also improved, however, that is probably secondary to draining her yesterday. Nonetheless, the left pleural effusion is much lower than it was yesterday. We are continuing to use the pleural peritoneal shunt. Her abdominal CT yesterday showed some fluid in the pelvis where the catheter is located. There was no other ascitic fluid. Her spleen and lymphadenopathy in the abdomen is less than it was than when she first presented on 03/23/2017. IMPRESSION: 1. Bilateral nontraumatic chylothoraces. 2. Follicular lymphoma, by imaging, looking to have improved. 3. Neutropenic fever. Continuing on antibiotics. 4. Protein-calorie depletion with improvement of her prealbumin from 7 to 9. 5. Hypoalbuminemia. 6. Hypercholesterolemia. 7. History of duodenitis and gastritis. 8. Diffuse oral mucositis. PLAN AND DISCUSSION: I have had a long talk with Ms. Purcell. I have prefaced my talk by indicating to her that I am a very aggressive physician, but I think that all in all that it looks as though she has started to turn around. The pleural effusions are better, and the consistency of the pleural effusions has changed. That may very well be, however, due to her lack of much oral intake. We are going to change her to a pureed diet that she can swallow more easily. It will be a low-fat pureed diet. I will continue her hyperalimentation. Her central line has been in about 5 days, and I am going to have another dual-lumen peripherally inserted central catheter (PICC) line placed to replace the single-lumen that she already has. She is agreeable and is going to proceed. I had a ning discussion with my inability to predict the future with any great accuracy, but all the signs are that she is starting to respond to chemotherapy and that physiologically she may be doing better. She is willing to continue on so long as there is some ray of hope that we can get her out of the hospital. Will continue to aggressively diurese her, as I think that a lot of pleural effusion is secondary to volume and balance.
[2017-04-05] MEDS: ACETAMINOPHEN TAB 650MG DOSE (2X325MG) PO PRN (12:36)
[2017-04-05] MEDS ORDERED: BUPIVACAINE LIPOSOME/PF 1.3% 20 ML VIAL (13.3MG/ML)(EXPAREL) INFIL ONE (14:00)
--- NOTE | 2017-04-05 17:11 | REP ---
Procedure: PICC line insertion with Jose Guadalupe The procedure was performed under the direct supervision of Dr. Lockett. The risks and benefits of the procedure were explained to the patient and informed consent was obtained. The the patient had a PICC line placed on 03/23/2017. The patient is referred for exchange of the catheter from a single into a double lumen catheter. The existing catheter insertion site were prepped and draped in a sterile fashion. A 0.018 guidewire was inserted into the existing catheter and the catheter was removed over the guide wire. A 5.5 [place]ian dilator and peel-away sheath was inserted over the guide wire. A 5.5 [place] dual lumen catheter was cut to length of 39 cm. The dilator was removed and the catheter was inserted over the guide wire with the tip ending in the SVC. The peel-away sheath was removed and the catheter was flushed with heparinized saline as per Hospital protocol. The catheter was affixed to the skin and a sterile dressing was applied. The the patient tolerated the procedure well and there were no immediate complications. 0.3 minutes of fluoro time was utilized for this procedure. Reviewed by ELIZ Maloney 04/05/2017 02:31 PSigned by Jas Lockett MD 04/05/2017 05:02 P
[2017-04-05] MEDS ORDERED: SODIUM CHLORIDE IV SCH ×9 (18:00)
[2017-04-05] MEDS ORDERED: FAT EMULSION IV 20% 500 ML IV SCH (18:00)
[2017-04-05] MEDS ORDERED: SODIUM ACETATE IV SCH ×9 (18:00)
[2017-04-05] MEDS ORDERED: [UNRECOGNIZED DRUG - OTHER] IV SCH ×9 (18:00)
--- NOTE | 2017-04-05 18:17 | IPN ---
DATE: 04/05/2017 Ms. Purcell has clinical stage III follicular non-Hodgkin's lymphoma, with presenting originally in February 2017 with mediastinal lymphadenopathy, axillary lymphadenopathy, major splenomegaly and B symptoms. Over the last month, she has been treated sequentially with single-agent rituximab followed by mini R-CHOP, receiving chemotherapy with doxorubicin/vincristine/ cyclophosphamide and prednisone on 03/22/2017. Even prior to receiving the mini R-CHOP, she had demonstrated clinical response to single-agent rituximab with near complete resolution of her axillary adenopathy and normalization of spleen size. 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 Unfortunately, she also has significant hypoalbuminemia which has not improved since treatment, progressive weight loss, and worsening ECOG performance status. At the bedside, she was awake and alert, spoke with me and Dr. Mccarthy. She became tearful when asked how she is feeling and said she is quite tired and unhappy to be in the hospital for so long despite being grateful for improved breathing. She has been suffering from dysphagia and sore throat and on brief inspection has some erythematous, shallow ulcerative lesions involving the posterior soft palate and oropharynx. By report, these are improved with Magic Mouth Wash and they likely represent grade II to III mucositis secondary to doxorubicin. She is currently two weeks out from her chemotherapy, should have reached her lamont counts at this point, but mucositis can persist. On examination, she has no submandibular, cervical or supraclavicular adenopathy and therefore, the likelihood of a tonsillar or a pharyngeal lymphoproliferation is less likely the cause of her mucositis. LABORATORY DATA: WBC 19, hemoglobin 8.3, hematocrit 25, platelets 134. Albumin 2.8 (lamont on 03/26/2017 1.4), LDH 261. IMAGING STUDIES: Chest x-ray from today not yet read. Abdomen and pelvis CT from 04/04/2017 showing the pleural peritoneal drain involving left lung base into abdominal wall with diffuse unchanged adenopathy in the abdomen and pelvis and new progressive anasarca. IMPRESSION: Aggressive advanced follicular non-Hodgkin's lymphoma in a 77-year-old woman with severe hypoalbuminemia, chylous effusion requiring peritoneal shunt, worsening performance status, now two weeks status post mini R-CHOP following an approximate three-week run in of single-agent weekly rituximab. Initial partial response to treatment demonstrated a resolution of splenomegaly and axillary lymphadenopathy with persistent stable pelvic and retroperitoneal adenopathy. The most significant clinical finding today is her worsening performance status and mucositis. She reports the mucositis is better but overall I am afraid she is a very poor candidate for continuing chemotherapy or even single-agent rituximab in her current state which is ECOG performance status 4. At the bedside, Dr. Mccarthy and I addressed her wishes and she said for the time being she would like to continue to work on the pleural effusions. I did encourage Reilly to think about her quality of life as the guiding principle for treatment. Dr. Zuleta has been indefatigable in trying to clear her pleural effusions to enable her to have life-saving treatment or even simply life-extending treatment and initially she seemed to be responding but she currently is clinically in a somewhat deteriorated state. RECOMMENDATIONS: 1. At this point, I will defer to Dr. Zuleta's management of the chylous effusions. I am on hand for oncology recommendations. 2. Continue Magic Mouth Wash as needed for oral lesions up to four or five times a day is fine. 3. Should the patient develop new fevers or chills, she will need of course panculturing and broad-spectrum antibiotics but this might be a point at which to address clinical goals. 4. Continue to follow Lactase dehydrogenase (LDH). This has picked up, possibly a sign of resurgent lymphoma growth, possibly a one-time up-tick. MTDD
[2017-04-05] MEDS: ALLOPURINOL 300 MG TAB PO SCH (21:04)
[2017-04-05] MEDS: CALCIUM/VITAMIN D 500 MG TAB PO SCH (21:04)
[2017-04-05] MEDS: VITAMIN D 1,000 INTERNATIONAL UNITS TABLET PO SCH (21:04)
[2017-04-05] MEDS: MONTELUKAST 10 MG TAB PO SCH (21:04)
[2017-04-05] MEDS: PANTOPRAZOLE 40MG TAB (PROTONIX) PO SCH (21:04)
[2017-04-06] VITALS (20 sets, daily range): BP systolic 96–128; BP diastolic 53–68
[2017-04-06] MEDS: VANCOMYCIN HCL 1,000 MG, VIAL MATE ADAPTER 1 EACH in D5W 250 ML IV SCH ×3 (00:11→23:14)
[2017-04-06] MEDS: MAGIC MOUTHWASH SUSPENSION BTL SSP SCH ×13 (00:12→23:14)
[2017-04-06] MEDS: MEROPENEM INJ 1 GM in D5W MINI-BAG PLUS 100 ML IV SCH ×3 (01:29→17:37)
[2017-04-06] MEDS: D5W IV SCH ×3 (02:04→18:20)
[2017-04-06] MEDS: ACYCLOVIR IV SCH ×3 (02:04→18:20)
[2017-04-06 04:57] LABS: MEAN CORPUSCULAR HEMOGLOBIN 29.6 pg (27.0-33.0); MEAN CORPUSCULAR HGB CONC 31.5 g/dl (32.0-36.5); PLATELET COUNT, AUTOMATED 120 10^3/uL (150-450); RED CELL DISTRIBUTION WIDTH 15.8 % (11.5-14.5); WHITE BLOOD COUNT 29.1 10^3/uL (4.0-10.0)
[2017-04-06 04:58] LABS: POSITIVE DIFF POS FLAG
[2017-04-06 04:59] LABS: ADD MANUAL DIFFER YES; BLASTS POS FLAG; DIFF SLIDE NUMBER 49; LEFT SHIFT POS FLAG; POS COUNT POS FLAG; POSITIVE MORPH POS FLAG; WBC SCAT POS FLAG
[2017-04-06 05:38] LABS: ALBUMIN 2.9 GM/DL (3.2-5.2); ALBUMIN/GLOBULIN RATIO 2.07 (1.00-1.93); ALKALINE PHOSPHATASE 59 U/L (45-117); ALT/SGPT 13 U/L (12-78); ANION GAP 5 MEQ/L (8-16); AST/SGOT 8 U/L (15-37); BILIRUBIN,TOTAL 0.5 MG/DL (0.2-1.0); BLOOD UREA NITROGEN 22 MG/DL (7-18); CALCIUM LEVEL 7.9 MG/DL (8.8-10.2); CARBON DIOXIDE LEVEL 33 MEQ/L (21-32); CHLORIDE LEVEL 102 MEQ/L (98-107); CHOLESTEROL LEVEL 55 MG/DL (< 200); CREATININE FOR GFR 0.55 MG/DL (0.55-1.02); GLOMERULAR FILTRATION RATE > 60.0 (>39); GLUCOSE, FASTING 93 MG/DL (83-110); PHOSPHORUS LEVEL 2.7 MG/DL (2.5-4.9); POTASSIUM SERUM 3.8 MEQ/L (3.5-5.1); SODIUM LEVEL 140 MEQ/L (136-145); TOTAL PROTEIN 4.3 GM/DL (6.4-8.2); TRIGLYCERIDES LEVEL 66 MG/DL (<150)
[2017-04-06] MEDS: SODIUM CHLORIDE 0.9% INJ 10 ML SYR IV SCH ×2 (06:31→17:38)
[2017-04-06 06:35] LABS: BANDS 8 % (< 11)
[2017-04-06 06:36] LABS: TOXIC GRANULATION 2+
[2017-04-06 06:37] LABS: ANISOCYTOSIS 1+; TOXIC VACUOLATION 1+
[2017-04-06] MEDS: HumaLOG INSULIN (NovoLOG) PER UNIT SC SCH ×4 (07:30→20:19)
[2017-04-06] MEDS: HEPARIN SOD (PORCINE) 5000 UNITS/ML VIAL SQ SCH ×2 (08:09→20:11)
[2017-04-06] MEDS: CHLORHEXIDINE ORAL RINSE 0.12%/15ML 120ML BOTTLE SSP SCH ×3 (08:10→19:53)
[2017-04-06] MEDS: FUROSEMIDE 40 MG/4 ML VIAL (J1940) IV SCH ×2 (08:10→17:37)
[2017-04-06] MEDS: DOCUSATE SODIUM 100 MG CAP PO SCH ×2 (08:10→20:09)
[2017-04-06] MEDS: EUCERIN 120GM CREAM TOP SCH ×2 (08:11→20:11)
[2017-04-06] MEDS: FLUTICASONE HFA 44 MCG 10.6GM INHALER (FLOVENT) INH SCH ×2 (08:24→20:33)
--- NOTE | 2017-04-06 09:06 | REP ---
CHEST, PA/LATERAL: 04/05/2017. Comparison: CT chest 04/04/2017, 03/31/2017, chest x-rays 04/04/2017, 04/03/2017, and 04/02/2017. 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 Two views are provided. PICC line catheter via the right upper extremity seen terminating in the region of the right atrium. There is a left subclavian central catheter with its line also terminating in the region of the right atrium. These are unchanged. There is a slight decrease in size of effusions with overall slightly better aeration and proportion since yesterday's study. Pleural drainage catheters in both lower chest cavities are again seen on the posterior and the lateral view. No gross cardiomegaly, but there is some left atrial enlargement. The heart size is mildly prominent with left atrial enlargement. Tortuous, calcified aorta, unchanged. Some basilar compressive atelectasis noted. No free air under the diaphragm. No gross compression deformity or focal bone lesion. IMPRESSION: 1. Moderate large sized pleural effusions bilaterally, perhaps slightly decreased in size compared to yesterday's study without other significant change. The lines and tubes are as before. Signed by Keyur Alas MD 04/06/2017 04:00 P
[2017-04-06] MEDS ORDERED: FUROSEMIDE 40 MG/4 ML VIAL (J1940) IV ONE (14:15)
--- NOTE | 2017-04-06 16:05 | IPN ---
DATE: 04/06/2017 Ms. Purcell again is sitting comfortably in a chair. She is breathing well. She is able to walk from her bed to the commode. She has not walked around the circuit and I have encouraged the nursing staff to get her to do so. I appreciate Dr. Lopez's note of yesterday. Her vital signs show a T-max of 99.0 with a heart rate that ranges between 104 and 93 in a sinus rhythm, respiratory rate of 20 to 22 without the use of accessory muscles who is 94 and 92% saturated on 4 liters nasal cannula and whose blood pressure is ranging between 116/64 to 108/56. Her intake and output over the past 24 hours has been recorded as 3831 in and 4300 out for a negativity of 466 mL. She has taken in only 290 mL of by mouth intake yesterday, but it is improving today. She weighs 55.9 kg today compared to 56.1 kg yesterday. PHYSICAL EXAMINATION: Her lungs show equal breath sounds on either side. I hear no wheezes, rhonchi or rales. Percussion notes are dull at the bases. Cardiac exam is without murmurs, clicks, gallops or rubs. I cannot feel her point of maximal impulse (PMI). S1 and S2 are normal. Abdomen is soft and nontender, but still tympanitic and distended. There is no costovertebral angle (CVA) tenderness. No hepatomegaly. Extremities still show 2 to 3+ pretibial edema. No calf tenderness. No differential swelling of the upper extremities. Skin is warm, dry and perfused without cyanosis or mottling including that of the nail beds and the knees. Neck is supple. There is no jugular venous distention. No subcutaneous emphysema. Trachea is midline. Mouth shows her mucous membranes to be pink and moist. Lips and commissures without lesions. No thrush. She still has some mucositis with ecchymosis in the soft palate. Eyes show her pupils to be equal and reactive. Extraocular muscles intact. Sclera anicteric. Neuro shows II through XII intact. Gross motor and gross sensation intact. Gait is not tested. Psychiatric shows her to be awake, alert and oriented times three with appropriate mood, affect and conversational. Her white count today is 29.1 with a differential that shows 71% neutrophils, 8% bands, 2% metamyelocytes, 6% monocytes and 1% promonocytes. She is rated as having 2+ toxic granulations and toxic vacuolizations. Her hemoglobin and hematocrit are 7.4 and 23.5. Her electrolytes are normal with a marginally high total CO2 of 33. BUN and creatinine are 22 and 0.55, glucose of 93 and a calcium 7.9 with a corresponding albumin of 2.9. Magnesium is 1.9 with a phosphorous of 2.7. Pre-albumin is now up to 10.5 from 7.5 four days ago. Her chest x-ray today shows bibasilar pleural effusions. It is a different exposure today, but I think they are essentially unchanged. Bibasilar effusions. Her lung is fully expanded to the chest wall. I see no other infiltrates. IMPRESSION: 1. Bilateral nontraumatic chylothoraces. 2. 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 3. Neutropenic fever. Continue on antibiotics. 4. Protein calorie depletion with improvement of prealbumin now to 10.9, hyperalbuminemia. 5. Hypercholesterolemia. 6. History of duodenitis. 7. Diffuse oral mucositis. I have again had a discussion with Ms. Purcell. She wishes to soldier on. I have mentioned the possibility of Hospice if at some point in time she wishes to stop aggressive therapy. I have indicated to her that Hospice would obviate chemotherapeutic treatment, however, if she got better on Hospice she could always withdraw from Hospice and start aggressive treatment again. Right now her functional status is such that she would not tolerate more chemotherapy. She is continuing to pump her pleural peritoneal shunt. We will continue hyperalimentation. My goal is to get her to full alimentation so that she can go home. At that point in time I would have no objection to her going home and following her as an outpatient. We will transfuse her today as she is anemic. I think that her increased white count with severe left shift is secondary to Neupogen as she has no other indications of sepsis. Will also continue to diurese here aggressively. Her creatinine bumped a little bit today but very little. Her blood pressure is tolerating the diuresis. I think it is very important for us to continue diuresis as she is a number of liters ahead of us over the course of her hospitalization.
[2017-04-06] MEDS ORDERED: HumaLOG INSULIN (NovoLOG) PER UNIT SC SCH (18:00)
[2017-04-06] MEDS ORDERED: [UNRECOGNIZED DRUG - OTHER] IV SCH ×7 (18:00)
[2017-04-06] MEDS ORDERED: SODIUM ACETATE IV SCH ×7 (18:00)
[2017-04-06] MEDS ORDERED: SODIUM CHLORIDE IV SCH ×7 (18:00)
[2017-04-06] MEDS ORDERED: FAT EMULSION IV 20% 500 ML IV SCH (18:00)
[2017-04-06] MEDS: MONTELUKAST 10 MG TAB PO SCH (20:09)
[2017-04-06] MEDS: ALLOPURINOL 300 MG TAB PO SCH (20:09)
[2017-04-06] MEDS: PANTOPRAZOLE 40MG TAB (PROTONIX) PO SCH (20:09)
[2017-04-06] MEDS: VITAMIN D 1,000 INTERNATIONAL UNITS TABLET PO SCH (20:09)
--- NOTE | 2017-04-06 20:10 | IPNPDOC ---
Subjective Date Seen The patient was seen on 04/06/17. Subjective Chief Complaint/HPI The patient is a 77-year-old female admitted with a reason for visit of Follicular Lymphoma;Orthostatic Hypotension. Events since last encounter Patient has no complaints this morning. She denies any pains or fevers. Nursing staff reports that her O2 saturation drops into the 80s at night. They think that it is because she is breathing with her mouth. In the daytime, she is breathing 96% on 4 L. They think that she may benefit from aerosol mask. General: Denies: Chills, Night Sweats, Fatigue, Malaise Constitutional: Denies: Chills, Fever, Night Sweats Pulmonary: Denies: Dyspnea, Cough Cardiovascular: Denies: Chest Pain, Palpitations, Orthopnea, Paroxysmal Noc. Dyspnea, Lt Headedness Gastrointestinal: Denies: Vomiting, Abdominal Pain Genitourinary: Denies: Retention Hematologic: Denies: Bruising, Bleeding Excessively Psych: Reports: Mood Normal Objective Physical Examination General Exam: Positive: Alert, Cooperative, No Acute Distress Neck Exam: Positive: Supple, Negative: JVD, thyromegaly Chest Exam: Positive: Clear to auscultation, Diminished (markedly diminished at B bases, breaths are shallow), Negative: Rales, Rhonchi, Wheezing Heart Exam: Positive: Rate Normal, Normal S1, Normal S2, Negative: Gallops, Murmurs, Rubs Abdomen Exam: Positive: Other (dressed surgical wounds on her lower abd, wounds are dry) Extremity Exam: Positive: Edema (3 + pitting puffy edema at BLE, 1 mm edema sacral), Other (capillary refill less than 2 seconds) Psych Exam: Positive: Mental status NL, Mood NL, Oriented x 3 Assessment /Plan Problems (1) Pleural effusion Status: Chronic Problem Text: 04/06- Dr. Zuleta is managing. Appears stable, X-ray unchanged. 04/05 - Dr Zuleta managing. Has pleuroperitoneal shunt. 04/04 - Mgmt per Dr Zuleta - appears to stable. 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 Has pleural vac in place. Dr. Zuleta to consult today. (2) Anemia Status: Acute Problem Text: 04/[address] Zuleta. Patient will be transfused today. (3) Dysphagia Status: Acute Response to Treatment: Uncontrolled Problem Specific Plan: Consult Specialist Problem Text: 04/06- patient was seen by ENT. We will continue with mouthwash. Patient evaluated by speech therapy. Patient is currently on Pureed diet regimen. 04/05 - Seen by ENT who gave recommendations on treating her throat symptoms. 03/1717- ENT offered recommendations to treat throat symptoms, which haven't provided much relief yet, her oral intake is quite limited. 04/03/17 Dr. Mays has been consulted to offer his opinion on her very symptomatic throat pain. Lymphoma infiltration? Chemo side effect? Bad silent reflux? Regardless of what it is it is disruptive to the patient and her attempts to sustain her own nutrition. Right now she is on TPN, but if this continues we may need to discuss a G-tube. (4) Weakness Status: Acute Problem Text: Pt has PT orders in place. (5) Follicular lymphoma Status: Chronic Problem Text: 04/05 - Outpt management per Dr Monreal. 04/04/17- cont outpt mgmt per Dr Monreal, if pt can cont to tolerate, she is quite frail at this point. 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 Being treated by Dr. Monreal in outpatient setting, last chemotherapy 03/22/17 (6) Orthostatic hypotension Status: Resolved Problem Text: 03/31 -- improved; has been able to work with PT again. Now s/p procedure. 03/29/17: continue current regimen. Procedure with Dr. Zuleta today. 03/28/17: On octreotide and Hyperalimentation. 03/27/17: Albumin infusions q 8 hrs. Concurrent cause of hypovolemia related to pleural fluid. Patient with continued dizziness, lightheadedness with walking. We will restart normal saline IV fluids at rate of 85 mL/hr. Order placed for PT home safety evaluation. Patient will require hospitalization until her symptoms have resolved and she has physically safe for discharge. (7) Protein calorie malnutrition Status: Acute Problem Text: Patient currently on pureed diet and ensure. Nutrition continues to follow, pt is on TPN, PEG may need to be considered given her recent difficulty eating. (8) Gastritis and duodenitis Response to Treatment: Stable Problem Text: Continue current Protonix 40 mg by mouth daily at bedtime (9) Asthma Status: Chronic Problem Text: 03/31 -- breathing treatments available prn Plan/VTE VTE Prophylaxis Ordered?: Yes (Lovenox 40 mg subcutaneously daily) Plan Diet: Continue Current Therapy: PT Anticipated Discharge: Home With Services Family Medicine Attending Note: I was present on site to supervise Jonatan Johnston DO (PGY-2). We discussed the history and exam. I confirmed the gaspar elements during my [id number] encounter with the patient. We conferred on the assessment and plan; I agree with the note as documented. Ms. Purcell seems to be doing a bit better today. She was sitting up in her chair when I evaluated her. Her spirits seem to be good. She still talks about missing her daughter at home and being concerned that she is not there with her. We discussed the fact that she could go home right now with no further treatment, but then she would eventually and her daughter would be more alone. I encouraged her to continue with her treatment regimen for now and we will get home as soon as possible. 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, 24H, [place] Vital Signs/I&O Vital Signs Date Time Temp Pulse Resp B/P (MAP) Pulse Ox O2 Delivery O2 Flow Rate FiO2 04/06/17 06:55 91 Nasal Cannula 3.0 04/06/17 06:53 99.4 93 24 99/54 (69) 04/05/17 04:00 35 I&O- Last 24 Hours up to 6 AM 04/07/17 06:00 Intake Total 50 ml Balance 50 ml Laboratory Data 24H LABS Laboratory Tests 2 04/05/17 12:42: Bedside Glucose (Misc Panel) 90 04/05/17 16:44: Bedside Glucose (Misc Panel) 95 04/05/17 21:11: Bedside Glucose (Misc Panel) 103 04/06/17 04:44: Immature Granulocyte % (Auto) , White Blood Count 29.1H, Red Blood Count 2.50L, Hemoglobin 7.4L, Hematocrit 23.5L, Mean Corpuscular Volume 94.0, Mean Corpuscular Hemoglobin 29.6, Mean Corpuscular Hemoglobin Concent 31.5L, Red Cell Distribution Width 15.8H, Platelet Count 120L, Monocytes # (Auto) , Nucleated Red Blood Cells % (auto) 0.3H, Neutrophils 71, Band Neutrophils 8, Lymphocytes (Manual) 5L, Monocytes (Manual) 7, Metamyelocytes 2H, Myelocytes 6H , Promyelocytes 1H, Toxic Granulation 2+, Toxic Vacuolation 1+, Platelet Estimate DECREASED, Anisocytosis 1+, Anion Gap 5L, Glomerular Filtration Rate > 60.0, Blood Urea Nitrogen 22H, Creatinine 0.55, Sodium Level 140, Potassium Level 3.8, Chloride Level 102, Carbon Dioxide Level 33H, Calcium Level 7.9L, Phosphorus Level 2.7, Aspartate Amino Transf (AST/SGOT) 8L, Alanine Aminotransferase (ALT/SGPT) 13, Lactate Dehydrogenase 243, Total Creatine Kinase 25L, Alkaline Phosphatase 59, Total Bilirubin 0.5, Triglycerides Level 66 , Cholesterol Level 55, Total Protein 4.3L, Albumin 2.9L, Magnesium Level 1.9, Albumin/Globulin Ratio 2.07H CBC/BMP Laboratory Tests 04/06/17 04:44 Red Blood Count 2.50 L, Mean Corpuscular Volume 94.0, Mean Corpuscular Hemoglobin 29.6, Mean Corpuscular Hemoglobin Concent 31.5 L, Red Cell Distribution Width 15.8 H, Monocytes # (Auto) , Calcium Level 7.9 L, Phosphorus Level 2.7, Aspartate Amino Transf (AST/SGOT) 8 L, Alanine Aminotransferase (ALT/ SGPT) 13, Lactate Dehydrogenase 243, Total Creatine Kinase 25 L, Alkaline Phosphatase 59, Total Bilirubin 0.5, Triglycerides Level 66, Cholesterol Level 55, Total Protein 4.3 L, Albumin 2.9 L Microbiology Microbiology 04/05/17 Blood Culture, Received Pending 03/30/17 Blood Culture - Final, Complete NO GROWTH AFTER 5 DAYS 03/30/17 Blood Culture - Final, Complete NO GROWTH AFTER 5 DAYS 03/30/17 Blood Culture - Final, Complete NO GROWTH AFTER 5 DAYS 04/04/17 Acid Fast Stain, Received Pending 04/04/17 Mycobacterial Culture, Received Pending 04/04/17 Fungal Smear, Received Pending 04/04/17 Fungal Culture, Received Pending 04/04/17 Gram Stain - Final, Resulted 04/04/17 Anaerobic Culture, Resulted Pending 04/04/17 Body Fluid Culture, Received Pending 04/05/17 Urine Culture, Received Pending 03/30/17 Urine Culture - Final, Complete JONATAN JOHNSTON DO Apr 06, 2017 08:12 Alexandre Mccarthy MD Apr 07, 2017 13:28
--- NOTE | 2017-04-06 20:12 | REP ---
CHEST, PA AND LATERAL: 04/06/2017. Comparison: 04/05/2017. Clinical history: Chylothorax with bilateral effusions. Findings. There is a right sided pleural drain and a left sided pleural peritoneal drain, unchanged. Right-sided PICC line is seen. There are bilateral effusions. These are moderately large in size. They are similar or slightly greater in size than yesterday's study. Compressive atelectatic changes adjacent to them. There are no other interval changes or new findings. Signed by Keyur Alas MD 04/06/2017 08:19 P
[2017-04-06] MEDS: CALCIUM/VITAMIN D 500 MG TAB PO SCH (20:23)
[2017-04-07] VITALS (7 sets, daily range): BP systolic 106–124; BP diastolic 64–75; O2SAT 90
[2017-04-07] MEDS: MEROPENEM INJ 1 GM in D5W MINI-BAG PLUS 100 ML IV SCH ×2 (00:32→08:11)
[2017-04-07] MEDS: D5W IV SCH ×3 (02:12→18:21)
[2017-04-07] MEDS: MAGIC MOUTHWASH SUSPENSION BTL SSP SCH ×12 (02:12→23:59)
[2017-04-07] MEDS: ACYCLOVIR IV SCH ×3 (02:12→18:21)
[2017-04-07] MEDS: SODIUM CHLORIDE 0.9% INJ 10 ML SYR IV SCH ×2 (05:37→17:09)
[2017-04-07 05:53] LABS: MEAN CORPUSCULAR HEMOGLOBIN 29.9 pg (27.0-33.0); MEAN CORPUSCULAR HGB CONC 32.7 g/dl (32.0-36.5); MEAN CORPUSCULAR VOLUME 91.3 fl (80.0-96.0); PLATELET COUNT, AUTOMATED 111 10^3/uL (150-450); RED CELL DISTRIBUTION WIDTH 16.1 % (11.5-14.5)
[2017-04-07 05:59] LABS: POSITIVE DIFF POS FLAG; POSITIVE MORPH POS FLAG; WHITE BLOOD COUNT 32.5 10^3/uL (4.0-10.0)
[2017-04-07 06:00] LABS: LEFT SHIFT POS FLAG; POS COUNT POS FLAG; WBC SCAT POS FLAG
[2017-04-07 06:02] LABS: ADD MANUAL DIFFER YES; DIFF SLIDE NUMBER 21
[2017-04-07 06:04] LABS: ALBUMIN 3.2 GM/DL (3.2-5.2); ALBUMIN/GLOBULIN RATIO 1.52 (1.00-1.93); ALKALINE PHOSPHATASE 84 U/L (45-117); ALT/SGPT 15 U/L (12-78); ANION GAP 5 MEQ/L (8-16); AST/SGOT 8 U/L (15-37); BILIRUBIN,TOTAL 0.7 MG/DL (0.2-1.0); BLOOD UREA NITROGEN 20 MG/DL (7-18); CALCIUM LEVEL 8.3 MG/DL (8.8-10.2); CARBON DIOXIDE LEVEL 34 MEQ/L (21-32); CHLORIDE LEVEL 100 MEQ/L (98-107); CHOLESTEROL LEVEL 72 MG/DL (< 200); CREATININE FOR GFR 0.63 MG/DL (0.55-1.02); GLOMERULAR FILTRATION RATE > 60.0 (>39); GLUCOSE, FASTING 95 MG/DL (83-110); PHOSPHORUS LEVEL 2.7 MG/DL (2.5-4.9); POTASSIUM SERUM 3.8 MEQ/L (3.5-5.1); SODIUM LEVEL 139 MEQ/L (136-145); TOTAL PROTEIN 5.3 GM/DL (6.4-8.2); TRIGLYCERIDES LEVEL 83 MG/DL (<150)
[2017-04-07 06:26] LABS: ANISOCYTOSIS 1+; BANDS 6 % (< 11)
[2017-04-07 06:27] LABS: TOXIC GRANULATION 2+; TOXIC VACUOLATION 1+
[2017-04-07] MEDS: HumaLOG INSULIN (NovoLOG) PER UNIT SC SCH ×4 (07:11→20:59)
[2017-04-07] MEDS: FUROSEMIDE 40 MG/4 ML VIAL (J1940) IV SCH ×2 (08:11→17:08)
[2017-04-07] MEDS: HEPARIN SOD (PORCINE) 5000 UNITS/ML VIAL SQ SCH ×2 (08:11→20:10)
[2017-04-07] MEDS: CHLORHEXIDINE ORAL RINSE 0.12%/15ML 120ML BOTTLE SSP SCH ×3 (08:11→20:59)
[2017-04-07] MEDS: DOCUSATE SODIUM 100 MG CAP PO SCH ×2 (08:11→20:09)
[2017-04-07] MEDS: EUCERIN 120GM CREAM TOP SCH ×2 (08:12→20:10)
[2017-04-07] MEDS: FLUTICASONE HFA 44 MCG 10.6GM INHALER (FLOVENT) INH SCH ×2 (08:55→19:25)
--- NOTE | 2017-04-07 09:41 | REP ---
A PA and lateral chest: Comparison is 04/06/2017. There are bilateral pleural effusions, unchanged. The mid and upper lung zones remain clear. Cardiac size is normal. There is a right thoracotomy tube with the tip in the medial apex of the right hemithorax, unchanged. Right upper extremity PICC line with the tip in the right atrium, unchanged. There is tubing superimposed over the upper abdomen on the left, unchanged. Impression: No interval change. Signed by Jas Magallanes MD 04/07/2017 09:32 A
--- NOTE | 2017-04-07 12:14 | IPN ---
DATE OF SERVICE: 04/07/2017 Ms. Purcell is feeling much stronger today. I, in fact, walked her around the intensive care unit (ICU) on my arm and she did extraordinary well. She is eager to go home. Her oral intake is not spectacular but it is certainly becoming adequate. I therefore have no objections to discontinue her hyperalimentation and getting her ready for discharge in the morning. Her vital signs show a T-max of 100.1 with a heart rate that ranges between 91 and 97 in a sinus rhythm, respiratory rate of 22 to 28 without the use of accessory muscles who is 93-94% saturated on 3 liters nasal cannula and now on room air 91% saturated. Her blood pressure is ranging between 120/67 to 124/75. Her intake and output for the past 24 hours has been recorded as 3580 in and 6300 out for a negativity of 2700 mL. She weighs 53.5 kg today compared to 55.9 kg yesterday. On physical examination, her lungs show normal vesicular sounds. She has a dull percussion note at the base with decreased breath sounds at each base. I hear no wheezes, rhonchi or rales. Cardiac exam is without murmurs, clicks, gallops or rubs. I cannot feel her PMI. S1 and S2 are normal. Abdomen is soft, nontender and less distended and tympanitic. There is no hepatomegaly. No CVA tenderness. Extremities now show 1+ pretibial edema markedly decreased from yesterday and the day before. There is no calf tenderness. No differential swelling of the upper extremities. Skin is warm, dry and perfused without cyanosis or mottling including that of the nail beds and knees. Neck is supple. There is no jugular venous distention. No subcutaneous emphysema. Trachea is midline. Mouth shows her mucous membranes to be pink and moist. Lips and commissures are without lesions. No thrush. She still has some ecchymotic areas on the soft palate particularly towards the left. Eyes show her pupils to be equal and reactive. Extraocular motor intact. Sclera anicteric. Neuro shows II through XII intact with gross motor and gross sensation intact. Gait is also intact. Psychiatric shows her to be awake and alert, oriented times three with appropriate mood and affect and conversational. Her white count today is 32.5, 34% of which are neutrophils, 6% bands, 6% metamyelocytes, 2% myelocytes. There are 2+ toxic granulations. This looks again secondary to Neupogen. Her hemoglobin and hematocrit are 10.8 and 30.6 after 2 unit transfusion yesterday. Her chemistries show normal electrolytes with BUN and creatinine of 20 and 0.63. Calcium is 8.3, phosphorus is 2.7. Bilirubin is 0.7 with a normal ALT and AST. Albumin is 3.2. Her chest x-ray today shows that the pleural effusions are essentially unchanged with the right maybe even being less. She still has a portion of the lower fifth of the hemithorax still opacified on the left side. I see no other infiltrates. There is no growth on her urine cultures and no growth in the pleural fluid on microbiology. IMPRESSION: 1. Bilateral nontraumatic chylothoraces. 2. Follicular lymphoma by imaging looking to have improved. 3. Neutropenic fever, continuing on antibiotics. 4. Protein calorie depletion with improvement of her prealbumin at 10.9 yesterday. 5. Hypercholesterolemia. 6. History of duodenitis. 7. Diffuse oral mucositis. PLAN AND DISCUSSION: She looks incredibly well today and has good strength, is able to walk about and ambulate. When I was walking her arm in arm, she did not use me as a support. She by intake and output record has only taken in 730 mL oral intake yesterday and 280 mL this morning. She thinks she is eating well although I am quite concerned. She is on Ensure. She is quite adamant about going home and her attitude is much changed for the better regarding her wishes and direction of care. I had a long extensive talk with the family. While chemotherapy is not an option at this point in time, there is a finite albeit small possibility that should she regain her strength with good oral nutrition, that chemotherapy might be back on the table at some future point in time. It will take a lot for her to get to that position as another cycle of chemotherapy may very well harm her irreparably. Nonetheless, at this point in time, she is quite functional. We have discontinued her oxygen and will monitor throughout the day. If she does desaturate significantly, we will send her home on home oxygen particularly perhaps at night. She knows how to use the pleuroperitoneal pump of at least 30 times an hour if not more. We may have to drain her right chest every now and then but again I am hoping as she improves with regard to the lymphoma, that the chylothorax will take care of itself.
--- NOTE | 2017-04-07 15:17 | PHACANCOPD ---
PHARMACY VANCOMYCIN DOSING Pt Demographics Demographics Patient Age:77 , Weight:53.500 , Gender: female Adjusted Body Weight Date: 04/02/17, Adjusted Body Weight: [56.5] Kg Vancomycin Vancomycin indication: NEUTROPENIC FEVER Vancomycin Target Ranges: 15-20 mcg/ml Vancomycin Load Y/N: No Load Dose Date Time Vancomycin Load Dose: Date: Time: Vancomycin Dose Date: 04/02/17. Current Vancomycin Dose: [1G IV Q12H @12:00] Intermittent Dosing?: No Labs Micro Microbiology 04/05/17 Blood Culture - Preliminary, Resulted No Growth after 48 hours. All Specime... 03/30/17 Blood Culture - Final, Complete NO GROWTH AFTER 5 DAYS 03/30/17 Blood Culture - Final, Complete NO GROWTH AFTER 5 DAYS 03/30/17 Blood Culture - Final, Complete NO GROWTH AFTER 5 DAYS 04/04/17 Acid Fast Stain, Received Pending 04/04/17 Mycobacterial Culture, Received Pending 04/04/17 Fungal Smear, Received Pending 04/04/17 Fungal Culture, Received Pending 04/04/17 Gram Stain - Final, Complete 04/04/17 Anaerobic Culture - Final, Complete 04/04/17 Body Fluid Culture - Final, Complete 04/05/17 Urine Culture - Final, Complete 03/30/17 Urine Culture - Final, Complete Creatinine Clearance Date:04/02/17. Creatinine Clearance: [113.37ML/MIN.]. Assessment and Plan Maintaining Current Dose?: No Reason for dose change: Trough too high Pharmacist Note Pharmacist Note 04/07/17: Trough today resulted at 22.5mcg/ml. I will decrease the dose to 750mg IV Q12H starting tonight at 2100. A follow-up trough is scheduled to be drawn 04/09/17 @0800. We will continue to monitor and make further dose adjustments if needed. Date: 04/02/17. Pharmacist note: PT is a 77 year old female being treated for neutropenic fever goal trough 10-20mcg/ml. Pt has not been treated with vancomycin here at [facility] in the past. To achieve go pt was started on vancomycin 1g iv q12h starting 04/02/17 @12:00. We will continue to monitor and adjust dose as needed. [facility] Apr 07, 2017 15:17
--- NOTE | 2017-04-07 19:23 | IPNPDOC ---
Subjective Date Seen The patient was seen on 04/07/17. Subjective Chief Complaint/HPI The patient is a 77-year-old female admitted with a reason for visit of Follicular Lymphoma;Orthostatic Hypotension. Events since last encounter Patient seen at bedside this morning accompanied by family. Dr. Zuleta was also present. Patient seemed optimistic about the possibility of going home. She wished to stop the hyperalimentation. She states that she will increase oral intake. Denies discomfort today. She had some O2 desaturation overnight. Nursing staff. This was from her mouth breathing at night. She did not want to wear an aerosol mask overnight because she felt uncomfortable. She continues to work with physical therapy. She is having bowel small bowel movements. Constitutional: Denies: Chills, Fever, Night Sweats Pulmonary: Denies: Dyspnea, Cough Cardiovascular: Denies: Chest Pain, Palpitations, Orthopnea, Paroxysmal Noc. Dyspnea, Lt Headedness Gastrointestinal: Denies: Nausea, Vomiting, Abdominal Pain, Diarrhea, Constipation Genitourinary: Denies: Dysuria, Frequency, Incontinence, Retention Psych: Reports: Mood Normal, Denies: Depression, Memory Issues Objective Physical Examination General Exam: Positive: Alert, Cooperative, No Acute Distress Neck Exam: Positive: Supple, Negative: JVD, thyromegaly Chest Exam: Positive: Clear to auscultation, Diminished (markedly diminished at B bases), Negative: Rales, Rhonchi, Wheezing Heart Exam: Positive: Rate Normal, Normal S1, Normal S2, Negative: Gallops, Murmurs, Rubs Abdomen Exam: Positive: Other (dressed surgical wounds on her lower abd, wounds are dry) Extremity Exam: Positive: Edema (3 + pitting puffy edema at BLE, 1 mm edema sacral), Other (capillary refill less than 2 seconds) Psych Exam: Positive: Mental status NL, Mood NL, Oriented x 3 Assessment /Plan Problems (1) Pleural effusion Status: Chronic Problem Text: 04/07- X-rays stable. Dr. Zuleta is managing. 04/06- Dr. Zuleta is managing. Appears stable, X-ray unchanged. 04/05 - Dr Zuleta managing. Has pleuroperitoneal shunt. 04/04 - Mgmt per Dr Zuleta - appears to stable. 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 Has pleural vac in place. Dr. Zuleta to consult today. (2) Anemia Status: Acute Problem Text: 04/07 Anemia improving. Hgb 10.0 today 04/[address] Zuleta. Patient will be transfused today. (3) Dysphagia Status: Acute Response to Treatment: Uncontrolled Problem Specific Plan: Consult Specialist Problem Text: 04/07 Remains on pureed diet. Patient will be stopped on hyperalimentation today per Dr. Zuleta. Encouraged increased intake. 04/06- patient was seen by ENT. We will continue with mouthwash. Patient evaluated by speech therapy. Patient is currently on Pureed diet regimen. 04/05 - Seen by ENT who gave recommendations on treating her throat symptoms. 03/1717- ENT offered recommendations to treat throat symptoms, which haven't provided much relief yet, her oral intake is quite limited. 04/03/17 Dr. Mays has been consulted to offer his opinion on her very symptomatic throat pain. Lymphoma infiltration? Chemo side effect? Bad silent reflux? Regardless of what it is it is disruptive to the patient and her attempts to sustain her own nutrition. Right now she is on TPN, but if this continues we may need to discuss a G-tube. (4) Weakness Status: Acute Problem Text: 04/07/2017: Patient evaluated by physical therapy, advised discharged home with services. Pt has PT orders in place. (5) Follicular lymphoma Status: Chronic Problem Text: 04/05 - Outpt management per Dr Monreal. 04/04/17- cont outpt mgmt per Dr Monreal, if pt can cont to tolerate, she is quite frail at this point. 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 Being treated by Dr. Monreal in outpatient setting, last chemotherapy 03/22/17 (6) Orthostatic hypotension Status: Resolved Problem Text: 03/31 -- improved; has been able to work with PT again. Now s/p procedure. 03/29/17: continue current regimen. Procedure with Dr. Zuleta today. 03/28/17: On octreotide and Hyperalimentation. 03/27/17: Albumin infusions q 8 hrs. Concurrent cause of hypovolemia related to pleural fluid. Patient with continued dizziness, lightheadedness with walking. We will restart normal saline IV fluids at rate of 85 mL/hr. Order placed for PT home safety evaluation. Patient will require hospitalization until her symptoms have resolved and she has physically safe for discharge. (7) Protein calorie malnutrition Status: Acute Problem Text: Patient currently on pureed diet and ensure. Nutrition continues to follow, pt is on TPN, PEG may need to be considered given her recent difficulty eating. (8) Gastritis and duodenitis Response to Treatment: Stable Problem Text: Continue current Protonix 40 mg by mouth daily at bedtime (9) Asthma Status: Chronic Problem Text: 03/31 -- breathing treatments available prn (10) Neutropenic fever Status: Resolved Problem Text: 04/07/2017 discontinued antibiotics and antiviral. Patient was given Neupogen and her neutropenia had resolved. She was given antibiotics because of her fevers. Plan/VTE VTE Prophylaxis Ordered?: Yes (Lovenox 40 mg subcutaneously daily) Plan Diet: Continue Current Therapy: PT Anticipated Discharge: Home With Services Possible discharge to home with services as early as 04/08/2017. Family Medicine Attending Note: I was present on site to supervise Jonatan Johnston DO (PGY-2). We discussed the history and exam. I confirmed the gaspar elements during my [id number] encounter with the patient. We conferred on the assessment and plan; I agree with the note as documented. (conservation educator) VS, I&O, 24H, Fishbone Vital Signs/I&O Vital Signs Date Time Temp Pulse Resp B/P (MAP) Pulse Ox O2 Delivery O2 Flow Rate FiO2 04/07/17 16:25 99.6 101 20 112/70 (84) 95 Room Air 04/07/17 07:45 3.0 04/05/17 04:00 35 I&O- Last 24 Hours up to 6 AM 04/08/17 06:00 Intake Total 1596.2 ml Output Total 1500 ml Balance 96.2 ml Laboratory Data 24H LABS Laboratory Tests 2 04/06/17 20:19: Bedside Glucose (Misc Panel) 98 04/07/17 05:30: Immature Granulocyte % (Auto) , White Blood Count 32.5*H, Red Blood Count 3.35L , Hemoglobin 10.0#L, Hematocrit 30.6L, Mean Corpuscular Volume 91.3, Mean Corpuscular Hemoglobin 29.9, Mean Corpuscular Hemoglobin Concent 32.7, Red Cell Distribution Width 16.1H, Platelet Count 111L, Monocytes # (Auto) , Nucleated Red Blood Cells % (auto) 0.4H, Neutrophils 74, Band Neutrophils 6, Lymphocytes ( Manual) 3L, Monocytes (Manual) 9H, Metamyelocytes 6H, Myelocytes 2H, Toxic Granulation 2+, Toxic Vacuolation 1+, Platelet Estimate NORMAL, Anisocytosis 1+ , Anion Gap 5L, Glomerular Filtration Rate > 60.0, Blood Urea Nitrogen 20H, Creatinine 0.63, Sodium Level 139, Potassium Level 3.8, Chloride Level 100, Carbon Dioxide Level 34H, Calcium Level 8.3L, Phosphorus Level 2.7, Aspartate Amino Transf (AST/SGOT) 8L, Alanine Aminotransferase (ALT/SGPT) 15, Lactate Dehydrogenase 246, Total Creatine Kinase 23L, Alkaline Phosphatase 84, Total Bilirubin 0.7, Triglycerides Level 83, Cholesterol Level 72, Total Protein 5.3#L , Albumin 3.2, Albumin/Globulin Ratio 1.52 04/07/17 11:45: Bedside Glucose (Misc Panel) 101 04/07/17 12:12: Vancomycin Level Trough 22.5H 04/07/17 16:24: Bedside Glucose (Misc Panel) 108 CBC/BMP Laboratory Tests 04/07/17 05:30 Red Blood Count 3.35 L, Mean Corpuscular Volume 91.3, Mean Corpuscular Hemoglobin 29.9, Mean Corpuscular Hemoglobin Concent 32.7, Red Cell Distribution Width 16.1 H, Monocytes # (Auto) , Calcium Level 8.3 L, Phosphorus Level 2.7, Aspartate Amino Transf (AST/SGOT) 8 L, Alanine Aminotransferase (ALT/ SGPT) 15, Lactate Dehydrogenase 246, Total Creatine Kinase 23 L, Alkaline Phosphatase 84, Total Bilirubin 0.7, Triglycerides Level 83, Cholesterol Level 72, Total Protein 5.3 #L, Albumin 3.2 Microbiology Microbiology 04/05/17 Blood Culture - Preliminary, Resulted No Growth after 48 hours. All Specime... 03/30/17 Blood Culture - Final, Complete NO GROWTH AFTER 5 DAYS 03/30/17 Blood Culture - Final, Complete NO GROWTH AFTER 5 DAYS 03/30/17 Blood Culture - Final, Complete NO GROWTH AFTER 5 DAYS 04/04/17 Acid Fast Stain, Received Pending 04/04/17 Mycobacterial Culture, Received Pending 04/04/17 Fungal Smear, Received Pending 04/04/17 Fungal Culture, Received Pending 04/04/17 Gram Stain - Final, Complete 04/04/17 Anaerobic Culture - Final, Complete 04/04/17 Body Fluid Culture - Final, Complete 04/05/17 Urine Culture - Final, Complete 03/30/17 Urine Culture - Final, Complete JONATAN JOHNSTON DO Apr 07, 2017 19:23 Alexandre Mccarthy MD Apr 18, 2017 21:19
[2017-04-07] MEDS: ALLOPURINOL 300 MG TAB PO SCH (20:09)
[2017-04-07] MEDS: PANTOPRAZOLE 40MG TAB (PROTONIX) PO SCH (20:09)
[2017-04-07] MEDS: CALCIUM/VITAMIN D 500 MG TAB PO SCH (20:09)
[2017-04-07] MEDS: VITAMIN D 1,000 INTERNATIONAL UNITS TABLET PO SCH (20:09)
[2017-04-07] MEDS: MONTELUKAST 10 MG TAB PO SCH (20:09)
[2017-04-07] MEDS ORDERED: VANCOMYCIN HCL 750 MG, VIAL MATE ADAPTER 1 EACH in D5W 250 ML IV SCH (21:00)
[2017-04-08] VITALS: BP 116/65
[2017-04-08] MEDS: MAGIC MOUTHWASH SUSPENSION BTL SSP SCH ×5 (02:00→10:04)
[2017-04-08 04:00] VITALS: BP 125/73
[2017-04-08] MEDS: SODIUM CHLORIDE 0.9% INJ 10 ML SYR IV SCH (05:49)
[2017-04-08 06:16] LABS: MEAN CORPUSCULAR HGB CONC 32.5 g/dl (32.0-36.5); MEAN CORPUSCULAR VOLUME 92.3 fl (80.0-96.0); PLATELET COUNT, AUTOMATED 125 10^3/uL (150-450); RED CELL DISTRIBUTION WIDTH 15.8 % (11.5-14.5)
[2017-04-08 06:18] LABS: ADD MANUAL DIFFER YES; DIFF SLIDE NUMBER 14; LEFT SHIFT POS FLAG; POS COUNT POS FLAG; POSITIVE DIFF POS FLAG; POSITIVE MORPH POS FLAG; WBC SCAT POS FLAG
[2017-04-08 06:45] LABS: ALBUMIN 3.1 GM/DL (3.2-5.2); ALBUMIN/GLOBULIN RATIO 1.55 (1.00-1.93); ALKALINE PHOSPHATASE 86 U/L (45-117); ALT/SGPT 21 U/L (12-78); ANION GAP 4 MEQ/L (8-16); AST/SGOT 14 U/L (15-37); BILIRUBIN,TOTAL 0.6 MG/DL (0.2-1.0); BLOOD UREA NITROGEN 24 MG/DL (7-18); CALCIUM LEVEL 8.6 MG/DL (8.8-10.2); CARBON DIOXIDE LEVEL 34 MEQ/L (21-32); CHLORIDE LEVEL 102 MEQ/L (98-107); CHOLESTEROL LEVEL 94 MG/DL (< 200); CREATININE FOR GFR 0.51 MG/DL (0.55-1.02); GLOMERULAR FILTRATION RATE > 60.0 (>39); GLUCOSE, FASTING 86 MG/DL (83-110); MAGNESIUM LEVEL 2.2 MG/DL (1.8-2.4); PHOSPHORUS LEVEL 2.1 MG/DL (2.5-4.9); POTASSIUM SERUM 3.9 MEQ/L (3.5-5.1); SODIUM LEVEL 140 MEQ/L (136-145); TOTAL PROTEIN 5.1 GM/DL (6.4-8.2); TRIGLYCERIDES LEVEL 86 MG/DL (<150)
[2017-04-08 07:07] LABS: BANDS 5 % (< 11)
[2017-04-08 07:08] LABS: ANISOCYTOSIS 1+
[2017-04-08] MEDS: HumaLOG INSULIN (NovoLOG) PER UNIT SC SCH (07:30)
[2017-04-08] MEDS: FLUTICASONE HFA 44 MCG 10.6GM INHALER (FLOVENT) INH SCH (07:44)
[2017-04-08 07:52] VITALS: BP 114/69
--- NOTE | 2017-04-08 08:16 | REP ---
PA and lateral chest: Comparisons 04/07/2017. The bilateral pleural effusions are unchanged. The bilateral pleural effusions are unchanged. The right thoracotomy tube is unchanged. The right upper extremity PICC line is unchanged. The tubing is superimposed over the upper abdomen is unchanged. Impression: There is no interval change. Signed by Jas Magallanes MD 04/08/2017 08:08 A
[2017-04-08] MEDS: HEPARIN SOD (PORCINE) 5000 UNITS/ML VIAL SQ SCH (08:37)
[2017-04-08] MEDS: DOCUSATE SODIUM 100 MG CAP PO SCH (08:37)
[2017-04-08] MEDS: FUROSEMIDE 40 MG/4 ML VIAL (J1940) IV SCH (08:38)
[2017-04-08] MEDS: EUCERIN 120GM CREAM TOP SCH (08:38)
[2017-04-08] MEDS: CHLORHEXIDINE ORAL RINSE 0.12%/15ML 120ML BOTTLE SSP SCH (08:39)
[2017-04-08] MEDS ORDERED: LASI40TA PO (10:07)
[2017-04-08] MEDS ORDERED: MAGICMW SSP (11:24)
[2017-04-08 12:32] VITALS: BP 103/67
--- NOTE | 2017-04-08 15:35 | IPN ---
DATE: 04/08/2017 Mrs. Purcell has been walking around and is not feeling short of breath. She is pumping her pleural peritoneal shunt. In fact, she is dressed and ready to go home. Her vital signs show a maximum temperature (T max) of 99.2 with a heart rate that ranges between 90 and 101 and is sinus rhythm, respiratory rate of 18 to 20 without the use of accessory muscles who is 90% saturated on room air, and whose blood pressure is ranging between 116/65 to 106/70. Her intake and output the past 24 hours has been recorded as 2846 in and 3250 out for a negativity of 400 mL. She weighs 53 kg today compared to 53.5 kg yesterday. She has only taken in 530 mL of oral intake, however. Her hyperalimentation was discontinued yesterday. On physical examination, both lungs show normal vesicular sounds on either side. Percussion note is dull at both bases, and there is markedly decreased breath sounds at both bases. I hear no wheezes, rhonchi or rales. Cardiac exam is without murmurs, clicks, gallops or rubs. I cannot feel her point of maximum impulse (PMI). S1, S2 are normal. Abdomen is soft and nontender but tympanitic and distended. She did have a bowel movement yesterday. There is no hepatomegaly, no costovertebral angle tenderness. Extremities show 1 to 2+ pretibial edema. No calf tenderness. No differential swelling of the upper extremities. Skin is warm, dry and perfused without cyanosis or mottling, including that of the nail beds and the knees. Neck is supple. There is no jugular venous distention, no subcutaneous emphysema. Trachea is midline. Mouth shows her mucous membranes to be pink and moist. Lips and commissures without lesions. There is no thrush. Her soft palate still has some ecchymotic lesions but are improving. Eyes show her pupils to be equal and reactive. Extraocular motions intact. Sclerae anicteric. Neurologic shows II-XII intact along with gross motor and gross sensation intact. Gait is not tested. Psychiatric shows her to be awake and alert, oriented times three with appropriate mood and affect and conversational. Her white count today is 31,000 with a differential that shows 79% neutrophils, 9% band forms, 3% metamyelocytes and 2% promyelocytes. This white count is noted secondary to the Neupogen. Her platelet count is 125 and stable. Electrolytes today are normal with a marginally high CO2 of 34. BUN and creatinine are 24 and 0.51 with a calcium of 8.6 and a corresponding albumin of 3.1. AST and ALT are normal. Phosphorus is 2.1 with a magnesium of 2.2. Her chest x-ray today still shows fluid in both hemithoraces. It is poor inspiration, but the right side has not really changed. I see no other infiltrates. IMPRESSION: 1. Bilateral nontraumatic chylothoraces. 2. Follicular lymphoma, improving by imaging. 3. Neutropenic fever, resolved. 4. Protein-calorie depletion with improvement of the prealbumin. 5. Hypercholesterolemia. 6. History of duodenitis. 7. Mucositis. PLAN AND DISCUSSION: I think that she is ready for discharge today. Will continue her on the Lasix. Will discontinue the antibiotics. We will test her and see if she qualifies for home oxygen, particularly at night.
--- NOTE | 2017-04-08 21:49 | IPNPDOC ---
Subjective Date Seen The patient was seen on 04/08/17. Subjective Chief Complaint/HPI The patient is a 77-year-old female admitted with a reason for visit of Follicular Lymphoma;Orthostatic Hypotension. Events since last encounter Patient seen this morning by bedside. She is expecting to go home today. Patient was cleared by physical therapy to go home with services. She has not eaten breakfast, but she reports that she ate dinner last night, mac & cheese and mash potatoes. She remains off of hyperalimentation. No fevers this morning. Constitutional: Denies: Chills, Fever, Night Sweats Pulmonary: Denies: Dyspnea, Cough Cardiovascular: Denies: Chest Pain, Palpitations, Orthopnea, Paroxysmal Noc. Dyspnea, Lt Headedness Gastrointestinal: Denies: Nausea, Vomiting, Abdominal Pain, Diarrhea, Constipation Neurological: Reports: Weakness (improving) Objective Physical Examination General Exam: Positive: Alert, Cooperative, No Acute Distress Neck Exam: Positive: Supple, Negative: JVD, thyromegaly Chest Exam: Positive: Clear to auscultation, Diminished (markedly diminished at B bases), Negative: Rales, Rhonchi, Wheezing Heart Exam: Positive: Rate Normal, Normal S1, Normal S2, Negative: Gallops, Murmurs, Rubs Abdomen Exam: Positive: Other (dressed surgical wounds on her lower abd, wounds are dry) Extremity Exam: Positive: Edema (3 + pitting puffy edema at BLE, 1 mm edema sacral), Other (capillary refill less than 2 seconds) Psych Exam: Positive: Mental status NL, Mood NL, Oriented x 3 Assessment /Plan Problems (1) Pleural effusion Status: Chronic Problem Text: 04/08- chest x-ray stable for the last several days. Unchanged today. Patient appears stable. Dr. Zuleta is currently managing. Anticipated discharge today pending Dr. Zuleta's approval. 04/07- X-rays stable. Dr. Zuleta is managing. 04/06- Dr. Zuleta is managing. Appears stable, X-ray unchanged. 04/05 - Dr Zuleta managing. Has pleuroperitoneal shunt. 04/04 - Mgmt per Dr Zuleta - appears to stable. 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 Has pleural vac in place. Dr. Zuleta to consult today. (2) Anemia Status: Acute Problem Text: 04/07 Anemia improving. Hgb 10.0 today 04/[address] Zuleta. Patient will be transfused today. (3) Dysphagia Status: Acute Response to Treatment: Uncontrolled Problem Specific Plan: Consult Specialist Problem Text: 04/07 Remains on pureed diet. Patient will be stopped on hyperalimentation today per Dr. Zuleta. Encouraged increased intake. 04/06- patient was seen by ENT. We will continue with mouthwash. Patient evaluated by speech therapy. Patient is currently on Pureed diet regimen. 04/05 - Seen by ENT who gave recommendations on treating her throat symptoms. 03/1717- ENT offered recommendations to treat throat symptoms, which haven't provided much relief yet, her oral intake is quite limited. 04/03/17 Dr. Mays has been consulted to offer his opinion on her very symptomatic throat pain. Lymphoma infiltration? Chemo side effect? Bad silent reflux? Regardless of what it is it is disruptive to the patient and her attempts to sustain her own nutrition. Right now she is on TPN, but if this continues we may need to discuss a G-tube. (4) Weakness Status: Acute Problem Text: 04/07/2017: Patient evaluated by physical therapy, advised discharged home with services. Pt has PT orders in place. (5) Follicular lymphoma Status: Chronic Problem Text: 04/05 - Outpt management per Dr Monreal. 04/04/17- cont outpt mgmt per Dr Monreal, if pt can cont to tolerate, she is quite frail at this point. 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 Being treated by Dr. Monreal in outpatient setting, last chemotherapy 03/22/17 (6) Orthostatic hypotension Status: Resolved Problem Text: 03/31 -- improved; has been able to work with PT again. Now s/p procedure. 03/29/17: continue current regimen. Procedure with Dr. Zuleta today. 03/28/17: On octreotide and Hyperalimentation. 03/27/17: Albumin infusions q 8 hrs. Concurrent cause of hypovolemia related to pleural fluid. Patient with continued dizziness, lightheadedness with walking. We will restart normal saline IV fluids at rate of 85 mL/hr. Order placed for PT home safety evaluation. Patient will require hospitalization until her symptoms have resolved and she has physically safe for discharge. (7) Protein calorie malnutrition Status: Acute Problem Text: Patient currently on pureed diet and ensure. Nutrition continues to follow, pt is on TPN, PEG may need to be considered given her recent difficulty eating. (8) Gastritis and duodenitis Response to Treatment: Stable Problem Text: Continue current Protonix 40 mg by mouth daily at bedtime (9) Asthma Status: Chronic Problem Text: 03/31 -- breathing treatments available prn (10) Neutropenic fever Status: Resolved Problem Text: 04/07/2017 discontinued antibiotics and antiviral. Patient was given Neupogen and her neutropenia had resolved. She was given antibiotics because of her fevers. Plan/VTE VTE Prophylaxis Ordered?: Yes (Lovenox 40 mg subcutaneously daily) Plan Diet: Continue Current Therapy: PT Anticipated Discharge: Home With Services VS, I&O, 24H, [facility] Vital Signs/I&O Vital Signs Date Time Temp Pulse Resp B/P (MAP) Pulse Ox O2 Delivery O2 Flow Rate FiO2 04/08/17 04:00 99.1 90 16 125/73 (90) 94 Nasal Cannula 1.0 04/05/17 04:00 35 Laboratory Data 24H LABS Laboratory Tests 2 04/07/17 11:45: Bedside Glucose (Misc Panel) 101 04/07/17 12:12: Vancomycin Level Trough 22.5H 04/07/17 16:24: Bedside Glucose (Misc Panel) 108 04/07/17 20:56: Bedside Glucose (Misc Panel) 108 04/08/17 05:57: Immature Granulocyte % (Auto) , White Blood Count 31.0*H, Red Blood Count 3.37L , Hemoglobin 10.1L, Hematocrit 31.1L, Mean Corpuscular Volume 92.3, Mean Corpuscular Hemoglobin 30.0, Mean Corpuscular Hemoglobin Concent 32.5, Red Cell Distribution Width 15.8H, Platelet Count 125L, Monocytes # (Auto) , Nucleated Red Blood Cells % (auto) 0.2H, Neutrophils 79H, Band Neutrophils 5, Lymphocytes (Manual) 6L, Monocytes (Manual) 3, Metamyelocytes 3H, Promyelocytes 2H, Atypical Lymphocytes 2, Platelet Estimate DECREASED, Anisocytosis 1+, Anion Gap 4L, Glomerular Filtration Rate > 60.0, Blood Urea Nitrogen 24H, Creatinine 0.51L , Sodium Level 140, Potassium Level 3.9, Chloride Level 102, Carbon Dioxide Level 34H, Calcium Level 8.6L, Phosphorus Level 2.1#L, Aspartate Amino Transf ( AST/SGOT) 14L, Alanine Aminotransferase (ALT/SGPT) 21, Lactate Dehydrogenase 243 , Total Creatine Kinase 16L, Alkaline Phosphatase 86, Total Bilirubin 0.6, Triglycerides Level 86, Cholesterol Level 94, Total Protein 5.1L, Albumin 3.1L, Magnesium Level 2.2, Albumin/Globulin Ratio 1.55, Prealbumin 10.0L CBC/BMP Laboratory Tests 04/08/17 05:57 Red Blood Count 3.37 L, Mean Corpuscular Volume 92.3, Mean Corpuscular Hemoglobin 30.0, Mean Corpuscular Hemoglobin Concent 32.5, Red Cell Distribution Width 15.8 H, Monocytes # (Auto) , Calcium Level 8.6 L, Phosphorus Level 2.1 #L, Aspartate Amino Transf (AST/SGOT) 14 L, Alanine Aminotransferase ( ALT/SGPT) 21, Lactate Dehydrogenase 243, Total Creatine Kinase 16 L, Alkaline Phosphatase 86, Total Bilirubin 0.6, Triglycerides Level 86, Cholesterol Level 94, Total Protein 5.1 L, Albumin 3.1 L Microbiology Microbiology 04/05/17 Blood Culture - Preliminary, Resulted No Growth after 48 hours. All Specime... 03/30/17 Blood Culture - Final, Complete NO GROWTH AFTER 5 DAYS 03/30/17 Blood Culture - Final, Complete NO GROWTH AFTER 5 DAYS 03/30/17 Blood Culture - Final, Complete NO GROWTH AFTER 5 DAYS 04/04/17 Acid Fast Stain, Received Pending 04/04/17 Mycobacterial Culture, Received Pending 04/04/17 Fungal Smear, Received Pending 04/04/17 Fungal Culture, Received Pending 04/04/17 Gram Stain - Final, Complete 04/04/17 Anaerobic Culture - Final, Complete 04/04/17 Body Fluid Culture - Final, Complete 04/05/17 Urine Culture - Final, Complete 03/30/17 Urine Culture - Final, Complete GME ATTESTATION GME ATTESTATION My preceptor for this patient encounter was physically present in the building during the encounter and was fully available. As needed, all aspects of the patient interview, examination, medical decision making process, and medical care plan development were reviewed and approved by the preceptor. Preceptor is aware and concurs with the plan as stated in the body of this note and will attest to such by his/her cosignature. ATTENDING NOTE Family Medicine Attending Note: I was present on site to supervise Jonatan Johnston DO (PGY-2). We discussed the history and exam. I confirmed the gaspar elements during my [id number] encounter with the patient. We conferred on the assessment and plan; I agree with the note as documented. (customer response representative) JONATAN JOHNSTON DO Apr 08, 2017 07:47 Alexandre Mccarthy MD Apr 18, 2017 21:46
--- NOTE | 2017-04-10 08:39 | DS.PDOC ---
Discharge Summary General Date of Admission Mar 25, 2017 at 20:52 Date of Discharge 04/08/2017 Primary Care Physician: Alexandre Mccarthy MD Attending Physician: Alexandre Mccarthy MD Specialist/Consultants Involve: Carlos Zuleta M.D. Specialist/Consultants Involve Dr. Monreal, Oncology Dr. Mays, ENT Discharge Summary PROCEDURES PERFORMED DURING STAY: Left pleural peritoneal shunt (03/31/2017) ADMITTING DIAGNOSES: Orthostatic hypotension, follicular lymphoma DISCHARGE DIAGNOSES: Grade 3A liquid lymphoma, hyperalbuminemia, stable pleural effusions COMPLICATIONS/CHIEF COMPLAINT: Follicular Lymphoma;Orthostatic Hypotension. Brief History/ Hospital Course: This is a 77-year-old female with a past medical history significant for grade 3A follicular lymphoma, hyperalbuminemia, hypercholesterolemia, asthma, constipation, duodenitis and gastritis. Patient presents to the emergency department at the time of admission after receiving chemotherapy 3 days prior. At the time, patient was complaining of dizziness. She was admitted for orthostatic hypotension. During the course of admission, patient had chylous pleural effusions which were evaluated by Dr. Zuleta, cardiothoracic surgery. A left pleural peritoneal shunt was placed on 03/31/2017. Patient was started on hyperalimentation which was discontinued a day prior to discharge. Patient was evaluated by ENT, Dr. Mays, on 04/03/2017 for diffuse oral mucositis. Patient was started on a mouth rinse regimen per ENT and was subsequently evaluated by speech therapy who adjusted her diet from pured diet to ultimately mechanically soft diet at discharge. Patient was evaluated by oncology, Dr. Monreal on 04/05/2017. Patient will not be continue on chemotherapy at this time. Possible therapy in the future if patient wishes to continue and is strong enough for therapy. Patient was on an antibiotic course of meropenem (03/30/2017 through 04/07/2017) , Vancomycin, and acyclovir (04/02/2017 through 04/07/2017) for the chylothorax and also neutropenic fevers. The patient's neutropenia resolved after course of Neupogen. Her antibiotics were subsequently discontinued. Patient was discharge to home with services. She was discontinued on hyperalimentation and was tolerating a mechanically soft diet. 04/08/20172016 DISCHARGE MEDICATIONS: Please see below. ALLERGIES: Please see below. PHYSICAL EXAMINATION ON DISCHARGE: Please see progress note on day of discharge IMAGING: Chest x-ray (daily from 03/27/2017 through 04/08/2017) most recent chest x-ray shows stable bilateral pleural effusions Abdominal CT 04/04/2017, 03/31/2017. Showing pleural peritoneal drain catheter. Chest CT 04/04/2017, 03/31/2017, 03/29/2017. Most current shows bilateral pleural drainage catheters in resolving fluid collection. Pleural diseases LABORATORY DATA: Please see below. ACTIVITY: As tolerated DIET: Mechanically soft diet DISCHARGE PLAN: Discharge to home with services DISPOSITION: Home Health Service. DISCHARGE INSTRUCTIONS: Patient will follow-up with Dr. Mccarthy, PCP and Dr. Zuleta. DISCHARGE CONDITION: Stable TIME SPENT ON DISCHARGE: Greater than 30 minutes. Vital Signs/I&Os Vital Signs Date Time Temp Pulse Resp B/P (MAP) Pulse Ox O2 Delivery O2 Flow Rate FiO2 04/08/17 12:32 97.2 98 19 103/67 (79) 04/08/17 08:00 Room Air 04/08/17 07:52 90 04/08/17 04:00 1.0 04/05/17 04:00 35 Microbiology Microbiology 04/05/17 Blood Culture - Preliminary, Resulted No Growth after 72 hours. All specime... 04/04/17 Acid Fast Stain, Received Pending 04/04/17 Mycobacterial Culture, Received Pending 04/04/17 Fungal Smear, Received Pending 04/04/17 Fungal Culture, Received Pending 04/04/17 Gram Stain - Final, Complete 04/04/17 Anaerobic Culture - Final, Complete 04/04/17 Body Fluid Culture - Final, Complete 04/05/17 Urine Culture - Final, Complete Discharge Medications Scheduled Allopurinol (Zyloprim) 300 Mg Tab, 300 MG PO QHS, (Reported) Calcium/Vitamin D (Calcium 500 + D 500-125 mg-Unit) 1 Tab Tab, 1 TAB PO QHS, ( Reported) Cholecalciferol (Vitamin D) 1,000 Unit Tab, 1,000 UNIT PO QHS, (Reported) Furosemide (Lasix) 40 Mg Tab, 40 MG PO BID Montelukast Sodium (Montelukast Sodium) 10 Mg Tab, 10 MG PO QHS, (Reported) Pantoprazole Sodium (Pantoprazole Sodium) 40 Mg Tab, 40 MG PO QHS, (Reported) Simvastatin (Simvastatin) 20 Mg Tab, 20 MG PO QHS, (Reported) Scheduled PRN Acetaminophen (Tylenol) 325 Mg Tab, 650 MG PO Q4H PRN for PAIN, (Reported) Albuterol Sulfate (Ventolin Hfa) 200 Puff/8 Gm Aers, 2 PUFF INH Q4H PRN for SHORTNESS OF BREATH, (Reported) Cetirizine HCl (Cetirizine HCl) 10 Mg Tab, 10 MG PO DAILY PRN for ALLERGIES, ( Reported) Fluticasone Propionate (Flovent Hfa 44 MCG) 120 Puff/10.6 Gm Aero, 2 PUFF INH BID PRN for SHORTNESS OF BREATH, (Reported) Magic Mouthwash (First-Mouthwash Blm) 1 Ea Susp, 5 ML SSP Q2HP PRN for pain Ondansetron HCl (Ondansetron HCl) 8 Mg Tab, 8 MG PO Q6H PRN for NAUSEA OR VOMITING, (Reported) Polyethylene Glycol (Miralax) 1 Pow Pow, 17 GM PO DAILY PRN for CONSTIPATION, ( Reported) dilute in 8 ounces of water or juice Prochlorperazine Maleate (Prochlorperazine Maleate) 10 Mg Tab, 10 MG PO Q8H PRN for NAUSEA OR VOMITING, (Reported) Allergies Coded Allergies: Ciprofloxacin (Unverified Allergy, Unknown, GI UPSET, 03/25/17) GME ATTESTATION GME ATTESTATION My preceptor for this patient encounter was physically present in the building during the encounter and was fully available. As needed, all aspects of the patient interview, examination, medical decision making process, and medical care plan development were reviewed and approved by the preceptor. Preceptor is aware and concurs with the plan as stated in the body of this note and will attest to such by his/her cosignature. ATTENDING NOTE Family Medicine Attending Note: I was present on site to supervise Jonatan Johnston DO (PGY-2). We discussed the history and exam. I confirmed the gaspar elements during my [id number] encounter with the patient. We conferred on the assessment and plan; I agree with the note as documented. (hall manager) JONATAN JOHNSTON DO Apr 10, 2017 08:39 Alexandre Mccarthy MD Apr 18, 2017 21:56
== END 2017-04-08 13:30 | disposition home health service (06) | DRG 312 ==
LOC: M ED 14:25 → M ED INP 20:52 → M MSPAV 23:44 → M ICU 03-27 09:38
PROVIDERS: ADMIT Family Medicine; ATTEND Family Medicine
PROC: 30233N1 Transfusion of Nonautologous Red Blood Cells into Peripheral Vein, Percutaneous Approach (ICD-10-PCS; 2017-03-31)
PROC: 0W1 Anatomical Regions, General, Bypass (ICD-10-PCS; principal; 2017-03-31 08:15)
PROC: 02HV33Z Insertion of Infusion Device into Superior Vena Cava, Percutaneous Approach (ICD-10-PCS; 2017-04-05)
DX: I95.1 Orthostatic hypotension (principal); E46 Unspecified protein-calorie malnutrition; C82.38 Follicular lymphoma grade IIIa, lymph nodes of multiple sites; J94.0 Chylous effusion; E87.1 Hypo-osmolality and hyponatremia; K29.70 Gastritis, unspecified, without bleeding; K29.80 Duodenitis without bleeding; D70.9 Neutropenia, unspecified; J45.909 Unspecified asthma, uncomplicated; E78.00 Pure hypercholesterolemia, unspecified; K59.00 Constipation, unspecified; K12.30 Oral mucositis (ulcerative), unspecified; Z79.899 Other long term (current) drug therapy; Z88.8 Allergy status to other drugs, medicaments and biological substances; E78.5 Hyperlipidemia, unspecified; Z87.891 Personal history of nicotine dependence; D64.9 Anemia, unspecified

== ENCOUNTER 2018-12-08 08:20 | Emergency (ER) | payer MEDICARE, OTHER ==
[~2018-12-08 08:20] MED LIST changes: -/MOM400 PO; -/PANT40TA PO; -/WARF2TA PO; -/WARF4TA PO; -ALLO15TA PO; +ALLO300T2 PO; +COUM1TAB14 PO; +COUM1TAB16 PO; +LASI40TA9 PO; +MAGICMW SSP; +MILK10SU PO; +MIRA3350 PO; +ONDA8TAB7 PO; -PANT40TA2 PO; +PANT40TA3 PO; +PROC10TA4 PO; +PROT1TAB2 PO; -ZYLO300T4 PO; +ZYLO300T6 PO
[2018-12-08 08:21] VITALS: BP 159/74
[2018-12-08] MEDS ORDERED: LOTRCRE TOP (08:48)
== END 2018-12-08 08:58 | disposition home or self-care (01) ==
LOC: M ED 08:20
DX: B35.6 Tinea cruris (principal); I10 Essential (primary) hypertension; J45.909 Unspecified asthma, uncomplicated; K58.9 Irritable bowel syndrome, unspecified; K21.9 Gastro-esophageal reflux disease without esophagitis; C85.90 Non-Hodgkin lymphoma, unspecified, unspecified site; E78.00 Pure hypercholesterolemia, unspecified; Z79.899 Other long term (current) drug therapy; Z88.1 Allergy status to other antibiotic agents

== ENCOUNTER 2018-12-20 08:47 | Emergency (ER) | payer MEDICARE ==
[~2018-12-20] VITALS: Ht 162.6 cm; Wt 51.1 kg
[~2018-12-20 08:47] MED LIST changes: +LOTRCRE TOP; +ONDA8TAB10 PO; -ONDA8TAB7 PO; -SIMV20TA2 PO; +SIMV20TA22 PO
[2018-12-20] MEDS ORDERED: MONT10TA2 PO (08:59)
[2018-12-20] MEDS ORDERED: POTASSIUM CHLORIDE 10 MEQ SR TABLET PO ONE (09:45)
[2018-12-20 09:53] LABS: HEMATOCRIT 32.1 % (36.0-47.0); HEMOGLOBIN 10.6 g/dl (12.0-15.5); MEAN CORPUSCULAR HEMOGLOBIN 30.4 pg (27.0-33.0); PLATELET COUNT, AUTOMATED 232 10^3/uL (150-450); RED BLOOD COUNT 3.49 10^6/uL (4.00-5.40); WHITE BLOOD COUNT 6.2 10^3/uL (4.0-10.0)
--- NOTE | 2018-12-20 10:08 | REP ---
Clinical: Decreased breath sounds. Technique: PA and lateral. Comparison: 04/08/2017. Findings: Stable cardiomegaly and diffuse chronic interstitial changes appreciated. Bilateral chest tubes are identified. Pleuroparenchymal changes at the bilateral bases including blunting to the diaphragmatic surfaces and costophrenic angles may represent chronic change and/or small residual pleural reactions. No significant effusion. No obvious infiltrate. No pneumothorax. Skeletal structures intact. Impression: 1. Presumed chronic-appearing changes primarily involving the lower lobes and diaphragmatic pleural surfaces. Subtle superimposed small pleural reactions cannot be excluded. 2. No significant consolidation, effusion, or pneumothorax identified. Electronically Signed by Andrey Rodriguez MD 12/20/2018 10:00 A
[2018-12-20] MEDS ORDERED: ISOVUE-370 76% 100ML VIAL (Q9967) As Ordered ONE (10:32)
[2018-12-20 10:54] LABS: ALBUMIN 3.8 GM/DL (3.2-5.2); BILIRUBIN,TOTAL 0.5 MG/DL (0.2-1.0); CALCIUM LEVEL 10.3 MG/DL (8.8-10.2); GLOMERULAR FILTRATION RATE 57.1 (>39); TOTAL PROTEIN 6.8 GM/DL (6.4-8.2)
[2018-12-20 10:56] LABS: POTASSIUM SERUM 2.9 MEQ/L (3.5-5.1)
--- NOTE | 2018-12-20 11:13 | REP ---
Clinical: Evaluate for pleural effusion. Technique: Axial contrast enhanced images from the thoracic inlet to the upper abdomen with coronal and sagittal re-formations. Comparison: 04/04/2017. Findings: Single right and dual left-sided chest tubes are identified. The lung blount demonstrate chronic appearing pleuroparenchymal changes without consolidation. No evidence for pleural effusion. No pneumothorax. Tracheobronchial tree is patent. No significant mediastinal or hilar adenopathy. Atherosclerotic changes to the thoracic aorta and coronary arteries noted along with cardiomegaly. Moderate pericardial effusion is appreciated measuring roughly 12 mm in maximal width along the posterior dependent portion overlying the left ventricle. Prominent pulmonary vasculature suggests chronic pulmonary hypertension and appear unchanged compared to 2017. Ascending thoracic aorta measures 3.4 cm maximal diameter and remains stable compared to 2017. Bilateral axillary adenopathy (left greater than right) increased from prior examination with lymph nodes measuring up to 2.9 cm diameter. Impression: 1. New moderate pericardial effusion measuring 12 mm in maximal width along the posterior dependent portion overlying the left ventricle. 2. Bilateral axillary adenopathy increased from prior examination with lymph nodes up to 2.9 cm diameter. 3. Lung blount demonstrate mild/moderate chronic pleuroparenchymal changes without pleural effusion. Electronically Signed by Andrey Rodriguez MD 12/20/2018 11:04 A
[2018-12-20 12:01] VITALS: BP 215/95
--- NOTE | 2018-12-24 11:21 | ED PDOC ---
Post-Departure Follow-Up dr cruz faxed ct chest for fu pt left ama Raza Snow MD Dec 24, 2018 11:21
== END 2018-12-20 12:03 | disposition left against medical advice (07) ==
LOC: M ED 08:47
DX: J90 Pleural effusion, not elsewhere classified (principal); R60.0 Localized edema; Z97.8 Presence of other specified devices; J45.909 Unspecified asthma, uncomplicated; K21.9 Gastro-esophageal reflux disease without esophagitis; K58.9 Irritable bowel syndrome, unspecified; Z87.440 Personal history of urinary (tract) infections; M54.9 Dorsalgia, unspecified; Z85.72 Personal history of non-Hodgkin lymphomas; Z92.21 Personal history of antineoplastic chemotherapy; Z87.891 Personal history of nicotine dependence; Z79.899 Other long term (current) drug therapy; Z88.1 Allergy status to other antibiotic agents; Z53.21 Procedure and treatment not carried out due to patient leaving prior to being seen by health care provider
CPT/HCPCS: 71046; 71260; 80047; 80053; 81001; 83880; 85027; 87086; 99284; Q9967

== ENCOUNTER → 2018-12-27 | Outpatient (CLI) | payer MEDICARE ==
[~2018-12-27] MED LIST changes: -ONDA8TAB10 PO; +ONDA8TAB7 PO; +SIMV20TA2 PO; -SIMV20TA22 PO
--- NOTE | 2018-12-27 21:06 | ECHO ---
DATE OF PROCEDURE: 12/27/2018 REFERRING PHYSICIAN: Dr. Carlos Zuleta INDICATION: Pericardial effusion. Height 157 cm, weight 49 kg. MEASUREMENTS: IVS: 1.1 LV: 3.6 LVPW: 1.1 LA: 3.1 Aorta: 3.2 IVC: 1.2 Mitral E wave velocity: 79 A wave: 83 E prime septal: 4.7 E prime lateral: 5.4 FINDINGS: The study is of good technical quality. The patient is in sinus rhythm. Left ventricle is normal size and systolic function with estimated left ventricular ejection fraction (LVEF) 60-65%. Right ventricle also appears normal. Both atria are at least mildly enlarged. Aortic, mitral and tricuspid valves appear normal. Pulmonic valve also appears normal based on a little less optimal views. There is circumferential pericardial effusion that is largest in its dimension adjacent to right atrium. I do not appreciate any diastolic collapse, any of the four cardiac chambers. Inferior vena cava is normal size. Aortic root, aortic arch and abdominal aorta appear normal. Doppler interrogation of aortic valve reveals no stenosis or insufficiency. There is approximately [id number] mitral insufficiency and mild tricuspid insufficiency. Calculated pulmonary artery pressure is within normal limits. Mitral inflow pattern and tissue Doppler imaging of mitral annulus revealed grade 1 diastolic dysfunction. There was no prolonged demonstration of mitral or tricuspid inflow velocities. CONCLUSIONS: 1. Study is of good technical quality. 2. Normal left ventricular (LV) size and systolic function, grade 1 diastolic dysfunction. 3. [id number]-[id number] mitral insufficiency. 4. At least mild tricuspid insufficiency. 5. Approximately moderate size circumferential pericardial effusion without pericardial tamponade. 6. Normal central venous pressure and likely normal pulmonary artery pressure. COMMENT: Subacute bacterial endocarditis (SBE) prophylaxis is not recommended. Even though so far there has not been evidence for hemodynamic significance of pericardial effusion, I recommend early followup.
== END ==
LOC: M CARPUL 10:57
PROVIDERS: ATTEND Thoracic Surgery (Cardiothoracic Vascular Surgery)
DX: I31.3 Pericardial effusion (noninflammatory) (principal)

== ENCOUNTER → 2018-12-31 | Outpatient (REF) | payer MEDICARE ==
[2018-12-31 15:58] LABS: BASO # 0.1 10^3/uL (0.0-0.2); BASO % 0.9 % (0.0-1.0); EOS # 0.5 10^3/uL (0.0-0.50); EOS % 9.6 % (0.0-3.0); HEMATOCRIT 37.6 % (36.0-47.0); LYMPH # 0.9 10^3/uL (1.5-4.5); LYMPH % 15.6 % (24.0-44.0); MEAN CORPUSCULAR HEMOGLOBIN 30.5 pg (27.0-33.0); MEAN CORPUSCULAR HGB CONC 31.9 g/dl (32.0-36.5); MEAN CORPUSCULAR VOLUME 95.7 fl (80.0-96.0); MONO # 0.7 10^3/uL (0.0-0.8); MONO % 12.7 % (0.0-5.0); NEUTROPHILS # 3.4 10^3/uL (1.8-7.7); PLATELET COUNT, AUTOMATED 208 10^3/uL (150-450); RED BLOOD COUNT 3.93 10^6/uL (4.00-5.40); WHITE BLOOD COUNT 5.5 10^3/uL (4.0-10.0)
[2018-12-31 16:47] LABS: ALBUMIN 4.1 GM/DL (3.2-5.2); ALT/SGPT 13 U/L (12-78); BILIRUBIN,TOTAL 0.4 MG/DL (0.2-1.0); BLOOD UREA NITROGEN 10 MG/DL (7-18); CALCIUM LEVEL 10.3 MG/DL (8.8-10.2); CARBON DIOXIDE LEVEL 35 MEQ/L (21-32); CHLORIDE LEVEL 103 MEQ/L (98-107); CREATININE FOR GFR 0.92 MG/DL (0.55-1.30); FERRITIN 48 NG/ML (8-252); FOLATE 14.1 NG/ML; GLOMERULAR FILTRATION RATE > 60.0 (>39); GLUCOSE, FASTING 77 MG/DL (70-100); IRON (FE) 35 UG/DL (50-170); PERCENT SATURATION 11.9 % (13.2-45.0); SODIUM LEVEL 144 MEQ/L (136-145); TOTAL IRON BINDING CAPACITY 293 UG/DL (250-450); VITAMIN B12 LEVEL 872 PG/ML
== END ==
LOC: M SFHCPLAZ 13:16
PROVIDERS: ATTEND Family Medicine
DX: C82.38 Follicular lymphoma grade IIIa, lymph nodes of multiple sites (principal); D64.9 Anemia, unspecified; E87.6 Hypokalemia
CPT/HCPCS: 80053; 82607; 82728; 82746; 83550; 85025; 85046; G0463

== ENCOUNTER → 2019-01-18 | Outpatient (REF) | payer MEDICARE ==
[2019-01-18 10:32] LABS: BLOOD UREA NITROGEN 12 MG/DL (7-18); CALCIUM LEVEL 9.8 MG/DL (8.8-10.2); CARBON DIOXIDE LEVEL 31 MEQ/L (21-32); CHLORIDE LEVEL 105 MEQ/L (98-107); CREATININE FOR GFR 0.95 MG/DL (0.55-1.30); GLOMERULAR FILTRATION RATE > 60.0 (>39); GLUCOSE, FASTING 80 MG/DL (70-100); IRON (FE) 63 UG/DL (50-170); PHOSPHORUS LEVEL 2.7 MG/DL (2.5-4.9); POTASSIUM SERUM 3.7 MEQ/L (3.5-5.1); SODIUM LEVEL 144 MEQ/L (136-145)
== END ==
LOC: M SFHCPLAZ 08:32
PROVIDERS: ATTEND Family Medicine
DX: D64.9 Anemia, unspecified (principal)

== ENCOUNTER → 2019-07-15 | Outpatient (REF) | payer MEDICARE ==
[~2019-07-15] MED LIST changes: -MONT10TA2 PO; +MONT10TA4 PO; +ONDA8TAB10 PO; -ONDA8TAB7 PO; -SIMV20TA2 PO; +SIMV20TA22 PO
[2019-07-15 10:08] LABS: HEMOGLOBIN 13.4 g/dl (12.0-15.5); MEAN CORPUSCULAR HEMOGLOBIN 30.4 pg (27.0-33.0); MEAN CORPUSCULAR HGB CONC 31.2 g/dl (32.0-36.5); MEAN CORPUSCULAR VOLUME 97.5 fl (80.0-96.0); PLATELET COUNT, AUTOMATED 245 10^3/uL (150-450); RED BLOOD COUNT 4.41 10^6/uL (4.00-5.40); WHITE BLOOD COUNT 6.2 10^3/uL (4.0-10.0)
[2019-07-15 11:03] LABS: BLOOD UREA NITROGEN 16 MG/DL (7-18); CALCIUM LEVEL 10.5 MG/DL (8.8-10.2); CARBON DIOXIDE LEVEL 31 MEQ/L (21-32); CHLORIDE LEVEL 103 MEQ/L (98-107); CREATININE FOR GFR 0.87 MG/DL (0.55-1.30); FERRITIN 39 NG/ML (8-252); GLOMERULAR FILTRATION RATE > 60.0 (>39); GLUCOSE, FASTING 82 MG/DL (70-100); IRON (FE) 97 UG/DL (50-170); PERCENT SATURATION 27.2 % (13.2-45.0); POTASSIUM SERUM 4.1 MEQ/L (3.5-5.1); SODIUM LEVEL 140 MEQ/L (136-145); TOTAL IRON BINDING CAPACITY 357 UG/DL (250-450)
== END ==
LOC: M SFHCPLAZ 08:52
PROVIDERS: ATTEND Family Medicine
DX: C82.38 Follicular lymphoma grade IIIa, lymph nodes of multiple sites (principal); Z86.2 Personal history of diseases of the blood and blood-forming organs and certain disorders involving the immune mechanism; E87.6 Hypokalemia
CPT/HCPCS: 36415; 80048; 82728; 83550; 85027; G0463

== ENCOUNTER 2020-08-28 11:25 | Emergency (ER) | payer MEDICARE ==
[~2020-08-28] VITALS: Ht 160 cm; Wt 46.2 kg
[~2020-08-28 11:25] MED LIST changes: +MONT10TA10 PO; -MONT10TA4 PO; +PANT40TA29 PO; -PANT40TA3 PO; -PEG1POW PO; +POLY17PO18 PO
[2020-08-28] MEDS ORDERED: NS 500 ML IV ONE (12:00)
--- NOTE | 2020-08-28 12:41 | REP ---
INDICATION: weakness COMPARISON: 12/20/2018 TECHNIQUE: PA and lateral. FINDINGS: Bilateral chest tubes are in stable position. Chronic changes at the bilateral lung bases are again noted. No acute consolidation, new significant effusion, or pneumothorax. Skeletal structures are intact. Evidence for prior left axillary node dissection suggested. IMPRESSION: No acute cardiopulmonary process. <Electronically signed by Andrey Rodriguez > 08/28/20 [id number]
[2020-08-28 12:45] LABS: BASO # 0.1 10^3/uL (0.0-0.2); BASO % 0.8 % (0.0-1.0); EOS # 0.2 10^3/uL (0.0-0.5); HEMATOCRIT 38.9 % (36.0-47.0); LYMPH # 1.2 10^3/uL (1.5-5.0); LYMPH % 16.1 % (24.0-44.0); MEAN CORPUSCULAR HEMOGLOBIN 29.7 pg (27.0-33.0); MEAN CORPUSCULAR HGB CONC 30.8 g/dl (32.0-36.5); MEAN CORPUSCULAR VOLUME 96.3 fl (80.0-96.0); MONO # 0.6 10^3/uL (0.0-0.8); MONO % 7.7 % (2.0-8.0); NEUTROPHILS # 5.5 10^3/uL (1.5-8.5); NEUTROPHILS % 72.1 % (36.0-66.0); PLATELET COUNT, AUTOMATED 414 10^3/uL (150-450); RED BLOOD COUNT 4.04 10^6/uL (4.00-5.40); WHITE BLOOD COUNT 7.7 10^3/uL (4.0-10.0)
[2020-08-28 13:19] LABS: ALBUMIN 4.2 GM/DL (3.2-5.2); BILIRUBIN,DIRECT 0.1 MG/DL (0.0-0.2); BILIRUBIN,TOTAL 0.3 MG/DL (0.2-1.0); MAGNESIUM LEVEL 2.1 MG/DL (1.8-2.4); PHOSPHORUS LEVEL 3.8 MG/DL (2.5-4.9); TOTAL PROTEIN 7.4 GM/DL (6.4-8.2)
[2020-08-28] MEDS ORDERED: ISOVUE-370 76% 100ML VIAL As Ordered ONE (13:27)
[2020-08-28] MEDS ORDERED: MORPHINE 2 MG/ML 1ML VIAL (J2270) IV ONE (13:30)
--- NOTE | 2020-08-28 14:18 | REP ---
INDICATION: abd pain, weakness (hx of lymphoma). COMPARISON: 04/04/2017 TECHNIQUE: Axial contrast-enhanced images from the lung bases to the pubic symphysis using 100 cc Isovue 370 intravenous contrast material. Coronal and sagittal reformations obtained. This CT examination was performed using the following dose reduction techniques: Automated exposure control, adjustment of mA and/or kv according to the patient's size, and the use of iterative reconstruction technique. FINDINGS: Bilateral pleural catheters are identified along with catheter extending into the right side of the abdomen consistent with prior obtained history of pleural peritoneal shunt. Liver demonstrates few benign appearing cystic hypodensities measuring up to 2.5 cm and relatively similar to prior noncontrast CT. Spleen demonstrates vague central low-density areas which are nonspecific. Pancreas demonstrates dilated pancreatic duct and subtle vague low-density areas within the pancreatic head which are nonspecific and cannot be further evaluated. Gallbladder appears normal. Bilateral kidneys are relatively normal. The enteric system is without evidence for obstruction although a mild diffuse enterocolitis cannot be excluded. No free air to suggest perforation. Pelvis demonstrates normal bladder and evidence for prior hysterectomy. A small amount of ascites is suggested within the abdomen and pelvis. No obvious or significant adenopathy identified. Thoracic aorta without aneurysm or dissection. Skeletal structures without acute fracture although vague lytic areas primarily within the pelvis may represent degenerative changes versus osseous pathology. IMPRESSION: 1. Pleural peritoneal shunt in seemingly satisfactory position. Very small amount of ascites in the abdomen and pelvis. 2. Bowel gas pattern is nonspecific although a mild enterocolitis cannot be excluded. 3. Stable benign-appearing hepatic cysts. 4. Subtle vague area within the spleen is nonspecific and possibly related to incomplete perfusion rather than actual pathology. 5. Dilated pancreatic duct and possible vague area of low density in the region of the pancreatic head (although this may represent insinuating small amount of ascites) may warrant further investigation including outpatient MRI of the abdomen. <Electronically signed by Andrey Rodriguez > 08/28/20 [id number]
[2020-08-28] MEDS ORDERED: MIRA3350 PO (14:43)
[2020-08-28] MEDS ORDERED: COLA100C5 PO (14:43)
[2020-08-28] MEDS ORDERED: DULC10SU2 PR (14:43)
[2020-08-28 14:49] VITALS: BP 135/72
--- NOTE | 2020-08-28 19:38 | ED PDOC ---
Post-Departure Follow-Up ct abd/p faxed to tricia cruz and alvaro for fu Raza Snow MD Aug 28, 2020 19:38
== END 2020-08-28 15:03 | disposition home or self-care (01) ==
LOC: M ED 11:25
DX: K59.00 Constipation, unspecified (principal); K86.89 Other specified diseases of pancreas; R11.10 Vomiting, unspecified; K76.89 Other specified diseases of liver; C82.38 Follicular lymphoma grade IIIa, lymph nodes of multiple sites; Z88.1 Allergy status to other antibiotic agents; Z79.899 Other long term (current) drug therapy
CPT/HCPCS: 71046; 74177; 80047; 80076; 81001; 83690; 83735; 84100; 85025; 87088; 87186; 96361; 96374; 99284; J2270; Q9967

== ENCOUNTER 2020-09-04 16:59 | Inpatient (IN) | payer MEDICARE ==
[~2020-09-04] VITALS: Ht 160 cm; Wt 47.0 kg
[~2020-09-04 16:59] MED LIST changes: +COLA100C5 PO; +DULC10SU2 PR
--- NOTE | 2020-09-04 19:13 | REP ---
INDICATION: pleural tubes. COMPARISON: PA and lateral chest dated 08/28/2020 and abdomen/pelvis CT dated 08/28/2020. TECHNIQUE: Upright PA chest and supine abdomen two views. FINDINGS: There is a chest tube on the right. This appears to be a thoracotomy tube. There is a chest tube on the left. This appears to be a pleuroperitoneal tube with the distal tip in the abdomen. There is no pneumothorax or pleural fluid collection. The lung blount are clear. The cardiac size is normal. There is no free subdiaphragmatic air. Abdomen, 2 supine views The 2 chest tubes are again identified as previously described. The bowel gas pattern is normal. There are no calcifications except for a phlebolith in the pelvis. Skeletal structures and soft tissues otherwise are unremarkable. IMPRESSION: Bilateral chest tubes as described. <Electronically signed by Jas Magallanes > 09/04/20 [id number]
[2020-09-04] MEDS ORDERED: D31000TA2 PO (19:42)
[2020-09-04] MEDS ORDERED: DOK1CAP7 PO (19:42)
[2020-09-04] MEDS ORDERED: prevagen PO (19:45)
[2020-09-04 20:16] LABS: HEMATOCRIT 36.6 % (36.0-47.0); HEMOGLOBIN 11.3 g/dl (12.0-15.5); MEAN CORPUSCULAR HEMOGLOBIN 29.6 pg (27.0-33.0); MEAN CORPUSCULAR HGB CONC 30.9 g/dl (32.0-36.5); MEAN CORPUSCULAR VOLUME 95.8 fl (80.0-96.0); PLATELET COUNT, AUTOMATED 341 10^3/uL (150-450); RED BLOOD COUNT 3.82 10^6/uL (4.00-5.40); WHITE BLOOD COUNT 6.1 10^3/uL (4.0-10.0)
[2020-09-04 20:26] LABS: INR 0.89; PROTHROMBIN TIME 12.2 SECONDS (12.5-14.3)
[2020-09-04] MEDS ORDERED: LIDOCAINE 1% MDV 20ML VIAL As Ordered ONE ×2 (20:34→20:36)
[2020-09-04] MEDS ORDERED: MIDAZOLAM INJ 2MG/2ML VIAL (J2250 PER 1MG) As Ordered ONE ×2 (20:37→20:38)
[2020-09-04] MEDS ORDERED: flumazeniL 0.5 MG/5 ML VIAL As Ordered ONE (20:39)
[2020-09-04 20:43] LABS: BLOOD UREA NITROGEN 12 MG/DL (7-18); CALCIUM LEVEL 9.6 MG/DL (8.8-10.2); CARBON DIOXIDE LEVEL 31 MEQ/L (21-32); CHLORIDE LEVEL 106 MEQ/L (98-107); CREATININE FOR GFR 0.63 MG/DL (0.55-1.30); GLOMERULAR FILTRATION RATE > 60.0 (>32); GLUCOSE, FASTING 91 MG/DL (70-100); POTASSIUM SERUM 4.1 MEQ/L (3.5-5.1); SODIUM LEVEL 141 MEQ/L (136-145)
[2020-09-04 20:50] LABS: RSV AMPLIFICATION NEGATIVE (NEGATIVE)
[2020-09-04] MEDS ORDERED: MOM 30ML SUSPENSION UDC PO PRN (20:55)
[2020-09-04] MEDS ORDERED: MAALOX 30 ML SUSP *UDC PO PRN (20:55)
[2020-09-04] MEDS ORDERED: ACETAMINOPHEN TAB 650MG DOSE (2X325MG) PO PRN (20:55)
[2020-09-04] MEDS: DOCUSATE SODIUM 100MG CAPSULE PO SCH (21:00)
--- NOTE | 2020-09-04 21:05 | HPEPDOC ---
[facility] Medical History & Physical Date of Admission Sep 04, 2020 Date of Service: Sep 04, 2020 History and Physical CHIEF COMPLAINT: severed bilateral chest tubes HISTORY OF PRESENT ILLNESS: 80-year-old female with a history of grade 3 follicular lymphoma, hyper cholesterolemia, asthma, gastritis, suspected undiagnosed dementia, presented to the ER with her daughter after she had cut bilateral chest tubes that were inserted into her chest wall in 03/2017. The chest tubes were inserted for drainage of the effusions secondary to grade [address] Zuleta. Drained approximately twice per day until successful chemotherapy has reduced the amount of secretions. Patient chose to retain the tubes moving forward. According to her daughter. The patient had cut the chest tubes with scissors overnight. The patient herself does not remember doing this, but she shrugs her shoulders and says I guess I must have done it. Dr. Zuleta was consulted from the ER, plan for OR this evening to remove the chest tubes. Complaint of left-sided chest wall tenderness at the site of one of the tubes. She denies chest pain, seizures of breath, nausea, vomiting, diarrhea, fevers or chills. Redo the area on arrival, the patient's vitals were reviewed. Temperature 97.8. Pulse 66. Respiratory rate 20. Blood pressure 18 2/105. Pulse ox 97% on room air. White cell count 6.1. Hemoglobin 11.3. In 341. Na+ 141. K+ 4.1. BUN 12. Cr 0.63. Covid test negative. Chest x-ray in the ER showed a chest tube on the right. To be a thoracotomy tube. The chest tube on the left appearing to be a pleuroperitoneal tube with distal tip in the abdomen. There is no free subdiaphragmatic air. PAST MEDICAL HISTORY: GRADE 3A FOLLICULAR LYMPHOMA HYPERCHOLESTEROLEMIA : SHE HAS DECIDED TO STOP TREATING HER CHOLESTEROL AT THIS POINT IN HER LIFE CONSTIPATION INTERNAL HEMORRHOIDS ASTHMA HEMATURIA- URO GASTRITIS/DUODENAL ULCER HIATAL HERNIA XR LS SPINE MOD TO EARLY ADVANCED MULTILEVEL DD/OSTEOPHYTE DEXA 08/2015 MAMMO DECLINES PAST SURGICAL HISTORY: HYSTERECTOMY [address] KERN INTERNAL HEMORRHOIDS 07/31 EGD - DR. KERN - OOZING DUODENAL ULCER/GASTRITIS 12/2012 BILATERAL CATARACT EXTRACTION: MARCELA 2015 PLEURX CATHETER PLACEMENT ([place]) 02/2017 SOCIAL HISTORY: Lives alone. Son and daughter are her neighbors former smoker, no etoh use FAMILY HISTORY: FATHER: 87 YRS, LEUKEMIA MOTHER: 90 YRS, HEART DISEASE SIBLINGS: SISTER DUE TO RAYNAUDS AGE 28 BROTHERS (3) - NO KNOWN MEDICAL PROBLEMS SON(S): SON (1) - NO KNOWN MEDICAL PROBLEMS DAUGHTER(S): DAUGHTERS (2) - HYPOTHYROIDISM AND DM, 1 WITH HYPOTHYROIDISM AND SEIZURES 3 BROTHER(S) , 1 SISTER(S) - HEALTHY. 1 SON(S) , 2 DAUGHTER(S) - HEALTHY. ALLERGIES: Please see below. REVIEW OF SYSTEMS: 10 point ROS was completed, relevant findings are noted in the HPI. HOME MEDICATIONS: Please see below. PHYSICAL EXAMINATION: VITAL SIGNS: please see below General: NAD, comfortable HEENT: PERRLA, EOMI, sclerae clear Neck: supple, normal ROM, no JVD Respiratory: lungs CTAB, no wheeze, no rales, no crackles. Chest: bilateral severed chest tubes CVS: RRR, normal S1, S2, no murmurs Abdo: soft, no masses, no hepatosplenomegaly, BS+, no rebound tenderness Extremities: no edema, pulses 2+ MSK: no joint deformities, normal ROM Neuro: no focal neuro deficits, moving all 4 extremities, CN2-12 intact. Strength 5/5 in all 4 extremities. No nystagmus. Psych: calm, cooperative, AAO x 1-2 LABORATORY DATA: See below. IMAGING: CXR (09/04/20): There is a chest tube on the right. This appears to be a thoracotomy tube. There is a chest tube on the left. This appears to be a pleuroperitoneal tube with the distal tip in the abdomen. There is no pneumothorax or pleural fluid collection. The lung blount are clear. The cardiac size is normal. There is no free subdiaphragmatic air. Abdomen, 2 supine views The 2 chest tubes are again identified as previously described. The bowel gas pattern is normal. There are no calcifications except for a phlebolith in the pelvis. Skeletal structures and soft tissues otherwise are unremarkable. IMPRESSION: Bilateral chest tubes as described. MICROBIOLOGY: Please see below. ASSESSMENT: 80-year-old female with a history of grade 3 follicular lymphoma, hyper cholesterolemia, asthma, gastritis, suspected undiagnosed dementia, presented to the ER with her daughter after she had cut bilateral chest tubes that were inserted into her chest wall in 03/2017. Patient will be admitted to hospitalist service. Plan for OR by Dr. Zuleta this evening. PLAN: Severed bilateral chest tubes - inserted in 03/2017 for drainage of effusions 2/2 grade 3 follicular lymphoma - patient became confused overnight and cut the tubes - she has no memory of doing this - apart from slight L chest wall tenderness, she has not complaints. Saturating well. - CXR reviewed as above - No free air under diaphragm - Patient is planned for OR by Dr. Cortez to remove tubes - admit to PCU - O2 to maintain SpO2 > 92% - incentive spirometry HTN urgency - BP elevated 180s systolic - takes no medication at home - asymptomatic - start amlodipine 5 mg - one time captopril 3.125 mg once Anemia - check iron level, b12, folate - per PCP, patient had stopped taking her iron Hyperlipidemia - stopped lipitor on outpatient basis GERD/GI ppx - pantoprazole 40 mg daily Dispo: pending clinical improvement. PT/OT eval ordered. Vital Signs Vital Signs Date Time Temp Pulse Resp B/P (MAP) Pulse Ox O2 Delivery O2 Flow Rate FiO2 09/04/20 17:24 09/04/20 17:01 97.8 66 20 97 Room Air Laboratory Data Labs 24H Laboratory Tests 2 09/04/20 20:06: Nucleated Red Blood Cells % (auto) 0.0, Prothrombin Time 12.2, Prothromb Time International Ratio 0.89, Anion Gap 4L, Glomerular Filtration Rate > 60.0, Calcium Level 9.6, Coronavirus (COVID-19)(PCR) NEGATIVE, Influenza Type A (RT- PCR) NEGATIVE, Influenza Type B (RT-PCR) NEGATIVE, Respiratory Syncytial Virus (PCR) NEGATIVE CBC/BMP Laboratory Tests 09/04/20 20:06 Home Medications Scheduled Amlodipine Besylate (Amlodipine Besylate) 5 Mg Tablet, 5 MG PO DAILY Cholecalciferol (Vitamin D3) (Vitamin D3) 1,000 Unit Tablet, 1,000 UNITS PO DAILY Docusate Sodium (Dok) 100 Mg Capsule, 100 MG PO BID Scheduled PRN Acetaminophen (Acetaminophen) 325 Mg Tablet, 650 MG PO Q4H PRN for PAIN OR FEVER Allergies Coded Allergies: ciprofloxacin (Verified Allergy, Unknown, 12/08/18) A-FIB/CHADSVASC A-FIB History Current/History of A-Fib/PAF?: No Current PO Anticoag Therapy: No JAXSON TEE MD Sep 04, 2020 21:05
[2020-09-04 21:25] VITALS: BP 192/104
[2020-09-04] MEDS ORDERED: CAPTOpril 3.125 MG PER 1/4 TABLET PO ONE (21:40)
[2020-09-04] MEDS: amLODIPine 5 MG TAB PO SCH (22:14)
[2020-09-04 22:53] VITALS: BP 156/74
[2020-09-04] MEDS: NS 1,000 ML IV SCH (22:54)
[2020-09-05] MEDS ORDERED: hydrALAZINE 20MG/ML 1ML VIAL (J0360 PER 20MG) IV SCH
[2020-09-05 01:04] VITALS: BP 132/70
[2020-09-05] MEDS ORDERED: MUPIROCIN 2% OINT 22 GM TUBE TOP ONE (06:00)
[2020-09-05] MEDS ORDERED: ceFAZolin SOD 2 GM in IV 1 EA IV ONE (06:00)
[2020-09-05 07:16] VITALS: BP 137/65
[2020-09-05] MEDS ORDERED: ENOXAPARIN 40MG/0.4ML SYRINGE (J1650 PER 10MG) SC SCH (09:00)
[2020-09-05] MEDS ORDERED: SERTRALINE HCL 25 MG TABLET PO SCH (09:00)
[2020-09-05] MEDS: DOCUSATE SODIUM 100MG CAPSULE PO SCH ×2 (09:40→20:20)
[2020-09-05] MEDS: amLODIPine 5 MG TAB PO SCH (09:40)
[2020-09-05 10:27] LABS: EOS % 3.7 % (0.0-3.0); HEMOGLOBIN 11.2 g/dl (12.0-15.5); LYMPH % 14.9 % (24.0-44.0); MEAN CORPUSCULAR HEMOGLOBIN 29.8 pg (27.0-33.0); MEAN CORPUSCULAR HGB CONC 31.1 g/dl (32.0-36.5); MEAN CORPUSCULAR VOLUME 95.7 fl (80.0-96.0); MONO % 8.1 % (2.0-8.0); NEUTROPHILS % 72.4 % (36.0-66.0); PLATELET COUNT, AUTOMATED 339 10^3/uL (150-450); RED BLOOD COUNT 3.76 10^6/uL (4.00-5.40)
[2020-09-05 10:28] LABS: BASO % 0.7 % (0.0-1.0); EOS # 0.2 10^3/uL (0.0-0.5); LYMPH # 0.9 10^3/uL (1.5-5.0); MONO # 0.5 10^3/uL (0.0-0.8); NEUTROPHILS # 4.3 10^3/uL (1.5-8.5)
[2020-09-05 11:01] LABS: ALBUMIN 3.6 GM/DL (3.2-5.2); ALT/SGPT 11 U/L (12-78); BILIRUBIN,TOTAL 0.3 MG/DL (0.2-1.0); BLOOD UREA NITROGEN 8 MG/DL (7-18); CALCIUM LEVEL 9.3 MG/DL (8.8-10.2); CARBON DIOXIDE LEVEL 29 MEQ/L (21-32); CHLORIDE LEVEL 106 MEQ/L (98-107); CREATININE FOR GFR 0.59 MG/DL (0.55-1.30); GLOMERULAR FILTRATION RATE > 60.0 (>32); GLUCOSE, FASTING 77 MG/DL (70-100); MAGNESIUM LEVEL 2.1 MG/DL (1.8-2.4); SODIUM LEVEL 140 MEQ/L (136-145); TOTAL PROTEIN 6.6 GM/DL (6.4-8.2)
[2020-09-05 11:48] VITALS: BP 139/82
[2020-09-05] MEDS: NS 1,000 ML IV SCH (12:04)
--- NOTE | 2020-09-05 13:13 | CR ---
CONSULTATION DATE: 09/04/2020 He is seen at the request of Dr. Rich of the emergency room and the hospitalist service for treatment of two PleurX catheters that the patient has cut off in unknown circumstances. It was discovered by her family when they came to see her today, and then she was brought to the emergency room. She thinks that she cut them off at night. There is an element of dementia involved, but she does live independently with her family just down the street. She denies having a cough, fever, chills, or sweats, sputum production, chest pain, or dysphagia. She has not drained the tubes in 4 years. She is now an 80-year-old white female who in 2017 was diagnosed with follicular lymphoma with a high-output chylothorax, for which she underwent a pleural peritoneal shunt along with her two PleurX catheters. Shortly after she was discharged from the hospital, the PleurX catheters stopped draining after initiation of chemotherapy. She was offered to have them removed, but she declined. MEDICAL HISTORY: 1. Asthma with a history of duodenal ulcer, treated nonoperatively. 2. Hiatal hernia. 3. Degenerative disk disease. 4. Hypercholesterolemia. SURGICAL HISTORY: 1. Hysterectomy in 1996. 2. Colonoscopy with Dr. Berrios in July 2011, where gastritis was noted. 3. Bilateral cataract extractions in 2016. TRAVEL HISTORY: There is no travel history outside [facility]. She was born, raised, and educated in [facility] and has not left the area. There is no foreign travel. EXPOSURE: At present, no dogs, birds, or cats at home. No prior tuberculosis exposure. 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 There is no asbestos exposure. HABITS: She does not smoke, does not drink. She smoked for a year when she was a teenager but quit after a couple years. There are no illicit drug. FAMILY HISTORY: Father of leukemia and mother at 90 years of age with some type of heart disease and heart murmur. No other history of cancer other than leukemia in her family history. HOME MEDICATIONS: - vitamin D3 at 1000 units daily - docusate sodium 100 mg twice a day - Prevagen one tablet daily PHYSICAL EXAMINATION: Well-developed, well-nourished white female in no acute distress. Vital signs: Temperature 97.8 with a heart rate of 66 in a sinus rhythm, respiratory rate of 20 without the use of accessory muscles, who is 97% saturated on room air and whose blood pressure is 182/105. Eyes: Pupils equal, round, and reactive to light. Extraocular movements intact. Sclerae anicteric. Nose without deformity. Mouth shows the mucous membranes to be pink and moist. Lips and commissures without lesions. No thrush. She has multiple missing teeth. Neck is supple. There is no jugular venous distention. No subcutaneous emphysema. Trachea is midline. Lung show equal breath sounds on either side without wheezes, rhonchi, or rales. Percussion note is full to the diaphragm. Cardiac exam is without murmurs, clicks, gallops, or rubs. I cannot feel her point of maximal impulse (PMI). S1 and S2 are normal. Abdomen is soft and nontender. Bowel sounds are positive. There is no hepatomegaly. No costovertebral angle (CVA) tenderness. Her right PleurX catheter is cut almost at the skin, and that at bedtime been stabilized with a clamp. Her left PleurX catheter was cut near the hub, and that has also been secured with a clamp. Extremities show no pretibial edema, no calf tenderness, no differential swelling of the upper extremities. Skin is warm, dry, and perfused without cyanosis or mottling, including that of the nailbeds and knees. Neurologic shows II-XII intact. Normal gross motor, gross sensation intact. Gait is not tested. Psychiatric shows her to be awake, alert, and oriented times three with appropriate mood and affect. I do not detect any acute perfusion. Her white count today is 6.1 with a hemoglobin and hematocrit of 11.3 and 36.5. Platelet count is 341. There is no differential. Electrolytes are normal with a BUN and creatinine of 12 and 0.63, glucose is 91, and a calcium 9.6. Her PT/INR are 12.2 and 0.89. Her chest x-ray shows her lung fully expanded to the chest wall with sharp costophrenic angles. There is no evidence of a pleural effusion There is no lateral film, however. She has both a PleurX catheter and a pleural peritoneal shunt in the left and a PleurX catheter on the right side. I do not see any mediastinal widening suggestive of mediastinal lymphadenopathy. IMPRESSION: 1. Status post follicular lymphoma. 2. Status post chylothorax. 3. Status post placement of bilateral PleruX catheters. 4. Cut off bilateral PleurX catheters. 5. Dementia. PLAN AND DISCUSSION: I will take her to the operating room tomorrow, where I will remove her PleurX catheters. This is usually an outpatient procedure, but given her evident dementia we will keep her at least overnight until Monday. I have already talked to her family. They understand the need to remove the catheters and are in agreement.
[2020-09-05 15:47] VITALS: BP 128/65
--- NOTE | 2020-09-05 16:31 | IPNPDOC ---
Date Seen The patient was seen on 09/05/20. Progress Note SUBJECTIVE: patient was seen and examined at bedside. doing well. no acute events overnig OBJECTIVE PHYSICAL EXAMINATION: General: NAD, comfortable HEENT: PERRLA, EOMI, sclerae clear Neck: supple, normal ROM, no JVD Respiratory: lungs CTAB, no wheeze, no rales, no crackles. Chest: bilateral severed chest tubes CVS: RRR, normal S1, S2, no murmurs Abdo: soft, no masses, no hepatosplenomegaly, BS+, no rebound tenderness Extremities: no edema, pulses 2+ MSK: no joint deformities, normal ROM Neuro: no focal neuro deficits, moving all 4 extremities, CN2-12 intact. Strength 5/5 in all 4 extremities. No nystagmus. Psych: calm, cooperative, AAO x 1-2 LABORATORY DATA, IMAGING STUDIES, MICROBIOLOGY: Please see below. DVT prophylaxis ordered?:lovenox ASSESSMENT AND PLAN: CXR (09/04/20): There is a chest tube on the right. This appears to be a thoracotomy tube. There is a chest tube on the left. This appears to be a pleuroperitoneal tube with the distal tip in the abdomen. There is no pneumothorax or pleural fluid collection. The lung blount are clear. The cardiac size is normal. There is no free subdiaphragmatic air. Abdomen, 2 supine views The 2 chest tubes are again identified as previously described. The bowel gas pattern is normal. There are no calcifications except for a phlebolith in the pelvis. Skeletal structures and soft tissues otherwise are unremarkable. IMPRESSION: Bilateral chest tubes as described. MICROBIOLOGY: Please see below. ASSESSMENT: 80-year-old female with a history of grade 3 follicular lymphoma, hyper cholesterolemia, asthma, gastritis, suspected undiagnosed dementia, presented to the ER with her daughter after she had cut bilateral chest tubes that were inserted into her chest wall in 03/2017. Patient will be admitted to hospitalist service. Plan for OR by Dr. Zuleta this evening. PLAN: Severed bilateral chest tubes - inserted in 03/2017 for drainage of effusions 2/2 grade 3 follicular lymphoma - patient became confused overnight and cut the tubes - she has no memory of doing this - apart from slight L chest wall tenderness, she has not complaints. Saturating well. - CXR reviewed as above - No free air under diaphragm - Patient is planned for OR by Dr. Zuleta to remove tubes, on 09/06/20 - admit to PCU - O2 to maintain SpO2 > 92% - incentive spirometry HTN urgency - BP elevated 180s systolic on arrival, now improved - takes no medication at home - asymptomatic - start amlodipine 5 mg - one time captopril 3.125 mg once Anemia - check iron level, b12, folate - per PCP, patient had stopped taking her iron Hyperlipidemia - stopped lipitor on outpatient basis GERD/GI ppx - pantoprazole 40 mg daily Dispo: pending clinical improvement. PT/OT eval ordered. VS, I&O, 24H, Fishbone Vital Signs/I&O Vital Signs Date Time Temp Pulse Resp B/P (MAP) Pulse Ox O2 Delivery O2 Flow Rate FiO2 09/05/20 15:47 98.6 68 18 128/65 (86) 98 Room Air I&O- Last 24 Hours up to 6 AM 09/05/20 05:59 Intake Total 325 ml Output Total 600 ml Balance -275 ml Laboratory Data 24H LABS Laboratory Tests 2 09/04/20 20:06: Nucleated Red Blood Cells % (auto) 0.0, Prothrombin Time 12.2, Prothromb Time International Ratio 0.89, Anion Gap 4L, Glomerular Filtration Rate > 60.0, Calcium Level 9.6, Coronavirus (COVID-19)(PCR) NEGATIVE, Influenza Type A (RT-PCR) NEGATIVE, Influenza Type B (RT-PCR) NEGATIVE, Respiratory Syncytial Virus (PCR) NEGATIVE 09/05/20 09:33: Nucleated Red Blood Cells % (auto) 0.0, Anion Gap 5L, Glomerular Filtration Rate > 60.0, Calcium Level 9.3, Immature Granulocyte % (Auto) 0.2, Neutrophils (%) (Auto) 72.4H, Lymphocytes (%) (Auto) 14.9L, Monocytes (%) (Auto) 8.1H, Eosinophils (%) (Auto) 3.7H, Basophils (%) (Auto) 0.7, Neutrophils # (Auto) 4.3, Lymphocytes # (Auto) 0.9L, Monocytes # (Auto) 0.5, Eosinophils # (Auto) 0.2, Basophils # (Auto) 0.0, Magnesium Level 2.1, Total Bilirubin 0.3, Aspartate Amino Transf (AST/SGOT) 8, Alanine Aminotransferase (ALT/SGPT) 11L, Alkaline Phosphatase 60, Total Protein 6.6, Albumin 3.6, Albumin/Globulin Ratio 1.2 CBC/BMP Laboratory Tests 09/04/20 20:06 09/05/20 09:33 JAXSON TEE MD Sep 05, 2020 16:31
[2020-09-05 20:15] VITALS: BP 136/74
[2020-09-06] VITALS (9 sets, daily range): BP systolic 120–140; BP diastolic 61–79
[2020-09-06] MEDS: NS 1,000 ML IV SCH (01:25)
[2020-09-06 05:34] LABS: HEMATOCRIT 31.9 % (36.0-47.0); HEMOGLOBIN 10.1 g/dl (12.0-15.5); MEAN CORPUSCULAR HEMOGLOBIN 30.2 pg (27.0-33.0); MEAN CORPUSCULAR HGB CONC 31.7 g/dl (32.0-36.5); MEAN CORPUSCULAR VOLUME 95.5 fl (80.0-96.0); PLATELET COUNT, AUTOMATED 276 10^3/uL (150-450); RED BLOOD COUNT 3.34 10^6/uL (4.00-5.40); WHITE BLOOD COUNT 6.2 10^3/uL (4.0-10.0)
[2020-09-06 05:54] LABS: BLOOD UREA NITROGEN 8 MG/DL (7-18); CALCIUM LEVEL 8.5 MG/DL (8.8-10.2); CARBON DIOXIDE LEVEL 25 MEQ/L (21-32); CHLORIDE LEVEL 109 MEQ/L (98-107); GLOMERULAR FILTRATION RATE > 60.0 (>32); GLUCOSE, FASTING 90 MG/DL (70-100); POTASSIUM SERUM 3.8 MEQ/L (3.5-5.1); SODIUM LEVEL 141 MEQ/L (136-145)
[2020-09-06] MEDS ORDERED: ceFAZolin SOD 2 GM in IV 1 EA IV ONE (07:30)
[2020-09-06] MEDS ORDERED: fentaNYL 100 MCG/2 ML INJECTION (J3010) As Ordered ONE (07:42)
[2020-09-06] MEDS ORDERED: LIDOCAINE 2% 100MG/5ML SDV (FOR ANES.) As Ordered ONE (07:42)
[2020-09-06] MEDS ORDERED: MIDAZOLAM INJ 2MG/2ML VIAL (J2250 PER 1MG) As Ordered ONE (07:42)
[2020-09-06] MEDS ORDERED: propofoL 200 MG/20 ML VIAL As Ordered ONE (07:42)
--- NOTE | 2020-09-06 08:06 | ECGEPIP ---
[facility] - ED Test Date: 2020-09-04 Pat Name: NURYS ANAND Department: Room: [place] [address] Gender: Female [employer] Developer: Meggan ESTRELLA : 1940 Requested By: BRIAN MIGUEL Order Number: [id number] Reading MD: Stacia Cerda Measurements Intervals [place] Rate: 62 P: 55 MO: 176 QRS: -63 QRSD: 126 T: 38 QT: 428 QTc: 434 Interpretive Statements Normal sinus rhythm Right bundle branch block Left anterior fascicular block Bifascicular block Septal infarct , age undetermined decreased rate 03/25/17 Electronically Signed on 09-06-2020 8:06:26 EDT by Stacia Cerda
[2020-09-06] MEDS ORDERED: LIDOCAINE 1% SDV 30ML VIAL As Ordered ONE (08:18)
[2020-09-06] MEDS ORDERED: BUPIVACAINE LIPOSOME/PF 1.3% 20ML VIAL (13.3MG/ML)(EXPAREL)(C9290 PER1MG) As Ordered ONE (08:34)
[2020-09-06] MEDS ORDERED: ceFAZolin 2 GM/D5W 50 ML IV BAG (J0690 PER 500MG) As Ordered ONE (08:46)
--- NOTE | 2020-09-06 09:53 | REP ---
INDICATION: sp removal pleurex catheters. COMPARISON: 09/04/2020. TECHNIQUE: Portable AP chest with the patient sitting. FINDINGS: The right chest tube is been removed. There is no pneumothorax or pleural fluid collection. I suspect there is a skin fold along the right lateral chest wall. The left chest tube remains. This appears to be a pleural peritoneal tube as described in the previous report. There is no left pneumothorax or pleural fluid collection. There is no free subdiaphragmatic air. The lung blount are otherwise clear. Cardiac size is normal. The rivas, mediastinum, and skeletal structures are unremarkable. IMPRESSION: The right chest tube is been removed. The left chest tube, likely pleural peritoneal tube, is unchanged. <Electronically signed by Jas Magallanes > 09/06/20 0957
--- NOTE | 2020-09-06 11:00 | DS.PDOC ---
Discharge Summary General Date of Admission Sep 04, 2020 at 20:28 Date of Discharge 09/06/20 Primary Care Physician: Alexandre Mccarthy MD Attending Physician: JAXSON TEE MD Specialist/Consultants Involve: Carlos Zuleta M.D. Discharge Summary PROCEDURES PERFORMED DURING STAY: Removal of bilateral pleurX catheters from chest by Dr. Zuleta on 09/06/20. ADMITTING DIAGNOSES: damaged bilateral pleuralX catheters HTN urgency chronic iron deficiency anemia Hx of HLD Hx of GERD Suspected dementia DISCHARGE DIAGNOSES: damaged bilateral pleuralX catheters HTN urgency chronic iron deficiency anemia Hx of HLD Hx of GERD Suspected dementia COMPLICATIONS/CHIEF COMPLAINT: Admission For Pleual Drainage Tube Placement. HISTORY OF PRESENT ILLNESS: 80-year-old female with a history of grade 3 follicular lymphoma, hyper cholesterolemia, asthma, gastritis, suspected undiagnosed dementia, presented to the ER with her daughter after she had cut bilateral chest tubes that were inserted into her chest wall in 03/2017. The chest tubes were inserted for drainage of the effusions secondary to grade [address] Zuleta. Drained approximately twice per day until successful chemotherapy has reduced the amount of secretions. Patient chose to retain the tubes moving forward. According to her daughter. The patient had cut the chest tubes with scissors overnight. The patient herself does not remember doing this, but she shrugs her shoulders and says I guess I must have done it. Dr. Zuleta was consulted from the ER, plan for OR this evening to remove the chest tubes. Complaint of left-sided chest wall tenderness at the site of one of the tubes. She denies chest pain, seizures of breath, nausea, vomiting, diarrhea , fevers or chills. Redo the area on arrival, the patient's vitals were reviewed. Temperature 97.8. Pulse 66. Respiratory rate 20. Blood pressure 182/105. Pulse ox 97% on room air. White cell count 6.1. Hemoglobin 11.3. In 341. Na+ 141. K+ 4.1. BUN 12. Cr 0.63. Covid test negative. Chest x-ray in the ER showed bilateral pleurXs as L a pleuroperitoneal tube with distal tip in the abdomen. There is no free subdiaphragmatic air. HOSPITAL COURSE: Severed bilateral chest tubes - inserted in 03/2017 for drainage of effusions 2/2 grade 3 follicular lymphoma - patient became confused overnight and cut the tubes - she has no memory of doing this - apart from slight L chest wall tenderness, she has not complaints. Saturating well. - CXR reviewed as above - No free air under diaphragm - Dr. Zuleta, thoracic sx consulted - removed bilateral PleurX catheters in OR on 09/06/20 - L pleuroperitoneal shunt left in placed - follow up with Dr. Zuleta in 1 week. HTN urgency - BP elevated 180s systolic on arrival, now improved - one time captopril 3.125 mg once - takes no medication at home - asymptomatic - started amlodipine 5 mg Suspected Dementia - recommending formal assessment with geriatrics/neuropsych testing - per family, functional - daughter lives next door, soon a few houses away - daughter will stay with mother - home health referral placed - HSE by PT. Anemia - per PCP, patient had stopped taking her iron Hyperlipidemia - stopped lipitor on outpatient basis GERD/GI ppx - pantoprazole 40 mg daily Dispo: pending clinical improvement. PT/OT eval ordered. DISCHARGE MEDICATIONS: Please see below. ALLERGIES: Please see below. PHYSICAL EXAMINATION ON DISCHARGE: HEENT: PERRLA, EOMI, sclerae clear Neck: supple, normal ROM, no JVD Respiratory: lungs CTAB, no wheeze, no rales, no crackles. Chest: bialteral PleurX catheters removed. CVS: RRR, normal S1, S2, no murmurs Abdo: soft, no masses, no hepatosplenomegaly, BS+, no rebound tenderness Extremities: no edema, pulses 2+ MSK: no joint deformities, normal ROM Neuro: no focal neuro deficits, moving all 4 extremities, CN2-12 intact. Strength 5/5 in all 4 extremities. No nystagmus. Psych: calm, cooperative, AAO x 1-2 LABORATORY DATA: Please see below. IMAGING: CXR (09/06/20): FINDINGS: The right chest tube is been removed. There is no pneumothorax or pleural fluid collection. I suspect there is a skin fold along the right lateral chest wall. The left chest tube remains. This appears to be a pleural peritoneal tube as described in the previous report. There is no left pneumothorax or pleural fluid collection. There is no free subdiaphragmatic air. The lung blount are otherwise clear. Cardiac size is normal. The rivas, mediastinum, and skeletal structures are unremarkable. IMPRESSION: The right chest tube is been removed. The left chest tube, likely pleural peritoneal tube, is unchanged. Abdo flat film/PA chest (09/06/20): There is a chest tube on the right. This appears to be a thoracotomy tube. There is a chest tube on the left. This appears to be a pleuroperitoneal tube with the distal tip in the abdomen. There is no pneumothorax or pleural fluid collection. The lung blount are clear. The cardiac size is normal. There is no free subdiaphragmatic air. Abdomen, 2 supine views The 2 chest tubes are again identified as previously described. The bowel gas pattern is normal. There are no calcifications except for a phlebolith in the pelvis. Skeletal structures and soft tissues otherwise are unremarkable. IMPRESSION: Bilateral chest tubes as described. PROGNOSIS: good ACTIVITY: As tolerated DIET: 2g sodium restricted DISCHARGE PLAN: - DC home with family, will stay with patient - Follow up with Dr. Zuleta in 1 week - Follow up with PCP 3-5 days DISPOSITION: home with [facility] DISCHARGE INSTRUCTIONS: . Please follow-up with your primary care doctor within 3-5 days . Please follow-up with Dr. Zuleta in 1 week. . Please taking medications as prescribed. . If you develop bleeding, chest pain, shortness of breath, seizures, nausea, fevers, or otherwise worsening of your symptoms, please call 911 or return to the nearest emergency room DISCHARGE CONDITION: Stable TIME SPENT ON DISCHARGE: 35 minutes Vital Signs/I&Os Vital Signs Date Time Temp Pulse Resp B/P (MAP) Pulse Ox O2 Delivery O2 Flow Rate FiO2 09/06/20 10:19 97.3 61 18 122/61 (81) 100 Room Air I&O- Last 24 Hours up to 6 AM 09/06/20 06:00 Intake Total 1710 ml Output Total 200 ml Balance 1510 ml Laboratory Data Labs 24H Laboratory Tests 2 09/06/20 05:17: Nucleated Red Blood Cells % (auto) 0.0, Anion Gap 7L, Glomerular Filtration Rate > 60.0, Calcium Level 8.5L 09/06/20 06:45: Bedside Glucose (Misc Panel) 95 CBC/BMP Laboratory Tests 09/06/20 05:17 FSBS Laboratory Tests Test 09/06/20 06:45 Range/Units Bedside Glucose (Misc Panel) 95 83-110 MG/DL Discharge Medications Scheduled Cholecalciferol (Vitamin D3) (Vitamin D3) 1,000 Unit Tablet, 1,000 UNITS PO DAILY, (Reported) Docusate Sodium (Dok) 100 Mg Capsule, 100 MG PO BID, (Reported) [prevagen] , 1 TAB PO DAILY, (Reported) Allergies Coded Allergies: ciprofloxacin (Verified Allergy, Unknown, 12/08/18) JAXSON TEE MD Sep 06, 2020 11:00
[2020-09-06] MEDS: DOCUSATE SODIUM 100MG CAPSULE PO SCH (11:36)
[2020-09-06] MEDS: amLODIPine 5 MG TAB PO SCH (11:36)
[2020-09-06] MEDS ORDERED: AMLO1TAB24 PO (12:02)
[2020-09-06] MEDS ORDERED: ACET1TAB55 PO (12:02)
--- NOTE | 2020-09-06 13:20 | RO ---
OPERATIVE NOTE DATE OF OPERATION: 09/06/2020 PREOPERATIVE DIAGNOSIS: Cut-off left PleurX catheter by patient. POSTOPERATIVE DIAGNOSIS: Cut-off left PleurX catheter by patient. PROCEDURE: Removal of left PleurX catheter. SURGEON: Dr. Carlos Zuleta DESCRIPTION OF PROCEDURE: Under satisfactory monitored anesthesia care (MAC) anesthesia, patient had been prepped and draped in the usual sterile fashion. The sewing collar area was infiltrated with Exparel. Incision was made, and the sewing collar was then located and dissected free of the adventitial tissue by both sharp and blunt dissection. After freeing up the sewing collar, the PleurX catheter could be removed in toto. This was a little more difficult than the right side, requiring a bit of an extra pull; however, it did come out intact. The subcutaneous tissue was closed with running 3-0 Vicryl suture, and the skin was closed with running 4-0 Monopril subcuticular suture. Wounds were cleaned and coated with Dermabond. Patient tolerated the procedure well and left the operating room in satisfactory condition to the recovery room.
--- NOTE | 2020-09-06 13:32 | RO ---
OPERATIVE NOTE DATE OF OPERATION: 09/06/2020 PREOPERATIVE DIAGNOSIS: Cut-off right PleurX catheter. POSTOPERATIVE DIAGNOSIS: Cut-off right PleurX catheter. PROCEDURE: Removal of right PleurX catheter. SURGEON: Dr. Carlos Zuleta DESCRIPTION OF PROCEDURE: Under satisfactory monitored anesthesia care (MAC) sedation, the patient was prepped and draped in the usual sterile fashion. The area over the infiltrating collar was injected with Exparel, and an incision was made. The sewing collar was located and dissected by both blunt and sharp dissection. The sewing collar was finally freed from the surrounding adventitial tissue, and the PleurX catheter was removed in toto. The wound was closed with running 3-0 Vicryl suture for the subcutaneous tissue and running 4-0 Monopril subcuticular suture for the skin. Patient tolerated the procedure well, and attention was then turned to the left side.
== END 2020-09-06 13:43 | disposition home health service (06) | DRG 920 ==
LOC: M ED 16:59 → M ED INP 20:28 → ENRESERV 20:37 → M PCU 20:38
PROVIDERS: ADMIT Family Medicine; ATTEND Family Medicine
PROC: 0WP800Z Removal of Drainage Device from Chest Wall, Open Approach (ICD-10-PCS; principal; 2020-09-06 08:30)
DX: T85.698A Other mechanical complication of other specified internal prosthetic devices, implants and grafts, initial encounter (principal); C82.20 Follicular lymphoma grade III, unspecified, unspecified site; K21.9 Gastro-esophageal reflux disease without esophagitis; D50.9 Iron deficiency anemia, unspecified; I16.0 Hypertensive urgency; F03.90 Unspecified dementia, unspecified severity, without behavioral disturbance, psychotic disturbance, mood disturbance, and anxiety; E78.5 Hyperlipidemia, unspecified; J45.909 Unspecified asthma, uncomplicated; Z88.8 Allergy status to other drugs, medicaments and biological substances; K44.9 Diaphragmatic hernia without obstruction or gangrene; K64.8 Other hemorrhoids; K59.00 Constipation, unspecified; Z87.891 Personal history of nicotine dependence; Z98.41 Cataract extraction status, right eye; Z98.42 Cataract extraction status, left eye; Y83.1 Surgical operation with implant of artificial internal device as the cause of abnormal reaction of the patient, or of later complication, without mention of misadventure at the time of the procedure

== ENCOUNTER → 2020-09-17 | Outpatient (CLI) | payer MEDICARE ==
[~2020-09-17] MED LIST changes: +ACET1TAB55 PO; +AMLO1TAB24 PO; +D31000TA2 PO; +DOK1CAP7 PO; +prevagen PO
--- NOTE | 2020-09-17 08:53 | REPPI ---
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 FINDINGS: Stable catheter present in the left lower pleural space. The mediastinum and cardiac silhouette are normal. The lung blount demonstrate diffuse chronic changes without acute consolidation, significant effusion, or pneumothorax. The skeletal structures are intact and normal. IMPRESSION: No acute cardiopulmonary process. As above. <Electronically signed by Andrey Rodriguez > 09/17/20 0812
== END ==
LOC: M PLAIMG 08:32
PROVIDERS: ATTEND Thoracic Surgery (Cardiothoracic Vascular Surgery)
DX: I31.3 Pericardial effusion (noninflammatory) (principal); C82.93 Follicular lymphoma, unspecified, intra-abdominal lymph nodes; J98.4 Other disorders of lung